=== PATIENT | female | born 1960 | race African-American/Black ===

== ENCOUNTER 2018-07-12 05:38 | Emergency (ER) | payer BC ==
--- OUTSIDE RECORDS SUMMARY | 2018-07-12 05:41 | XMS REPORT ---
:1960 Author Organization eClinicalWorks Care Team Providers Name Role Phone Rios, Na Provider Role Unavailable Allergies No Known Allergies Problems Problem Type Condition Code Onset Dates Condition Status Problem Goiter E04.9 Active Problem Chronic obstructive pulmonary J44.9 Active disease Problem Diabetes mellitus type 2 in obese E11.9 Active Problem Gastroesophageal reflux disease, K21.9 Active esophagitis presence not specified Problem Fatigue, unspecified type R53.83 Active Problem Constipation, unspecified K59.00 Active constipation type Problem Smoker F17.200 Active Problem Pure hypercholesterolemia E78.00 Active Problem Acute allergic rhinitis J30.9 Active Problem Lateral epicondylitis of right M77.11 Active elbow Problem Nicotine dependence F17.200 Active Assessment Insomnia G47.00 Active Problem Wheezing R06.2 Active Problem Acute bronchitis J20.9 Active Problem Gastro-esophageal reflux disease K21.9 Active without esophagitis Problem Insomnia G47.00 Active Problem Depression with anxiety F41.8 Active Problem Hypertension I10 Active Medications Medication Code System Code Instructions Start End Date Status Dosage Date Jose De Jesus [facility] 06497023887 10 MG Orally Active 1 tablet at Once a day bedtime as needed Results No Known Results Summary Purpose eClinicalWorks Submission
--- OUTSIDE RECORDS SUMMARY | 2018-07-12 05:41 | XMS REPORT ---
[...] Active elbow Problem Nicotine dependence F17.200 Active Problem Wheezing R06.2 Active Problem Acute bronchitis J20.9 Active Problem Gastro-esophageal reflux disease K21.9 Active without esophagitis Problem Insomnia G47.00 Active Problem Depression with anxiety F41.8 Active Problem Hypertension I10 Active Medications No Known Medications Results No Known Results Summary Purpose eClinicalWorks Submission
--- OUTSIDE RECORDS SUMMARY | 2018-07-12 05:41 | XMS REPORT ---
:1960 Author Organization eClinicalWorks Care Team Providers Name Role Phone Rios, Na Provider Role Unavailable Allergies, Adverse Reactions, Alerts Substance Reaction Event Type N.K.D.A. Info Not Available Non Drug Allergy Problems Problem Type Condition Code Onset Dates Condition Status Problem Acute bronchitis J20.9 Active Problem Hypertension I10 Active Problem Insomnia G47.00 Active Problem Lateral epicondylitis of right M77.11 Active elbow Assessment Depression with anxiety F41.8 Active Problem Smoker F17.200 Active Assessment Insomnia G47.00 Active Assessment Fatigue, unspecified type R53.83 Active Problem Acute allergic rhinitis J30.9 Active Problem Diabetes mellitus type 2 in obese E11.9 Active Problem Goiter E04.9 Active Problem Pure hypercholesterolemia E78.00 Active Problem Chronic obstructive pulmonary J44.9 Active disease Assessment Lateral epicondylitis of right M77.11 Active elbow Assessment Hypertension I10 Active Assessment Chronic obstructive pulmonary J44.9 Active disease Assessment Pure hypercholesterolemia E78.00 Active Problem Nicotine dependence F17.200 Active Problem Gastro-esophageal reflux disease K21.9 Active without esophagitis Assessment Tobacco abuse counseling Z71.6 Active Assessment Diabetes mellitus type 2 in obese E11.9 Active Problem Depression with anxiety F41.8 Active Assessment Smoker F17.200 Active Problem Wheezing R06.2 Active Medications Medication Code Code Instructions Start End Status Dosage System Date Date Duexis [facility] 31849534159 800-26.6 MG Nov Active 1 tablet Orally Three 25, 25, times a day 2017 2017 Symbicort [facility] 78645936587 160-4.5 Active 2 puffs MCG/ACT Inhalation Twice a day Cyclobenzaprine [facility] 68080532062 5 MG Orally Active 1 tablet as HCl Three times a needed day Ambien [facility] 60998432023 10 MG Orally Active 1 tablet at Once a day bedtime as needed Omeprazole [facility] 49550003325 40 MG Active TAKE ONE CAPSULE BY MOUTH EVERY DAY Lipitor [facility] 63450683659 40 MG Orally Active 1 tablet Once a day Lasix [facility] 90659787725 20 MG Orally Active 1 tablet Once a day Celexa [facility] 95467741243 20 MG Orally Active 1 tablet Once a day Citalopram [facility] 75404962956 40 MG Orally Sept Active 0.5 tablet Hydrobromide Once a day 2017 Glyxambi [facility] 37479990237 25-5 MG Active TAKE 1 TABLET BY MOUTH EVERY MORNING Metformin HCl [facility] 06516250905 1000 MG Orally Active 1 tablet Twice a day with meals Amaryl [facility] 78695675479 4 MG Orally Active 1 tablet Once a day with breakfast or the first main meal of the day Zestoretic [facility] 17867183429 10-12.5 MG Active TAKE 1 TABLET BY MOUTH EVERY DAY Amitriptyline HCl [facility] 68499517648 10 MG Orally Active 1 tablet Once a day Glyxambi [facility] 68829563702 25-5 MG Orally Active 1 tablet in Once a day the morning Zestoretic [facility] [address]-92 12.5-10 MG Active 1 tablet Orally Once a day Ultram [facility] 98912345994 50 MG Orally Active 1 tablet as every 6 hrs needed Results No Known Results Summary Purpose eClinicalWorks Submission
--- OUTSIDE RECORDS SUMMARY | 2018-07-12 05:41 | XMS REPORT ---
:1960 Author Organization eClinicalWorks Care Team Providers Name Role Phone Rios, Na Provider Role Unavailable Allergies, Adverse Reactions, Alerts Substance Reaction Event Type N.K.D.A. Info Not Available Non Drug Allergy Problems Problem Type Condition Code Onset Dates Condition Status Assessment Tobacco abuse counseling Z71.6 Active Assessment Smoker F17.200 Active Assessment Insomnia G47.00 Active Problem Insomnia G47.00 Active Assessment Gastroesophageal reflux disease, K21.9 Active esophagitis presence not specified Problem Hypertension I10 Active Assessment Yeast infection of the vagina B37.3 Active Problem Goiter E04.9 Active Problem Chronic obstructive pulmonary J44.9 Active disease Problem Diabetes mellitus type 2 in obese E11.9 Active Problem Gastroesophageal reflux disease, K21.9 Active esophagitis presence not specified Problem Fatigue, unspecified type R53.83 Active Assessment Pure hypercholesterolemia E78.00 Active Assessment Chronic obstructive pulmonary J44.9 Active disease Problem Constipation, unspecified K59.00 Active constipation type Assessment Depression with anxiety F41.8 Active Problem Smoker F17.200 Active Problem Pure hypercholesterolemia E78.00 Active Problem Acute allergic rhinitis J30.9 Active Problem Lateral epicondylitis of right M77.11 Active elbow Problem Nicotine dependence F17.200 Active Assessment Hypertension I10 Active Assessment Diabetes mellitus type 2 in obese E11.9 Active Problem Wheezing R06.2 Active Problem Acute bronchitis J20.9 Active Problem Gastro-esophageal reflux disease K21.9 Active without esophagitis Problem Depression with anxiety F41.8 Active Medications Medication Code Code Instructions Start End Status Dosage System Date Date Ambien [facility] 65912054965 10 MG Orally Inactive 1 tablet at Once a day bedtime as needed Zestoretic [facility] 79267991345 10-12.5 MG Active TAKE 1 TABLET BY MOUTH EVERY DAY Symbicort [facility] 54412899363 160-4.5 August Active 2 puffs MCG/ACT 2018 Twice a day Zestoretic [facility] [address]-64 12.5-10 MG Active 1 tablet Orally Once a day Linzess NDC 33074141125 145 MCG Orally Jan Active 1 capsule Once a day 2017 Amitriptyline HCl ND 50651390865 10 MG Orally Active 1 tablet Once a day Metformin HCl ND 06103123583 1000 MG Active TAKE 1 TABLET BY MOUTH TWICE A DAY Omeprazole ND 50514162637 40 MG Active TAKE ONE CAPSULE BY MOUTH EVERY DAY Cyclobenzaprine ND 99672724284 5 MG Orally Active 1 tablet as HCl Three times a needed day Lipitor ND 92596033678 40 MG Orally Active 1 tablet Once a day Ultram ND 93744953487 50 MG Orally Active 1 tablet as every 6 hrs needed Lasix ND 84006681576 20 MG Orally Active 1 tablet Once a day Fluconazole ND 60092062208 150 MG Orally Apr Active 1 tablet one tab a week , , and 2018 repeat one tab in 1 week if no improvement Polyethylene ND 33034001041 - Orally Once Feb Active 1 packet Glycol 3350 a day , mixed with 8 2017 2018 ounces of fluid Amaryl ND 40044192115 4 MG Orally Active 1 tablet Once a day with breakfast or the first main meal of the day Metformin HCl ND 11657545100 1000 MG Orally Active 1 tablet Twice a day with meals Glimepiride ND 28152719854 4 MG Active TAKE 1 TABLET BY MOUTH TWICE A DAY Celexa ND 71286613610 20 MG Orally Active 1 tablet Once a day Glyxambi [facility] 68224460724 25-5 MG Orally Active 1 tablet in Once a day the morning Citalopram [facility] 37160468470 40 MG Orally Active 1 tablet Hydrobromide Once a day Glyxambi [facility] 50253033218 25-5 MG Active TAKE 1 TABLET BY MOUTH EVERY MORNING Results No Known Results Summary Purpose eClinicalWorks Submission
--- OUTSIDE RECORDS SUMMARY | 2018-07-12 05:41 | XMS REPORT ---
:1960 Author Organization eClinicalWorks Care Team Providers Name Role Phone Rios, Na Provider Role Unavailable Allergies No Known Allergies Problems Problem Type Condition Code Onset Dates Condition Status Problem Acute bronchitis J20.9 Active Problem Hypertension I10 Active Problem Insomnia G47.00 Active Problem Lateral epicondylitis of right M77.11 Active elbow Problem Smoker F17.200 Active Problem Acute allergic rhinitis J30.9 Active Problem Diabetes mellitus type 2 in obese E11.9 Active Problem Goiter E04.9 Active Problem Pure hypercholesterolemia E78.00 Active Problem Chronic obstructive pulmonary J44.9 Active disease Problem Nicotine dependence F17.200 Active Problem Gastro-esophageal reflux disease K21.9 Active without esophagitis Assessment Lateral epicondylitis of right M77.11 Active elbow Problem Depression with anxiety F41.8 Active Problem Wheezing R06.2 Active Medications Medication Code System Code Instructions Start Date End Date Status Dosage Duexis [facility] 12058980813 800-26.6 MG Dec 04, Jan 03, Active 1 tablet Orally Three 2017 2018 times a day Results No Known Results Summary Purpose eClinicalWorks Submission
--- OUTSIDE RECORDS SUMMARY | 2018-07-12 05:41 | XMS REPORT ---
:1960 Author Organization eClinicalWorks Care Team Providers Name Role Phone Rios, Na Provider Role Unavailable Allergies, Adverse Reactions, Alerts Substance Reaction Event Type N.K.D.A. Info Not Available Non Drug Allergy Problems Problem Type Condition Code Onset Dates Condition Status Assessment Tobacco abuse counseling Z71.6 Active Assessment Smoker F17.200 Active Assessment Chronic obstructive pulmonary J44.9 Active disease Assessment Insomnia G47.00 Active Problem Insomnia G47.00 Active Assessment Gastroesophageal reflux disease, K21.9 Active esophagitis presence not specified Problem Hypertension I10 Active Assessment Abdominal mass, LUQ (left upper R19.02 Active quadrant) Problem Goiter E04.9 Active Problem Chronic obstructive pulmonary J44.9 Active disease Problem Diabetes mellitus type 2 in obese E11.9 Active Problem Gastroesophageal reflux disease, K21.9 Active esophagitis presence not specified Problem Fatigue, unspecified type R53.83 Active Assessment Hypertension I10 Active Assessment Pure hypercholesterolemia E78.00 Active Problem Constipation, unspecified K59.00 Active constipation type Assessment Depression with anxiety F41.8 Active Problem Smoker F17.200 Active Problem Pure hypercholesterolemia E78.00 Active Problem Acute allergic rhinitis J30.9 Active Problem Lateral epicondylitis of right M77.11 Active elbow Problem Nicotine dependence F17.200 Active Assessment Left upper quadrant pain R10.12 Active Assessment Diabetes mellitus type 2 in obese E11.9 Active Problem Wheezing R06.2 Active Problem Acute bronchitis J20.9 Active Problem Gastro-esophageal reflux disease K21.9 Active without esophagitis Problem Depression with anxiety F41.8 Active Medications Medication Code Code Instructions Start End Status Dosage System Date Date Lipitor [facility] 89247940735 40 MG Orally Active 1 tablet Once a day Polyethylene [facility] 98148904941 - Orally Once Mar 07August Active 1 packet Glycol 3350 a day 2017, mixed with 2019 8 ounces of fluid Symbicort [facility] 34794519986 160-4.5 Active 2 puffs MCG/ACT Inhalation Twice a day Amitriptyline HCl [facility] 52963781121 10 MG Orally Active 1 tablet Once a day Ultram [facility] 18542847342 50 MG Orally Active 1 tablet as every 6 hrs needed Amaryl [facility] 95658871509 4 MG Orally Active 1 tablet Once a day with breakfast or the first main meal of the day Cyclobenzaprine [facility] 51498410258 5 MG Orally Active 1 tablet as HCl Three times a needed day Glyxambi [facility] 50005021720 25-5 MG Orally Active 1 tablet in Once a day the morning Citalopram [facility] 76052356548 40 MG Orally Active 1 tablet Hydrobromide Once a day Celexa [facility] 83793703711 20 MG Orally Active 1 tablet Once a day Glimepiride [facility] 34920332855 4 MG Active TAKE 1 TABLET BY MOUTH TWICE A DAY Glyxambi [facility] 63904525555 25-5 MG Active TAKE 1 TABLET BY MOUTH EVERY MORNING Metformin HCl [facility] 74319813023 1000 MG Orally Active 1 tablet Twice a day with meals Omeprazole [facility] 26017016813 40 MG Active TAKE ONE CAPSULE BY MOUTH EVERY DAY Zestoretic [facility] [address]-27 12.5-10 MG Active 1 tablet Orally Once a day Lasix [facility] 73644817649 20 MG Orally Active 1 tablet Once a day Ambien [facility] 05927171029 10 MG Orally Inactive 1 tablet at Once a day bedtime as needed Zestoretic [facility] 84756622120 10-12.5 MG Active TAKE 1 TABLET BY MOUTH EVERY DAY Metformin HCl [facility] 91548239626 1000 MG Active TAKE 1 TABLET BY MOUTH TWICE A DAY Results Name Result Date Reference Range Unit Abnormality Flag Urine Microalbumin, Random ----UR MICROALBUMIN <0.5 [id number] < 1.9 mg/dL HPY BREATH ADULT ----HPY BREATH ADULT NOT DETECTED [id number] NOT DETECTED CBC with Automated Diff ----Basophils % 0.6 20180531 0-1.3 % ----Eosinophils % 1.7 20180531 0-4.4 % ----Absolute 1.9 20180531 0.7-4.9 Lymphocytes (CBC) ----Absolute Neutrophil 5.2 20180531 1.8-8.0 ----Red Cell 13.6 20180531 12.1-15.2 % Distribution Width ----Absolute 0.1 16212096 0-0.5 Eosinophils ----Platelets 343 86409853 152-406 ----Absolute Monocytes 0.4 36683563 0.1-1.3 ----MCHC 32.2 68052504 32.0-36.0 g/dL ----MCH 29.5 [id number] 27.0-35.0 pg ----MCV 91.9 41958099 80-100 fL ----Neutrophils % 67.8 41846527 41.7-73.7 % ----MPV 8.1 92755603 7.6-11.3 fL ----Monocytes % 5.1 02019632 3.3-12.3 % ----Lymphocytes % 24.8 73764809 15.3-44.8 % ----Absolute Basophils 0.0 12677466 0-0.5 ----White Blood Count 7.7 70085397 4.3-10.9 ----RBC Red Blood Cell 4.44 64338823 3.86-4.86 M/ul Count ----Hemoglobin 13.1 58002187 12.0-15.0 g/dL ----Hematocrit 40.8 47964417 36.0-45.0 % TSH Thyroid Stimulating Hormone ----Thyroid Stimulating 0.921 51839603 0.360-3.740 [iU]/L Hormone Lipid Profile ----Cholesterol/HDL 6.25 32677548 Ratio ----LDL Cholesterol, 198 34054380 <130 H Calculated ----HDL Cholesterol 44 11151081 40-60 mg/dL ----Triglycerides Level 167 17589932 <150 mg/dL H ----Cholesterol Level 275 55299794 <200 mg/dL H Hemoglobin A1C ----Hemoglobin A1c 9.1 [id number] 4.2-6.3 % H Summary Purpose eClinicalWorks Submission
--- OUTSIDE RECORDS SUMMARY | 2018-07-12 05:41 | XMS REPORT ---
[...] Problem Hypertension I10 Active Medications Medication Code Code Instructions Start End Status Dosage System Date Date [facility] 17037364279 - Orally Once a Mar 07August Active 1 packet Glycol 3350 day 2017 with 8 ounces of fluid Results No Known Results Summary Purpose eClinicalWorks Submission
[2018-07-12] MEDS ORDERED: SMZ./TMP. 800/160 MG TABLET ONE (06:32)
[2018-07-12] MEDS ORDERED: LIDOCAINE 1% MPF 5 ML VIAL ONE (06:32)
[2018-07-12] MEDS ORDERED: BUPIVACAINE 0.5% PF 10 ML VIAL ONE (06:32)
--- NOTE | 2018-07-12 06:40 | EDPHYS ---
Physician Documentation [facility] Name: Tyra Espitia Age: 58 yrs Sex: Female : 1960 Arrival Date: 07/12/2018 Time: 05:39 Bed 15 Private MD: Ami Rios ED Physician [place] HPI: 07/12 06:01 This 58 yrs old Black Female presents to ER via Ambulatory with complaints of Finger kb Pain-Infection. 06:01 The patient presents with an abscess of the dorsal aspect of distal phalanx of right kb index finger. Description: erythematous, fluctuant, swollen, warm. Onset: The symptoms/episode began/occurred 2 week(s) ago. Possible cause(s): unknown. Associated signs and symptoms: Pertinent positives: erythema, swelling, Pertinent negatives: discharge, drainage, foreign body sensation, fever, headache, nausea, shortness of breath, vomiting. Modifying factors: the symptoms are alleviated by nothing, the symptoms are aggravated by pressure, squeezing the lesion and expressing the contents, touching. Severity of symptoms: At their worst the symptoms were moderate, in the emergency department the symptoms are unchanged. The patient has not experienced similar symptoms in the past. The patient has not recently seen a physician. Pt reports an infection on her finger that started 2 weeks ago. Historical: - Allergies: 06:03 No Known Allergies; jd3 - Home Meds: 06:03 gabapentin oral oral [Active]; Metformin Oral [Active]; glyburide Oral [Active]; jd3 Glyxambi oral oral [Active]; Lisinopril Oral [Active]; citalopram oral [Active]; Omeprazole Oral [Active]; atorvastatin oral oral [Active]; - PMHx: 06:03 Diabetes - NIDDM; Hypertension; High Cholesterol; jd3 - PSHx: 06:03 ; right ankle sugery with plate and pin; jd3 - Immunization history:: Adult Immunizations up to date. - Social history:: Smoking status: Patient uses tobacco products, smokes one-half pack cigarettes per day. - Ebola Screening: : Patient negative for fever greater than or equal to 101.5 degrees Fahrenheit, and additional compatible Ebola Virus Disease symptoms. ROS: 06:01 Constitutional: Negative for fever, chills, and weight loss, Cardiovascular: Negative kb for chest pain, palpitations, and edema, Respiratory: Negative for shortness of breath, cough, wheezing, and pleuritic chest pain, Abdomen/GI: Negative for abdominal pain, nausea, vomiting, diarrhea, and constipation, MS/Extremity: Negative for injury and deformity, Neuro: Negative for headache, weakness, numbness, tingling, and seizure. 06:01 Skin: Positive for abscess, erythema, swelling, of the dorsal aspect of distal phalanx of right index finger. Exam: 06:01 Constitutional: This is a well developed, well nourished patient who is awake, alert, kb and in no acute distress. Head/Face: Normocephalic, atraumatic. Neck: Trachea midline, no thyromegaly or masses palpated, and no cervical lymphadenopathy. Supple, full range of motion without nuchal rigidity, or vertebral point tenderness. No Meningismus. Chest/axilla: Normal chest wall appearance and motion. Nontender with no deformity. No lesions are appreciated. Cardiovascular: Regular rate and rhythm with a normal S1 and S2. No gallops, murmurs, or rubs. Normal PMI, no JVD. No pulse deficits. Respiratory: Lungs have equal breath sounds bilaterally, clear to auscultation and percussion. No rales, rhonchi or wheezes noted. No increased work of breathing, no retractions or nasal flaring. Abdomen/GI: Soft, non-tender, with normal bowel sounds. No distension or tympany. No guarding or rebound. No evidence of tenderness throughout. MS/ Extremity: Pulses equal, no cyanosis. Neurovascular intact. Full, normal range of motion. Neuro: Awake and alert, GCS 15, oriented to person, place, time, and situation. Cranial nerves II-XII grossly intact. Motor strength 5/5 in all extremities. Sensory grossly intact. Cerebellar exam normal. Normal gait. 06:01 Skin: abscess, that is moderate sized, of the dorsal aspect of distal phalanx of right index finger, with fluctuance. Vital Signs: 06:04 BP 115 / 97; Pulse 107; Resp 17 S; Temp 98.8(O); Pulse Ox 97% on R/A; Weight 112.49 kg jd3 (R); Height 5 ft. 4 in. (162.56 cm) (R); Pain 10/10; 06:29 BP 123 / 72; Pulse 99; Resp 18 S; Pulse Ox 95% on R/A; jd3 06:04 Body Mass Index 42.57 (112.49 kg, 162.56 cm) jd3 Procedures: 06:25 Nerve block: (digital) of palmar aspect of proxima; phalanx of right index finger kb Medication: Lidocaine 1% without epinephrine Marcaine 0.5%, Amount: 3 mls were injected, Effect: the patient has resolution of the pain, Set up for procedure. Performed by Georgia AGUILAR Patient tolerated well. 06:38 I \T\ D: Incision and drainage was performed for an abscess of the right dorsal aspect of kb distal phalanx of right index finger Prepped with alcohol, Anesthetized with lidocaine/marcaine digital block. Incised with 18G needle. Drained moderate amount purulent fluid. Dressing: bandaid the patient tolerated the procedure well. MDM: 05:57 Patient medically screened. kb 06:00 Data reviewed: vital signs, nurses notes. Data interpreted: Pulse oximetry: on room air kb is 100 %. Interpretation: normal. Counseling: I had a detailed discussion with the patient and/or guardian regarding: the historical points, exam findings, and any diagnostic results supporting the discharge/admit diagnosis, the need for outpatient follow up, a family practitioner, to return to the emergency department if symptoms worsen or persist or if there are any questions or concerns that arise at home. Administered Medications: 06:22 Drug: Marcaine (0.5 %) 1 vials {Note: given by Georgia AGUILAR.} Volume: 10 ml; jd3 Route: Infiltration; 06:44 Follow up: Response: No adverse reaction jd3 06:22 Drug: Bactrim (160 mg-800 mg (DS) 1 tablet Route: PO; jd3 06:44 Follow up: Response: No adverse reaction jd3 06:23 Drug: Lidocaine (1 %) 1 vials {Note: given by Georgia AGUILAR.} Volume: 5 ml; jd3 Route: Infiltration; 06:44 Follow up: Response: No adverse reaction jd3 Disposition: 06:47 Co-signature as Attending Physician, eBn Madera MD I agree with the assessment and mercedes plan of care. Disposition: 07/12/18 06:39 Discharged to Home. Impression: Cutaneous abscess of right hand - paronychia. - Condition is Stable. - Discharge Instructions: Paronychia, Qong-iy-Blyv. - Prescriptions for Bactrim DS 800- 160 mg Oral Tablet - take 1 tablet by ORAL route every 12 hours for 7 days; 14 tablet. - Medication Reconciliation Form, Thank You Letter, Antibiotic Education, Prescription Opioid Use form. - Follow up: Emergency Department; When: As needed; Reason: Worsening of condition. Follow up: Private Physician; When: 2 - 3 days; Reason: Recheck today's complaints, Continuance of care, Re-evaluation by your physician. Signatures: Georgia Pearl, [employer]-C [employer]-Ckb Ben [place] MD MD cha Davies, Jonathon, RN RN jd3 Corrections: (The following items were deleted from the chart) 06:45 06:39 07/12/2018 06:39 Discharged to Home. Impression: Cutaneous abscess of right hand jd3 - paronychia. Condition is Stable. Discharge Instructions: Paronychia, Yogl-do-Ielj. Prescriptions for Bactrim DS 800-160 mg Oral Tablet - take 1 tablet by ORAL route every 12 hours for 7 days; 14 tablet. and Forms are Medication Reconciliation Form, Thank You Letter, Antibiotic Education, Prescription Opioid Use. Follow up: Emergency Department; When: As needed; Reason: Worsening of condition. Follow up: Private Physician; When: 2 - 3 days; Reason: Recheck today's complaints, Continuance of care, Re-evaluation by your physician. kb
--- NOTE | 2018-07-12 06:40 | ER ---
Nurse's Notes [facility] Name: Tyra Espitia Age: 58 yrs Sex: Female : 1960 Arrival Date: 07/12/2018 Time: 05:39 Bed 15 Private MD: Ami Rios Diagnosis: Cutaneous abscess of right hand-paronychia Presentation: 07/12 05:57 Presenting complaint: Patient states: "I was scratching the bottom of my foot and a jd3 peace of the skin got under my nail on my pointer finger. so for about 2 weeks it has gotten infected and it hurts.". Transition of care: patient was not received from another setting of care. Onset of symptoms was July 12, 2018. Risk Assessment: Do you want to hurt yourself or someone else? Patient reports no desire to harm self or others. Initial Sepsis Screen: Does the patient meet any 2 criteria? HR > 90 bpm. No. Patient's initial sepsis screen is negative. Does the patient have a suspected source of infection? No. Patient's initial sepsis screen is negative. Care prior to arrival: None. 05:57 Method Of Arrival: Ambulatory jd3 05:57 Acuity: AMADO 3 jd3 Historical: - Allergies: 06:03 No Known Allergies; jd3 - Home Meds: 06:03 gabapentin oral oral [Active]; Metformin Oral [Active]; glyburide Oral [Active]; jd3 Glyxambi oral oral [Active]; Lisinopril Oral [Active]; citalopram oral [Active]; Omeprazole Oral [Active]; atorvastatin oral oral [Active]; - PMHx: 06:03 Diabetes - NIDDM; Hypertension; High Cholesterol; jd3 - PSHx: 06:03 ; right ankle sugery with plate and pin; jd3 - Immunization history:: Adult Immunizations up to date. - Social history:: Smoking status: Patient uses tobacco products, smokes one-half pack cigarettes per day. - Ebola Screening: : Patient negative for fever greater than or equal to 101.5 degrees Fahrenheit, and additional compatible Ebola Virus Disease symptoms. Screenin:06 Abuse screen: Denies threats or abuse. Nutritional screening: No deficits noted. jd3 Tuberculosis screening: No symptoms or risk factors identified. Fall Risk Ambulatory Aid- None/Bed Rest/Nurse Assist (0 pts). Gait- Normal/Bed Rest/Wheelchair (0 pts) Mental Status- Oriented to own ability (0 pts). Total Gutierrez Fall Scale indicates No Risk (0-24 pts). Assessment: 06:04 General: Appears in no apparent distress. uncomfortable, Behavior is calm, cooperative, jd3 appropriate for age. Pain: Complains of pain in Right index finger Quality of pain is described as sharp. Neuro: Level of Consciousness is awake, alert, obeys commands, Oriented to person, place, time, situation, Appropriate for age. Cardiovascular: Capillary refill < 3 seconds Patient's skin is warm and dry. Respiratory: Airway is patent Respiratory effort is even, unlabored, Respiratory pattern is regular, symmetrical. GI: No signs and/or symptoms were reported involving the gastrointestinal system. : No signs and/or symptoms were reported regarding the genitourinary system. EENT: No signs and/or symptoms were reported regarding the EENT system. Derm: Skin is intact, Skin is dry, Skin is normal, Skin temperature is warm Wound noted Right index finger Wound is closed, warm to the touch, red, pt reports pain on palpation. Musculoskeletal: Circulation, motion, and sensation intact. Range of motion: intact in all extremities. 06:29 Reassessment: Patient appears in no apparent distress at this time. Patient and/or jd3 family updated on plan of care and expected duration. Pain level reassessed. Patient is alert, oriented x 3, equal unlabored respirations, skin warm/dry/pink. 06:44 Reassessment: Patient appears in no apparent distress at this time. Patient and/or jd3 family updated on plan of care and expected duration. Pain level reassessed. Patient is alert, oriented x 3, equal unlabored respirations, skin warm/dry/pink. Patient states feeling better. Vital Signs: 06:04 BP 115 / 97; Pulse 107; Resp 17 S; Temp 98.8(O); Pulse Ox 97% on R/A; Weight 112.49 kg jd3 (R); Height 5 ft. 4 in. (162.56 cm) (R); Pain 10/10; 06:29 BP 123 / 72; Pulse 99; Resp 18 S; Pulse Ox 95% on R/A; jd3 06:04 Body Mass Index 42.57 (112.49 kg, 162.56 cm) jd3 ED Course: 05:39 Patient arrived in ED. ds1 05:39 Ami Rios MD is Private Physician. ds1 05:56 Georgia Pearl FNP-C is [facility]. kb 05:56 Ben Madera MD is Attending Physician. kb 05:57 Ho Brantley RN is Primary Nurse. jd3 05:59 Triage completed. jd3 06:04 Arm band placed on. jd3 06:06 Patient has correct armband on for positive identification. Bed in low position. Call jd3 light in reach. Side rails up X 1. Adult w/ patient. 06:43 No provider procedures requiring assistance completed. Patient did not have IV access jd3 during this emergency room visit. Administered Medications: 06:22 Drug: Marcaine (0.5 %) 1 vials {Note: given by Georgia AGUILAR.} Volume: 10 ml; jd3 Route: Infiltration; 06:44 Follow up: Response: No adverse reaction jd3 06:22 Drug: Bactrim (160 mg-800 mg (DS) 1 tablet Route: PO; jd3 06:44 Follow up: Response: No adverse reaction jd3 06:23 Drug: Lidocaine (1 %) 1 vials {Note: given by Georgia AGUILAR.} Volume: 5 ml; jd3 Route: Infiltration; 06:44 Follow up: Response: No adverse reaction jd3 Outcome: 06:39 Discharge ordered by . kb 06:43 Discharged to home ambulatory, with family. jd3 06:43 Condition: stable 06:43 Discharge instructions given to patient, family, Instructed on discharge instructions, follow up and referral plans. medication usage, Demonstrated understanding of instructions, follow-up care, medications, Prescriptions given X 1. 06:45 Patient left the ED. jd3 Signatures: Georgia Pearl FNP-C FNP-Naima López ds1 Ho Brantley, PAULA RN jd3
[2018-07-12 06:50] VITALS: TEMP 98.8
[2018-07-12 06:51] VITALS: BP 123/72; O2SAT 95
== END 2018-07-12 06:45 | disposition home or self-care (01) ==
LOC: ER 05:38
PROC: 0J9J0ZZ Drainage of Right Hand Subcutaneous Tissue and Fascia, Open Approach (ICD-10-PCS; principal; 2018-07-12)
DX: L03.011 Cellulitis of right finger (principal); E11.9 Type 2 diabetes mellitus without complications; I10 Essential (primary) hypertension; E78.00 Pure hypercholesterolemia, unspecified; Z79.84 Long term (current) use of oral hypoglycemic drugs; F17.210 Nicotine dependence, cigarettes, uncomplicated
CPT/HCPCS: 64450; 99283

== ENCOUNTER 2020-11-05 08:15 | Emergency (ER) | payer BC, OTHER ==
--- OUTSIDE RECORDS SUMMARY | 2020-11-05 08:18 | XMS REPORT | Continuity of Care Document ---
:1960 Author Organization [facility] t Address [address] [place] [address] Care Team Providers Name Role Phone Unavailable Unavailable Unavailable Problems This patient has no known problems. Allergies, Adverse Reactions, Alerts This patient has no known allergies or adverse reactions. Medications Ordered Filled Start Stop Current Ordering Indication Dosage Frequency Signature Comments Components Source Medication Medication Date Date Medication? Clinician (SIG) Name Name Albuterol Albuterol Yes Na Rios [address] [facility] Sulfate Sulfate 7[facility]19 [facility] Zofran Zofran Yes Na Rios [address] [facility] [address] [facility] 6-07 as [facility] Lipitor Lipitor Yes Na Rios [address] [facility] [address] [facility] Zestoretic Zestoretic Yes Na Rios [address] [facility] Cetirizine Cetirizine Yes Na Rios [address] [facility] HCl HCl [facility] Albuterol Albuterol Yes Na Rios [address] [facility] Sulfate Sulfate needed [facility] Amitriptyli Amitriptyli Yes Na Rios TAKE [address] [facility] ne HCl ne HCl TABLET BY [facility]TH AT [facility] BEDTIME l NEEDED FOR [facility]RAINE ent Clinics Trazodone Trazodone Yes Na Rios [address] [facility] HCl HCl at bedtime [facility] Glyxambi Glyxambi Yes Na Rios [address] [facility] in the [facility] - morning [facility] Metformin Metformin Yes Na Rios [address] [facility] HCl HCl with meals [facility] Losartan Losartan Yes Na Rios [address] [facility] Potassium Potassium [facility] - [facility] Omeprazole Omeprazole Yes Na Rios TAKE ONE [facility] CAPSULE BY [facility] MOUTH [facility] EVERY DAY l [facility] Citalopram Citalopram Yes Na Rios [address] [facility] Hydrobromid Hydrobromid [facility] - e e [facility] ent [facility] Symbicort Symbicort Yes Na Rios [address] [facility] - [facility] Amaryl Amaryl Yes Na Rios [address] [facility] kes - [facility] Tizanidine Tizanidine Yes Na Rios TAKE [address] [facility] HCl HCl TABLETS BY [facility]OUTH AT [facility] BEDTIME l NEEDED [facility] ent [facility] Atorvastati Atorvastati Yes Na Rios TAKE [address] [facility] n Calcium n Calcium TABLET BY [facility] MOUTH [facility] EVERY DAY [facility] Immunizations Ordered Filled Immunization Date Status Comments [facility] e Immunization Name Name Flucelvax - Flucelvax - 2018-12-[address] [facility] - multidose vial multidose vial 00:00:00 [facility] Outpatient Clin[facility] Procedures This patient has no known procedures. Encounters Start End Encounter Admission Attending Care Care Encounter Source Date/Time Date/Time Type Type Clinicians Facility Department ID 2020-07-14 2020-07-14 Outpatient [facility] [id number] [facility] 2020-07-08 2020-07-08 Outpatient [facility] [id number] [facility] 2020-03-25 2020-03-25 Outpatient [facility] [id number] [facility] Clin[facility] 2020-01-09 2020-01-09 Outpatient [facility] [id number] [facility] 2020-01-09 2020-01-[address] [facility] [id number] 2019-12-09 2019-12-09 [facility] [id number] [facility] 2019-12-08 2019-12-[address] [facility] [id number] [facility] 2019-11-20 2019-11-20 [facility] [id number] [facility] 08:40:00 08:40:00 [address] - Drive [facility] Medicine l Medicine Outpati ent Clinics 2019-08-26 2019-08-26 [facility] [id number] 16:17:00 16:17:00 [place] [address] - [employer] [facility] Medicine l Medicine Outpati ent Clinics 2019-08-20 2019-08-20 [facility] [id number] [facility] 08:00:00 08:00:00 [place] [address] [employer] [facility] Medicine l Medicine Outpati ent Clinics 2019-08-15 2019-08-15 [facility] [id number] 09:31:00 09:31:00 t [place] [address] [employer] [facility] Medicine l Medicine Outpati ent Clinics 2019-05-16 2019-05-16 [facility] [id number] 13:20:00 13:20:00 [place] [address] [employer] [facility] Medicine l Medicine Outpati ent Clinics 2019-02-18 2019-02-18 [facility] [id number] [facility] 03:25:00 03:25:00 t [place] [address] [employer] [facility] Medicine l Medicine Outpati ent Clinics 2019-02-03 2019-02-03 [facility] [id number] [address] 17:32:00 17:32:00 [address] [place] [address] [employer] [facility] Medicine Outpati ent Clinics 2019-01-31 2019-01-31 [facility] [id number] 13:00:00 13:00:[address] [place] s - Drive [facility] l Medicine Outpati ent Clinics 2018-12-19 2018-12-19 [facility] [id number] 15:33:00 15:33:[address] Luke s - Drive [facility] Medicine l Medicine Outpati ent Clinics 2018-12-11 2018-12-11 [facility] [id number] [facility] 11:40:00 11:40:00 t [place] [employer] Luke s - Drive [facility] Medicine l Medicine Outpati ent Clinics 2018-09-27 2018-09-27 [facility] [id number] 11:40:00 11:40:00 t [place] [employer] s - Drive [facility] Medicine l Medicine Outpati ent Clinics 2018-08-16 2018-08-16 [facility] [id number] 15:00:00 15:00:00 t [place] [employer] Luke s - Drive [facility] Medicine l Medicine Outpati ent Clinics 2018-07-16 2018-07-16 [facility] [id number] 10:33:00 10:33:00 t [place] [employer] s - Drive [facility] Medicine l Medicine Outpati ent Clinics 2018-07-05 2018-07-05 [facility] [id number] 02:46:00 02:46:00 t [place] [employer] Luke s - Drive [facility] Medicine l Medicine Outpati ent Clinics 2018-05-30 2018-05-30 [facility] [id number] 15:00:00 15:00:00 t [place] [employer] Luke s - Drive [facility] Medicine l Medicine Outpati ent Clinics 2018-04-18 2018-04-18 [facility] [id number] 14:30:00 14:30:00 t [place] [employer] Luke s - Drive [facility] Medicine l Medicine Outpati ent Clinics 2018-03-18 2018-03-18 [facility] [id number] 16:46:00 16:46:00 t [place] [employer] Luke s - Drive [facility] Outpati ent Clinics 2018-03-04 2018-03-04 [facility] [id number] 12:34:00 12:34:00 t [employer] - [employer] [facility] 2017-12-11 2017-12-11 [facility] [id number] 10:37:00 10:37:00 t [employer] [facility] 2017-12-04 2017-12-04 [facility] [id number] 14:30:00 14:30:00 t [employer] [facility] Results This patient has no known results.
--- NOTE | 2020-11-05 09:28 | ER ---
Nurse's Notes [facility] Name: Tyra Espitia Age: 60 yrs Sex: Female : 1960 Arrival Date: 11/05/2020 Time: 08:20 Bed 18 Private MD: Diagnosis: Low back pain Presentation: 11/05 08:32 Chief complaint: Patient states: R sided neck pain that radiates down R arm and R low ss back pain that radiates down R leg that began yesterday morning. Pt denies injury. Reports history of bulging discs to neck and back. Coronavirus screen: Client denies travel out of the [place] in the last 14 days. Ebola Screen: Patient denies exposure to infectious person. Patient denies travel to an Ebola-affected area in the 21 days before illness onset. Initial Sepsis Screen: Does the patient meet any 2 criteria? No. Patient's initial sepsis screen is negative. Does the patient have a suspected source of infection? No. Patient's initial sepsis screen is negative. Risk Assessment: Do you want to hurt yourself or someone else? Patient reports no desire to harm self or others. Onset of symptoms was November 04, 2020. 08:32 Method Of Arrival: Wheelchair ss 08:32 Acuity: AMADO 3 ss Historical: - Allergies: 08:34 No Known Allergies; ss - Home Meds: 08:34 atorvastatin Oral [Active]; citalopram oral [Active]; gabapentin Oral [Active]; ss Glyburide Oral [Active]; Metformin Oral [Active]; lisinopril Oral [Active]; Omeprazole Oral [Active]; - PMHx: 08:34 Diabetes - NIDDM; High Cholesterol; Hypertension; Gastric reflux; ss - PSHx: 08:35 section; Ankle; Hernia Repair; ss - Immunization history:: Adult Immunizations up to date, Client reports having NOT received the Covid vaccine. - Social history:: Smoking status: Patient reports the use of cigarette tobacco products, smokes one pack cigarettes per day. - Family history:: not pertinent. Screenin:33 Abuse screen: Denies threats or abuse. Denies injuries from another. Nutritional tr6 screening: No deficits noted. Tuberculosis screening: No symptoms or risk factors identified. Fall Risk None identified. Assessment: 09:34 General: Appears uncomfortable, Behavior is calm, cooperative, appropriate for age. tr6 Pain: Complains of pain in chronic back pain. Neuro: No deficits noted. Cardiovascular: No deficits noted. Respiratory: No deficits noted. GI: No deficits noted. : No deficits noted. EENT: No deficits noted. Derm: No deficits noted. Musculoskeletal: No deficits noted. Vital Signs: 08:32 BP 132 / 85; Pulse 96; Resp 18; Temp 97.2(TE); Pulse Ox 98% on R/A; Weight 104.78 kg; Height 5 ft. 4 in. (162.56 cm); Pain 10/10; 09:35 BP 148 / 55; Pulse Ox 96% ; tr6 08:32 Body Mass Index 39.65 (104.78 kg, 162.56 cm) ED Course: 08:20 Patient arrived in ED. ds1 08:34 Triage completed. ss 08:35 Arm band placed on right wrist. 08:59 Lester Foss MD is Attending Physician. [facility] 09:12 Shannan Forrester, PAULA is Primary Nurse. tr6 09:33 Resting quietly. tr6 09:33 Patient has correct armband on for positive identification. Bed in low position. Call tr6 light in reach. Side rails up X 1. Pulse ox on. NIBP on. Door closed. Noise minimized. Visitors limited. Lights dimmed. Moved to private room. Warm blanket given. 09:33 No provider procedures requiring assistance completed. Patient did not have IV access tr6 during this emergency room visit. Patient maintains SpO2 saturation greater than 95% on room air. Administered Medications: 09:32 Drug: morphine 4 mg Route: IM; Site: right deltoid; tr6 09:32 Drug: Zofran (Ondansetron) 4 mg Route: PO; tr6 09:32 Drug: MethylPREDNISolone Sodium Succinate 125 mg Route: IM; Site: right deltoid; tr6 09:32 Drug: Valium (diazepam) 5 mg Route: PO; tr6 Outcome: 09:27 Discharge ordered by . ma2 10:33 Patient left the ED. iw Signatures: Naima Christianson ds1 Dominique Dickey RN RN Matilda Gutierrez RN RN Lester Foss MD MD ma2 Ramnanan, Shannan, RN RN tr6
--- NOTE | 2020-11-05 09:28 | EDPHYS ---
Physician Documentation [facility] Name: Tyra Espitia Age: 60 yrs Sex: Female : 1960 Arrival Date: 11/05/2020 Time: 08:20 Bed 18 Private MD: ED Physician Lester Foss HPI: 11/05 09:23 This 60 yrs old Black Female presents to ER via Wheelchair with complaints of neck and ma2 Back Pain. 09:23 Onset: The symptoms/episode began/occurred gradually, 1 day(s) ago. Severity of ma2 symptoms: in the emergency department the symptoms are unchanged. The patient has experienced similar episodes in the past. This is a 60-year-old female with history of chronic neck pain, back pain, had MRI in the past that shows disc prolapse, arthritis no spinal cord compression, or canal stenosis. She has been getting steroid injections, and follow-up with pain management doctor who has been prescribing tramadol, and gabapentin, she is out of tramadol, she is here with pain started last night, right-sided lower back, and right-sided neck pain, unchanged from prior, pain radiate through the right leg, she has no red flags such as urinary incontinence, weakness, fever, or midline pain, or new pain, pain is moderate. No new trauma.. Historical: - Allergies: 08:34 No Known Allergies; ss - Home Meds: 08:34 atorvastatin Oral [Active]; citalopram oral [Active]; gabapentin Oral [Active]; ss Glyburide Oral [Active]; Metformin Oral [Active]; lisinopril Oral [Active]; Omeprazole Oral [Active]; - PMHx: 08:34 Diabetes - NIDDM; High Cholesterol; Hypertension; Gastric reflux; ss - PSHx: 08:35 section; Ankle; Hernia Repair; ss - Immunization history:: Adult Immunizations up to date, Client reports having NOT received the Covid vaccine. - Social history:: Smoking status: Patient reports the use of cigarette tobacco products, smokes one pack cigarettes per day. - Family history:: not pertinent. ROS: 09:23 Constitutional: Negative for fever, chills, and weight loss. ma2 09:23 All other systems are negative. Exam: 09:23 Constitutional: This is a well developed, well nourished patient who is awake, alert, ma2 and in no acute distress. Head/Face: Normocephalic, atraumatic. Eyes: Pupils equal round and reactive to light, extra-ocular motions intact. Lids and lashes normal. Conjunctiva and sclera are non-icteric and not injected. Cornea within normal limits. Periorbital areas with no swelling, redness, or edema. ENT: Nares patent. No nasal discharge, no septal abnormalities noted. Tympanic membranes are normal and external auditory canals are clear. Oropharynx with no redness, swelling, or masses, exudates, or evidence of obstruction, uvula midline. Mucous membranes moist. Neck: Trachea midline, no thyromegaly or masses palpated, and no cervical lymphadenopathy. Supple, full range of motion without nuchal rigidity, or vertebral point tenderness. No Meningismus. Chest/axilla: Normal chest wall appearance and motion. Nontender with no deformity. No lesions are appreciated. Cardiovascular: Regular rate and rhythm with a normal S1 and S2. No gallops, murmurs, or rubs. Normal PMI, no JVD. No pulse deficits. Respiratory: Lungs have equal breath sounds bilaterally, clear to auscultation and percussion. No rales, rhonchi or wheezes noted. No increased work of breathing, no retractions or nasal flaring. Abdomen/GI: Soft, non-tender, with normal bowel sounds. No distension or tympany. No guarding or rebound. No evidence of tenderness throughout. Back: No spinal tenderness. No costovertebral tenderness. Full range of motion. MS/ Extremity: Pulses equal, no cyanosis. Neurovascular intact. Full, normal range of motion. Neuro: Awake and alert, GCS 15, oriented to person, place, time, and situation. Cranial nerves II-XII grossly intact. Motor strength 5/5 in all extremities. Sensory grossly intact. Cerebellar exam normal. Normal gait. Vital Signs: 08:32 BP 132 / 85; Pulse 96; Resp 18; Temp 97.2(TE); Pulse Ox 98% on R/A; Weight 104.78 kg; ss Height 5 ft. 4 in. (162.56 cm); Pain 10/10; 09:35 BP 148 / 55; Pulse Ox 96% ; tr6 08:32 Body Mass Index 39.65 (104.78 kg, 162.56 cm) ss MDM: 09:23 Differential Diagnosis Differential diagnoses include disc prolapse, musculoskeletal ma2 pain, arthritis, no red flags for lower back pain, unlikely spinal cord compression, unlikely epidural abscess, unlikely fracture, she had MRI done recently, she will follow up with her PCP to get a new MRI if this pain continues.. Data reviewed: vital signs, nurses notes. Counseling: I had a detailed discussion with the patient and/or guardian regarding: the historical points, exam findings, and any diagnostic results supporting the discharge/admit diagnosis, the presence of at least one elevated blood pressure reading (>120/80) during this emergency department visit, the need for outpatient follow up. Response to treatment: the patient's symptoms have markedly improved after treatment. 09:27 Patient medically screened. ma2 Administered Medications: 09:32 Drug: morphine 4 mg Route: IM; Site: right deltoid; tr6 09:32 Drug: Zofran (Ondansetron) 4 mg Route: PO; tr6 09:32 Drug: MethylPREDNISolone Sodium Succinate 125 mg Route: IM; Site: right deltoid; tr6 09:32 Drug: Valium (diazepam) 5 mg Route: PO; tr6 Disposition Summary: 11/05/20 09:27 Discharge Ordered Location: Home ma2 Condition: Stable ma2 Diagnosis - Low back pain ma2 Followup: ma2 - With: Private Physician - When: Tomorrow - Reason: Continuance of care Discharge Instructions: - Discharge Summary Sheet ma2 - Chronic Back Pain, [id number] ma2 Forms: - Medication Reconciliation Form ma2 - Thank You Letter ma2 - Antibiotic Education ma2 - Prescription Opioid Use ma2 - Work release form eb Prescriptions: - Cyclobenzaprine 10 mg Oral Tablet - take 1 tablet by ORAL route every 8 hours As needed; 30 tablet; Refills: 0, ma2 Product Selection Permitted - Diclofenac Sodium 75 mg Oral Tablet Sustained Release - take 1 tablet by ORAL route 2 times per day; 30 tablet; Refills: 0, Product ma2 Selection Permitted - Tramadol 50 mg Oral Tablet - take 1 tablet by ORAL route every 8 hours as needed; 12 tablet; Refills: 0, ma2 Product Selection Permitted - Medrol (Drake) 4 mg Oral Tablets, Dose Pack - take 1 tablet by ORAL route as directed - follow package instructions; 1 ma2 packet; Refills: 0, Product Selection Permitted Signatures: Matilda Gutierrez RN RN ss Lester Foss MD MD ma2 Shannan Forrester RN RN tr6
[2020-11-05] MEDS ORDERED: METHYLPREDNISOLONE 125 MG INJ ONE (09:45)
[2020-11-05] MEDS ORDERED: ONDANSETRON 4 MG/2 ML VIAL ONE (09:46)
[2020-11-05] MEDS ORDERED: MORPHINE 4 MG/ML SYR ONE (09:46)
[2020-11-05] MEDS ORDERED: DIAZEPAM 5 MG TABLET ONE (09:46)
[2020-11-05] MEDS ORDERED: ONDANSETRON 4 MG (ODT) TAB ONE (09:47)
[2020-11-05 10:38] VITALS: TEMP 97.2
[2020-11-05 10:39] VITALS: BP 148/55; O2SAT 96
== END 2020-11-05 10:33 | disposition home or self-care (01) ==
LOC: ER 08:15
DX: M54.5 Low back pain (principal); I10 Essential (primary) hypertension; E11.9 Type 2 diabetes mellitus without complications; F17.210 Nicotine dependence, cigarettes, uncomplicated
CPT/HCPCS: 96372; 99284; J2930; J2405

== ENCOUNTER 2021-11-18 01:02 | Observation (INO) | payer OTHER ==
--- OUTSIDE RECORDS SUMMARY | 2021-11-18 01:06 | XMS REPORT | Continuity of Care Document ---
:1960 Author Organization [facility] t Address [address] [place] [address] Care Team Providers Name Role Phone Ami Rios Attending Clinician Unavailable Problems This patient has no known problems. Allergies, Adverse Reactions, Alerts This patient has no known allergies or adverse reactions. Medications Ordered Filled Start Stop Current Ordering Indication Dosage Frequency Signature Comments Components Source Medication Medication Date Date Medication? Clinician (SIG) Name Name Albuterol Albuterol Yes Na Rios 3 ml as Common Sulfate Sulfate 7-19 needed Spirit 00:00: - [facility] Zofran Zofran Yes Na Rios 1 tablet Co mmon 6-07 as needed [facility] 00:00: - [facility] Lipitor Lipitor Yes Na Rios 1 tablet Co mmon [facility] Zestoretic Zestoretic Yes Na Rios 1 tablet Common [facility] Cetirizine Cetirizine Yes Na Rios 1 tablet Common HCl HCl [facility] Albuterol Albuterol Yes Na Rios 2 puffs as Common Sulfate Sulfate needed [facility] Amitriptyli Amitriptyli Yes Na Rios TAKE 1 Common ne HCl ne HCl TABLET BY Spirit MOUTH AT - [facility] BEDTIME [facility] NEEDED [facility] Trazodone Trazodone Yes Na Rios 1 tablet Common HCl HCl at bedtime Spirit as needed [facility] Glyxambi Glyxambi Yes Na Rios 1 tablet Common in the [facility] morning [facility] Metformin Metformin Yes Na Rios 1 tablet Common HCl HCl with meals [facility] Losartan Losartan Yes Na Rios 1 tablet Common Potassium Potassium Spiri t [facility] Omeprazole Omeprazole Yes Na Rios TAKE ONE Common CAPSULE BY [facility] MOUTH [facility] EVERY DAY [facility] Citalopram Citalopram Yes Na Rios 1 tablet Common Hydrobromid Hydrobromid S pirit e e [facility] Symbicort Symbicort Yes Na Rios 2 puffs Common [facility] Amaryl Amaryl Yes Na Rios 1 tablet Comm on [facility] Tizanidine Tizanidine Yes Na Rios TAKE 2 Common HCl HCl TABLETS BY [facility] MOUTH AT [facility] BEDTIME [facility] Atorvastati Atorvastati Yes Na Rios TAKE 1 Common n Calcium n Calcium TABLET BY [facility] MOUTH - [facility] EVERY DAY [facility] Immunizations Ordered Immunization Filled Immunization Date Status Commen ts Source Name Name Flucelvax - Flucelvax - 2018-12-11 Completed Common Spiri t multidose vial multidose vial 00:00:00 [facility] Procedures This patient has no known procedures. Encounters Start End Encounter Admission Attending Care Care Encounter Source Date/Time Date/Time Type Type Clinicians Facility Department ID 2021-10-28 Outpatient Ami Rios [facility] [id number] Common 15:08:00 [facility] 2021-09-21 Outpatient Ami Rios [facility] [id number] 2 Common 09:52:00 [facility] 2021-08-17 Outpatient Ami Rios [facility] [id number] 2 Common 15:22:00 [facility] 2021-05-13 Outpatient Ami Rios [facility] [id number] 2 Common 09:55:00 [facility] 2021-04-18 Outpatient Ami Rios [facility] [id number] 2 Common 16:00:01 [facility] 2021-04-15 Outpatient Rios, Na [facility] [id number] 2 Common 14:25:00 [facility] 2021-04-14 Outpatient Rios, Na [facility] [id number] 2 Common 13:36:01 [facility] 2021-04-06 Outpatient Rios, Na [facility] [id number] 2 Common 14:26:39 [facility] 2021-04-06 Outpatient Rios, Na [facility] [id number] 2 Common 14:20:13 [facility] 2021-04-06 Outpatient Rios, Na [facility] [id number] 2 Common 14:04:22 [id number] [facility] 2021-04-06 Outpatient Rios, Na [facility] [id number] 2 Common 13:41:28 [id number] [facility] 2021-04-06 Outpatient Rios, Na [facility] [id number] 2 Common 13:39:10 [id number] [facility] 2021-04-06 Outpatient Rios, Na [facility] [id number] 2 Common 13:38:28 [id number] [facility] 2021-04-06 Outpatient Rios, Na [facility] [id number] 2 Common 13:34:20 [id number] [facility] 2021-04-06 Outpatient Rios, Na [facility] [id number] 2 Common 12:59:39 [id number] [facility] 2021-04-06 Outpatient Rios, Na [facility] [id number] 2 Common 12:20:03 [id number] [facility] 2021-04-06 Outpatient Rios, Na [facility] [id number] 2 Common 12:13:37 [id number] [facility] 2021-04-06 Outpatient Rios, Na [facility] [id number] 2 Common 12:13:01 [id number] [facility] 2021-04-06 Outpatient Rios, Na [facility] [id number] 2 Common 12:11:17 [id number] [facility] 2021-04-06 Outpatient Rios, Na [facility] [id number] 2 Common 11:50:24 [id number] [facility] 2021-04-06 Outpatient Rios, Na [facility] [id number] 2 Common 11:44:00 [id number] [facility] 2021-04-06 Outpatient Rios, Na [facility] [id number] 2 Common 11:12:27 [id number] [facility] 2021-04-06 Outpatient Rios, Na [facility] [id number] 2 Common 11:01:17 [id number] [facility] 2021-10-26 2021-10-26 ambulatory [facility] [id number] Common 00:00:00 00:00:00 [facility] 2021-10-18 2021-10-18 ambulatory [facility] [id number] Common 00:00:00 00:00:00 [facility] 2021-05-24 2021-05-24 ambulatory [facility] [id number] Common 00:00:00 00:00:00 [facility] 2021-05-16 2021-05-16 ambulatory [facility] [id number] Common 00:00:00 00:00:00 [facility] 2021-04-18 2021-04-18 ambulatory [facility]C ST[facility] [id number] Common 00:00:00 00:00:00 [facility] 2021-02-10 2021-02-10 ambulatory [facility]C ST[facility] [id number] Common 00:00:00 00:00:00 [facility] 2021-02-08 2021-02-08 ambulatory [facility]C ST[facility] [id number] Common 00:00:00 00:00:00 [facility] 2021-01-25 2021-01-25 ambulatory [facility] [id number] Common 00:00:00 00:00:00 [facility] 2021-01-07 2021-01-07 ambulatory [facility] [id number] Common 00:00:00 00:00:00 [facility] 2021-01-03 2021-01-03 Outpatient [facility] [id number] Common 00:00:00 00:00:00 [facility] 2020-12-27 2020-12-27 Outpatient [facility] [id number] Common 00:00:00 00:00:00 [facility] 2020-12-10 2020-12-10 Outpatient [facility] [id number] Common 00:00:00 00:00:00 [facility] 2020-12-07 2020-12-07 Outpatient [facility] [id number] Common 00:00:00 00:00:00 [facility] 2020-11-03 2020-11-03 Outpatient [facility] [id number] Common 00:00:00 00:00:00 [facility] 2020-07-14 2020-07-14 Outpatient [facility] [id number] Common 00:00:00 00:00:00 [facility] 2020-07-08 2020-07-08 Outpatient [facility] [id number] Common 00:00:00 00:00:00 [facility] 2020-03-25 2020-03-25 Outpatient [facility] [id number] Common 00:00:00 00:00:00 [facility] 2020-01-09 2020-01-09 Outpatient [facility] [id number] Common 00:00:00 00:00:00 [facility] 2020-01-09 2020-01-09 Outpatient [facility] [id number] Common 00:00:00 00:00:00 [facility] 2019-12-09 2019-12-09 Outpatient [facility] [id number] Common 00:00:00 00:00:00 [facility] 2019-12-08 2019-12-08 Outpatient [facility] [id number] Common 00:00:00 00:00:00 [facility] 2019-11-20 2019-11-20 [facility] [id number] Common 08:40:00 08:40:[address] [facility] 2019-08-26 2019-08-26 [facility] [id number] Common 16:17:00 16:17:[address] [facility] 2019-08-20 2019-08-20 [facility] [id number] Common 08:00:00 08:00:[address] [facility] 2019-08-15 2019-08-15 [facility] [id number] Common 09:31:00 09:31:[address] [facility] 2019-05-16 2019-05-16 [facility] [id number] Common 13:20:00 13:20:[address] [facility] 2019-02-18 2019-02-18 [facility] [id number] Common 03:25:00 03:25:[address] [facility] 2019-02-03 2019-02-03 [facility] [id number] Common 17:32:00 17:32:[address] [facility] 2019-01-31 2019-01-31 [facility] [id number] Common 13:00:00 13:00:[address] [facility] 2018-12-19 2018-12-19 [facility] [id number] Common 15:33:00 15:33:[address] [facility] 2018-12-11 2018-12-11 Out[facility] [id number] Common 11:40:00 11:40:[address] [facility] 2018-09-27 2018-09-27 [facility] [id number] Common 11:40:00 11:40:[address] [facility] 2018-08-16 2018-08-16 [facility] [id number] Common 15:00:00 15:00:[address] [facility] 2018-07-16 2018-07-16 [facility] [id number] Common 10:33:00 10:33:[address] [facility] 2018-07-05 2018-07-05 [facility] [id number] Common 02:46:00 02:46:[address] [facility] 2018-05-30 2018-05-30 [facility] [id number] Common 15:00:00 15:00:[address] [facility] 2018-04-18 2018-04-18 [facility] [id number] Common 14:30:00 14:30:[address] [facility] 2018-03-18 2018-03-18 [facility] [id number] Common 16:46:00 16:46:[address] [facility] 2018-03-04 2018-03-04 [facility] [id number] Common 12:34:00 12:34:[address] [facility] 2017-12-11 2017-12-11 Out[facility] [id number] Common 10:37:00 10:37:[address] [facility] 2017-12-04 2017-12-04 [facility] [id number] Common 14:30:00 14:30:00 [facility] [employer] [facility] Results This patient has no known results.
[2021-11-18 01:59] LABS: Absolute Lymphocytes (CBC) 2.6 K/uL (0.7-4.9); Hematocrit 38.1 % (36.0-45.0); MCV 91.5 fL (80-100); MPV 8.3 fL (7.6-11.3); RBC Red Blood Cell Count 4.17 M/uL (3.86-4.86)
[2021-11-18] MEDS ORDERED: NA CHLORIDE 0.9% 1,000 ML ONE ×3 (02:01→06:39)
[2021-11-18] MEDS ORDERED: ONDANSETRON 4 MG/2 ML VIAL ONE (02:01)
[2021-11-18 02:08] LABS: Protime INR 0.92
[2021-11-18 02:18] LABS: Albumin 3.7 g/dL (3.4-5.0); Bilirubin Total 0.2 mg/dL (0.2-1.0); Potassium 3.9 mmol/L (3.5-5.1); Protein, Total 7.5 g/dL (6.4-8.2)
--- NOTE | 2021-11-18 04:42 | ER ---
Nurse's Notes [facility] Name: Tyra Espitia Age: 61 yrs Sex: Female : 1960 Arrival Date: 11/18/2021 Time: 01:08 Bed 5 Private MD: Diagnosis: Abdominal pain, unspecified;Dehydration;Muscle weakness (generalized) Presentation: 11/18 01:33 Chief complaint: Patient states: she has been feeling sick x 2 weeks with body aches, bb headache, abdominal pain, diarrhea and groin pain she can't take it anymore. Coronavirus screen: Client presents with at least one sign or symptom that may indicate coronavirus-19. Ebola Screen: No symptoms or risks identified at this time. Initial Sepsis Screen: Does the patient meet any 2 criteria? No. Patient's initial sepsis screen is negative. Does the patient have a suspected source of infection? Yes: Acute abdominal pain. Risk Assessment: Do you want to hurt yourself or someone else? Patient reports no desire to harm self or others. Onset of symptoms is unknown. 01:33 Method Of Arrival: Ambulatory bb 01:33 Acuity: AMADO 3 bb Historical: - Allergies: 01:36 No Known Allergies; bb - Home Meds: 01:36 atorvastatin 40 mg oral tab 1 tab once daily [Active]; citalopram 40 mg oral tab 1 tab bb once daily [Active]; metformin 1,000 mg oral tab 1 tab 2 times per day [Active]; omeprazole 40 mg oral cpDR 1 cap once daily [Active]; losartan 50 mg oral tab 1 tab once daily [Active]; tizanidine 2 mg oral cap 1 cap once daily [Active]; glimepiride 4 mg Oral tab 1 tab twice a day [Active]; aspirin 81 mg Oral cap 1 cap once daily [Active]; amitriptyline 25 mg Oral tab 1 tab once daily [Active]; trazodone 100 mg Oral tab 1 tab once daily [Active]; - PMHx: 01:36 Diabetes - NIDDM; Gastric Reflux; High Cholesterol; Hypertension; bb - PSHx: 01:36 Ankle; section; hernia repair; bb - Immunization history:: Client reports having NOT received the Covid vaccine. - Social history:: Smoking status: Patient reports the use of cigarette tobacco products. - Family history:: not pertinent. - Hospitalizations: : No recent hospitalization is reported. Screenin:43 Abuse screen: Denies threats or abuse. Nutritional screening: No deficits noted. kl Tuberculosis screening: No symptoms or risk factors identified. Fall Risk None identified. Assessment: 03:43 Reassessment: Patient appears in no apparent distress at this time. Patient and/or kl family updated on plan of care and expected duration. Pain level reassessed. Patient is alert, oriented x 3, equal unlabored respirations, skin warm/dry/pink. Vital Signs: 01:33 BP 149 / 83; Pulse 106; Resp 20 S; Temp 98.6(O); Pulse Ox 99% on R/A; Weight 90.72 kg bb (R); Height 5 ft. 4 in. (162.56 cm) (R); Pain 10/10; 03:24 BP 144 / 74; Pulse 73; Resp 19; Pulse Ox 98% on R/A; ll3 01:33 Body Mass Index 34.33 (90.72 kg, 162.56 cm) ED Course: 01:08 Patient arrived in ED. bp1 01:19 Eze Kam MD is Attending Physician. rn 01:36 Triage completed. bb 01:36 Arm band placed on Patient placed in an exam room, on a stretcher, on pulse oximetry. bb Family accompanied patient. 01:50 Chest Single View XRAY In Process Unspecified. EDMS 01:57 Protime (+inr) Sent. kl 01:58 Ptt, Activated Sent. kl 01:58 CBC with Diff Sent. kl 01:58 CMP Sent. kl 01:58 Lipase Sent. kl 03:05 CT Abd/Pelvis - IV Contrast Only In Process Unspecified. EDMS 04:40 Lester Cavanaugh MD is Hospitalizing Provider. rn 07:13 Shannan Ann RN is Primary Nurse. tp1 Administered Medications: 01:58 Drug: NS 0.9% 1000 ml Route: IV; Rate: 1 bolus; Site: right antecubital; kl 01:58 Drug: Zofran (Ondansetron) 4 mg Route: IVP; Site: right antecubital; kl 02:34 Drug: NS 0.9% 1000 ml Route: IV; Rate: 1000 ml; Site: right antecubital; kl Outcome: 04:41 Decision to Hospitalize by Provider. rn 05:18 Admitted to ER Hold. Please see [facility] for further documentation. kl 13:29 Patient left the ED. tp1 Signatures: Dispatcher [employer] Sue Castro RN RN kl Ballard, Brenda, RN RN bb Nieto, Roman, MD MD rn Paniauga, Brittany bp1 Loubet, Lynsea, RN RN ll3 hSannan Ann RN RN tp1
--- NOTE | 2021-11-18 04:42 | EDPHYS ---
Physician Documentation [facility] [place] Name: Tyra Espitia Age: 61 yrs Sex: Female : 1960 Arrival Date: 11/18/2021 Time: 01:08 Bed 5 Private MD: ED Physician Eze Kam HPI: 11/18 03:43 This 61 yrs old Black Female presents to ER via Ambulatory with complaints of Headache, rn Nausea, Abdominal Pain. 03:43 The patient presents with abdominal pain in the left lower quadrant. Onset: The rn symptoms/episode began/occurred 2 week(s) ago. The symptoms do not radiate. Associated signs and symptoms: Pertinent positives: diarrhea, nausea, Pertinent negatives: fever. The symptoms are described as achy, crampy. Modifying factors: The symptoms are alleviated by nothing, the symptoms are aggravated by nothing. Severity of pain: At its worst the pain was moderate in the emergency department the pain is unchanged. The patient has not experienced similar symptoms in the past. The patient has not recently seen a physician. Reports abd pain, left sided, assoc with nausea and diarrhea. No blood in stool. + muscle aches and fatigue. No known sick contacts. . Historical: - Allergies: 01:36 No Known Allergies; bb - Home Meds: 01:36 atorvastatin 40 mg oral tab 1 tab once daily [Active]; citalopram 40 mg oral tab 1 tab bb once daily [Active]; metformin 1,000 mg oral tab 1 tab 2 times per day [Active]; omeprazole 40 mg oral cpDR 1 cap once daily [Active]; losartan 50 mg oral tab 1 tab once daily [Active]; tizanidine 2 mg oral cap 1 cap once daily [Active]; glimepiride 4 mg Oral tab 1 tab twice a day [Active]; aspirin 81 mg Oral cap 1 cap once daily [Active]; amitriptyline 25 mg Oral tab 1 tab once daily [Active]; trazodone 100 mg Oral tab 1 tab once daily [Active]; - PMHx: 01:36 Diabetes - NIDDM; Gastric Reflux; High Cholesterol; Hypertension; bb - PSHx: 01:36 Ankle; section; hernia repair; bb - Immunization history:: Client reports having NOT received the Covid vaccine. - Social history:: Smoking status: Patient reports the use of cigarette tobacco products. - Family history:: not pertinent. - Hospitalizations: : No recent hospitalization is reported. ROS: 03:43 Constitutional: Negative for fever, and weight loss, Eyes: Negative for injury, pain, rn redness, and discharge, Neck: Negative for injury, pain, and swelling, Cardiovascular: Negative for chest pain, palpitations, and edema, Respiratory: Negative for shortness of breath, cough, wheezing, and pleuritic chest pain, Abdomen/GI: + for abd pain and nausea/diarrhea MS/Extremity: Negative for injury and deformity, Skin: Negative for injury, rash, and discoloration, Neuro: Negative for numbness, tingling, and seizure. Exam: 03:43 Constitutional: This is a well developed, well nourished patient who is awake, alert, rn and in no acute distress. Head/Face: Normocephalic, atraumatic. ENT: dry MM Cardiovascular: Regular rate and rhythm. No pulse deficits. Respiratory: No increased work of breathing, no retractions or nasal flaring. Abdomen/GI: soft, + LLQ tenderness no rebound, no masses Skin: Warm, dry MS/ Extremity: Pulses equal, no cyanosis. Neuro: Awake and alert, GCS 15 05:05 ECG was reviewed by the Attending Physician. rn Vital Signs: 01:33 BP 149 / 83; Pulse 106; Resp 20 S; Temp 98.6(O); Pulse Ox 99% on R/A; Weight 90.72 kg bb (R); Height 5 ft. 4 in. (162.56 cm) (R); Pain 10/10; 03:24 BP 144 / 74; Pulse 73; Resp 19; Pulse Ox 98% on R/A; ll3 01:33 Body Mass Index 34.33 (90.72 kg, 162.56 cm) bb MDM: 01:19 Patient medically screened. rn 04:38 Differential diagnosis: appendicitis, cholecystitis, Cholelithiasis, diverticulitis, rn gastritis, gastroesophageal reflux disease, non-specific abd pain, Pyelonephritis, urinary tract infection. Data reviewed: vital signs, nurses notes, lab test result(s), radiologic studies, CT scan, and as a result, I will admit patient. Counseling: I had a detailed discussion with the patient and/or guardian regarding: the historical points, exam findings, and any diagnostic results supporting the discharge/admit diagnosis, lab results, radiology results, the need for further work-up and treatment in the hospital. Response to treatment: the patient's symptoms have mildly improved after treatment, and as a result, I will admit patient. Admission orders: after a detailed discussion of the patient's condition and case, the admit orders are written by me. ED course: CT abdomen neg for acute findings, still uncomfortable, elevated lactate, will observe to hospital service. . 11/18 01:35 Order name: CBC with Diff; Complete Time: 02:24 rn 11/18 01:35 Order name: CMP; Complete Time: 02:24 rn 11/18 01:35 Order name: Lipase; Complete Time: 02:24 rn 11/18 01:35 Order name: Urine Microscopic Only rn 11/18 01:35 Order name: Blood Culture Adult (2) rn 11/18 01:35 Order name: Lactate; Complete Time: 02:24 rn 11/18 01:35 Order name: Protime (+inr); Complete Time: 02:24 rn 11/18 01:35 Order name: Ptt, Activated; Complete Time: 02:24 rn 11/18 01:35 Order name: SARS-COV-2 RT PCR (Document "Date of Onset" if Symptomatic); Complete Time: rn 02:52 11/18 01:35 Order name: Flu; Complete Time: 03:35 rn 11/18 04:39 Order name: Lactate Sepsis 2 HR Follow-up; Complete Time: 04:40 EDMS 11/18 07:41 Order name: Glucose, Ancillary Testing EDNY 11/18 10:10 Order name: Urinalysis EDNY 11/18 11:54 Order name: Glucose, Ancillary Testing EDNY 11/18 01:35 Order name: CT Abd/Pelvis - IV Contrast Only rn 11/18 01:35 Order name: IV Saline Lock; Complete Time: 01:58 rn 11/18 01:35 Order name: Labs collected and sent; Complete Time: 01:58 rn 11/18 01:35 Order name: Chest Single View XRAY rn 11/18 01:35 Order name: Accucheck; Complete Time: 02:30 rn 11/18 01:35 Order name: Cardiac monitoring; Complete Time: :58 rn 11/18 01:35 Order name: EKG - Nurse/Tech; Complete Time: 02:36 rn 11/18 01:35 Order name: IV Saline Lock - Large Bore; Complete Time: 02:30 rn 11/18 01:35 Order name: O2 Per Protocol; Complete Time: 02:30 rn 11/18 01:35 Order name: O2 Sat Monitoring; Complete Time: 02:30 rn EC:05 Rate is 81 beats/min. Rhythm is regular. QRS [place] is Normal. IA interval is normal. QRS rn interval is normal. QT interval is normal. No Q waves. T waves are Normal. No ST changes noted. Clinical impression: Normal ECG. Interpreted by me. Reviewed by me. Administered Medications: 01:58 Drug: NS 0.9% 1000 ml Route: IV; Rate: 1 bolus; Site: right antecubital; 01:58 Drug: Zofran (Ondansetron) 4 mg Route: IVP; Site: right antecubital; 02:34 Drug: NS 0.9% 1000 ml Route: IV; Rate: 1000 ml; Site: right antecubital; Disposition Summary: 11/18/21 04:41 Hospitalization Ordered Hospitalization Status: Observation rn Provider: Lester Cavanaugh rn Condition: Stable rn Problem: an ongoing problem rn Symptoms: are unchanged rn Bed/Room Type: Standard rn Location: [facility] ER HOLD(11/18/21 06:34) Room Assignment: ERHOLD-(11/18/21 06:34) mw Diagnosis - Abdominal pain, unspecified rn - Dehydration rn - Muscle weakness (generalized) rn Forms: - Medication Reconciliation Form rn - SBAR form rn Signatures: Dispatcher [employer] Sue Castro RN Roberta Brady RN Caren Lucia RN Eze Rojas MD MD rn Brown, Sophia, PA PA sb3 Corrections: (The following items were deleted from the chart) 06:34 04:41 Telemetry/MedSurg (observation) rn mw 06:34 04:41 rn jean
--- NOTE | 2021-11-18 05:13 | P.HP ---
Certification for Inpatient Patient admitted to: Observation With expected LOS: <2 Midnights Patient will require the following post-hospital care: None Practitioner: I am a practitioner with admitting privileges, knowledge of patient current condition, hospital course, and medical plan of care. Services: Services provided to patient in accordance with Admission requirements found in Title 42 Section 412.3 of the Code of Federal Regulations Patient History Date of Service: 11/18/21 Reason for admission: Intractable Abdominal Pain History of Present Illness: Patient is a 61-year-old female with history of [id number] type 2 diabetes mellitus, hypertension, hyperlipidemia, and GERD who presented to the ED with complaints of malaise, headache, abdominal pain, and diarrhea for 2 weeks. Her labs are significant for glucose 315, BUN 21, lactic acid 2.8 with 2-hour repeat 1.4. CT abdomen pelvis negative. Vital signs stable. She was given 2 L of fluid and Zofran with no improvement in her symptoms. Patient reports that she had an EGD done about 3 years ago in which they found 3 ulcers and has been taking omeprazole since. She states the pain now is worse than it was then. She is admitted for further evaluation and treatment. Allergies NKDA Allergy (Uncoded 07/29/13 13:22) Unknown Home medications list reviewed: Yes Home Medications: Albuterol Sulfate [Ventolin Hfa] 18 gm IH TID PRN 12/18/12 Zolpidem Tartrate [Ambien*] 10 mg PO BEDTIME PRN PRN 12/18/12 Citalopram Hydrobromide [Citalopram HBr] 20 mg PO DAILY #90 12/19/12 Amitriptyline [Elavil*] 10 mg PO BEDTIME 03/10/14 Ascorbate Calcium [Vitamin C] 500 mg PO DAILY 03/10/14 Glimepiride [Amaryl] 4 mg PO DAILY 03/10/14 Lisinopril/Hctz 20 - 25 mg PO DAILY 03/10/14 Lubiprostone [Amitiza*] 24 mcg PO BID 03/10/14 Metformin HCl [Metformin HCl ER] 1,000 mg PO DAILY 03/10/14 Pantoprazole [Protonix Tab*] 40 mg PO DAILY 03/10/14 Tramadol HCl [Ultram] 100 mg PO TID 03/10/14 - Past Medical/Surgical History Diabetic: Yes -: insomnia -: HTN -: stigma R eye -: R ankle fracture -: NIDDM -: HLD -: X2 -: R ankle sx: pin and plate in R ankle -: Hernia Repair Psychosocial/ Personal History: Patient lives at home with her . - Family History Family History: Reviewed- Non-Contributory - Social History Smoking Status: Current every day smoker Alcohol use: No CD- Drugs: No Caffeine use: Yes Place of Residence: Home Review of Systems General: Weakness, Malaise, Other (Headache) Gastrointestinal: Nausea, Abdominal Pain, Diarrhea Physical Examination - Physical Exam General: Alert, Mild distress, Obese HEENT: Atraumatic, EOMI, Sclerae nonicteric Neck: Supple, 2+ carotid pulse no bruit, No LAD, Without JVD or thyroid abnormality Respiratory: Clear to auscultation bilaterally, Normal air movement Cardiovascular: Regular rate/rhythm, Normal S1 S2 Gastrointestinal: Normal bowel sounds, Soft and benign, Non-distended, No rebound, No guarding Musculoskeletal: No tenderness Integumentary: No rashes Neurological: Normal speech, Normal strength at 5/5 x4 extr, Normal tone, Normal affect - Studies Laboratory Data (last 24 hrs) 11/18/21 01:40: PT 10.1, INR 0.92, APTT 32.9 11/18/21 01:40: Sodium 137, Potassium 3.9, BUN 21 H, Creatinine 0.92, Glucose 315 H, Total Bilirubin 0.2, AST 5 L, ALT 16, Alkaline Phosphatase 139 H, Lipase 141 11/18/21 01:40: WBC 7.60, Hgb 12.8, Hct 38.1, Plt Count 311 Microbiology Data (last 24 hrs): 11/18/21 01:55 Nasopharnyx Influenza Type A Antigen Screen - Final 11/18/21 01:55 Nasopharnyx Influenza Type B Antigen Screen - Final Assessment and Plan - Problems (Diagnosis) (1) Intractable abdominal pain Current Visit: Yes Status: Acute (2) Dehydration Current Visit: Yes Status: Acute (3) GERD (gastroesophageal reflux disease) Current Visit: Yes Status: Chronic Qualifiers: Esophagitis presence: without esophagitis Qualified Code(s): K21.9 - Gastro-esophageal reflux disease without esophagitis (4) Type 2 diabetes mellitus Current Visit: Yes Status: Acute Qualifiers: Diabetes mellitus fpc insulin use: without intermediate teacher use Diabetes mellitus complication status: with hyperglycemia Qualified Code(s): E11.65 - Type 2 diabetes mellitus with hyperglycemia (5) Hypertension Current Visit: Yes Status: Chronic Qualifiers: Hypertension type: primary hypertension Qualified Code(s): I10 - Essential (primary) hypertension - Plan -Suspect abdominal pain secondary to GERD or possible ulcers -Protonix BID and carafate -H. pylori ag and stool studies ordered -Patient will likely need GI follow-up -Morphine PRN pain, promethazine PRN nausea -ACHS accu checks with moderate sliding scale insulin and diabetic diet -Continue IV hydration -Monitor and replete electrolytes per protocol -Reconcile and continue home medications -Lovenox for VTE ppx -Full code Discharge Plan: Home Plan to discharge in: 24 Hours - Advance Directives Does patient have a Living Will: No Does patient have a Durable POA for Healthcare: No - Code Status/Comfort Care Code Status Assessed: Yes (Full) Critical Care: No Time Spent Managing Pts Care (In Minutes): 50
[2021-11-18] MEDS ORDERED: PROMETHAZINE INJ 25 MG/ML AMP IV PRN (05:18)
[2021-11-18] MEDS ORDERED: SODIUM CHLORIDE 0.9% 10ML INJ IV PRN (05:18)
[2021-11-18] MEDS ORDERED: ACETAMINOPHEN 500 MG TAB PO PRN (05:18)
[2021-11-18] MEDS ORDERED: MORPHINE 4 MG/ML SYR IV PRN (05:18)
[2021-11-18] MEDS ORDERED: NA CHLORIDE 0.9% 1,000 ML IV SCH (06:00)
[2021-11-18 06:56] VITALS: BMI 34.3
[2021-11-18] MEDS ORDERED: MORPHINE 4 MG/ML SYR ONE (07:46)
[2021-11-18] MEDS ORDERED: POTASSIUM 25 MEQ EFFERV TAB PO ONE (08:15)
[2021-11-18] MEDS: INSULIN -REGULAR HUMAN 50 UNIT/0.5 ML ML SQ SCH ×2 (08:31→12:54)
[2021-11-18] MEDS ORDERED: INSULIN -REGULAR HUMAN 50 UNIT/0.5 ML ML ONE ×2 (08:36→12:57)
[2021-11-18] MEDS ORDERED: PANTOPRAZOLE 40 MG INJ ONE (08:58)
[2021-11-18] MEDS ORDERED: POTASSIUM 25 MEQ EFFERV TAB ONE (08:58)
[2021-11-18] MEDS ORDERED: ENOXAPARIN 40 MG/0.4 ML SQ ONE (08:58)
[2021-11-18] MEDS ORDERED: SUCRALFATE 1 GM TABLET ONE (08:58)
[2021-11-18] MEDS ORDERED: PANTOPRAZOLE 40 MG INJ IVP SCH (09:00)
[2021-11-18] MEDS ORDERED: SUCRALFATE 1 GM TABLET PO SCH (09:00)
[2021-11-18] MEDS ORDERED: ENOXAPARIN 40 MG/0.4 ML SQ SCH (09:00)
--- NOTE | 2021-11-18 10:28 | RAD REPORT ---
EXAM DESCRIPTION: CT Abdomen and Pelvis With Intravenous Contrast CLINICAL HISTORY: The patient is 61 years old and is Female; abd pain TECHNIQUE: Axial computed tomography images of the abdomen and pelvis with intravenous contrast. S agittal and coronal reformatted images were created and reviewed. This CT exam was performed using one or more of the following dose reduction techniques: automated exposure control, adjustment of t he mA and/or kV according to patient size, and/or use of iterative reconstruction technique. COMPARISON: No relevant prior studies available. FINDINGS: Lung bases: Unremarkable. No mass. No consolidation. ABDOMEN: Liver: Unremarkable. No mass. Gallbladder and bile ducts: Unremarkable. No calcified stones. No ductal dilation. Pancreas: Unremarkable. No mass. No ductal dilation. Spleen: Unremarkable. No splenomegaly. Adrenals: Unremarkable. No mass. Kidneys and ureters: Unremarkable. No solid mass. No hydronephrosis. Stomach and bowel: Unremarkable. No obstruction. No mucosal thickening. PELVIS: Appendix: No findings to suggest acute appendicitis. Bladder: Unremarkable. Reproductive: Unremarkable as visualized. ABDOMEN and PELVIS: Intraperitoneal space: Unremarkable. No free air. No significant fluid collection. Bones/joints: Disc space narrowing with degenerative endplate changes at L5-S1. No acute fracture. No dislocation. Soft tissues: Unremarkable. Vasculature: Unremarkable. No abdominal aortic aneurysm. Lymph nodes: Unremarkable. No enlarged lymph nodes. IMPRESSION: No acute finding in the abdomen/pelvis. Electronically signed by: Heron Rowland MD 11/18/2021 4:07 AM CDT Due to temporary technical issues with the PACS/Fluency reporting system, reports are being signed by the in house radiologists without review as a courtesy to insure prompt reporting. The interpreting radiologist is fully responsible for the content of the report.
--- NOTE | 2021-11-18 10:30 | RAD REPORT ---
EXAM DESCRIPTION: XR Chest, 1 View CLINICAL HISTORY: The patient is 61 years old and is Female; chills TECHNIQUE: Frontal view of the chest. COMPARISON: No relevant prior studies available. FINDINGS: LUNGS: Unremarkable. No consolidation. PLEURAL SPACE: Unremarkable. No pneumothorax. HEART: Unremarkable. No cardiomegaly. MEDIASTINUM: Unremarkable. BONES/JOINTS: There are degenerative changes of the shoulders. UPPER ABDOMEN: Unremarkable as visualized. IMPRESSION: No acute cardiopulmonary process. Electronically signed by: Yumi Enriquez MD 11/18/2021 2:45 AM CDT Due to temporary technical issues with the PACS/Fluency reporting system, reports are being signed by the in house radiologists without review as a courtesy to insure prompt reporting. The interpreting radiologist is fully responsible for the content of the report.
[2021-11-18 13:34] VITALS: TEMP 98.6
[2021-11-18 13:37] VITALS: BP 144/74; O2SAT 98
[2021-11-18 14:40] LABS: Urine Bilirubin Negative (Negative); Urine Clarity Clear (Clear); Urine Color Yellow (Yellow); Urine Glucose 3+ (Negative)
[2021-11-18 14:41] LABS: Urine Blood Negative (Negative); Urine Protein Negative (Negative); Urine pH 5.5 (5.0-7.0)
--- NOTE | 2021-11-22 15:44 | EKG ---
Test Date: 2021-11-18 Test Time: 02:09:33 [employer]: MAGDALENA MEASUREMENT RESULTS: Intervals: Rate: 81 AL: 160 QRSD: 84 QT: 358 QTc: 415 [place]: P: 40 AL: 160 QRS: 18 T: 12 INTERPRETIVE STATEMENTS: Normal sinus rhythm Normal ECG Compared to ECG 01/25/2015 00:22:25 No significant changes Electronically Signed On 11-22-21 15:41:34 CDT by Boyd Palomo
== END 2021-11-18 13:15 | disposition home or self-care (01) ==
LOC: ER 01:02 → ERHOLD 05:17
PROVIDERS: ADMIT Hospitalist; ATTEND Hospitalist
DX: R10.9 Unspecified abdominal pain (principal); K21.9 Gastro-esophageal reflux disease without esophagitis; E86.0 Dehydration; I10 Essential (primary) hypertension; E11.65 Type 2 diabetes mellitus with hyperglycemia; Z20.822 Contact with and (suspected) exposure to COVID-19
CPT/HCPCS: 93005; 87040 ×2; 85025; 36415; 85610; 82947 ×2; 83605 ×2; 85730; 81003; 83690; 80053; 87804 ×2; 74177; 71045; 96374; 99285; U0003; Q9967; J1815 ×2; C9113; J1650; J7030 ×3; J2405; G0378 ×2

== ENCOUNTER 2022-02-03 08:28 | Emergency (ER) | payer OTHER ==
--- OUTSIDE RECORDS SUMMARY | 2022-02-03 08:35 | XMS REPORT | Continuity of Care Document ---
:1960 Author Organization [facility] t Address [address] [place] [address] Care Team Providers Name Role Phone Ami Rios Attending Clinician Unavailable Payers Payer Name Policy Type Policy Number Effective Date Expiration Date S [place] [id number] 2021 [facility] 00:00:00 [facility] Ambetter from [id number] 2019 [facility] 00:00:00 [facility] Ambetter from [id number] 2019 [facility] 00:00:00 [facility] - [facility] Plan [facility] Ambetter from [id number] 2019 [facility] 00:00:00 [facility] Ambetter from [id number] 2019 [facility] 00:00:00 [facility] Plan [facility] Ambetter from [id number] 2019 [facility] 00:00:00 [facility] Plan [facility] Ambetter from [id number] 2019 [facility] 00:00:00 [facility] Plan [facility] Ambetter from [id number] 2019 [facility] 00:00:00 [facility] Plan [facility] Ambetter from [id number] 2019 [facility] 00:00:00 [facility] Plan [facility] Problems Condition Condition Condition Status Onset Resolution Last Treating Co mments Source Name Details Category Date Date Treatment Clinician Date [id number] Other Problem Common chronic Spirit pain - [facility] Wheezing Wheezing Problem Commo n [facility] - [facility] Insomnia Insomnia Problem Commo n [facility] Acute Acute Problem Common bronchitis bronchitis Sp marie - [facility]I [facility] Goiter Goiter Problem Common [facility] Nicotine Cigarette Problem Comm on dependence nicotine Spir it dependence - CHI without St complicati [facility] Chronic Chronic Problem Common obstructiv obstructiv Sp marie e e - [facility]I pulmonary pulmonary [facility] Diabetes Diabetes Problem Commo n mellitus mellitus Spirit type 2 in type 2 in - CH I obese obese [facility] Migraine Migraine Problem Commo n with aura with aura Spir it and - [facility]I without [facility] migrainosu Medica l s, not Center intractabl e Chronic Chronic Problem Common fatigue fatigue Spirit syndrome - [facility] Mixed Depression Problem Commo n anxiety with Spirit and anxiety - CHI depressive [facility] Gastro-eso Gastro-eso Problem C ommon phageal phageal Spirit reflux reflux - CHI disease disease St without without [facility] esophagiti esophagiti Wi dical s s Center Fatigue Fatigue, Problem Common unspecifie Spirit d type - [facility] Allergic Acute Problem Common rhinitis allergic Spirit rhinitis - [facility] [id number] Constipati Problem Com mon on, Spirit unspecifie - CHI d St constipati [facility] [id number] Gastroesop Problem Co mmon hageal Spirit reflux - CHI disease, St unspecifie kes d whether Medical esophagiti Center s present [id number] Fatty Problem Common liver Spirit [facility] [id number] Osteoarthr Problem Co mmon itis of Spirit lower back - [facility] [id number] Elevated Problem Commo n blood Spirit pressure - [facility]I reading with [facility] diagnosis Medical of Center hypertensi on Primary Primary Problem Common insomnia insomnia [facility] [id number] Cervicalgi Problem Com mon a Spirit - [facility] [id number] Degenerati Problem Com mon ve disc Spirit disease, - [facility]I cervical [facility] [id number] Cervical Problem Commo n radiculopa Spirit thy - [facility] Hypertensi Hypertensi Problem C ommon on on Spirit - [facility] [id number] Smoker Problem Common [facility] - [facility] [id number] Pure Problem Common hyperchole Spirit sterolemia - [facility] [id number] Lateral Problem Comm on epicondyli Spirit tis of - [facility]I right elbow [facility] [id number] Chronic Problem Commo n depression Spirit not - [facility] affecting [facility] episode of [facility]ica [facility] [id number] Uncontroll Problem Co mmon ed type 2 Spirit diabetes - [facility] mellitus [facility] hypergly Medica [facility] Mixed Mixed Problem Common hyperlipid hyperlipid Sp marie emia emia [facility] Allergies, Adverse Reactions, Alerts This patient has no known allergies or adverse reactions. Social History Social Habit Start Date Stop Date Quantity Comments Source History of Tobacco Current Smoker Co mmon [facility] - [facility] Use [facility] Sex Assigned At Com mon Spirit [facility] Smoking Status Start Date Stop Date Source Current Smoker 2021-11-24 00:00:00 Common Spiri t [facility] Medications Ordered Filled Start Stop Current Ordering Indication Dosage Frequency Signature Comments Components Source Medication Medication Date Date Medication? Clinician (SIG) Name Name Lee Ann Nance 100 2021-03 No 1{table Januvia MG MG 04-03 t} 100 MG 00:00: 00 Farxiga Farxiga 2021-03- No 1{table QD Farxiga 10mg 10mg 04-03- t} 10mg 00:00: 00:00 00 :00 Rosuvastati Rosuvastati No 1{table Rosuvastat n Calcium n Calcium 9-23 t} in Calcium 10 MG 10 MG 00:00: 10 MG 00 Rosuvastati Rosuvastati No 1{table Rosuvastat n Calcium n Calcium 9-23 t} in Calcium 10 MG 10 MG 00:00: 10 MG 00 Rosuvastati Rosuvastati No 1{table Rosuvastat n Calcium n Calcium 9-23 t} in Calcium 10 MG 10 MG 00:00: 10 MG 00 Rosuvastati Rosuvastati 2021-0 No 1{table Rosuvastat n Calcium n Calcium 923 t} in Calcium 10 MG 10 MG 00:00: 10 MG 00 Rosuvastati Rosuvastati 2021-0 No 1{table Rosuvastat n Calcium n Calcium 9-23 t} in Calcium 10 MG 10 MG 00:00: 10 [facility] 2021-0 No Trulicity 0.75 0.75 9-15 0.75 MG/0.5ML MG/0.5ML 00:00: MG/0.5ML 00 [facility] Trulicity 2021-0 No Trulicity 0.75 0.75 9-15 0.75 MG/0.5ML MG/0.5ML 00:00: MG/0.5ML 00 [facility] Trulicity 2021-0 No Trulicity 0.75 0.75 9-15 0.75 MG/0.5ML MG/0.5ML 00:00: MG/0.5ML 00 [facility] Trulicity 2021-0 No Trulicity 0.75 0.75 9-15 0.75 MG/0.5ML MG/0.5ML 00:00: MG/0.5ML 00 [facility] Trulicity 2021-0 No Trulicity 0.75 0.75 9-15 0.75 MG/0.5ML MG/0.5ML 00:00: MG/0.5ML 00 [facility] Trulicity 2021-0 No Trulicity 0.75 0.75 9-15 0.75 MG/0.5ML MG/0.5ML 00:00: MG/0.5ML 00 Jardiance Jardiance 2021-0 2- No 1{table QD Jardiance 25 MG 25 MG 05-27 t} 25 MG 00:00: 00:00 00 :00 Jardiance Jardiance 2021-0 2- No 1{table QD Jardiance 25 MG 25 MG 05-27 t} 25 MG 00:00: 00:00 00 :00 Jardiance Jardiance 2021-0 2- No 1{table QD Jardiance 25 MG 25 MG 3-18 09-14 t} 25 MG 00:00: 00:00 00 :00 predniSONE predniSONE 2020-0 2020- No QD predniSONE 10 MG 10 MG 12-08 10 MG 00:00: 00:00 00 :00 predniSONE predniSONE 2020-0 2020- No QD predniSONE 10 MG 10 MG 12-08 10 MG 00:00: 00:00 00 :00 Azithromyci Azithromyci 2020-0 2020- No QD Azithromyc n 250 MG n 250 MG 12-08 in 250 MG 00:00: 00:00 00 :00 traZODone traZODone 2020-0 No 1{table QD traZODone HCl 100 MG HCl 100 MG 8-25 t_at_be HCl 100 MG 00:00: dtime_a 00 s_neede d} Januvia 100 Januvia 100 2020-0 No 1{table Januvia MG MG 8-25 t} 100 MG 00:00: 00 traZODone traZODone 2020-0 No 1{table QD traZODone HCl 100 MG HCl 100 MG 8-25 t_at_be HCl 100 MG 00:00: dtime_a 00 s_neede d} Januvia 100 Januvia 100 2020-0 No 1{table Januvia MG MG 8-25 t} 100 MG 00:00: 00 Januvia 100 Januvia 100 2020-0 No 1{table Januvia MG MG 8-25 t} 100 MG 00:00: 00 traZODone traZODone 2020-0 No 1{table QD traZODone HCl 100 MG HCl 100 MG 8-25 t_at_be HCl 100 MG 00:00: dtime_a 00 s_neede d} Farxiga 10 Farxiga 10 2020-2021- No 1{table QD Farxiga 10 MG MG 8-25 02-20 t} MG 00:00: 00:00 00 :00 Farxiga 10 Farxiga 10 2020-0 2021- No 1{table QD Farxiga 10 MG MG 8-25 02-20 t} MG 00:00: 00:00 00 :00 Farxiga 10 Farxiga 10 2020-0 2021- No 1{table QD Farxiga 10 MG MG 8-25 02-20 t} MG 00:00: 00:00 00 :00 Albuterol Albuterol 2018- Yes Na Rios 3 ml as Common Sulfate Sulfate - needed Spirit 00:00: - [facility] 00 [facility] Albuterol Albuterol 2018- No 3{ml_as TID Albuterol Sulfate Sulfate 7-19 _needed Sulfate (2.5 (2.5 00:00: } (2.5 MG/3ML) MG/3ML) 00 MG/3ML) 0.083% 0.083% 0.083% Albuterol Albuterol No 3{ml_as TID Albuterol Sulfate Sulfate 7- _needed Sulfate (2.5 (2.5 00:00: } (2.5 MG/3ML) MG/3ML) 00 MG/3ML) 0.083% 0.083% 0.083% Albuterol Albuterol No 3{ml_as TID Albuterol Sulfate Sulfate - _needed Sulfate (2.5 (2.5 00:00: } (2.5 MG/3ML) MG/3ML) 00 MG/3ML) 0.083% 0.083% 0.083% Albuterol Albuterol No 3{ml_as TID Albuterol Sulfate Sulfate 7- _needed Sulfate (2.5 (2.5 00:00: } (2.5 MG/3ML) MG/3ML) 00 MG/3ML) 0.083% 0.083% 0.083% Albuterol Albuterol No 3{ml_as TID Albuterol Sulfate Sulfate 7-19 _needed Sulfate (2.5 (2.5 00:00: } (2.5 MG/3ML) MG/3ML) 00 MG/3ML) 0.083% 0.083% 0.083% Albuterol Albuterol No 3{ml_as TID Albuterol Sulfate Sulfate 7-19 _needed Sulfate (2.5 (2.5 00:00: } (2.5 MG/3ML) MG/3ML) 00 MG/3ML) 0.083% 0.083% 0.083% Albuterol Albuterol 2018-0 No 3{ml_as TID Albuterol Sulfate Sulfate 7-19 _needed Sulfate (2.5 (2.5 00:00: } (2.5 MG/3ML) MG/3ML) 00 MG/3ML) 0.083% 0.083% 0.083% Albuterol Albuterol 2018-0 No 3{ml_as TID Albuterol Sulfate Sulfate 7-19 _needed Sulfate (2.5 (2.5 00:00: } (2.5 MG/3ML) MG/3ML) 00 MG/3ML) 0.083% 0.083% 0.083% Albuterol Albuterol 2018-0 No 3{ml_as TID Albuterol Sulfate Sulfate 7-19 _needed Sulfate (2.5 (2.5 00:00: } (2.5 MG/3ML) MG/3ML) 00 MG/3ML) 0.083% 0.083% 0.083% Albuterol Albuterol 2018-0 No 3{ml_as TID Albuterol Sulfate Sulfate 7-19 _needed Sulfate (2.5 (2.5 00:00: } (2.5 MG/3ML) MG/3ML) 00 MG/3ML) 0.083% 0.083% 0.083% Albuterol Albuterol 2018-0 No 3{ml_as TID Albuterol Sulfate Sulfate 7-19 _needed Sulfate (2.5 (2.5 00:00: } (2.5 MG/3ML) MG/3ML) 00 MG/3ML) 0.083% 0.083% 0.083% Albuterol Albuterol 2018-0 No 3{ml_as TID Albuterol Sulfate Sulfate 7-19 _needed Sulfate (2.5 (2.5 00:00: } (2.5 MG/3ML) MG/3ML) 00 MG/3ML) 0.083% 0.083% 0.083% Albuterol Albuterol 2018-0 No 3{ml_as TID Albuterol Sulfate Sulfate 7-19 _needed Sulfate (2.5 (2.5 00:00: } (2.5 MG/3ML) MG/3ML) 00 MG/3ML) 0.083% 0.083% 0.083% Albuterol Albuterol 2018-0 No 3{ml_as TID Albuterol Sulfate Sulfate 7-19 _needed Sulfate (2.5 (2.5 00:00: } (2.5 MG/3ML) MG/3ML) 00 MG/3ML) 0.083% 0.083% 0.083% Albuterol Albuterol 2018-0 No 3{ml_as TID Albuterol Sulfate Sulfate 719 _needed Sulfate (2.5 (2.5 00:00: } (2.5 MG/3ML) MG/3ML) 00 MG/3ML) 0.083% 0.083% 0.083% Albuterol Albuterol 2018-0 No 3{ml_as TID Albuterol Sulfate Sulfate 09-27 _needed Sulfate (2.5 (2.5 00:00: } (2.5 MG/3ML) MG/3ML) 00 MG/3ML) 0.083% 0.083% 0.083% Albuterol Albuterol 2018-0 No 3{ml_as TID Albuterol Sulfate Sulfate 7 _needed Sulfate (2.5 (2.5 00:00: } (2.5 MG/3ML) MG/3ML) 00 MG/3ML) 0.083% 0.083% 0.083% Albuterol Albuterol 2018-0 No 3{ml_as TID Albuterol Sulfate Sulfate 7-19 _needed Sulfate (2.5 (2.5 00:00: } (2.5 MG/3ML) MG/3ML) 00 MG/3ML) 0.083% 0.083% 0.083% Albuterol Albuterol 2018-0 No 3{ml_as TID Albuterol Sulfate Sulfate 7-19 _needed Sulfate (2.5 (2.5 00:00: } (2.5 MG/3ML) MG/3ML) 00 MG/3ML) 0.083% 0.083% 0.083% Zofran Zofran 2019-0 Yes Na Rios 1 tablet Co mmon 6-07 as needed Spirit 00:00: - [facility] 00 [facility] Zofran 4 MG Zofran 4 MG 2019-0 No 1{table QD Zofran 4 6-07 t_as_ne MG 00:00: eded} 00 Zofran 4 MG Zofran 4 MG 2019-0 No 1{table QD Zofran 4 6-07 t_as_ne MG 00:00: eded} 00 Zofran 4 MG Zofran 4 MG 2019-0 No 1{table QD Zofran 4 6-07 t_as_ne MG 00:00: eded} 00 Zofran 4 MG Zofran 4 MG 2019-0 No 1{table QD Zofran 4 6-07 t_as_ne MG 00:00: eded} 00 Zofran 4 MG Zofran 4 MG 2019-0 No 1{table QD Zofran 4 6-07 t_as_ne MG 00:00: eded} 00 Zofran 4 MG Zofran 4 MG 2019-0 No 1{table QD Zofran 4 6-07 t_as_ne MG 00:00: eded} 00 Zofran 4 MG Zofran 4 MG 2019-0 No 1{table QD Zofran 4 6-07 t_as_ne MG 00:00: eded} 00 Zofran 4 MG Zofran 4 MG 2019-0 No 1{table QD Zofran 4 6-07 t_as_ne MG 00:00: eded} 00 Zofran 4 MG Zofran 4 MG 2019-0 No 1{table QD Zofran 4 6-07 t_as_ne MG 00:00: eded} 00 Zofran 4 MG Zofran 4 MG 2019-0 No 1{table QD Zofran 4 6-07 t_as_ne MG 00:00: eded} 00 Zofran 4 MG Zofran 4 MG 2019-0 No 1{table QD Zofran 4 6-07 t_as_ne MG 00:00: eded} 00 Zofran 4 MG Zofran 4 MG 2019-0 No 1{table QD Zofran 4 6-07 t_as_ne MG 00:00: eded} 00 Zofran 4 MG Zofran 4 MG 2019-0 No 1{table QD Zofran 4 6-07 t_as_ne MG 00:00: eded} 00 Zofran 4 MG Zofran 4 MG 2019-0 No 1{table QD Zofran 4 6-07 t_as_ne MG 00:00: eded} 00 Zofran 4 MG Zofran 4 MG 2019-0 No 1{table QD Zofran 4 6-07 t_as_ne MG 00:00: eded} 00 Zofran 4 MG Zofran 4 MG 2019-0 No 1{table QD Zofran 4 6-07 t_as_ne MG 00:00: eded} 00 Zofran 4 MG Zofran 4 MG 2019-0 No 1{table QD Zofran 4 6-07 t_as_ne MG 00:00: eded} 00 Zofran 4 MG Zofran 4 MG 2019-0 No 1{table QD Zofran 4 6-07 t_as_ne MG 00:00: eded} 00 Zofran 4 MG Zofran 4 MG 2019-0 No 1{table QD Zofran 4 6-07 t_as_ne MG 00:00: eded} 00 Kenalog Kenalog 2018-0 No 40mg Common (Triamcinol (Triamcinol 6-25 S pirit one) one) 00:00: - CHI 00 [facility] Kenalog Kenalog 2018-0 No 40mg Common (Triamcinol (Triamcinol 6-25 S pirit one) one) 00:00: - [facility]I 00 [facility] Kenalog Kenalog 2018-0 No 40mg Common (Triamcinol (Triamcinol 6-25 S pirit one) one) 00:00: - CHI 00 [facility] Kenalog Kenalog 2018-0 No 40mg Common (Triamcinol (Triamcinol 6-25 S pirit one) one) 00:00: - [facility]I 00 [facility] Kenalog Kenalog 2018-0 No 40mg Common (Triamcinol (Triamcinol 6-25 S pirit one) one) 00:00: - CHI 00 [facility] Kenalog Kenalog 2018-0 No 40mg Common (Triamcinol (Triamcinol 6-25 S pirit one) one) 00:00: - [facility] No [facility] Common (Triamcinol (Triamcinol 6-25 S pirit one) one) 00:00: - CHI [facility] [place] No 40mg Common (Triamcinol (Triamcinol 6-25 S pirit one) one) 00:00: - CHI [facility] [place] No 40mg Common (Triamcinol (Triamcinol 6-25 S pirit one) one) 00:00: - [facility] No 40mg Common (Triamcinol (Triamcinol 6-25 S pirit one) one) 00:00: - CHI [facility] Lipitor Lipitor Yes Na Rios 1 tablet Co mmon [facility] Zestoretic Zestoretic Yes Na Rios 1 tablet Common [facility] Cetirizine Cetirizine Yes Na Rios 1 tablet Common HCl HCl [facility] Albuterol Albuterol Yes Na Rios 2 puffs as Common Sulfate Sulfate needed [facility] Amitriptyli Amitriptyli Yes Na Rios TAKE 1 Common ne HCl ne HCl TABLET BY [facility] MOUTH AT [facility] BEDTIME [facility] NEEDED [facility] Trazodone Trazodone Yes Na Rios 1 tablet Common HCl HCl at bedtime [facility] as needed [facility] Glyxambi Glyxambi Yes Na Rios 1 tablet Common in the Spirit morning [facility] Metformin Metformin Yes Na Rios 1 tablet Common HCl HCl with meals [facility] Losartan Losartan Yes Na Rios 1 tablet Common Potassium Potassium Spiri [facility] Omeprazole Omeprazole Yes Na Rios TAKE ONE Common CAPSULE BY Spirit MOUTH [facility] EVERY DAY [facility] Citalopram Citalopram Yes Na Rios 1 tablet Common Hydrobromid Hydrobromid S pirit e e [facility] Symbicort Symbicort Yes Na Rios 2 puffs Common Spirit - [facility] Amaryl Amaryl Yes Na Rios 1 tablet Comm on [facility] Tizanidine Tizanidine Yes Na Rios TAKE 2 Common HCl HCl TABLETS BY Spirit MOUTH AT - CHI BEDTIME [facility] Atorvastati Atorvastati Yes Na Rios TAKE 1 Common n Calcium n Calcium TABLET BY Spirit MOUTH - CHI EVERY DAY [facility] predniSONE predniSONE No 1{table QD predniSONE 20 MG 20 MG t} 20 MG metFORMIN metFORMIN No 1{table BID metFORMIN HCl 1000 MG HCl 1000 MG t_with_ HCl 1000 meals} MG Lipitor 40 Lipitor 40 No Lipitor 40 MG MG MG Sucralfate Sucralfate No 1{table QID Sucralfate 1 GM 1 GM t_on_an 1 GM _empty_ stomach } Cetirizine Cetirizine No 1{table QD Cetirizine HCl 10 MG HCl 10 MG t} HCl 10 MG Amaryl 4 MG Amaryl 4 MG No 1{table BID Amaryl 4 t} MG Citalopram Citalopram No 1{table QD Citalopram Hydrobromid Hydrobromid t} Hydrobromi e 40 MG e 40 MG de 40 MG tiZANidine tiZANidine No tiZANidine HCl 2 MG HCl 2 MG HCl 2 MG Symbicort Symbicort No 2{puffs BID Symbicort 160-4.5 160-4.5 } 160-4.5 MCG/ACT MCG/ACT MCG/ACT tiZANidine tiZANidine No tiZANidine HCl 2 MG HCl 2 MG HCl 2 MG Lipitor 40 Lipitor 40 No 1{table QD Lipitor 40 MG MG t} MG tiZANidine tiZANidine No tiZANidine HCl 2 MG HCl 2 MG HCl 2 MG HYDROcodone HYDROcodone No 1{table BID HYDROcodon -Acetaminop -Acetaminop t_as_ne e-Acetamin hen 7.5-325 hen 7.5-325 eded} ophen MG MG 7.5-325 MG Albuterol Albuterol No 2{puffs QID Albuterol Sulfate 108 Sulfate 108 _as_nee Sulfate (90 Base) (90 Base) ded} 108 (90 MCG/ACT MCG/ACT Base) MCG/ACT Losartan Losartan No 1{table QD Losartan Potassium Potassium t} Potassium 50 MG 50 MG 50 MG Glimepiride Glimepiride No 1{table BID Glimepirid 2 MG 2 MG t_with_ e [address]_or_t he_firs t_main_ meal_of _the_da y} Omeprazole Omeprazole No Omeprazole 40 MG 40 MG 40 MG traZODone traZODone No 1{table QD traZODone HCl 100 MG HCl 100 MG t_at_be HCl 100 MG dtime_a s_neede d} traZODone traZODone No traZODone HCl 100 MG HCl 100 MG HCl 100 MG Glyxambi Glyxambi No Glyxambi 25-5 MG 25-5 MG 25-5 MG metFORMIN metFORMIN No metFORMIN HCl 1000 MG HCl 1000 MG HCl 1000 MG Zestoretic Zestoretic No 1{table QD Zestoretic 12.5-10 MG 12.5-10 MG t} 12.5-10 MG Amitriptyli Amitriptyli No Amitriptyl ne HCl 25 ne HCl 25 ine HCl 25 MG MG MG predniSONE predniSONE No 1{table QD predniSONE 20 MG 20 MG t} 20 MG metFORMIN metFORMIN No 1{table BID metFORMIN HCl 1000 MG HCl 1000 MG t_with_ HCl 1000 meals} MG Lipitor 40 Lipitor 40 No Lipitor 40 MG MG MG Sucralfate Sucralfate No 1{table QID Sucralfate 1 GM 1 GM t_on_an 1 GM _empty_ stomach } Cetirizine Cetirizine No 1{table QD Cetirizine HCl 10 MG HCl 10 MG t} HCl 10 MG Amaryl 4 MG Amaryl 4 MG No 1{table BID Amaryl 4 t} MG Citalopram Citalopram No 1{table QD Citalopram Hydrobromid Hydrobromid t} Hydrobromi e 40 MG e 40 MG de 40 MG tiZANidine tiZANidine No tiZANidine HCl 2 MG HCl 2 MG HCl 2 MG Symbicort Symbicort No 2{puffs BID Symbicort 160-4.5 160-4.5 } 160-4.5 MCG/ACT MCG/ACT MCG/ACT tiZANidine tiZANidine No tiZANidine HCl 2 MG HCl 2 MG HCl 2 MG Lipitor 40 Lipitor 40 No 1{table QD Lipitor 40 MG MG t} MG tiZANidine tiZANidine No tiZANidine HCl 2 MG HCl 2 MG HCl 2 MG HYDROcodone HYDROcodone No 1{table BID HYDROcodon -Acetaminop -Acetaminop t_as_ne e-Acetamin hen 7.5-325 hen 7.5-325 eded} ophen MG MG 7.5-325 MG Albuterol Albuterol No 2{puffs QID Albuterol Sulfate 108 Sulfate 108 _as_nee Sulfate (90 Base) (90 Base) ded} 108 (90 MCG/ACT MCG/ACT Base) MCG/ACT Losartan Losartan No 1{table QD Losartan Potassium Potassium t} Potassium 50 MG 50 MG 50 MG Glimepiride Glimepiride No 1{table BID Glimepirid 2 MG 2 MG t_with_ e [address]_or_t he_firs t_main_ meal_of _the_da y} Glyxambi Glyxambi No Glyxambi 25-5 MG 25-5 MG 25-5 MG Zestoretic Zestoretic No 1{table QD Zestoretic 12.5-10 MG 12.5-10 MG t} 12.5-10 MG Citalopram Citalopram No 1{table QD Citalopram Hydrobromid Hydrobromid t} Hydrobromi e 40 MG e 40 MG de 40 MG Cetirizine Cetirizine No 1{table QD Cetirizine HCl 10 MG HCl 10 MG t} HCl 10 MG tiZANidine tiZANidine No tiZANidine HCl 2 MG HCl 2 MG HCl 2 MG metFORMIN metFORMIN No 1{table BID metFORMIN HCl 1000 MG HCl 1000 MG t_with_ HCl 1000 meals} MG Lipitor 40 Lipitor 40 No 1{table QD Lipitor 40 MG MG t} MG traZODone traZODone No traZODone HCl 100 MG HCl 100 MG HCl 100 MG Albuterol Albuterol No 2{puffs QID Albuterol Sulfate 108 Sulfate 108 _as_nee Sulfate (90 Base) (90 Base) ded} 108 (90 MCG/ACT MCG/ACT Base) MCG/ACT Symbicort Symbicort No 2{puffs BID Symbicort 160-4.5 160-4.5 } 160-4.5 MCG/ACT MCG/ACT MCG/ACT Losartan Losartan No 1{table QD Losartan Potassium Potassium t} Potassium 50 MG 50 MG 50 MG tiZANidine tiZANidine No tiZANidine HCl 2 MG HCl 2 MG HCl 2 MG Lipitor 40 Lipitor 40 No Lipitor 40 MG MG MG Amaryl 4 MG Amaryl 4 MG No 1{table BID Amaryl 4 t} MG metFORMIN metFORMIN No metFORMIN HCl 1000 MG HCl 1000 MG HCl 1000 MG Amitriptyli Amitriptyli No Amitriptyl ne HCl 25 ne HCl 25 ine HCl 25 MG MG MG Atorvastati Atorvastati No Atorvastat n Calcium n Calcium in Calcium 40 MG 40 MG 40 MG Citalopram Citalopram No 1{table QD Citalopram Hydrobromid Hydrobromid t} Hydrobromi e 40 MG e 40 MG de 40 MG Omeprazole Omeprazole No Omeprazole 40 MG 40 MG 40 MG Glyxambi Glyxambi No Glyxambi 25-5 MG 25-5 MG 25-5 MG Zestoretic Zestoretic No 1{table QD Zestoretic 12.5-10 MG 12.5-10 MG t} 12.5-10 MG Citalopram Citalopram No 1{table QD Citalopram Hydrobromid Hydrobromid t} Hydrobromi e 40 MG e 40 MG de 40 MG Cetirizine Cetirizine No 1{table QD Cetirizine HCl 10 MG HCl 10 MG t} HCl 10 MG tiZANidine tiZANidine No tiZANidine HCl 2 MG HCl 2 MG HCl 2 MG metFORMIN metFORMIN No 1{table BID metFORMIN HCl 1000 MG HCl 1000 MG t_with_ HCl 1000 meals} MG Lipitor 40 Lipitor 40 No 1{table QD Lipitor 40 MG MG t} MG traZODone traZODone No traZODone HCl 100 MG HCl 100 MG HCl 100 MG Albuterol Albuterol No 2{puffs QID Albuterol Sulfate 108 Sulfate 108 _as_nee Sulfate (90 Base) (90 Base) ded} 108 (90 MCG/ACT MCG/ACT Base) MCG/ACT Symbicort Symbicort No 2{puffs BID Symbicort 160-4.5 160-4.5 } 160-4.5 MCG/ACT MCG/ACT MCG/ACT Losartan Losartan No 1{table QD Losartan Potassium Potassium t} Potassium 50 MG 50 MG 50 MG tiZANidine tiZANidine No tiZANidine HCl 2 MG HCl 2 MG HCl 2 MG Lipitor 40 Lipitor 40 No Lipitor 40 MG MG MG Amaryl 4 MG Amaryl 4 MG No 1{table BID Amaryl 4 t} MG metFORMIN metFORMIN No metFORMIN HCl 1000 MG HCl 1000 MG HCl 1000 MG Amitriptyli Amitriptyli No Amitriptyl ne HCl 25 ne HCl 25 ine HCl 25 MG MG MG Atorvastati Atorvastati No Atorvastat n Calcium n Calcium in Calcium 40 MG 40 MG 40 MG Citalopram Citalopram No 1{table QD Citalopram Hydrobromid Hydrobromid t} Hydrobromi e 40 MG e 40 MG de 40 MG Omeprazole Omeprazole No Omeprazole 40 MG 40 MG 40 MG Lipitor 40 Lipitor 40 No Lipitor 40 MG MG MG metFORMIN metFORMIN No 1{table BID metFORMIN HCl 1000 MG HCl 1000 MG t_with_ HCl 1000 meals} MG Losartan Losartan No 1{table QD Losartan Potassium Potassium t} Potassium 50 MG 50 MG 50 MG Glyxambi Glyxambi No Glyxambi 25-5 MG 25-5 MG 25-5 MG Symbicort Symbicort No 2{puffs BID Symbicort 160-4.5 160-4.5 } 160-4.5 MCG/ACT MCG/ACT MCG/ACT Cetirizine Cetirizine No 1{table QD Cetirizine HCl 10 MG HCl 10 MG t} HCl 10 MG Citalopram Citalopram No 1{table QD Citalopram Hydrobromid Hydrobromid t} Hydrobromi e 40 MG e 40 MG de 40 MG tiZANidine tiZANidine No tiZANidine HCl 2 MG HCl 2 MG HCl 2 MG Omeprazole Omeprazole No Omeprazole 40 MG 40 MG 40 MG Albuterol Albuterol No 2{puffs QID Albuterol Sulfate 108 Sulfate 108 _as_nee Sulfate (90 Base) (90 Base) ded} 108 (90 MCG/ACT MCG/ACT Base) MCG/ACT Citalopram Citalopram No 1{table QD Citalopram Hydrobromid Hydrobromid t} Hydrobromi e 40 MG e 40 MG de 40 MG Atorvastati Atorvastati No Atorvastat n Calcium n Calcium in Calcium 40 MG 40 MG 40 MG tiZANidine tiZANidine No tiZANidine HCl 2 MG HCl 2 MG HCl 2 MG Zestoretic Zestoretic No 1{table QD Zestoretic 12.5-10 MG 12.5-10 MG t} 12.5-10 MG Amitriptyli Amitriptyli No Amitriptyl ne HCl 25 ne HCl 25 ine HCl 25 MG MG MG metFORMIN metFORMIN No metFORMIN HCl 1000 MG HCl 1000 MG HCl 1000 MG Amaryl 4 MG Amaryl 4 MG No 1{table BID Amaryl 4 t} MG Lipitor 40 Lipitor 40 No 1{table QD Lipitor 40 MG MG t} MG traZODone traZODone No traZODone HCl 100 MG HCl 100 MG HCl 100 MG Albuterol Albuterol No 2{puffs QID Albuterol Sulfate 108 Sulfate 108 _as_nee Sulfate (90 Base) (90 Base) ded} 108 (90 MCG/ACT MCG/ACT Base) MCG/ACT tiZANidine tiZANidine No tiZANidine HCl 2 MG HCl 2 MG HCl 2 MG Lipitor 40 Lipitor 40 No 1{table QD Lipitor 40 MG MG t} MG Atorvastati Atorvastati No Atorvastat n Calcium n Calcium in Calcium 40 MG 40 MG 40 MG Amitriptyli Amitriptyli No Amitriptyl ne HCl 25 ne HCl 25 ine HCl 25 MG MG MG tiZANidine tiZANidine No tiZANidine HCl 2 MG HCl 2 MG HCl 2 MG Losartan Losartan No 1{table QD Losartan Potassium Potassium t} Potassium 50 MG 50 MG 50 MG Citalopram Citalopram No 1{table QD Citalopram Hydrobromid Hydrobromid t} Hydrobromi e 40 MG e 40 MG de 40 MG Lipitor 40 Lipitor 40 No Lipitor 40 MG MG MG Januvia 100 Januvia 100 No 1{table Januvia MG MG t} 100 MG Farxiga 10 Farxiga 10 No 1{table QD Farxiga 10 MG MG t} MG tiZANidine tiZANidine No tiZANidine HCl 2 MG HCl 2 MG HCl 2 MG Citalopram Citalopram No 1{table QD Citalopram Hydrobromid Hydrobromid t} Hydrobromi e 40 MG e 40 MG de 40 MG metFORMIN metFORMIN No metFORMIN HCl 1000 MG HCl 1000 MG HCl 1000 MG Cetirizine Cetirizine No 1{table QD Cetirizine HCl 10 MG HCl 10 MG t} HCl 10 MG metFORMIN metFORMIN No 1{table BID metFORMIN HCl 1000 MG HCl 1000 MG t_with_ HCl 1000 meals} MG Symbicort Symbicort No 2{puffs BID Symbicort 160-4.5 160-4.5 } 160-4.5 MCG/ACT MCG/ACT MCG/ACT traZODone traZODone No traZODone HCl 100 MG HCl 100 MG HCl 100 MG Glyxambi Glyxambi No Glyxambi 25-5 MG 25-5 MG 25-5 MG Zestoretic Zestoretic No 1{table QD Zestoretic 12.5-10 MG 12.5-10 MG t} 12.5-10 MG Omeprazole Omeprazole No Omeprazole 40 MG 40 MG 40 MG Amaryl 4 MG Amaryl 4 MG No 1{table BID Amaryl 4 t} MG Albuterol Albuterol No 2{puffs QID Albuterol Sulfate 108 Sulfate 108 _as_nee Sulfate (90 Base) (90 Base) ded} 108 (90 MCG/ACT MCG/ACT Base) MCG/ACT tiZANidine tiZANidine No tiZANidine HCl 2 MG HCl 2 MG HCl 2 MG Lipitor 40 Lipitor 40 No 1{table QD Lipitor 40 MG MG t} MG Atorvastati Atorvastati No Atorvastat n Calcium n Calcium in Calcium 40 MG 40 MG 40 MG Amitriptyli Amitriptyli No Amitriptyl ne HCl 25 ne HCl 25 ine HCl 25 MG MG MG tiZANidine tiZANidine No tiZANidine HCl 2 MG HCl 2 MG HCl 2 MG Losartan Losartan No 1{table QD Losartan Potassium Potassium t} Potassium 50 MG 50 MG 50 MG Citalopram Citalopram No 1{table QD Citalopram Hydrobromid Hydrobromid t} Hydrobromi e 40 MG e 40 MG de 40 MG Lipitor 40 Lipitor 40 No Lipitor 40 MG MG MG Januvia 100 Januvia 100 No 1{table Januvia MG MG t} 100 MG Farxiga 10 Farxiga 10 No 1{table QD Farxiga 10 MG MG t} MG tiZANidine tiZANidine No tiZANidine HCl 2 MG HCl 2 MG HCl 2 MG Citalopram Citalopram No 1{table QD Citalopram Hydrobromid Hydrobromid t} Hydrobromi e 40 MG e 40 MG de 40 MG metFORMIN metFORMIN No metFORMIN HCl 1000 MG HCl 1000 MG HCl 1000 MG Cetirizine Cetirizine No 1{table QD Cetirizine HCl 10 MG HCl 10 MG t} HCl 10 MG metFORMIN metFORMIN No 1{table BID metFORMIN HCl 1000 MG HCl 1000 MG t_with_ HCl 1000 meals} MG Symbicort Symbicort No 2{puffs BID Symbicort 160-4.5 160-4.5 } 160-4.5 MCG/ACT MCG/ACT MCG/ACT traZODone traZODone No traZODone HCl 100 MG HCl 100 MG HCl 100 MG Glyxambi Glyxambi No Glyxambi 25-5 MG 25-5 MG 25-5 MG Zestoretic Zestoretic No 1{table QD Zestoretic 12.5-10 MG 12.5-10 MG t} 12.5-10 MG Omeprazole Omeprazole No Omeprazole 40 MG 40 MG 40 MG Amaryl 4 MG Amaryl 4 MG No 1{table BID Amaryl 4 t} MG Albuterol Albuterol No 2{puffs QID Albuterol Sulfate 108 Sulfate 108 _as_nee Sulfate (90 Base) (90 Base) ded} 108 (90 MCG/ACT MCG/ACT Base) MCG/ACT tiZANidine tiZANidine No tiZANidine HCl 2 MG HCl 2 MG HCl 2 MG Lipitor 40 Lipitor 40 No 1{table QD Lipitor 40 MG MG t} MG Atorvastati Atorvastati No Atorvastat n Calcium n Calcium in Calcium 40 MG 40 MG 40 MG Amitriptyli Amitriptyli No Amitriptyl ne HCl 25 ne HCl 25 ine HCl 25 MG MG MG tiZANidine tiZANidine No tiZANidine HCl 2 MG HCl 2 MG HCl 2 MG Losartan Losartan No 1{table QD Losartan Potassium Potassium t} Potassium 50 MG 50 MG 50 MG Citalopram Citalopram No 1{table QD Citalopram Hydrobromid Hydrobromid t} Hydrobromi e 40 MG e 40 MG de 40 MG Lipitor 40 Lipitor 40 No Lipitor 40 MG MG MG Januvia 100 Januvia 100 No 1{table Januvia MG MG t} 100 MG Farxiga 10 Farxiga 10 No 1{table QD Farxiga 10 MG MG t} MG tiZANidine tiZANidine No tiZANidine HCl 2 MG HCl 2 MG HCl 2 MG Citalopram Citalopram No 1{table QD Citalopram Hydrobromid Hydrobromid t} Hydrobromi e 40 MG e 40 MG de 40 MG metFORMIN metFORMIN No metFORMIN HCl 1000 MG HCl 1000 MG HCl 1000 MG Cetirizine Cetirizine No 1{table QD Cetirizine HCl 10 MG HCl 10 MG t} HCl 10 MG metFORMIN metFORMIN No 1{table BID metFORMIN HCl 1000 MG HCl 1000 MG t_with_ HCl 1000 meals} MG Symbicort Symbicort No 2{puffs BID Symbicort 160-4.5 160-4.5 } 160-4.5 MCG/ACT MCG/ACT MCG/ACT traZODone traZODone No traZODone HCl 100 MG HCl 100 MG HCl 100 MG Glyxambi Glyxambi No Glyxambi 25-5 MG 25-5 MG 25-5 MG Zestoretic Zestoretic No 1{table QD Zestoretic 12.5-10 MG 12.5-10 MG t} 12.5-10 MG Omeprazole Omeprazole No Omeprazole 40 MG 40 MG 40 MG Amaryl 4 MG Amaryl 4 MG No 1{table BID Amaryl 4 t} MG tiZANidine tiZANidine No tiZANidine HCl 2 MG HCl 2 MG HCl 2 MG tiZANidine tiZANidine No tiZANidine HCl 2 MG HCl 2 MG HCl 2 MG Albuterol Albuterol No 2{puffs QID Albuterol Sulfate 108 Sulfate 108 _as_nee Sulfate (90 Base) (90 Base) ded} 108 (90 MCG/ACT MCG/ACT Base) MCG/ACT Lipitor 40 Lipitor 40 No 1{table QD Lipitor 40 MG MG t} MG Citalopram Citalopram No 1{table QD Citalopram Hydrobromid Hydrobromid t} Hydrobromi e 40 MG e 40 MG de 40 MG tiZANidine tiZANidine No tiZANidine HCl 2 MG HCl 2 MG HCl 2 MG Atorvastati Atorvastati No Atorvastat n Calcium n Calcium in Calcium 40 MG 40 MG 40 MG metFORMIN metFORMIN No metFORMIN HCl 1000 MG HCl 1000 MG HCl 1000 MG Glyxambi Glyxambi No Glyxambi 25-5 MG 25-5 MG 25-5 MG Januvia 100 Januvia 100 No 1{table Januvia MG MG t} 100 MG Losartan Losartan No 1{table QD Losartan Potassium Potassium t} Potassium 50 MG 50 MG 50 MG Lipitor 40 Lipitor 40 No Lipitor 40 MG MG MG traZODone traZODone No traZODone HCl 100 MG HCl 100 MG HCl 100 MG Amitriptyli Amitriptyli No Amitriptyl ne HCl 25 ne HCl 25 ine HCl 25 MG MG MG Amaryl 4 MG Amaryl 4 MG No 1{table BID Amaryl 4 t} MG Omeprazole Omeprazole No Omeprazole 40 MG 40 MG 40 MG Citalopram Citalopram No 1{table QD Citalopram Hydrobromid Hydrobromid t} Hydrobromi e 40 MG e 40 MG de 40 MG Cetirizine Cetirizine No 1{table QD Cetirizine HCl 10 MG HCl 10 MG t} HCl 10 MG metFORMIN metFORMIN No 1{table BID metFORMIN HCl 1000 MG HCl 1000 MG t_with_ HCl 1000 meals} MG Zestoretic Zestoretic No 1{table QD Zestoretic 12.5-10 MG 12.5-10 MG t} 12.5-10 MG Farxiga 10 Farxiga 10 No 1{table QD Farxiga 10 MG MG t} MG Symbicort Symbicort No 2{puffs BID Symbicort 160-4.5 160-4.5 } 160-4.5 MCG/ACT MCG/ACT MCG/ACT tiZANidine tiZANidine No tiZANidine HCl 2 MG HCl 2 MG HCl 2 MG tiZANidine tiZANidine No tiZANidine HCl 2 MG HCl 2 MG HCl 2 MG Albuterol Albuterol No 2{puffs QID Albuterol Sulfate 108 Sulfate 108 _as_nee Sulfate (90 Base) (90 Base) ded} 108 (90 MCG/ACT MCG/ACT Base) MCG/ACT Lipitor 40 Lipitor 40 No 1{table QD Lipitor 40 MG MG t} MG Citalopram Citalopram No 1{table QD Citalopram Hydrobromid Hydrobromid t} Hydrobromi e 40 MG e 40 MG de 40 MG tiZANidine tiZANidine No tiZANidine HCl 2 MG HCl 2 MG HCl 2 MG Atorvastati Atorvastati No Atorvastat n Calcium n Calcium in Calcium 40 MG 40 MG 40 MG metFORMIN metFORMIN No metFORMIN HCl 1000 MG HCl 1000 MG HCl 1000 MG Glyxambi Glyxambi No Glyxambi 25-5 MG 25-5 MG 25-5 MG Januvia 100 Januvia 100 No 1{table Januvia MG MG t} 100 MG Losartan Losartan No 1{table QD Losartan Potassium Potassium t} Potassium 50 MG 50 MG 50 MG Lipitor 40 Lipitor 40 No Lipitor 40 MG MG MG traZODone traZODone No traZODone HCl 100 MG HCl 100 MG HCl 100 MG Amitriptyli Amitriptyli No Amitriptyl ne HCl 25 ne HCl 25 ine HCl 25 MG MG MG Amaryl 4 MG Amaryl 4 MG No 1{table BID Amaryl 4 t} MG Omeprazole Omeprazole No Omeprazole 40 MG 40 MG 40 MG Citalopram Citalopram No 1{table QD Citalopram Hydrobromid Hydrobromid t} Hydrobromi e 40 MG e 40 MG de 40 MG Cetirizine Cetirizine No 1{table QD Cetirizine HCl 10 MG HCl 10 MG t} HCl 10 MG metFORMIN metFORMIN No 1{table BID metFORMIN HCl 1000 MG HCl 1000 MG t_with_ HCl 1000 meals} MG Zestoretic Zestoretic No 1{table QD Zestoretic 12.5-10 MG 12.5-10 MG t} 12.5-10 MG Farxiga 10 Farxiga 10 No 1{table QD Farxiga 10 MG MG t} MG Symbicort Symbicort No 2{puffs BID Symbicort 160-4.5 160-4.5 } 160-4.5 MCG/ACT MCG/ACT MCG/ACT tiZANidine tiZANidine No tiZANidine HCl 2 MG HCl 2 MG HCl 2 MG Albuterol Albuterol No 2{puffs QID Albuterol Sulfate 108 Sulfate 108 _as_nee Sulfate (90 Base) (90 Base) ded} 108 (90 MCG/ACT MCG/ACT Base) MCG/ACT Citalopram Citalopram No 1{table QD Citalopram Hydrobromid Hydrobromid t} Hydrobromi e 40 MG e 40 MG de 40 MG traZODone traZODone No 1{table QD traZODone HCl 100 MG HCl 100 MG t_at_be HCl 100 MG dtime_a s_neede d} Cetirizine Cetirizine No 1{table QD Cetirizine HCl 10 MG HCl 10 MG t} HCl 10 MG tiZANidine tiZANidine No tiZANidine HCl 2 MG HCl 2 MG HCl 2 MG Citalopram Citalopram No 1{table QD Citalopram Hydrobromid Hydrobromid t} Hydrobromi e 40 MG e 40 MG de 40 MG metFORMIN metFORMIN No 1{table BID metFORMIN HCl 1000 MG HCl 1000 MG t_with_ HCl 1000 meals} MG Lipitor 40 Lipitor 40 No Lipitor 40 MG MG MG Losartan Losartan No 1{table QD Losartan Potassium Potassium t} Potassium 50 MG 50 MG 50 MG Glyxambi Glyxambi No Glyxambi 25-5 MG 25-5 MG 25-5 MG Amaryl 4 MG Amaryl 4 MG No 1{table BID Amaryl 4 t} MG tiZANidine tiZANidine No tiZANidine HCl 2 MG HCl 2 MG HCl 2 MG Zestoretic Zestoretic No 1{table QD Zestoretic 12.5-10 MG 12.5-10 MG t} 12.5-10 MG Atorvastati Atorvastati No Atorvastat n Calcium n Calcium in Calcium 40 MG 40 MG 40 MG Symbicort Symbicort No 2{puffs BID Symbicort 160-4.5 160-4.5 } 160-4.5 MCG/ACT MCG/ACT MCG/ACT Farxiga 10 Farxiga 10 No 1{table QD Farxiga 10 MG MG t} MG Lipitor 40 Lipitor 40 No 1{table QD Lipitor 40 MG MG t} MG metFORMIN metFORMIN No metFORMIN HCl 1000 MG HCl 1000 MG HCl 1000 MG Amitriptyli Amitriptyli No Amitriptyl ne HCl 25 ne HCl 25 ine HCl 25 MG MG MG Januvia 100 Januvia 100 No 1{table Januvia MG MG t} 100 MG Omeprazole Omeprazole No Omeprazole 40 MG 40 MG 40 MG traZODone traZODone No traZODone HCl 100 MG HCl 100 MG HCl 100 MG Cetirizine Cetirizine No 1{table QD Cetirizine HCl 10 MG HCl 10 MG t} HCl 10 MG Glyxambi Glyxambi No Glyxambi 25-5 MG 25-5 MG 25-5 MG Zestoretic Zestoretic No 1{table QD Zestoretic 12.5-10 MG 12.5-10 MG t} 12.5-10 MG metFORMIN metFORMIN No metFORMIN HCl 1000 MG HCl 1000 MG HCl 1000 MG Lipitor 40 Lipitor 40 No Lipitor 40 MG MG MG traZODone traZODone No traZODone HCl 100 MG HCl 100 MG HCl 100 MG Omeprazole Omeprazole No Omeprazole 40 MG 40 MG 40 MG Albuterol Albuterol No 2{puffs QID Albuterol Sulfate 108 Sulfate 108 _as_nee Sulfate (90 Base) (90 Base) ded} 108 (90 MCG/ACT MCG/ACT Base) MCG/ACT Januvia 100 Januvia 100 No 1{table Januvia MG MG t} 100 MG Farxiga 10 Farxiga 10 No 1{table QD Farxiga 10 MG MG t} MG HYDROcodone HYDROcodone No 1{table QID HYDROcodon -Acetaminop -Acetaminop t_as_ne e-Acetamin hen 10-325 hen 10-325 eded} ophen MG MG 10-325 MG tiZANidine tiZANidine No tiZANidine HCl 2 MG HCl 2 MG HCl 2 MG Citalopram Citalopram No 1{table QD Citalopram Hydrobromid Hydrobromid t} Hydrobromi e 40 MG e 40 MG de 40 MG Losartan Losartan No 1{table QD Losartan Potassium Potassium t} Potassium 50 MG 50 MG 50 MG tiZANidine tiZANidine No tiZANidine HCl 2 MG HCl 2 MG HCl 2 MG Citalopram Citalopram No 1{table QD Citalopram Hydrobromid Hydrobromid t} Hydrobromi e 40 MG e 40 MG de 40 MG tiZANidine tiZANidine No tiZANidine HCl 2 MG HCl 2 MG HCl 2 MG Atorvastati Atorvastati No Atorvastat n Calcium n Calcium in Calcium 40 MG 40 MG 40 MG traZODone traZODone No 1{table QD traZODone HCl 100 MG HCl 100 MG t_at_be HCl 100 MG dtime_a s_neede d} metFORMIN metFORMIN No 1{table BID metFORMIN HCl 1000 MG HCl 1000 MG t_with_ HCl 1000 meals} MG Amaryl 4 MG Amaryl 4 MG No 1{table BID Amaryl 4 t} MG Symbicort Symbicort No 2{puffs BID Symbicort 160-4.5 160-4.5 } 160-4.5 MCG/ACT MCG/ACT MCG/ACT Amitriptyli Amitriptyli No Amitriptyl ne HCl 25 ne HCl 25 ine HCl 25 MG MG MG Lipitor 40 Lipitor 40 No 1{table QD Lipitor 40 MG MG t} MG Omeprazole Omeprazole No Omeprazole 40 MG 40 MG 40 MG Cetirizine Cetirizine No 1{table QD Cetirizine HCl 10 MG HCl 10 MG t} HCl 10 MG Glyxambi Glyxambi No Glyxambi 25-5 MG 25-5 MG 25-5 MG Albuterol Albuterol No 2{puffs QID Albuterol Sulfate 108 Sulfate 108 _as_nee Sulfate (90 Base) (90 Base) ded} 108 (90 MCG/ACT MCG/ACT Base) MCG/ACT Lipitor 40 Lipitor 40 No Lipitor 40 MG MG MG traZODone traZODone No traZODone HCl 100 MG HCl 100 MG HCl 100 MG tiZANidine tiZANidine No tiZANidine HCl 2 MG HCl 2 MG HCl 2 MG Losartan Losartan No 1{table QD Losartan Potassium Potassium t} Potassium 50 MG 50 MG 50 MG Januvia 100 Januvia 100 No 1{table Januvia MG MG t} 100 MG HYDROcodone HYDROcodone No 1{table QID HYDROcodon -Acetaminop -Acetaminop t_as_ne e-Acetamin hen 10-325 hen 10-325 eded} ophen MG MG 10-325 MG Atorvastati Atorvastati No Atorvastat n Calcium n Calcium in Calcium 40 MG 40 MG 40 MG Citalopram Citalopram No 1{table QD Citalopram Hydrobromid Hydrobromid t} Hydrobromi e 40 MG e 40 MG de 40 MG Citalopram Citalopram No 1{table QD Citalopram Hydrobromid Hydrobromid t} Hydrobromi e 40 MG e 40 MG de 40 MG tiZANidine tiZANidine No tiZANidine HCl 2 MG HCl 2 MG HCl 2 MG metFORMIN metFORMIN No metFORMIN HCl 1000 MG HCl 1000 MG HCl 1000 MG tiZANidine tiZANidine No tiZANidine HCl 2 MG HCl 2 MG HCl 2 MG Zestoretic Zestoretic No 1{table QD Zestoretic 12.5-10 MG 12.5-10 MG t} 12.5-10 MG traZODone traZODone No 1{table QD traZODone HCl 100 MG HCl 100 MG t_at_be HCl 100 MG dtime_a s_neede d} metFORMIN metFORMIN No 1{table BID metFORMIN HCl 1000 MG HCl 1000 MG t_with_ HCl 1000 meals} MG Amaryl 4 MG Amaryl 4 MG No 1{table BID Amaryl 4 t} MG Symbicort Symbicort No 2{puffs BID Symbicort 160-4.5 160-4.5 } 160-4.5 MCG/ACT MCG/ACT MCG/ACT Amitriptyli Amitriptyli No Amitriptyl ne HCl 25 ne HCl 25 ine HCl 25 MG MG MG Lipitor 40 Lipitor 40 No 1{table QD Lipitor 40 MG MG t} MG Zestoretic Zestoretic No 1{table QD Zestoretic 12.5-10 MG 12.5-10 MG t} 12.5-10 MG Amitriptyli Amitriptyli No Amitriptyl ne HCl 25 ne HCl 25 ine HCl 25 MG MG MG Cetirizine Cetirizine No 1{table QD Cetirizine HCl 10 MG HCl 10 MG t} HCl 10 MG Omeprazole Omeprazole No Omeprazole 40 MG 40 MG 40 MG Albuterol Albuterol No 2{puffs QID Albuterol Sulfate 108 Sulfate 108 _as_nee Sulfate (90 Base) (90 Base) ded} 108 (90 MCG/ACT MCG/ACT Base) MCG/ACT Atorvastati Atorvastati No Atorvastat n Calcium n Calcium in Calcium 40 MG 40 MG 40 MG tiZANidine tiZANidine No tiZANidine HCl 2 MG HCl 2 MG HCl 2 MG Citalopram Citalopram No 1{table QD Citalopram Hydrobromid Hydrobromid t} Hydrobromi e 40 MG e 40 MG de 40 MG Lipitor 40 Lipitor 40 No Lipitor 40 MG MG MG metFORMIN metFORMIN No metFORMIN HCl 1000 MG HCl 1000 MG HCl 1000 MG traZODone traZODone No 1{table QD traZODone HCl 100 MG HCl 100 MG t_at_be HCl 100 MG dtime_a s_neede d} Glyxambi Glyxambi No Glyxambi 25-5 MG 25-5 MG 25-5 MG Losartan Losartan No 1{table QD Losartan Potassium Potassium t} Potassium 50 MG 50 MG 50 MG Januvia 100 Januvia 100 No 1{table Januvia MG MG t} 100 MG traZODone traZODone No traZODone HCl 100 MG HCl 100 MG HCl 100 MG Citalopram Citalopram No 1{table QD Citalopram Hydrobromid Hydrobromid t} Hydrobromi e 40 MG e 40 MG de 40 MG tiZANidine tiZANidine No tiZANidine HCl 2 MG HCl 2 MG HCl 2 MG HYDROcodone HYDROcodone No 1{table QID HYDROcodon -Acetaminop -Acetaminop t_as_ne e-Acetamin hen 10-325 hen 10-325 eded} ophen MG MG 10-325 MG Lipitor 40 Lipitor 40 No 1{table QD Lipitor 40 MG MG t} MG Amaryl 4 MG Amaryl 4 MG No 1{table BID Amaryl 4 t} MG tiZANidine tiZANidine No tiZANidine HCl 2 MG HCl 2 MG HCl 2 MG Symbicort Symbicort No 2{puffs BID Symbicort 160-4.5 160-4.5 } 160-4.5 MCG/ACT MCG/ACT MCG/ACT Cetirizine Cetirizine No 1{table QD Cetirizine HCl 10 MG HCl 10 MG t} HCl 10 MG Omeprazole Omeprazole No Omeprazole 40 MG 40 MG 40 MG Zestoretic Zestoretic No 1{table QD Zestoretic 12.5-10 MG 12.5-10 MG t} 12.5-10 MG tiZANidine tiZANidine No tiZANidine HCl 2 MG HCl 2 MG HCl 2 MG Glyxambi Glyxambi No Glyxambi 25-5 MG 25-5 MG 25-5 MG Citalopram Citalopram No 1{table QD Citalopram Hydrobromid Hydrobromid t} Hydrobromi e 40 MG e 40 MG de 40 MG traZODone traZODone No traZODone HCl 100 MG HCl 100 MG HCl 100 MG Atorvastati Atorvastati No Atorvastat n Calcium n Calcium in Calcium 40 MG 40 MG 40 MG traZODone traZODone No 1{table QD traZODone HCl 100 MG HCl 100 MG t_at_be HCl 100 MG dtime_a s_neede d} Citalopram Citalopram No 1{table QD Citalopram Hydrobromid Hydrobromid t} Hydrobromi e 40 MG e 40 MG de 40 MG Januvia 100 Januvia 100 No 1{table Januvia MG MG t} 100 MG metFORMIN metFORMIN No metFORMIN HCl 1000 MG HCl 1000 MG HCl 1000 MG Lipitor 40 Lipitor 40 No Lipitor 40 MG MG MG Albuterol Albuterol No 2{puffs QID Albuterol Sulfate 108 Sulfate 108 _as_nee Sulfate (90 Base) (90 Base) ded} 108 (90 MCG/ACT MCG/ACT Base) MCG/ACT Amitriptyli Amitriptyli No Amitriptyl ne HCl 25 ne HCl 25 ine HCl 25 MG MG MG Lipitor 40 Lipitor 40 No 1{table QD Lipitor 40 MG MG t} MG Losartan Losartan No 1{table QD Losartan Potassium Potassium t} Potassium 50 MG 50 MG 50 MG HYDROcodone HYDROcodone No 1{table QID HYDROcodon -Acetaminop -Acetaminop t_as_ne e-Acetamin hen 10-325 hen 10-325 eded} ophen MG MG 10-325 MG tiZANidine tiZANidine No tiZANidine HCl 2 MG HCl 2 MG HCl 2 MG Symbicort Symbicort No 2{puffs BID Symbicort 160-4.5 160-4.5 } 160-4.5 MCG/ACT MCG/ACT MCG/ACT Amaryl 4 MG Amaryl 4 MG No 1{table BID Amaryl 4 t} MG tiZANidine tiZANidine No tiZANidine HCl 2 MG HCl 2 MG HCl 2 MG Losartan Losartan No 1{table QD Losartan Potassium Potassium t} Potassium 50 MG 50 MG 50 MG Lipitor 40 Lipitor 40 No Lipitor 40 MG MG MG metFORMIN metFORMIN No 1{table BID metFORMIN HCl 1000 MG HCl 1000 MG t_with_ HCl 1000 meals} MG Sucralfate Sucralfate No 1{table QID Sucralfate 1 GM 1 GM t_on_an 1 GM _empty_ stomach } Glyxambi Glyxambi No Glyxambi 25-5 MG 25-5 MG 25-5 MG tiZANidine tiZANidine No tiZANidine HCl 2 MG HCl 2 MG HCl 2 MG predniSONE predniSONE No 1{table QD predniSONE 20 MG 20 MG t} 20 MG traZODone traZODone No 1{table QD traZODone HCl 100 MG HCl 100 MG t_at_be HCl 100 MG dtime_a s_neede d} tiZANidine tiZANidine No tiZANidine HCl 2 MG HCl 2 MG HCl 2 MG Omeprazole Omeprazole No Omeprazole 40 MG 40 MG 40 MG Cetirizine Cetirizine No 1{table QD Cetirizine HCl 10 MG HCl 10 MG t} HCl 10 MG metFORMIN metFORMIN No metFORMIN HCl 1000 MG HCl 1000 MG HCl 1000 MG HYDROcodone HYDROcodone No 1{table BID HYDROcodon -Acetaminop -Acetaminop t_as_ne e-Acetamin hen 7.5-325 hen 7.5-325 eded} ophen MG MG 7.5-325 MG Glimepiride Glimepiride No 1{table BID Glimepirid 2 MG 2 MG t_with_ e [address]_or_t he_firs t_main_ meal_of _the_da y} Albuterol Albuterol No 2{puffs QID Albuterol Sulfate 108 Sulfate 108 _as_nee Sulfate (90 Base) (90 Base) ded} 108 (90 MCG/ACT MCG/ACT Base) MCG/ACT traZODone traZODone No traZODone HCl 100 MG HCl 100 MG HCl 100 MG Zestoretic Zestoretic No 1{table QD Zestoretic 12.5-10 MG 12.5-10 MG t} 12.5-10 MG Citalopram Citalopram No 1{table QD Citalopram Hydrobromid Hydrobromid t} Hydrobromi e 40 MG e 40 MG de 40 MG tiZANidine tiZANidine No tiZANidine HCl 2 MG HCl 2 MG HCl 2 MG Lipitor 40 Lipitor 40 No 1{table QD Lipitor 40 MG MG t} MG Symbicort Symbicort No 2{puffs BID Symbicort 160-4.5 160-4.5 } 160-4.5 MCG/ACT MCG/ACT MCG/ACT Amitriptyli Amitriptyli No Amitriptyl ne HCl 25 ne HCl 25 ine HCl 25 MG MG MG Atorvastati Atorvastati No Atorvastat n Calcium n Calcium in Calcium 40 MG 40 MG 40 MG Amaryl 4 MG Amaryl 4 MG No 1{table BID Amaryl 4 t} MG Omeprazole Omeprazole No Omeprazole 40 MG 40 MG 40 MG traZODone traZODone No 1{table QD traZODone HCl 100 MG HCl 100 MG t_at_be HCl 100 MG dtime_a s_neede d} traZODone traZODone No traZODone HCl 100 MG HCl 100 MG HCl 100 MG Glyxambi Glyxambi No Glyxambi 25-5 MG 25-5 MG 25-5 MG metFORMIN metFORMIN No metFORMIN HCl 1000 MG HCl 1000 MG HCl 1000 MG Zestoretic Zestoretic No 1{table QD Zestoretic 12.5-10 MG 12.5-10 MG t} 12.5-10 MG Amitriptyli Amitriptyli No Amitriptyl ne HCl 25 ne HCl 25 ine HCl 25 MG MG MG predniSONE predniSONE No 1{table QD predniSONE 20 MG 20 MG t} 20 MG metFORMIN metFORMIN No 1{table BID metFORMIN HCl 1000 MG HCl 1000 MG t_with_ HCl 1000 meals} MG Lipitor 40 Lipitor 40 No Lipitor 40 MG MG MG Sucralfate Sucralfate No 1{table QID Sucralfate 1 GM 1 GM t_on_an 1 GM _empty_ stomach } Cetirizine Cetirizine No 1{table QD Cetirizine HCl 10 MG HCl 10 MG t} HCl 10 MG Amaryl 4 MG Amaryl 4 MG No 1{table BID Amaryl 4 t} MG Citalopram Citalopram No 1{table QD Citalopram Hydrobromid Hydrobromid t} Hydrobromi e 40 MG e 40 MG de 40 MG tiZANidine tiZANidine No tiZANidine HCl 2 MG HCl 2 MG HCl 2 MG Symbicort Symbicort No 2{puffs BID Symbicort 160-4.5 160-4.5 } 160-4.5 MCG/ACT MCG/ACT MCG/ACT tiZANidine tiZANidine No tiZANidine HCl 2 MG HCl 2 MG HCl 2 MG Lipitor 40 Lipitor 40 No 1{table QD Lipitor 40 MG MG t} MG tiZANidine tiZANidine No tiZANidine HCl 2 MG HCl 2 MG HCl 2 MG HYDROcodone HYDROcodone No 1{table BID HYDROcodon -Acetaminop -Acetaminop t_as_ne e-Acetamin hen 7.5-325 hen 7.5-325 eded} ophen MG MG 7.5-325 MG Albuterol Albuterol No 2{puffs QID Albuterol Sulfate 108 Sulfate 108 _as_nee Sulfate (90 Base) (90 Base) ded} 108 (90 MCG/ACT MCG/ACT Base) MCG/ACT Losartan Losartan No 1{table QD Losartan Potassium Potassium t} Potassium 50 MG 50 MG 50 MG Glimepiride Glimepiride No 1{table BID Glimepirid 2 MG 2 MG t_with_ e [address]_or_t he_firs t_main_ meal_of _the_da y} Omeprazole Omeprazole No Omeprazole 40 MG 40 MG 40 MG traZODone traZODone No 1{table QD traZODone HCl 100 MG HCl 100 MG t_at_be HCl 100 MG dtime_a s_neede d} traZODone traZODone No traZODone HCl 100 MG HCl 100 MG HCl 100 MG Glyxambi Glyxambi No Glyxambi 25-5 MG 25-5 MG 25-5 MG metFORMIN metFORMIN No metFORMIN HCl 1000 MG HCl 1000 MG HCl 1000 MG Zestoretic Zestoretic No 1{table QD Zestoretic 12.5-10 MG 12.5-10 MG t} 12.5-10 MG Amitriptyli Amitriptyli No Amitriptyl ne HCl 25 ne HCl 25 ine HCl 25 MG MG MG predniSONE predniSONE No 1{table QD predniSONE 20 MG 20 MG t} 20 MG metFORMIN metFORMIN No 1{table BID metFORMIN HCl 1000 MG HCl 1000 MG t_with_ HCl 1000 meals} MG Lipitor 40 Lipitor 40 No Lipitor 40 MG MG MG Sucralfate Sucralfate No 1{table QID Sucralfate 1 GM 1 GM t_on_an 1 GM _empty_ stomach } Cetirizine Cetirizine No 1{table QD Cetirizine HCl 10 MG HCl 10 MG t} HCl 10 MG Amaryl 4 MG Amaryl 4 MG No 1{table BID Amaryl 4 t} MG Citalopram Citalopram No 1{table QD Citalopram Hydrobromid Hydrobromid t} Hydrobromi e 40 MG e 40 MG de 40 MG tiZANidine tiZANidine No tiZANidine HCl 2 MG HCl 2 MG HCl 2 MG Symbicort Symbicort No 2{puffs BID Symbicort 160-4.5 160-4.5 } 160-4.5 MCG/ACT MCG/ACT MCG/ACT tiZANidine tiZANidine No tiZANidine HCl 2 MG HCl 2 MG HCl 2 MG Lipitor 40 Lipitor 40 No 1{table QD Lipitor 40 MG MG t} MG tiZANidine tiZANidine No tiZANidine HCl 2 MG HCl 2 MG HCl 2 MG HYDROcodone HYDROcodone No 1{table BID HYDROcodon -Acetaminop -Acetaminop t_as_ne e-Acetamin hen 7.5-325 hen 7.5-325 eded} ophen MG MG 7.5-325 MG Albuterol Albuterol No 2{puffs QID Albuterol Sulfate 108 Sulfate 108 _as_nee Sulfate (90 Base) (90 Base) ded} 108 (90 MCG/ACT MCG/ACT Base) MCG/ACT Losartan Losartan No 1{table QD Losartan Potassium Potassium t} Potassium 50 MG 50 MG 50 MG Glimepiride Glimepiride No 1{table BID Glimepirid 2 MG 2 MG t_with_ e [address]_or_t he_firs t_main_ meal_of _the_da y} traZODone traZODone No 1{table QD traZODone HCl 100 MG HCl 100 MG t_at_be HCl 100 MG dtime_a s_neede d} Lipitor 40 Lipitor 40 No Lipitor 40 MG MG MG predniSONE predniSONE No 1{table QD predniSONE 20 MG 20 MG t} 20 MG HYDROcodone HYDROcodone No 1{table BID HYDROcodon -Acetaminop -Acetaminop t_as_ne e-Acetamin hen 7.5-325 hen 7.5-325 eded} ophen MG MG 7.5-325 MG Glimepiride Glimepiride No 1{table BID Glimepirid 2 MG 2 MG t_with_ e [address]_or_t he_firs t_main_ meal_of _the_da y} Amaryl 4 MG Amaryl 4 MG No 1{table BID Amaryl 4 t} MG tiZANidine tiZANidine No tiZANidine HCl 2 MG HCl 2 MG HCl 2 MG tiZANidine tiZANidine No tiZANidine HCl 2 MG HCl 2 MG HCl 2 MG metFORMIN metFORMIN No 1{table BID metFORMIN HCl 1000 MG HCl 1000 MG t_with_ HCl 1000 meals} MG Symbicort Symbicort No 2{puffs BID Symbicort 160-4.5 160-4.5 } 160-4.5 MCG/ACT MCG/ACT MCG/ACT Lipitor 40 Lipitor 40 No 1{table QD Lipitor 40 MG MG t} MG tiZANidine tiZANidine No tiZANidine HCl 2 MG HCl 2 MG HCl 2 MG Losartan Losartan No Losartan Potassium Potassium Potassium 50 MG 50 MG 50 MG Zestoretic Zestoretic No 1{table QD Zestoretic 12.5-10 MG 12.5-10 MG t} 12.5-10 MG Omeprazole Omeprazole No Omeprazole 40 MG 40 MG 40 MG Citalopram Citalopram No Citalopram Hydrobromid Hydrobromid Hydrobromi e 40 MG e 40 MG de 40 MG Cetirizine Cetirizine No 1{table QD Cetirizine HCl 10 MG HCl 10 MG t} HCl 10 MG Sucralfate Sucralfate No 1{table QID Sucralfate 1 GM 1 GM t_on_an 1 GM _empty_ stomach } Albuterol Albuterol No 2{puffs QID Albuterol Sulfate 108 Sulfate 108 _as_nee Sulfate (90 Base) (90 Base) ded} 108 (90 MCG/ACT MCG/ACT Base) MCG/ACT traZODone traZODone No traZODone HCl 100 MG HCl 100 MG HCl 100 MG Amitriptyli Amitriptyli No Amitriptyl ne HCl 25 ne HCl 25 ine HCl 25 MG MG MG Glyxambi Glyxambi No Glyxambi 25-5 MG 25-5 MG 25-5 MG metFORMIN metFORMIN No metFORMIN HCl 1000 MG HCl 1000 MG HCl 1000 MG Omeprazole Omeprazole No Omeprazole 40 MG 40 MG 40 MG traZODone traZODone No 1{table QD traZODone HCl 100 MG HCl 100 MG t_at_be HCl 100 MG dtime_a s_neede d} traZODone traZODone No traZODone HCl 100 MG HCl 100 MG HCl 100 MG Glyxambi Glyxambi No Glyxambi 25-5 MG 25-5 MG 25-5 MG metFORMIN metFORMIN No metFORMIN HCl 1000 MG HCl 1000 MG HCl 1000 MG Zestoretic Zestoretic No 1{table QD Zestoretic 12.5-10 MG 12.5-10 MG t} 12.5-10 MG Amitriptyli Amitriptyli No Amitriptyl ne HCl 25 ne HCl 25 ine HCl 25 MG MG MG Immunizations Ordered Immunization Filled Immunization Date Status Commen ts Source Name Name Afluria single dose Afluria single dose 2020-01-09 Completed [facility] Afluria single dose Afluria single dose 2020-01-09 Completed [facility] 12:: [facility] Afluria single dose Afluria single dose 2020-01-09 Completed [facility] 12:: [facility] Afluria single dose Afluria single dose 2020-01-09 Completed [facility] 12:: [facility] Afluria single dose Afluria single dose 2020-01-09 Completed [facility] 12:: [facility] Afluria single dose Afluria single dose 2020-01-09 Completed [facility]:09: [facility] Afluria single dose Afluria single dose 2020-01-09 Completed [facility] 12:: [facility] Afluria single dose Afluria single dose 2020-01-09 Completed [facility] 12:: [facility] Afluria single dose Afluria single dose 2020-01-09 Completed [facility] 12:: [facility] Afluria single dose Afluria single dose 2020-01-09 Completed [facility] 12:: [facility] Afluria single dose Afluria single dose 2020-01-09 Completed [facility] 12:: [facility] Afluria single dose Afluria single dose 2020-01-09 Completed [facility] 12:: [facility] Afluria single dose Afluria single dose 2020-01-09 Completed [facility] 12:: [facility] Afluria single dose Afluria single dose 2020-01-09 Completed [facility] 12:: - [facility] Afluria single dose Afluria single dose 2020-01-09 Completed [facility] 12:: [facility] Afluria single dose Afluria single dose 2020-01-09 Completed [facility] 12:: [facility] Afluria single dose Afluria single dose 2020-01-09 Completed [facility] 12:: [facility] Afluria single dose Afluria single dose 2020-01-09 Completed [facility] 12:: [facility] Afluria single dose Afluria single dose 2020-01-09 Completed [facility] 12:09: [facility] Flucelvax - Flucelvax - 2018-12-11 [facility]ose vial 12:29:00 - [facility] Flucelvax - Flucelvax - 2018-12-11 [facility] multidose [facility]ial multidose vial 12:29:00 [facility] Flucelvax - Flucelvax - 2018-12-11 [facility] multidose vial 12:29:00 [facility] Flucelvax - Flucelvax - 2018-12-11 [facility] multidose vial 12:29:00 - [facility] Flucelvax - Flucelvax - 2018-12-11 [facility]ial multidose vial 12:29:00 - [facility] Flucelvax - Flucelvax - 2018-12-11 [facility]ial multidose vial 12:29:00 - [facility] Flucelvax - Flucelvax - 2018-12-11 [facility]ose [facility]ial multidose vial 12:29:00 - [facility] Flucelvax - Flucelvax - 2018-12-11 [facility]pleted [facility] multidose vial multidose vial 12:29:00 - [facility] Flucelvax - Flucelvax - 2018-12-11 [facility]pleted [facility] multidose [facility]ial multidose vial 12:29:00 - [facility] Flucelvax - Flucelvax - 2018-12-11 [facility] multidose [facility]ial multidose vial 12:29:00 - [facility] Flucelvax - Flucelvax - 2018-12-11 [facility] multid[facility]ial multidose vial 12:29:00 - [facility] Flucelvax - Flucelvax - 2018-12-11 [facility] multidose vial multidose vial 12:29:00 - [facility] Flucelvax - Flucelvax - 2018-12-11 [facility]ial multidose vial 12:29:00 - [facility] Flucelvax - Flucelvax - 2018-12-11 [facility]ial multidose vial 12:29:00 - [facility] Flucelvax - Flucelvax - 2018-12-11 Completed [facility] multidose vial multidose vial 12:29:00 - [facility] Flucelvax - Flucelvax - 2018-12-11 [facility]pleted [facility]ial multidose vial 12:29:00 - [facility] Flucelvax - Flucelvax - 2018-12-11 [facility]ial multidose vial 12:29:00 - [facility] Flucelvax - Flucelvax - 2018-12-11 [facility]ial multidose vial 12:29:00 [facility] Flucelvax - Flucelvax - 2018-12-11 [facility]pleted [facility] multidose vial 12:29:00 - [facility] Flucelvax - Flucelvax - 2018-12-11 [facility] multidose vial 00:00:00 - [facility] 2017-09-03 Completed [facility] (Triamcinolone) (Triamcinolone) 16:24:00 [facility] 2017-09-03 Completed [facility] (Triamcinolone) (Triamcinolone) 16:24:00 [facility] 2017-09-03 Completed [facility] (Triamcinolone) (Triamcinolone) 16:24:00 [facility] 2017-09-03 Completed [facility] (Triamcinolone) (Triamcinolone) 16:24:00 [facility] Vital Signs Vital Name Observation Time Observation Value Comments Source height 2021-11-24 11:00:00 64 [in_i] [facility] weight 2021-11-24 11:00:00 213.4 [lb_av] Common [facility] temperature 2021-11-24 11:00:00 97.3 [degF] [facility] bmi 2021-11-24 11:00:00 36.63 kg/m2 [facility] oximetry 2021-11-24 11:00:00 95 % [facility] respiratory rate 2021-11-24 11:00:00 16 /min Comm on [facility] blood pressure 2021-11-24 11:00:00 132 mm[Hg] Common [facility] systolic [facility] blood pressure 2021-11-24 11:00:00 74 mm[Hg] [facility] diastolic [facility] height 2021-05-16 10:00:00 64 [in_i] [facility] weight 2021-05-16 10:00:00 224 [lb_av] [facility] temperature 2021-05-16 10:00:00 97.3 [degF] [facility] bmi 2021-05-16 10:00:00 38.45 kg/m2 [facility] oximetry 2021-05-16 10:00:00 98 % [facility] respiratory rate 2021-05-16 10:00:00 18 /min Comm on [facility] blood pressure 2021-05-16 10:00:00 132 mm[Hg] Common [facility] - systolic [facility] blood pressure 2021-05-16 10:00:00 84 mm[Hg] [facility] diastolic [facility] height 2021-04-18 16:00:00 64 [facility]in_i[facility]-18 16:00:00 220.4 [lb_av] [facility] temperature 2021-04-18 16:00:00 97.6 [degF] [facility] bmi 2021-04-18 16:00:00 37.83 kg/m2 [facility] oximetry 2021-04-18 16:00:00 97 % [facility] respiratory rate 2021-04-18 16:00:00 16 /min Comm on [facility] blood pressure 2021-04-18 16:00:00 128 mm[Hg] Common [facility] - systolic [facility] blood pressure 2021-04-18 16:00:00 72 mm[Hg] Common [facility] - diastolic [facility] height 2021-01-03 16:00:00 64 [in_i] [facility] weight 2021-01-03 16:00:00 217 [lb_av] Common [facility] bmi 2021-01-03 16:00:00 37.24 kg/m2 [facility] height 2020-12-07 15:00:00 64.00 [in_i] Common [facility] weight 2020-12-07 15:00:00 217 [lb_av] Common [facility] bmi 2020-12-07 15:00:00 37.24 kg/m2 [facility] Procedures This patient has no known procedures. Encounters Start End Encounter Admission Attending Care Care Encounter Source Date/Time Date/Time Type Type Clinicians Facility Department ID 2022-02-01 Outpatient Rios, Na STLMLC STLMLC [id number] Common 14:22:00 [facility] 2021-10-28 Outpatient Rios, Na STLMLC STLMLC [id number] 2 Common 15:08:00 [facility] 2021-09-21 Outpatient Rios, Na STLMLC STLMLC [id number] 2 Common 09:52:00 [facility] 2021-08-17 Outpatient Rios, Na STLMLC STLMLC [id number] 2 Common 15:22:00 [facility] 2021-05-13 Outpatient Rios, Na STLMLC STLMLC [id number] 2 Common 09:55:00 [facility] 2021-04-18 Outpatient Rios, Na STLMLC STLMLC [id number] 2 Common 16:00:01 [facility] 2021-04-15 Outpatient Rios, Na STLMLC STLMLC [id number] 2 Common 14:25:00 [facility] 2021-04-14 Outpatient Rios, Na STLMLC STLMLC [id number] 2 Common 13:36:01 [facility] 2021-04-06 Outpatient Rios, Na STLMLC STLMLC [id number] 2 Common 14:26:39 [id number] [facility] 2021-04-06 Outpatient Rios, Na STLMLC STLMLC [id number] 2 Common 14:20:13 [id number] [facility] 2021-04-06 Outpatient Rios, Na STLMLC STLMLC [id number] 2 Common 14:04:22 [id number] [facility] 2021-04-06 Outpatient Rios, Na STLMLC STLMLC [id number] 2 Common 13:41:28 [id number] [facility] 2021-04-06 Outpatient Rios, Na STLMLC STLMLC [id number] 2 Common 13:39:10 [id number] [facility] 2021-04-06 Outpatient Rios, Na STLMLC STLMLC [id number] 2 Common 13:38:28 [id number] [facility] 2021-04-06 Outpatient Rios, Na STLMLC STLMLC [id number] 2 Common 13:34:20 [id number] [facility] 2021-04-06 Outpatient Rios, Na STLMLC STLMLC [id number] 2 Common 12:59:39 [id number] [facility] 2021-04-06 Outpatient Rios, Na STLMLC STLMLC [id number] 2 Common 12:20:03 [id number] [facility] 2021-04-06 Outpatient Rios, Na STLMLC STLMLC [id number] 2 Common 12:13:37 [id number] [facility] 2021-04-06 Outpatient Rios, Na STLMLC STLMLC [id number] 2 Common 12:13:01 [id number] [facility] 2021-04-06 Outpatient Rios, Na STLMLC STLMLC [id number] 2 Common 12:11:17 [id number] [facility] 2021-04-06 Outpatient Rios, Na STLMLC STLMLC [id number] 2 Common 11:50:24 [id number] [facility] 2021-04-06 Outpatient Rios, Na STLMLC STLMLC [id number] 2 Common 11:44:00 [id number] [facility] 2021-04-06 Outpatient Rios, Na STLMLC STLMLC [id number] 2 Common 11:12:27 [id number] [facility] 2021-04-06 Outpatient Rios, Na STLMLC STLMLC [id number] 2 Common 11:01:17 [id number] [facility] 2022-02-01 2022-02-01 (TEL) STLMLC STLMLC [id number] Co mmon 00:00:00 00:00:00 [facility] 2021-12-02 2021-12-02 (TEL) STLMLC STLMLC [id number] Co mmon 00:00:00 00:00:00 [facility] 2021-11-28 2021-11-28 (TEL) STLMLC STLMLC [id number] Co mmon 00:00:00 00:00:00 [facility] 2021-11-24 2021-11-24 OFFICE STLMLC STLMLC [id number] Co mmon 00:00:00 00:00:00 VISIT [facility] ESTAB PT [facility] LEVEL 4 [facility] 2021-10-26 2021-10-26 (TEL) STLMLC STLMLC [id number] Co mmon 00:00:00 00:00:00 [facility] 2021-10-18 2021-10-18 (TEL) STLMLC STLMLC [id number] Co mmon 00:00:00 00:00:00 [facility] 2021-05-24 2021-05-24 (TEL) STLMLC STLMLC [id number] Co mmon 00:00:00 00:00:00 [facility] 2021-05-16 2021-05-16 OFFICE STLMLC STLMLC [id number] Co mmon 00:00:00 00:00:00 VISIT [facility] PT LEVEL 3 [facility] 2021-04-18 2021-04-18 OFFICE STLMLC STLMLC [id number] Co mmon 00:00:00 00:00:00 VISIT [facility] LEVEL 4 [facility] 2021-02-10 2021-02-10 (TEL) STLMLC STLMLC [id number] Co mmon 00:00:00 00:00:00 [facility] 2021-02-08 2021-02-08 (TEL) STLMLC STLMLC [id number] Co mmon 00:00:00 00:00:00 [facility] 2021-01-25 2021-01-25 (TEL) STLMLC STLMLC [id number] Co mmon 00:00:00 00:00:00 [facility] 2021-01-07 2021-01-07 (TEL) STLMLC STLMLC [id number] Co mmon 00:00:00 00:00:00 [facility] 2021-01-03 2021-01-03 OL DIG E/M STLMLC STLMLC [id number] Common 00:00:00 00:00:00 [facility] [facility] 01-29 Spir it MIN [facility] 2020-12-27 2020-12-27 (TEL) STLMLC STLMLC [id number] Co mmon 00:00:00 00:00:00 [facility] 2020-12-10 2020-12-10 (TEL) STLMLC STLMLC [id number] Co mmon 00:00:00 00:00:00 [facility] 2020-12-07 2020-12-07 OL DIG E/M STLMLC STLMLC [id number] Common 00:00:00 00:00:00 [facility] -20 Spir it MIN [facility] 2020-11-03 2020-11-03 Outpatient STLMLC STLMLC [id number] Common 00:00:00 00:00:00 [facility] 2020-07-14 2020-07-14 Outpatient STLMLC STLMLC [id number] Common 00:00:00 00:00:00 [facility] 2020-07-08 2020-07-08 Outpatient STLMLC STLMLC [id number] Common 00:00:00 00:00:00 [facility] 2020-03-25 2020-03-25 Outpatient STLMLC STLMLC [id number] Common 00:00:00 00:00:00 [facility] 2020-01-09 2020-01-09 Outpatient STLMLC STLMLC [id number] Common 00:00:00 00:00:00 [facility] 2020-01-09 2020-01-09 Outpatient STLMLC STLMLC [id number] Common 00:00:00 00:00:00 [facility] 2019-12-09 2019-12-09 Outpatient STLMLC STLMLC [id number] Common 00:00:00 00:00:00 [facility] 2019-12-08 2019-12-08 Outpatient STLMLC STLMLC [id number] Common 00:00:00 00:00:00 [facility] 2019-11-20 2019-11-20 [id number] Common 08:40:00 08:40:[address] [facility] 2019-08-26 2019-08-26 [facility] [id number] Common 16:17:00 16:17:[address] [facility] 2019-08-20 2019-08-20 [facility] [id number] Common 08:00:00 08:00:[address] [facility] 2019-08-15 2019-08-15 [facility] [id number] Common 09:31:00 09:31:[address] [facility] 2019-05-16 2019-05-16 [facility] [id number] Common 13:20:00 13:20:[address] [facility] 2019-02-18 2019-02-18 [facility] [id number] Common 03:25:00 03:25:[address] [facility] 2019-02-03 2019-02-03 [facility] [id number] Common 17:32:00 17:32:[address] [facility] 2019-01-31 2019-01-31 [facility] [id number] Common 13:00:00 13:00:[address] [facility] 2018-12-19 2018-12-19 [facility] [id number] Common 15:33:00 15:33:[address] [facility] 2018-12-11 2018-12-11 [facility] [id number] Common 11:40:00 11:40:[address] [facility] 2018-09-27 2018-09-27 [facility] [id number] Common 11:40:00 11:40:[address] [facility] 2018-08-16 2018-08-16 [facility] [id number] Common 15:00:00 15:00:[address] [facility] 2018-07-16 2018-07-16 [facility] [id number] Common 10:33:00 10:33:[address] [facility] 2018-07-05 2018-07-05 [facility] [id number] Common 02:46:00 02:46:[address] [facility] 2018-05-30 2018-05-30 [facility] [id number] Common 15:00:00 15:00:[address] [facility] 2018-04-18 2018-04-18 [facility] [id number] Common 14:30:00 14:30:[address] [facility] 2018-03-18 2018-03-18 [id number] [facility] 16:46:00 16:46:[address] [facility] 2018-03-04 2018-03-04 [id number] Common 12:34:00 12:34:[address] [facility] 2017-12-11 2017-12-11 [facility] [id number] Common 10:37:00 10:37:[address] [facility] 2017-12-04 2017-12-04 [facility] 14 [id number] Common 14:30:00 14:30:[address] [facility] Results Test Description Test Time Test Comments Results Result Comments Source Lipid Panel w/ Chol/HDL Ratio 2021-05-16 00:00:00 Test Item Value Reference Range Interpretation Comme nts Cholesterol, Total (test code = 2093-3) 219 100-199 Triglycerides (test code = 2571-8) 171 0-149 HDL Cholesterol (test code = 2085-9) 51 >39 T. Chol/HDL Ratio (test code = 9830-1) 4.3 0.0-4.4 LDL Cholesterol (Direct)2021-05-16 00:00:00 Test Item Value Reference Range Interpretation Comments LDL Chol. (Direct) (test code = 134 0-99 93873-4) Microalbumin/Creat Ratio, Random [id number] 00:00:00 Test Item Value Reference Range Interpretation Comments Creatinine, Urine (test code = 2161-8) 84.4 Not Estab. Albumin, Urine (test code = 89876-3) 9.3 Not Estab. Alb/Creat Ratio (test code = 53971-5) 11 0-29 Hemoglobin [id number] 00:00:00 Test Item Value Reference Range Interpretation Comments Hemoglobin A1c (test code = 4548-4) 9.0 4.8-5.6 Comp. Metabolic Panel (14) (CMP)2021-05-16 00:00:00 Test Item Value Reference Range Interpretation Comments Glucose (test code = 2345-7) 263 65-99 BUN (test code = 3094-0) 10 6-24 Creatinine (test code = 2160-0) 0.69 0.57-1.00 BUN/Creatinine Ratio (test code = 14 9- 3097-3) Sodium (test code = 2951-2) 139 134-144 Potassium (test code = 2823-3) 4.4 3.5-5.2 Chloride (test code = 2075-0) 98 96-106 Carbon Dioxide, Total (test code = -2027-9) Calcium (test code = 92804-1) 9.4 8.7-10.2 Protein, Total (test code = 2885-2) 6.6 6.0-8.5 Albumin (test code = 1751-7) 4.3 3.8-4.9 Globulin, Total (test code = 62042-6) 2.3 1.5-4.5 A/G Ratio (test code = 1759-0) 1.9 1.2-2.2 Bilirubin, Total (test code = 1974-2) 0.4 0.0-1.2 Alkaline Phosphatase (test code = 127 44-121 6768-6) AST (SGOT) (test code = 1920-8) 10 0-40 ALT (SGPT) (test code = 1742-6) 6 0-32 CBC With Differential/[id number] 00:00:00 Test Item Value Reference Range Interpretation Comments WBC (test code = 6690-2) 5.7 3.4-10.8 RBC (test code = 789-8) 4.00 3.77-5.28 Hemoglobin (test code = 718-7) 12.1 11.1-15.9 Hematocrit (test code = 4544-3) 37.9 34.0-46.6 MCV (test code = 787-2) 95 79-97 MCH (test code = 785-6) 30.3 26.6-33.0 MCHC (test code = 786-4) 31.9 31.5-35.7 RDW (test code = 788-0) 11.7 11.7-15.4 Platelets (test code = 777-3) 335 150-450 Neutrophils (test code = 770-8) 48 Not Estab. Lymphs (test code = 736-9) 44 Not Estab. Monocytes (test code = 5905-5) 5 Not Estab. Eos (test code = 713-8) 2 Not Estab. Basos (test code = 706-2) 1 Not Estab. Immature Cells (test code = UNLOINC) Neutrophils (Absolute) (test code = 2.8 1.4-7.0 751-8) Lymphs (Absolute) (test code = 731-0) 2.5 0.7-3.1 Monocytes(Absolute) (test code = 742-7) 0.3 0.1-0.9 Eos (Absolute) (test code = 711-2) 0.1 0.0-0.4 Baso (Absolute) (test code = 704-7) 0.0 0.0-0.2 Immature Granulocytes (test code = 0 Not Estab. 67295-8) Immature Grans (Abs) (test code = 0.0 0.0-0.1 14701-9) NRBC (test code = 09514-2) Hematology Comments: (test code = 02191-8) SARS-COV 2 AntigenSARS-COV 2 Antigen
[2022-02-03 10:40] LABS: Absolute Lymphocytes (CBC) 2.7 K/uL (0.7-4.9); Hematocrit 39.6 % (36.0-45.0); Lymphocytes % 39.5 % (15.3-44.8); MCV 89.9 fL (80-100); MPV 8.4 fL (7.6-11.3); RBC Red Blood Cell Count 4.41 M/uL (3.86-4.86)
[2022-02-03 11:04] LABS: ALT/SGPT 13 U/L (12-78); AST/SGOT 6 U/L (15-37); Albumin 3.6 g/dL (3.4-5.0); Alkaline Phosphatase 190 U/L (45-117); BUN Blood Urea Nitrogen 16 mg/dL (7-18); Bicarbonate 27 mmol/L (21-32); Bilirubin Total 0.3 mg/dL (0.2-1.0); Glomerular Filtration Rate 74 ml/min (=/>90); Lipase 140 U/L (73-393); Potassium 3.6 mmol/L (3.5-5.1); Protein, Total 7.4 g/dL (6.4-8.2); Sodium Level 134 mmol/L (136-145)
[2022-02-03 11:05] LABS: Glucose Level 414 mg/dL (74-106)
[2022-02-03] MEDS ORDERED: FAMOTIDINE 20 MG/2 ML VIAL IV ONE (12:52)
[2022-02-03] MEDS ORDERED: INSULIN -REGULAR HUMAN 50 UNIT/0.5 ML ML ONE ×2 (12:52→15:10)
[2022-02-03] MEDS ORDERED: NA CHLORIDE 0.9% 1,000 ML ONE (12:52)
[2022-02-03 12:57] LABS: Urine Blood Negative (Negative); Urine Glucose 2+ (Negative); Urine Protein Negative (Negative); Urine Specific Gravity 1.015 (1.005-1.030); Urine pH 5.5 (5.0-7.0)
--- NOTE | 2022-02-03 14:35 | ER ---
Nurse's Notes [facility] Name: Tyra Espitia Age: 62 yrs Sex: Female : 1960 Arrival Date: 02/03/2022 Time: 08:32 Bed 12 Private MD: Ami Rios Diagnosis: Hyperglycemia, unspecified;Patient's unintentional underdosing of medication regimen-insurance preauthorization problem Presentation: 02/03 08:57 Chief complaint: Patient states: "I haven't been able to take my diabetic medication ss because my insurance in changing and my blood sugars have been high.". Coronavirus screen: Client denies travel out of the [place] in the last 14 days. Ebola Screen: Patient denies exposure to infectious person. Patient denies travel to an Ebola-affected area in the 21 days before illness onset. Initial Sepsis Screen: Does the patient meet any 2 criteria? No. Patient's initial sepsis screen is negative. Does the patient have a suspected source of infection? No. Patient's initial sepsis screen is negative. Risk Assessment: Do you want to hurt yourself or someone else? Patient reports no desire to harm self or others. Onset of symptoms is unknown. 08:57 Method Of Arrival: Ambulatory ss 08:57 Acuity: AMADO 3 ss Historical: - Allergies: 08:59 No Known Allergies; ss - PMHx: 08:59 Diabetes - NIDDM; Gastric Reflux; High Cholesterol; Hypertension; ss - PSHx: 08:59 Ankle; section; hernia repair; ss - Immunization history:: Client reports having NOT received the Covid vaccine. - Social history:: Smoking status: Patient reports the use of cigarette tobacco products, smokes one-half pack cigarettes per day. Assessment: 09:01 Reassessment: LINA Yanez assessing patient during triage. Vital Signs: 08:57 BP 120 / 70; Pulse 88; Resp 16; Temp 98.3; Pulse Ox 98% on R/A; Weight 99.34 kg; Height ss 5 ft. 4 in. (162.56 cm); Pain 0/10; 10:43 BP 112 / 70; Pulse 88; Resp 18; Pulse Ox 98% on R/A; tm3 13:00 BP 111 / 82; Pulse 93; Resp 18; Pulse Ox 98% on R/A; tm3 08:57 Body Mass Index 37.59 (99.34 kg, 162.56 cm) ss ED Course: 08:32 Patient arrived in ED. as 08:32 Ami Rios MD is Private Physician. as 08:34 Renata Gaines FNP-C [facility]. snw 08:34 Ben Madera MD is Attending Physician. snw 08:59 Triage completed. ss 08:59 Arm band placed on left wrist. ss 10:25 First set of blood cultures drawn by me. Inserted saline lock: 20 gauge in right tm3 antecubital area, using aseptic technique. 10:35 Second set of blood cultures drawn by me. tm3 12:55 Urine collected: clean catch specimen, clear. tm3 13:02 Destiny Grijalva, PAULA is Primary Nurse. hb 14:34 Ami Rios MD is Referral Physician. snw 14:42 IV discontinued, Pressure dressing applied. mm9 15:16 No provider procedures requiring assistance completed. ss Administered Medications: 13:02 Drug: Insulin Regular Human 5 units {Co-Signature: ss (Matilda Gutierrez RN).} Route: IVP; hb Site: right antecubital; 14:31 Follow up: Response: No adverse reaction; Blood sugar is lowered ss 13:03 Drug: NS 0.9% 1000 ml Route: IV; Rate: 1 bolus; Site: right hand; hb 14:15 Follow up: IV Status: Completed infusion; IV Intake: 1000ml ss 13:03 Drug: Pepcid (famotidine) 20 mg Route: IVP; Site: right hand; hb 15:17 Follow up: Response: No adverse reaction ss 15:13 Drug: Insulin Regular Human 5 units {Co-Signature: hb (Destiny Grijalva RN).} Route: ss Sub-Q; Site: left upper arm; 15:17 Follow up: Response: Medication administered at discharge. ss Intake: 14:15 IV: 1000ml; Total: 1000ml. ss Outcome: 14:35 Discharge ordered by . snw 15:16 Discharged to home ambulatory, with family. ss 15:16 Condition: good 15:16 Discharge instructions given to patient, family, Instructed on discharge instructions, follow up and referral plans. medication usage, Demonstrated understanding of instructions, follow-up care, medications, Prescriptions given X 1. 15:17 Patient left the ED. Signatures: Jose Pugh tm3 Renata Gaines, DIRECTOR OF [employer]MI[employer] SALES-C DIRECTOR OF [employer]MI[employer]ES-Csnw Christina Teixeira as Matilda Gutierrez RN RN ss Destiny rGijalva RN RN hb Ailyn Teixeira mm9 Matilda Gutierrez RN ss Destiny Grijalva RN hb Corrections: (The following items were deleted from the chart) 13:03 13:03 NS 0.9% 1000 ml IV at 1 bolus in right antecubital hb hb
--- NOTE | 2022-02-03 14:35 | EDPHYS ---
Physician Documentation [facility] Name: Tyra Espitia Age: 62 yrs Sex: Female : 1960 Arrival Date: 02/03/2022 Time: 08:32 Bed 12 Private MD: Ami Rios ED Physician Ben Madera HPI: 02/03 09:18 This 62 yrs old Black Female presents to ER via Ambulatory with complaints of High snw Blood Sugar. 09:18 The patient or guardian reports hyperglycemia, that was potentially precipitated by snw insurance problem with medication (Trulicity). Onset: The symptoms/episode began/occurred suddenly, this morning. Associated signs and symptoms: Pertinent positives: None. Current symptoms: In the emergency department the patient's symptoms are unchanged from the initial presentation. It is unknown whether or not the patient has had similar symptoms in the past. It is unknown whether or not the patient has recently seen a physician. pt was on Trulicity every Sunday for 2 month, insurance denied and pt did not get dose 3 days ago. Historical: - Allergies: 08:59 No Known Allergies; ss - PMHx: 08:59 Diabetes - NIDDM; Gastric Reflux; High Cholesterol; Hypertension; ss - PSHx: 08:59 Ankle; section; hernia repair; ss - Immunization history:: Client reports having NOT received the Covid vaccine. - Social history:: Smoking status: Patient reports the use of cigarette tobacco products, smokes one-half pack cigarettes per day. ROS: 09:19 Eyes: Negative for injury, pain, redness, and discharge, ENT: Negative for injury, snw pain, and discharge, Neck: Negative for injury, pain, and swelling, Cardiovascular: Negative for chest pain, palpitations, and edema, Respiratory: Negative for shortness of breath, cough, wheezing, and pleuritic chest pain. 09:19 Back: Negative for injury and pain, : Negative for injury, bleeding, discharge, and swelling, MS/Extremity: Negative for injury and deformity, Skin: Negative for injury, rash, and discoloration, Neuro: Negative for headache, weakness, numbness, tingling, and seizure. 09:19 Constitutional: Positive for body aches, malaise. 09:19 Abdomen/GI: Positive for nausea and vomiting. Exam: 09:25 Constitutional: This is a well developed, well nourished patient who is awake, alert, snw and in no acute distress. Head/Face: Normocephalic, atraumatic. Eyes: Pupils equal round and reactive to light, extra-ocular motions intact. Lids and lashes normal. Conjunctiva and sclera are non-icteric and not injected. Cornea within normal limits. Periorbital areas with no swelling, redness, or edema. ENT: Nares patent. No nasal discharge, no septal abnormalities noted. Tympanic membranes are normal and external auditory canals are clear. Oropharynx with no redness, swelling, or masses, exudates, or evidence of obstruction, uvula midline. Mucous membranes moist. Neck: Trachea midline, no thyromegaly or masses palpated, and no cervical lymphadenopathy. Supple, full range of motion without nuchal rigidity, or vertebral point tenderness. No Meningismus. Chest/axilla: Normal chest wall appearance and motion. Nontender with no deformity. No lesions are appreciated. Cardiovascular: Regular rate and rhythm with a normal S1 and S2. No gallops, murmurs, or rubs. Normal PMI, no JVD. No pulse deficits. Respiratory: Lungs have equal breath sounds bilaterally, clear to auscultation and percussion. No rales, rhonchi or wheezes noted. No increased work of breathing, no retractions or nasal flaring. Abdomen/GI: Soft, non-tender, with normal bowel sounds. No distension or tympany. No guarding or rebound. No evidence of tenderness throughout. Back: No spinal tenderness. No costovertebral tenderness. Full range of motion. Skin: Warm, dry with normal turgor. Normal color with no rashes, no lesions, and no evidence of cellulitis. MS/ Extremity: Pulses equal, no cyanosis. Neurovascular intact. Full, normal range of motion. Neuro: Awake and alert, GCS 15, oriented to person, place, time, and situation. Cranial nerves II-XII grossly intact. Motor strength 5/5 in all extremities. Sensory grossly intact. Cerebellar exam normal. Normal gait. Psych: Awake, alert, with orientation to person, place and time. Behavior, mood, and affect are within normal limits. Vital Signs: 08:57 BP 120 / 70; Pulse 88; Resp 16; Temp 98.3; Pulse Ox 98% on R/A; Weight 99.34 kg; Height ss 5 ft. 4 in. (162.56 cm); Pain 0/10; 10:43 BP 112 / 70; Pulse 88; Resp 18; Pulse Ox 98% on R/A; tm3 13:00 BP 111 / 82; Pulse 93; Resp 18; Pulse Ox 98% on R/A; tm3 08:57 Body Mass Index 37.59 (99.34 kg, 162.56 cm) ss MDM: 08:58 Patient medically screened. snw 09:25 Data reviewed: vital signs, nurses notes. Data interpreted: Pulse oximetry: on room air snw is 98 %. Interpretation: normal. Counseling: I had a detailed discussion with the patient and/or guardian regarding:. 02/03 09:08 Order name: Glucose, Ancillary Testing; Complete Time: 09:17 EDMS 02/03 09:17 Order name: CBC with Diff; Complete Time: 10:44 snw 02/03 09:17 Order name: CMP; Complete Time: 11:06 snw 02/03 09:17 Order name: Lipase; Complete Time: 11:06 snw 02/03 09:17 Order name: Osmolality, Serum; Complete Time: 11:30 snw 02/03 09:17 Order name: Blood Culture Adult (2) snw 02/03 09:17 Order name: IV Saline Lock; Complete Time: 12:46 snw 02/03 09:17 Order name: Acetone, Serum; Complete Time: 11:06 snw 02/03 12:57 Order name: Urine Dipstick-Ancillary; Complete Time: 13:19 EDMS 02/03 14:34 Order name: Glucose, Ancillary Testing; Complete Time: 14:40 EDMS 02/03 09:17 Order name: Labs collected and sent; Complete Time: 12:46 snw 02/03 09:17 Order name: Urine Dipstick-Ancillary (obtain specimen); Complete Time: 13:09 snw 02/03 13:52 Order name: FSBS; Complete Time: 14:31 snw Administered Medications: 13:02 Drug: Insulin Regular Human 5 units {Co-Signature: ss (Matilda Gutierrez RN).} Route: IVP; hb Site: right antecubital; 14:31 Follow up: Response: No adverse reaction; Blood sugar is lowered ss 13:03 Drug: NS 0.9% 1000 ml Route: IV; Rate: 1 bolus; Site: right hand; hb 14:15 Follow up: IV Status: Completed infusion; IV Intake: 1000ml ss 13:03 Drug: Pepcid (famotidine) 20 mg Route: IVP; Site: right hand; hb 15:17 Follow up: Response: No adverse reaction 15:13 Drug: Insulin Regular Human 5 units {Co-Signature: hb (Destiny Grijalva RN).} Route: ss Sub-Q; Site: left upper arm; 15:17 Follow up: Response: Medication administered at discharge. Disposition Summary: 02/03/22 14:35 Discharge Ordered Location: Home snw Condition: Stable snw Diagnosis - Hyperglycemia, unspecified snw - Patient's unintentional underdosing of medication regimen - insurance snw preauthorization problem Followup: snw - With: Ami Rios MD - When: 2 - 3 days - Reason: Recheck today's complaints, Continuance of care, Re-evaluation by your physician Discharge Instructions: - Discharge Summary Sheet snw - Hyperglycemia snw - Blood Glucose Monitoring, Adult snw - Insulin Treatment for Diabetes Mellitus snw Forms: - Medication Reconciliation Form snw - Thank You Letter snw - Antibiotic Education snw - Prescription Opioid Use snw Prescriptions: - Lantus Solostar U-100 Insulin 100 unit/mL (3 mL) Subcutaneous insulin pen - inject 18 unit by SUBCUTANEOUS route every 24 hours; 1 Cartridge; Refills: 0, snw Product Selection Permitted Signatures: Dispatcher [employer], ROHIT-C LABORER ADJUSTABLE [employer] JOIST-Csnw Matilda Gutierrez RN RN Destiny Grijalva RN RN Matilda Gutierrez RN Destiny Grijalva RN hb
[2022-02-03 15:50] VITALS: TEMP 98.3; O2SAT 98
[2022-02-03 15:52] VITALS: BP 111/82
== END 2022-02-03 15:17 | disposition home or self-care (01) ==
LOC: ER 08:28
DX: E11.65 Type 2 diabetes mellitus with hyperglycemia (principal); Z91.128 Patient's intentional underdosing of medication regimen for other reason; F17.210 Nicotine dependence, cigarettes, uncomplicated
CPT/HCPCS: 87040 ×2; 85025; 36415; 82010; 82947 ×2; 81003; 83690; 80053; 83930; 96372; 99284; J1815 ×2; J7030

== ENCOUNTER → 2023-03-31 | Emergency (ER) | payer OTHER ==
[~2023-03-31] MED LIST: HYDROMORPHONE HCL 1 MG/ML INJ ONE; LABETALOL 20 MG/4ML SYRINGE IV ONE; ONDANSETRON 4 MG/2 ML VIAL ONE
--- OUTSIDE RECORDS SUMMARY | 2023-03-31 03:12 | XMS REPORT | Continuity of Care Document ---
Author Name Unknown Address [address] [place] [address] [facility] Address [address] [place] [address] Care Team Providers Care Program Review Director Name Role Phone Yumiko Kaplan Attending Clinician Unavailable Waleska Valencia Attending Clinician Unavailable Ami Rios Attending Clinician Unavailable [email or web address]_S Attending Clinician Unavaila ble [email or web address]_S Admitting Clinician Unavaila ble Payers Payer Name Policy Type Policy Number Effective Date Expirati on Date Source [facility] Individual Exchange Benefit Plan [id number] 2021 00:00:00 [facility] from [facility] [id number] 2019 00:00:00 [facility] [id number] 2019 00:00:00 [facility] [id number] 2019 00:00:00 [facility] [id number] 2019 00:00:00 [facility] [id number] 2019 00:00:00 [facility] [id number] 2019 00:00:00 [facility] [id number] 2019 00:00:00 [facility] [id number] 2019 00:00:00 [facility] Problems Condition Name Condition Details Condition Category Status Onset Date Resolution Date Last Treatment Date Treating Clinician Comments Source [id number] Other chronic pain Problem [facility] Wheezing Wheezing Problem [facility] Insomnia Insomnia Problem [facility] Acute bronchitis Acute bronchitis Problem [facility] Goiter Goiter Problem [facility] Nicotine dependence Cigarette nicotine dependence without complicati on Problem [facility] Chronic obstructiv e pulmonary disease Chronic obstructiv e pulmonary disease Problem [facility] Diabetes mellitus type 2 in obese Diabetes mellitus type 2 in obese Problem [facility] Migraine with aura Migraine with aura and without status migrainosu s, not intractabl e Problem [facility] Chronic fatigue syndrome Chronic fatigue Problem [facility] Mixed anxiety and depressive disorder Depression with anxiety Problem [facility] Gastro-eso phageal reflux disease without esophagiti s Gastro-eso phageal reflux disease without esophagiti s Problem [facility] Fatigue Fatigue, unspecifie d type Problem [facility] Allergic rhinitis Acute allergic rhinitis Problem [facility] [id number] Constipati on, unspecifie d constipati on type Problem [facility] [id number] Gastroesop hageal reflux disease, unspecifie d whether esophagiti s present Problem [facility] [id number] Fatty liver Problem [facility] [id number] Osteoarthr itis of lower back Problem [facility] [id number] Elevated blood pressure reading with diagnosis of hypertensi on Problem [facility] Primary insomnia Primary insomnia Problem [facility] [id number] Cervicalgi a Problem [facility] [id number] Degenerati ve disc disease, cervical Problem [facility] [id number] Cervical radiculopa thy Problem [facility] Hypertensi on Hypertensi on Problem [facility] [id number] Smoker Problem [facility] [id number] Pure hyperchole sterolemia Problem [facility] [id number] Lateral epicondyli tis of right elbow Problem [facility] [id number] Chronic depression not affecting current episode of care Problem [facility] [id number] Uncontroll ed type 2 diabetes mellitus with hyperglyce amrit Problem [facility] Mixed hyperlipid emia Mixed hyperlipid emia Problem [facility] [id number] COPD with acute exacerbati on Problem [facility] Social History Social Habit Start Date Stop Date Quantity Comments Source History of Tobacco Use Current Smoker [facility] Sex Assigned At [facility] Smoking Status Start Date Stop Date Source Current Smoker 2023-02-14 00:00:00 [facility] Medications Ordered Medication Name Filled Medication Name Start Date Stop Date Current Medication? Ordering Clinician Indication Dosage Frequency Signature (SIG) Comments Components Source HumuLIN 70/30 KwikPen (70-30) 100 UNIT/ML HumuLIN 70/30 KwikPen (70-30) 100 UNIT/ML 2022-03 0-17 00:00: 00 No BID HumuLIN 70/30 KwikPen (70-30) 100 UNIT/ML HumuLIN 70/30 KwikPen (70-30) 100 UNIT/ML HumuLIN 70/30 KwikPen (70-30) 100 UNIT/ML 2022-03 0-17 00:00: 00 No BID HumuLIN 70/30 KwikPen (70-30) 100 UNIT/ML Albuterol Sulfate HFA 108 (90 Base) MCG/ACT Albuterol Sulfate HFA 108 (90 Base) MCG/ACT 8-10 00:00: 00 No 1{puff_ as_need ed} 6xD Albuterol Sulfate HFA 108 (90 Base) MCG/ACT Albuterol Sulfate HFA 108 (90 Base) MCG/ACT Albuterol Sulfate HFA 108 (90 Base) MCG/ACT 2023-0 8-10 00:00: 00 No 1{puff_ as_need ed} 6xD Albuterol Sulfate HFA 108 (90 Base) MCG/ACT Albuterol Sulfate HFA 108 (90 Base) MCG/ACT Albuterol Sulfate HFA 108 (90 Base) MCG/ACT 2023-0 8-10 00:00: 00 No 1{puff_ as_need ed} 6xD Albuterol Sulfate HFA 108 (90 Base) MCG/ACT Albuterol Sulfate HFA 108 (90 Base) MCG/ACT Albuterol Sulfate HFA 108 (90 Base) MCG/ACT 2023-0 8-10 00:00: 00 No 1{puff_ as_need ed} 6xD Albuterol Sulfate HFA 108 (90 Base) MCG/ACT Albuterol Sulfate HFA 108 (90 Base) MCG/ACT Albuterol Sulfate HFA 108 (90 Base) MCG/ACT 2023-0 8-10 00:00: 00 No 1{puff_ as_need ed} 6xD Albuterol Sulfate HFA 108 (90 Base) MCG/ACT Albuterol Sulfate HFA 108 (90 Base) MCG/ACT Albuterol Sulfate HFA 108 (90 Base) MCG/ACT 2023-0 8-10 00:00: 00 No 1{puff_ as_need ed} 6xD Albuterol Sulfate HFA 108 (90 Base) MCG/ACT Albuterol Sulfate HFA 108 (90 Base) MCG/ACT Albuterol Sulfate HFA 108 (90 Base) MCG/ACT 2023-0 8-10 00:00: 00 No 1{puff_ as_need ed} 6xD Albuterol Sulfate HFA 108 (90 Base) MCG/ACT Albuterol Sulfate HFA 108 (90 Base) MCG/ACT Albuterol Sulfate HFA 108 (90 Base) MCG/ACT 2023-0 8-10 00:00: 00 No 1{puff_ as_need ed} 6xD Albuterol Sulfate HFA 108 (90 Base) MCG/ACT Albuterol Sulfate HFA 108 (90 Base) MCG/ACT Albuterol Sulfate HFA 108 (90 Base) MCG/ACT 3-0 8-10 00:00: 00 No 1{puff_ as_need ed} 6xD Albuterol Sulfate HFA 108 (90 Base) MCG/ACT Albuterol Sulfate HFA 108 (90 Base) MCG/ACT Albuterol Sulfate HFA 108 (90 Base) MCG/ACT 3-0 8-10 00:00: 00 No 1{puff_ as_need ed} 6xD Albuterol Sulfate HFA 108 (90 Base) MCG/ACT Albuterol Sulfate HFA 108 (90 Base) MCG/ACT Albuterol Sulfate HFA 108 (90 Base) MCG/ACT 3-0 8-10 00:00: 00 No 1{puff_ as_need ed} 6xD Albuterol Sulfate HFA 108 (90 Base) MCG/ACT Albuterol Sulfate HFA 108 (90 Base) MCG/ACT Albuterol Sulfate HFA 108 (90 Base) MCG/ACT 2022-0 8-10 00:00: 00 No 1{puff_ as_need ed} 6xD Albuterol Sulfate HFA 108 (90 Base) MCG/ACT NovoFine Plus 32G X 4 MM NovoFine Plus 32G X 4 MM 2021-03 00:00: 00 No QD NovoFine Plus 32G X 4 MM NovoFine Plus 32G X 4 MM NovoFine Plus 32G X 4 MM 2021-03 00:00: 00 No QD NovoFine Plus 32G X 4 MM NovoFine Plus 32G X 4 MM NovoFine Plus 32G X 4 MM 2021-03 00:00: 00 No QD NovoFine Plus 32G X 4 MM NovoFine Plus 32G X 4 MM NovoFine Plus 32G X 4 MM 2021-03 00:00: 00 No QD NovoFine Plus 32G X 4 MM Procto-Med HC 2.5 % Procto-Med HC 2.5 % 2021-03 00:00: 00 05-22 00:00 :00 No 1{appli cation_ to_affe cted_ar ea} Procto-Med HC 2.5 % Procto-Med HC 2.5 % Procto-Med HC 2.5 % 2021-03 00:00: 00 05-22 00:00 :00 No 1{appli cation_ to_affe cted_ar ea} Procto-Med HC 2.5 % Procto-Med HC 2.5 % Procto-Med HC 2.5 % 2021-03 00:00: 00 05-22 00:00 :00 No 1{appli cation_ to_affe cted_ar ea} Procto-Med HC 2.5 % Januvia 100 MG Januvia 100 MG 2021-03 00:00: 00 No 1{table t} Januvia 100 MG Januvia 100 MG Januvia 100 MG 2021-03 00:00: 00 No 1{table t} Januvia 100 MG Januvia 100 MG Januvia 100 MG 2021-03 00:00: 00 No 1{table t} Januvia 100 MG Januvia 100 MG Januvia 100 MG 2021-03 00:00: 00 No 1{table t} Januvia 100 MG Januvia 100 MG Januvia 100 MG 2021-03 00:00: 00 No 1{table t} Januvia 100 MG Januvia 100 MG Januvia 100 MG 2021-03 00:00: 00 No 1{table t} Januvia 100 MG Januvia 100 MG Januvia 100 MG 2021-03 00:00: 00 No 1{table t} Januvia 100 MG Farxiga 10mg Farxiga 10mg 2021-03 00:00: 00 05-02 00:00 :00 No 1{table t} QD Farxiga 10mg Farxiga 10mg Farxiga 10mg 2021-03 00:00: 00 05-02 00:00 :00 No 1{table t} QD Farxiga 10mg Farxiga 10mg Farxiga 10mg 2021-03 00:00: 00 05-02 00:00 :00 No 1{table t} QD Farxiga 10mg Farxiga 10mg Farxiga 10mg 2021-04-03 00:00: 00 05-02 00:00 :00 No 1{table t} QD Farxiga 10mg Farxiga 10mg Farxiga 10mg 2021-1 04-03 00:00: 00 05-02 00:00 :00 No 1{table t} QD Farxiga 10mg Farxiga 10mg Farxiga 10mg 2021-1 04-03 00:00: 00 05-02 00:00 :00 No 1{table t} QD Farxiga 10mg Rosuvastati n Calcium 10 MG Rosuvastati n Calcium 10 MG 2021-0 12-02 00:00: 00 No 1{table t} Rosuvastat in Calcium 10 MG Rosuvastati n Calcium 10 MG Rosuvastati n Calcium 10 MG 2-0 12-02 00:00: 00 No 1{table t_at_be dtime} QD Rosuvastat in Calcium 10 MG Rosuvastati n Calcium 10 MG Rosuvastati n Calcium 10 MG 2-0 12-02 00:00: 00 No 1{table t_at_be dtime} QD Rosuvastat in Calcium 10 MG Rosuvastati n Calcium 10 MG Rosuvastati n Calcium 10 MG 2-0 12-02 00:00: 00 No 1{table t_at_be dtime} QD Rosuvastat in Calcium 10 MG Rosuvastati n Calcium 10 MG Rosuvastati n Calcium 10 MG 2-0 12-02 00:00: 00 No 1{table t_at_be dtime} QD Rosuvastat in Calcium 10 MG Rosuvastati n Calcium 10 MG Rosuvastati n Calcium 10 MG 2-0 12-02 00:00: 00 No 1{table t_at_be dtime} QD Rosuvastat in Calcium 10 MG Rosuvastati n Calcium 10 MG Rosuvastati n Calcium 10 MG 2-0 23 00:00: 00 No 1{table t_at_be dtime} QD Rosuvastat in Calcium 10 MG Rosuvastati n Calcium 10 MG Rosuvastati n Calcium 10 MG 2-0 12-02 00:00: 00 No 1{table t_at_be dtime} QD Rosuvastat in Calcium 10 MG Rosuvastati n Calcium 10 MG Rosuvastati n Calcium 10 MG 2022-0 9-23 00:00: 00 No 1{table t_at_be dtime} QD Rosuvastat in Calcium 10 MG Rosuvastati n Calcium 10 MG Rosuvastati n Calcium 10 MG 2022-0 9-23 00:00: 00 No 1{table t_at_be dtime} QD Rosuvastat in Calcium 10 MG Rosuvastati n Calcium 10 MG Rosuvastati n Calcium 10 MG 2022-0 9-23 00:00: 00 No 1{table t_at_be dtime} QD Rosuvastat in Calcium 10 MG Rosuvastati n Calcium 10 MG Rosuvastati n Calcium 10 MG 2022-0 9-23 00:00: 00 No 1{table t} Rosuvastat in Calcium 10 MG Rosuvastati n Calcium 10 MG Rosuvastati n Calcium 10 MG 2022-0 923 00:00: 00 No 1{table t} Rosuvastat in Calcium 10 MG Rosuvastati n Calcium 10 MG Rosuvastati n Calcium 10 MG 2022-0 923 00:00: 00 No 1{table t} Rosuvastat in Calcium 10 MG Rosuvastati n Calcium 10 MG Rosuvastati n Calcium 10 MG 2022-0 923 00:00: 00 No 1{table t} Rosuvastat in Calcium 10 MG Rosuvastati n Calcium 10 MG Rosuvastati n Calcium 10 MG 2022-0 923 00:00: 00 No 1{table t} Rosuvastat in Calcium 10 MG Rosuvastati n Calcium 10 MG Rosuvastati n Calcium 10 MG 2022-0 9-23 00:00: 00 No 1{table t} Rosuvastat in Calcium 10 MG Rosuvastati n Calcium 10 MG Rosuvastati n Calcium 10 MG 2022-0 9-23 00:00: 00 No 1{table t} Rosuvastat in Calcium 10 MG Rosuvastati n Calcium 10 MG Rosuvastati n Calcium 10 MG 2022-0 9-23 00:00: 00 No 1{table t} Rosuvastat in Calcium 10 MG Rosuvastati n Calcium 10 MG Rosuvastati n Calcium 10 MG 2022-0 12-02 00:00: 00 No 1{table t} Rosuvastat in Calcium 10 MG Rosuvastati n Calcium 10 MG Rosuvastati n Calcium 10 MG 2022-0 23 00:00: 00 No 1{table t_at_be dtime} QD Rosuvastat in Calcium 10 MG Rosuvastati n Calcium 10 MG Rosuvastati n Calcium 10 MG 2022-0 12-02 00:00: 00 No 1{table t_at_be dtime} QD Rosuvastat in Calcium 10 MG Rosuvastati n Calcium 10 MG Rosuvastati n Calcium 10 MG 2022-0 12-02 00:00: 00 No 1{table t_at_be dtime} QD Rosuvastat in Calcium 10 MG Trulicity 0.75 MG/0.5ML Trulicity 0.75 MG/0.5ML 2-0 11-24 00:00: 00 No Trulicity 0.75 MG/0.5ML Trulicity 0.75 MG/0.5ML Trulicity 0.75 MG/0.5ML 2-0 11-24 00:00: 00 No Trulicity 0.75 MG/0.5ML Trulicity 0.75 MG/0.5ML Trulicity 0.75 MG/0.5ML 2-0 11-24 00:00: 00 No Trulicity 0.75 MG/0.5ML Trulicity 0.75 MG/0.5ML Trulicity 0.75 MG/0.5ML 2022-0 11-24 00:00: 00 No Trulicity 0.75 MG/0.5ML Trulicity 0.75 MG/0.5ML Trulicity 0.75 MG/0.5ML 2-0 11-24 00:00: 00 No Trulicity 0.75 MG/0.5ML Trulicity 0.75 MG/0.5ML Trulicity 0.75 MG/0.5ML 2-0 11-24 00:00: 00 No Trulicity 0.75 MG/0.5ML Trulicity 0.75 MG/0.5ML Trulicity 0.75 MG/0.5ML 2-0 9-15 00:00: 00 No Trulicity 0.75 MG/0.5ML Trulicity 0.75 MG/0.5ML Trulicity 0.75 MG/0.5ML 2021-0 11-24 00:00: 00 No Trulicity 0.75 MG/0.5ML Jardiance 25 MG Jardiance 25 MG 2-0 3-18 00:00: 00 11-23 00:00 :00 No 1{table t} QD Jardiance 25 MG Jardiance 25 MG Jardiance 25 MG 2-0 318 00:00: 00 11-23 00:00 :00 No 1{table t} QD Jardiance 25 MG Jardiance 25 MG Jardiance 25 MG 2-0 318 00:00: 00 11-23 00:00 :00 No 1{table t} QD Jardiance 25 MG predniSONE 10 MG predniSONE 10 MG 2020-0 12-08 00:00: 00 12-15 00:00 :00 No QD predniSONE 10 MG predniSONE 10 MG predniSONE 10 MG 2020-0 12-08 00:00: 00 12-15 00:00 :00 No QD predniSONE 10 MG Azithromyci n 250 MG Azithromyci n 250 MG 0 12-08 00:00: 00 12-13 00:00 :00 No QD Azithromyc in 250 MG traZODone HCl 100 MG traZODone HCl 100 MG 2020-0 11-03 00:00: 00 No 1{table t_at_be dtime_a s_neede d} QD traZODone HCl 100 MG Januvia 100 MG Januvia 100 MG 2020-0 8 00:00: 00 No 1{table t} Januvia 100 MG traZODone HCl 100 MG traZODone HCl 100 MG 2020-0 8 00:00: 00 No 1{table t_at_be dtime_a s_neede d} QD traZODone HCl 100 MG Januvia 100 MG Januvia 100 MG 2020-0 8 00:00: 00 No 1{table t} Januvia 100 MG Januvia 100 MG Januvia 100 MG 8 00:00: 00 No 1{table t} Januvia 100 MG traZODone HCl 100 MG traZODone HCl 100 MG 11-03 00:00: 00 No 1{table t_at_be dtime_a s_neede d} QD traZODone HCl 100 MG Farxiga 10 MG Farxiga 10 MG 8 00:00: 00 05-01 00:00 :00 No 1{table t} QD Farxiga 10 MG Farxiga 10 MG Farxiga 10 MG 11-03 00:00: 00 05-01 00:00 :00 No 1{table t} QD Farxiga 10 MG Farxiga 10 MG Farxiga 10 MG 11-03 00:00: 00 05-01 00:00 :00 No 1{table t} QD Farxiga 10 MG Albuterol Sulfate Albuterol Sulfate 09-27 00:00: 00 Yes Na Rios 3 ml as needed [facility] Albuterol Sulfate (2.5 MG/3ML) 0.083% Albuterol Sulfate (2.5 MG/3ML) 0.083% 09-27 00:00: 00 No 3{ml_as _needed } TID Albuterol Sulfate (2.5 MG/3ML) 0.083% Albuterol Sulfate (2.5 MG/3ML) 0.083% Albuterol Sulfate (2.5 MG/3ML) 0.083% 09-27 00:00: 00 No 3{ml_as _needed } TID Albuterol Sulfate (2.5 MG/3ML) 0.083% Albuterol Sulfate (2.5 MG/3ML) 0.083% Albuterol Sulfate (2.5 MG/3ML) 0.083% 09-27 00:00: 00 No 3{ml_as _needed } TID Albuterol Sulfate (2.5 MG/3ML) 0.083% Albuterol Sulfate (2.5 MG/3ML) 0.083% Albuterol Sulfate (2.5 MG/3ML) 0.083% 09-27 00:00: 00 No 3{ml_as _needed } TID Albuterol Sulfate (2.5 MG/3ML) 0.083% Albuterol Sulfate (2.5 MG/3ML) 0.083% Albuterol Sulfate (2.5 MG/3ML) 0.083% 09-27 00:00: 00 No 3{ml_as _needed } TID Albuterol Sulfate (2.5 MG/3ML) 0.083% Albuterol Sulfate (2.5 MG/3ML) 0.083% Albuterol Sulfate (2.5 MG/3ML) 0.083% 09-27 00:00: 00 No 3{ml_as _needed } TID Albuterol Sulfate (2.5 MG/3ML) 0.083% Albuterol Sulfate (2.5 MG/3ML) 0.083% Albuterol Sulfate (2.5 MG/3ML) 0.083% 09-27 00:00: 00 No 3{ml_as _needed } TID Albuterol Sulfate (2.5 MG/3ML) 0.083% Albuterol Sulfate (2.5 MG/3ML) 0.083% Albuterol Sulfate (2.5 MG/3ML) 0.083% 09-27 00:00: 00 No 3{ml_as _needed } TID Albuterol Sulfate (2.5 MG/3ML) 0.083% Albuterol Sulfate (2.5 MG/3ML) 0.083% Albuterol Sulfate (2.5 MG/3ML) 0.083% 09-27 00:00: 00 No 3{ml_as _needed } TID Albuterol Sulfate (2.5 MG/3ML) 0.083% Albuterol Sulfate (2.5 MG/3ML) 0.083% Albuterol Sulfate (2.5 MG/3ML) 0.083% 09-27 00:00: 00 No 3{ml_as _needed } TID Albuterol Sulfate (2.5 MG/3ML) 0.083% Albuterol Sulfate (2.5 MG/3ML) 0.083% Albuterol Sulfate (2.5 MG/3ML) 0.083% 09-27 00:00: 00 No 3{ml_as _needed } TID Albuterol Sulfate (2.5 MG/3ML) 0.083% Albuterol Sulfate (2.5 MG/3ML) 0.083% Albuterol Sulfate (2.5 MG/3ML) 0.083% 09-27 00:00: 00 No 3{ml_as _needed } TID Albuterol Sulfate (2.5 MG/3ML) 0.083% Albuterol Sulfate (2.5 MG/3ML) 0.083% Albuterol Sulfate (2.5 MG/3ML) 0.083% 09-27 00:00: 00 No 3{ml_as _needed } TID Albuterol Sulfate (2.5 MG/3ML) 0.083% Albuterol Sulfate (2.5 MG/3ML) 0.083% Albuterol Sulfate (2.5 MG/3ML) 0.083% 09-27 00:00: 00 No 3{ml_as _needed } TID Albuterol Sulfate (2.5 MG/3ML) 0.083% Albuterol Sulfate (2.5 MG/3ML) 0.083% Albuterol Sulfate (2.5 MG/3ML) 0.083% 09-27 00:00: 00 No 3{ml_as _needed } TID Albuterol Sulfate (2.5 MG/3ML) 0.083% Albuterol Sulfate (2.5 MG/3ML) 0.083% Albuterol Sulfate (2.5 MG/3ML) 0.083% 09-27 00:00: 00 No 3{ml_as _needed } TID Albuterol Sulfate (2.5 MG/3ML) 0.083% Albuterol Sulfate (2.5 MG/3ML) 0.083% Albuterol Sulfate (2.5 MG/3ML) 0.083% 09-27 00:00: 00 No 3{ml_as _needed } TID Albuterol Sulfate (2.5 MG/3ML) 0.083% Albuterol Sulfate (2.5 MG/3ML) 0.083% Albuterol Sulfate (2.5 MG/3ML) 0.083% 09-27 00:00: 00 No 3{ml_as _needed } TID Albuterol Sulfate (2.5 MG/3ML) 0.083% Albuterol Sulfate (2.5 MG/3ML) 0.083% Albuterol Sulfate (2.5 MG/3ML) 0.083% 09-27 00:00: 00 No 3{ml_as _needed } TID Albuterol Sulfate (2.5 MG/3ML) 0.083% Albuterol Sulfate (2.5 MG/3ML) 0.083% Albuterol Sulfate (2.5 MG/3ML) 0.083% 09-27 00:00: 00 No 3{ml_as _needed } TID Albuterol Sulfate (2.5 MG/3ML) 0.083% Albuterol Sulfate (2.5 MG/3ML) 0.083% Albuterol Sulfate (2.5 MG/3ML) 0.083% 09-27 00:00: 00 No 3{ml_as _needed } TID Albuterol Sulfate (2.5 MG/3ML) 0.083% Albuterol Sulfate (2.5 MG/3ML) 0.083% Albuterol Sulfate (2.5 MG/3ML) 0.083% 09-27 00:00: 00 No 3{ml_as _needed } TID Albuterol Sulfate (2.5 MG/3ML) 0.083% Albuterol Sulfate (2.5 MG/3ML) 0.083% Albuterol Sulfate (2.5 MG/3ML) 0.083% 09-27 00:00: 00 No 3{ml_as _needed } TID Albuterol Sulfate (2.5 MG/3ML) 0.083% Albuterol Sulfate (2.5 MG/3ML) 0.083% Albuterol Sulfate (2.5 MG/3ML) 0.083% 09-27 00:00: 00 No 3{ml_as _needed } TID Albuterol Sulfate (2.5 MG/3ML) 0.083% Albuterol Sulfate (2.5 MG/3ML) 0.083% Albuterol Sulfate (2.5 MG/3ML) 0.083% 09-27 00:00: 00 No 3{ml_as _needed } TID Albuterol Sulfate (2.5 MG/3ML) 0.083% Zofran Zofran 08-16 00:00: 00 Yes Na Rios 1 tablet as needed [facility] Zofran 4 MG Zofran 4 MG 08-16 00:00: 00 No 1{table t_as_ne eded} QD Zofran 4 MG Zofran 4 MG Zofran 4 MG 08-16 00:00: 00 No 1{table t_as_ne eded} QD Zofran 4 MG Zofran 4 MG Zofran 4 MG 08-16 00:00: 00 No 1{table t_as_ne eded} QD Zofran 4 MG Zofran 4 MG Zofran 4 MG 08-16 00:00: 00 No 1{table t_as_ne eded} QD Zofran 4 MG Zofran 4 MG Zofran 4 MG 08-16 00:00: 00 No 1{table t_as_ne eded} QD Zofran 4 MG Zofran 4 MG Zofran 4 MG 08-16 00:00: 00 No 1{table t_as_ne eded} QD Zofran 4 MG Zofran 4 MG Zofran 4 MG 08-16 00:00: 00 No 1{table t_as_ne eded} QD Zofran 4 MG Zofran 4 MG Zofran 4 MG 08-16 00:00: 00 No 1{table t_as_ne eded} QD Zofran 4 MG Zofran 4 MG Zofran 4 MG 08-16 00:00: 00 No 1{table t_as_ne eded} QD Zofran 4 MG Zofran 4 MG Zofran 4 MG 08-16 00:00: 00 No 1{table t_as_ne eded} QD Zofran 4 MG Zofran 4 MG Zofran 4 MG 08-16 00:00: 00 No 1{table t_as_ne eded} QD Zofran 4 MG Zofran 4 MG Zofran 4 MG 08-16 00:00: 00 No 1{table t_as_ne eded} QD Zofran 4 MG Zofran 4 MG Zofran 4 MG 08-16 00:00: 00 No 1{table t_as_ne eded} QD Zofran 4 MG Zofran 4 MG Zofran 4 MG 08-16 00:00: 00 No 1{table t_as_ne eded} QD Zofran 4 MG Zofran 4 MG Zofran 4 MG 08-16 00:00: 00 No 1{table t_as_ne eded} QD Zofran 4 MG Zofran 4 MG Zofran 4 MG 08-16 00:00: 00 No 1{table t_as_ne eded} QD Zofran 4 MG Zofran 4 MG Zofran 4 MG 08-16 00:00: 00 No 1{table t_as_ne eded} QD Zofran 4 MG Zofran 4 MG Zofran 4 MG 08-16 00:00: 00 No 1{table t_as_ne eded} QD Zofran 4 MG Zofran 4 MG Zofran 4 MG 08-16 00:00: 00 No 1{table t_as_ne eded} QD Zofran 4 MG Zofran 4 MG Zofran 4 MG 08-16 00:00: 00 No 1{table t_as_ne eded} QD Zofran 4 MG Zofran 4 MG Zofran 4 MG 08-16 00:00: 00 No 1{table t_as_ne eded} QD Zofran 4 MG Zofran 4 MG Zofran 4 MG 08-16 00:00: 00 No 1{table t_as_ne eded} QD Zofran 4 MG Zofran 4 MG Zofran 4 MG 08-16 00:00: 00 No 1{table t_as_ne eded} QD Zofran 4 MG Zofran 4 MG Zofran 4 MG 08-16 00:00: 00 No 1{table t_as_ne eded} QD Zofran 4 MG Zofran 4 MG Zofran 4 MG 08-16 00:00: 00 No 1{table t_as_ne eded} QD Zofran 4 MG Kenalog (Triamcinol one) Kenalog (Triamcinol one) 09-03 00:00: 00 No 40mg [facility] Kenalog (Triamcinol one) Kenalog (Triamcinol one) 09-03 00:00: 00 No 40mg [facility] Kenalog (Triamcinol one) Kenalog (Triamcinol one) 09-03 00:00: 00 No 40mg [facility] Kenalog (Triamcinol one) Kenalog (Triamcinol one) 09-03 00:00: 00 No 40mg [facility] Kenalog (Triamcinol one) Kenalog (Triamcinol one) 09-03 00:00: 00 No 40mg [facility] Kenalog (Triamcinol one) Kenalog (Triamcinol one) 09-03 00:00: 00 No 40mg [facility] Kenalog (Triamcinol one) Kenalog (Triamcinol one) 09-03 00:00: 00 No 40mg [facility] Kenalog (Triamcinol one) Kenalog (Triamcinol one) 09-03 00:00: 00 No 40mg [facility] Kenalog (Triamcinol one) Kenalog (Triamcinol one) 09-03 00:00: 00 No 40mg [facility] Kenalog (Triamcinol one) Kenalog (Triamcinol one) 09-03 00:00: 00 No 40mg [facility] Kenalog (Triamcinol one) Kenalog (Triamcinol one) 09-03 00:00: 00 No 40mg [facility] Kenalog (Triamcinol one) Kenalog (Triamcinol one) 09-03 00:00: 00 No 40mg [facility] Kenalog (Triamcinol one) Kenalog (Triamcinol one) 09-03 00:00: 00 No 40mg [facility] Kenalog (Triamcinol one) Kenalog (Triamcinol one) 09-03 00:00: 00 No 40mg [facility] Kenalog (Triamcinol one) Kenalog (Triamcinol one) 09-03 00:00: 00 No 40mg [facility] Kenalog (Triamcinol one) Kenalog (Triamcinol one) 09-03 00:00: 00 No 40mg [facility] Kenalog (Triamcinol one) Kenalog (Triamcinol one) 09-03 00:00: 00 No 40mg [facility] Kenalog (Triamcinol one) Kenalog (Triamcinol one) 09-03 00:00: 00 No 40mg [facility] Kenalog (Triamcinol one) Kenalog (Triamcinol one) 09-03 00:00: 00 No 40mg [facility] Kenalog (Triamcinol one) Kenalog (Triamcinol one) 09-03 00:00: 00 No 40mg [facility] Kenalog (Triamcinol one) Kenalog (Triamcinol one) 09-03 00:00: 00 No 40mg [facility] Kenalog (Triamcinol one) Kenalog (Triamcinol one) 09-03 00:00: 00 No 40mg [facility] Kenalog (Triamcinol one) Kenalog (Triamcinol one) 09-03 00:00: 00 No 40mg [facility] Kenalog (Triamcinol one) Kenalog (Triamcinol one) 09-03 00:00: 00 No 40mg [facility] Kenalog (Triamcinol one) Kenalog (Triamcinol one) 09-03 00:00: 00 No 40mg [facility] Kenalog (Triamcinol one) Kenalog (Triamcinol one) 09-03 00:00: 00 No 40mg [facility] Kenalog (Triamcinol one) Kenalog (Triamcinol one) 09-03 00:00: 00 No 40mg [facility] Kenalog (Triamcinol one) Kenalog (Triamcinol one) 09-03 00:00: 00 No 40mg [facility] Zestoretic 12.5-10 MG Zestoretic 12.5-10 MG No 1{table t} QD Zestoretic 12.5-10 MG Omeprazole 40 MG Omeprazole 40 MG No Omeprazole 40 MG Citalopram Hydrobromid e 40 MG Citalopram Hydrobromid e 40 MG No Citalopram Hydrobromi de 40 MG Cetirizine HCl 10 MG Cetirizine HCl 10 MG No 1{table t} QD Cetirizine HCl 10 MG Sucralfate 1 GM Sucralfate 1 GM No 1{table t_on_an _empty_ stomach } QID Sucralfate 1 GM Albuterol Sulfate 108 (90 Base) MCG/ACT Albuterol Sulfate 108 (90 Base) MCG/ACT No 2{puffs _as_nee ded} QID Albuterol Sulfate 108 (90 Base) MCG/ACT traZODone HCl 100 MG traZODone HCl 100 MG No traZODone HCl 100 MG Amitriptyli ne HCl 25 MG Amitriptyli ne HCl 25 MG No Amitriptyl ine HCl 25 MG Glyxambi 25-5 MG Glyxambi 25-5 MG No Glyxambi 25-5 MG metFORMIN HCl 1000 MG metFORMIN HCl 1000 MG No metFORMIN HCl 1000 MG predniSONE 20 MG predniSONE 20 MG No 1{table t} QD predniSONE 20 MG Lipitor 40 MG Lipitor 40 MG No 1{table t} QD Lipitor 40 MG Losartan Potassium 50 MG Losartan Potassium 50 MG No Losartan Potassium 50 MG Citalopram Hydrobromid e 40 MG Citalopram Hydrobromid e 40 MG No Citalopram Hydrobromi de 40 MG metFORMIN HCl 1000 MG metFORMIN HCl 1000 MG No 1{table t_with_ meals} BID metFORMIN HCl 1000 MG Sucralfate 1 GM Sucralfate 1 GM No 1{table t_on_an _empty_ stomach } QID Sucralfate 1 GM tiZANidine HCl 2 MG tiZANidine HCl 2 MG No tiZANidine HCl 2 MG Amitriptyli ne HCl 25 MG Amitriptyli ne HCl 25 MG No Amitriptyl ine HCl 25 MG Symbicort 160-4.5 MCG/ACT Symbicort 160-4.5 MCG/ACT No 2{puffs } BID Symbicort 160-4.5 MCG/ACT Trulicity 0.75 MG/0.5ML Trulicity 0.75 MG/0.5ML No Trulicity 0.75 MG/0.5ML metFORMIN HCl 1000 MG metFORMIN HCl 1000 MG No metFORMIN HCl 1000 MG Albuterol Sulfate 108 (90 Base) MCG/ACT Albuterol Sulfate 108 (90 Base) MCG/ACT No 2{puffs _as_nee ded} QID Albuterol Sulfate 108 (90 Base) MCG/ACT Glyxambi 25-5 MG Glyxambi 25-5 MG No Glyxambi 25-5 MG Omeprazole 40 MG Omeprazole 40 MG No Omeprazole 40 MG Zestoretic 12.5-10 MG Zestoretic 12.5-10 MG No 1{table t} QD Zestoretic 12.5-10 MG traZODone HCl 100 MG traZODone HCl 100 MG No 1{table t_at_be dtime_a s_neede d} QD traZODone HCl 100 MG Amaryl 4 MG Amaryl 4 MG No 1{table t} BID Amaryl 4 MG Glimepiride 2 MG Glimepiride 2 MG No 1{table t_with_ breakfa st_or_t he_firs t_main_ meal_of _the_da y} BID Glimepirid e 2 MG tiZANidine HCl 2 MG tiZANidine HCl 2 MG No tiZANidine HCl 2 MG HYDROcodone -Acetaminop hen 7.5-325 MG HYDROcodone -Acetaminop hen 7.5-325 MG No 1{table t_as_ne eded} BID HYDROcodon e-Acetamin ophen 7.5-325 MG Lipitor 40 MG Lipitor 40 MG No Lipitor 40 MG Cetirizine HCl 10 MG Cetirizine HCl 10 MG No 1{table t} QD Cetirizine HCl 10 MG Lantus SoloStar 100 UNIT/ML Lantus SoloStar 100 UNIT/ML No QD Lantus SoloStar 100 UNIT/ML predniSONE 20 MG predniSONE 20 MG No 1{table t} QD predniSONE 20 MG Lipitor 40 MG Lipitor 40 MG No 1{table t} QD Lipitor 40 MG Losartan Potassium 50 MG Losartan Potassium 50 MG No Losartan Potassium 50 MG Citalopram Hydrobromid e 40 MG Citalopram Hydrobromid e 40 MG No Citalopram Hydrobromi de 40 MG metFORMIN HCl 1000 MG metFORMIN HCl 1000 MG No 1{table t_with_ meals} BID metFORMIN HCl 1000 MG Sucralfate 1 GM Sucralfate 1 GM No 1{table t_on_an _empty_ stomach } QID Sucralfate 1 GM tiZANidine HCl 2 MG tiZANidine HCl 2 MG No tiZANidine HCl 2 MG Amitriptyli ne HCl 25 MG Amitriptyli ne HCl 25 MG No Amitriptyl ine HCl 25 MG Symbicort 160-4.5 MCG/ACT Symbicort 160-4.5 MCG/ACT No 2{puffs } BID Symbicort 160-4.5 MCG/ACT Trulicity 0.75 MG/0.5ML Trulicity 0.75 MG/0.5ML No Trulicity 0.75 MG/0.5ML metFORMIN HCl 1000 MG metFORMIN HCl 1000 MG No metFORMIN HCl 1000 MG Albuterol Sulfate 108 (90 Base) MCG/ACT Albuterol Sulfate 108 (90 Base) MCG/ACT No 2{puffs _as_nee ded} QID Albuterol Sulfate 108 (90 Base) MCG/ACT Glyxambi 25-5 MG Glyxambi 25-5 MG No Glyxambi 25-5 MG Omeprazole 40 MG Omeprazole 40 MG No Omeprazole 40 MG Zestoretic 12.5-10 MG Zestoretic 12.5-10 MG No 1{table t} QD Zestoretic 12.5-10 MG traZODone HCl 100 MG traZODone HCl 100 MG No 1{table t_at_be dtime_a s_neede d} QD traZODone HCl 100 MG Amaryl 4 MG Amaryl 4 MG No 1{table t} BID Amaryl 4 MG Glimepiride 2 MG Glimepiride 2 MG No 1{table t_with_ breakfa st_or_t he_firs t_main_ meal_of _the_da y} BID Glimepirid e 2 MG tiZANidine HCl 2 MG tiZANidine HCl 2 MG No tiZANidine HCl 2 MG HYDROcodone -Acetaminop hen 7.5-325 MG HYDROcodone -Acetaminop hen 7.5-325 MG No 1{table t_as_ne eded} BID HYDROcodon e-Acetamin ophen 7.5-325 MG Lipitor 40 MG Lipitor 40 MG No Lipitor 40 MG Cetirizine HCl 10 MG Cetirizine HCl 10 MG No 1{table t} QD Cetirizine HCl 10 MG Lantus SoloStar 100 UNIT/ML Lantus SoloStar 100 UNIT/ML No QD Lantus SoloStar 100 UNIT/ML predniSONE 20 MG predniSONE 20 MG No 1{table t} QD predniSONE 20 MG Lipitor 40 MG Lipitor 40 MG No 1{table t} QD Lipitor 40 MG Losartan Potassium 50 MG Losartan Potassium 50 MG No Losartan Potassium 50 MG traZODone HCl 100 MG traZODone HCl 100 MG No 1{table t_at_be dtime_a s_neede d} QD traZODone HCl 100 MG tiZANidine HCl 2 MG tiZANidine HCl 2 MG No tiZANidine HCl 2 MG Sucralfate 1 GM Sucralfate 1 GM No 1{table t_on_an _empty_ stomach } QID Sucralfate 1 GM Amaryl 4 MG Amaryl 4 MG No 1{table t} BID Amaryl 4 MG Trulicity 0.75 MG/0.5ML Trulicity 0.75 MG/0.5ML No Trulicity 0.75 MG/0.5ML Symbicort 160-4.5 MCG/ACT Symbicort 160-4.5 MCG/ACT No 2{puffs } BID Symbicort 160-4.5 MCG/ACT metFORMIN HCl 1000 MG metFORMIN HCl 1000 MG No 1{table t_with_ meals} BID metFORMIN HCl 1000 MG Amitriptyli ne HCl 25 MG Amitriptyli ne HCl 25 MG No Amitriptyl ine HCl 25 MG Albuterol Sulfate 108 (90 Base) MCG/ACT Albuterol Sulfate 108 (90 Base) MCG/ACT No 2{puffs _as_nee ded} QID Albuterol Sulfate 108 (90 Base) MCG/ACT Glyxambi 25-5 MG Glyxambi 25-5 MG No Glyxambi 25-5 MG Omeprazole 40 MG Omeprazole 40 MG No Omeprazole 40 MG Zestoretic 12.5-10 MG Zestoretic 12.5-10 MG No 1{table t} QD Zestoretic 12.5-10 MG Citalopram Hydrobromid e 40 MG Citalopram Hydrobromid e 40 MG No Citalopram Hydrobromi de 40 MG metFORMIN HCl 1000 MG metFORMIN HCl 1000 MG No metFORMIN HCl 1000 MG Glimepiride 2 MG Glimepiride 2 MG No 1{table t_with_ breakfa st_or_t he_firs t_main_ meal_of _the_da y} BID Glimepirid e 2 MG tiZANidine HCl 2 MG tiZANidine HCl 2 MG No tiZANidine HCl 2 MG HYDROcodone -Acetaminop hen 7.5-325 MG HYDROcodone -Acetaminop hen 7.5-325 MG No 1{table t_as_ne eded} BID HYDROcodon e-Acetamin ophen 7.5-325 MG Lipitor 40 MG Lipitor 40 MG No Lipitor 40 MG Cetirizine HCl 10 MG Cetirizine HCl 10 MG No 1{table t} QD Cetirizine HCl 10 MG Lantus SoloStar 100 UNIT/ML Lantus SoloStar 100 UNIT/ML No QD Lantus SoloStar 100 UNIT/ML Symbicort 160-4.5 MCG/ACT Symbicort 160-4.5 MCG/ACT No 2{puffs } BID Symbicort 160-4.5 MCG/ACT Amaryl 4 MG Amaryl 4 MG No 1{table t} BID Amaryl 4 MG Sucralfate 1 GM Sucralfate 1 GM No 1{table t_on_an _empty_ stomach } QID Sucralfate 1 GM Lipitor 40 MG Lipitor 40 MG No 1{table t} QD Lipitor 40 MG Amitriptyli ne HCl 25 MG Amitriptyli ne HCl 25 MG No 1{table t_at_be dtime} QD Amitriptyl ine HCl 25 MG Trulicity 0.75 MG/0.5ML Trulicity 0.75 MG/0.5ML No Trulicity 0.75 MG/0.5ML Omeprazole 40 MG Omeprazole 40 MG No Omeprazole 40 MG metFORMIN HCl 1000 MG metFORMIN HCl 1000 MG No 1{table t_with_ meals} BID metFORMIN HCl 1000 MG tiZANidine HCl 2 MG tiZANidine HCl 2 MG No 1{table t_at_be dtime} QD tiZANidine HCl 2 MG metFORMIN HCl 1000 MG metFORMIN HCl 1000 MG No metFORMIN HCl 1000 MG Albuterol Sulfate 108 (90 Base) MCG/ACT Albuterol Sulfate 108 (90 Base) MCG/ACT No 2{puffs _as_nee ded} QID Albuterol Sulfate 108 (90 Base) MCG/ACT Glimepiride 2 MG Glimepiride 2 MG No 1{table t_with_ breakfa st_or_t he_firs t_main_ meal_of _the_da y} BID Glimepirid e 2 MG Losartan Potassium 50 MG Losartan Potassium 50 MG No Losartan Potassium 50 MG traZODone HCl 100 MG traZODone HCl 100 MG No 1{table t_at_be dtime_a s_neede d} QD traZODone HCl 100 MG HYDROcodone -Acetaminop hen 7.5-325 MG HYDROcodone -Acetaminop hen 7.5-325 MG No 1{table t_as_ne eded} BID HYDROcodon e-Acetamin ophen 7.5-325 MG traZODone HCl 100 MG traZODone HCl 100 MG No 1{table t_at_be dtime_a s_neede d} QD traZODone HCl 100 MG Citalopram Hydrobromid e 40 MG Citalopram Hydrobromid e 40 MG No Citalopram Hydrobromi de 40 MG Zestoretic 12.5-10 MG Zestoretic 12.5-10 MG No 1{table t} QD Zestoretic 12.5-10 MG predniSONE 20 MG predniSONE 20 MG No 1{table t} QD predniSONE 20 MG Glyxambi 25-5 MG Glyxambi 25-5 MG No Glyxambi 25-5 MG Omeprazole 40 MG Omeprazole 40 MG No Omeprazole 40 MG Cetirizine HCl 10 MG Cetirizine HCl 10 MG No 1{table t} QD Cetirizine HCl 10 MG Lipitor 40 MG Lipitor 40 MG No Lipitor 40 MG Lantus SoloStar 100 UNIT/ML Lantus SoloStar 100 UNIT/ML No QD Lantus SoloStar 100 UNIT/ML traZODone HCl 100 MG traZODone HCl 100 MG No traZODone HCl 100 MG Glyxambi 25-5 MG Glyxambi 25-5 MG No Glyxambi 25-5 MG Symbicort 160-4.5 MCG/ACT Symbicort 160-4.5 MCG/ACT No 2{puffs } BID Symbicort 160-4.5 MCG/ACT traZODone HCl 100 MG traZODone HCl 100 MG No 1{table t_at_be dtime_a s_neede d} QD traZODone HCl 100 MG tiZANidine HCl 2 MG tiZANidine HCl 2 MG No tiZANidine HCl 2 MG Glimepiride 4 MG Glimepiride 4 MG No 1{table t_with_ food} BID Glimepirid e 4 MG Citalopram Hydrobromid e 40 MG Citalopram Hydrobromid e 40 MG No 1{table t} QD Citalopram Hydrobromi de 40 MG Amitriptyli ne HCl 50 MG Amitriptyli ne HCl 50 MG No 1{table t_at_be dtime} QD Amitriptyl ine HCl 50 MG Lipitor 40 MG Lipitor 40 MG No 1{table t} QD Lipitor 40 MG metFORMIN HCl 1000 MG metFORMIN HCl 1000 MG No metFORMIN HCl 1000 MG Losartan Potassium 50 MG Losartan Potassium 50 MG No 1{table t} QD Losartan Potassium 50 MG Symbicort 160-4.5 MCG/ACT Symbicort 160-4.5 MCG/ACT No 2{puffs } BID Symbicort 160-4.5 MCG/ACT traZODone HCl 100 MG traZODone HCl 100 MG No 1{table t_at_be dtime_a s_neede d} QD traZODone HCl 100 MG tiZANidine HCl 2 MG tiZANidine HCl 2 MG No tiZANidine HCl 2 MG Zestoretic 12.5-10 MG Zestoretic 12.5-10 MG No 1{table t} QD Zestoretic 12.5-10 MG Glimepiride 4 MG Glimepiride 4 MG No 1{table t_with_ food} BID Glimepirid e 4 MG Citalopram Hydrobromid e 40 MG Citalopram Hydrobromid e 40 MG No 1{table t} QD Citalopram Hydrobromi de 40 MG Amitriptyli ne HCl 50 MG Amitriptyli ne HCl 50 MG No 1{table t_at_be dtime} QD Amitriptyl ine HCl 50 MG Lipitor 40 MG Lipitor 40 MG No 1{table t} QD Lipitor 40 MG Losartan Potassium 50 MG Losartan Potassium 50 MG No 1{table t} QD Losartan Potassium 50 MG Amitriptyli ne HCl 25 MG Amitriptyli ne HCl 25 MG No Amitriptyl ine HCl 25 MG traZODone HCl 100 MG traZODone HCl 100 MG No 1{table t_at_be dtime_a s_neede d} QD traZODone HCl 100 MG tiZANidine HCl 2 MG tiZANidine HCl 2 MG No tiZANidine HCl 2 MG HumuLIN 70/30 KwikPen (70-30) 100 UNIT/ML HumuLIN 70/30 KwikPen (70-30) 100 UNIT/ML No BID HumuLIN 70/30 KwikPen (70-30) 100 UNIT/ML Glimepiride 4 MG Glimepiride 4 MG No 1{table t_with_ food} BID Glimepirid e 4 MG Lipitor Lipitor Yes Na Rios 1 tablet [facility] Zestoretic Zestoretic Yes Na Rios 1 tablet [facility] Cetirizine HCl Cetirizine HCl Yes Na Rios 1 tablet [facility] Albuterol Sulfate Albuterol Sulfate Yes Na Rios 2 puffs as needed [facility] Amitriptyli ne HCl Amitriptyli ne HCl Yes Na Rios TAKE 1 TABLET BY MOUTH AT BEDTIME NEEDED FOR MIGRAINE [facility] Trazodone HCl Trazodone HCl Yes Na Rios 1 tablet at bedtime as needed [facility] Glyxambi Glyxambi Yes Na Rios 1 tabl et in the morning [facility] Metformin HCl Metformin HCl Yes Na Rios 1 tablet with meals [facility] Losartan Potassium Losartan Potassium Yes Na Rios 1 tablet [facility] [place] Omeprazole Omeprazole Yes Na Rios TA KE ONE CAPSULE BY MOUTH EVERY DAY [facility] Citalopram Hydrobromid e Citalopram Hydrobromid e Yes Na Rios 1 tablet [facility] Symbicort Symbicort Yes Na Rios 2 puffs [facility] Amaryl Amaryl Yes Na Rios 1 tablet [facility] Tizanidine HCl Tizanidine HCl Yes Na Rios TAKE 2 TABLETS BY MOUTH AT BEDTIME NEEDED [facility] Atorvastati n Calcium Atorvastati n Calcium Yes Na Rios TAKE 1 TABLET BY MOUTH EVERY DAY [facility] Citalopram Hydrobromid e 40 MG Citalopram Hydrobromid e 40 MG No 1{table t} QD Citalopram Hydrobromi de 40 MG tiZANidine HCl 2 MG tiZANidine HCl 2 MG No tiZANidine HCl 2 MG Symbicort 160-4.5 MCG/ACT Symbicort 160-4.5 MCG/ACT No 2{puffs } BID Symbicort 160-4.5 MCG/ACT Amitriptyli ne HCl 50 MG Amitriptyli ne HCl 50 MG No 1{table t_at_be dtime} QD Amitriptyl ine HCl 50 MG Losartan Potassium 50 MG Losartan Potassium 50 MG No 1{table t} QD Losartan Potassium 50 MG Lipitor 40 MG Lipitor 40 MG No 1{table t} QD Lipitor 40 MG traZODone HCl 100 MG traZODone HCl 100 MG No 1{table t_at_be dtime_a s_neede d} QD traZODone HCl 100 MG tiZANidine HCl 2 MG tiZANidine HCl 2 MG No tiZANidine HCl 2 MG Glimepiride 4 MG Glimepiride 4 MG No 1{table t_with_ food} BID Glimepirid e 4 MG Amitriptyli ne HCl 50 MG Amitriptyli ne HCl 50 MG No 1{table t_at_be dtime} QD Amitriptyl ine HCl 50 MG Citalopram Hydrobromid e 40 MG Citalopram Hydrobromid e 40 MG No 1{table t} QD Citalopram Hydrobromi de 40 MG tiZANidine HCl 2 MG tiZANidine HCl 2 MG No tiZANidine HCl 2 MG predniSONE 20 MG predniSONE 20 MG No 1{table t} QD predniSONE 20 MG Symbicort 160-4.5 MCG/ACT Symbicort 160-4.5 MCG/ACT No 2{puffs } BID Symbicort 160-4.5 MCG/ACT HumuLIN 70/30 KwikPen (70-30) 100 UNIT/ML HumuLIN 70/30 KwikPen (70-30) 100 UNIT/ML No BID HumuLIN 70/30 KwikPen (70-30) 100 UNIT/ML Losartan Potassium 50 MG Losartan Potassium 50 MG No 1{table t} QD Losartan Potassium 50 MG Lipitor 40 MG Lipitor 40 MG No 1{table t} QD Lipitor 40 MG metFORMIN HCl 1000 MG metFORMIN HCl 1000 MG No 1{table t_with_ meals} BID metFORMIN HCl 1000 MG traZODone HCl 100 MG traZODone HCl 100 MG No 1{table t_at_be dtime_a s_neede d} QD traZODone HCl 100 MG tiZANidine HCl 2 MG tiZANidine HCl 2 MG No tiZANidine HCl 2 MG Glimepiride 4 MG Glimepiride 4 MG No 1{table t_with_ food} BID Glimepirid e 4 MG Amitriptyli ne HCl 50 MG Amitriptyli ne HCl 50 MG No 1{table t_at_be dtime} QD Amitriptyl ine HCl 50 MG Citalopram Hydrobromid e 40 MG Citalopram Hydrobromid e 40 MG No 1{table t} QD Citalopram Hydrobromi de 40 MG tiZANidine HCl 2 MG tiZANidine HCl 2 MG No tiZANidine HCl 2 MG Symbicort 160-4.5 MCG/ACT Symbicort 160-4.5 MCG/ACT No 2{puffs } BID Symbicort 160-4.5 MCG/ACT Lipitor 40 MG Lipitor 40 MG No Lipitor 40 MG HumuLIN 70/30 KwikPen (70-30) 100 UNIT/ML HumuLIN 70/30 KwikPen (70-30) 100 UNIT/ML No BID HumuLIN 70/30 KwikPen (70-30) 100 UNIT/ML Losartan Potassium 50 MG Losartan Potassium 50 MG No 1{table t} QD Losartan Potassium 50 MG Lipitor 40 MG Lipitor 40 MG No 1{table t} QD Lipitor 40 MG Sucralfate 1 GM Sucralfate 1 GM No 1{table t_on_an _empty_ stomach } QID Sucralfate 1 GM traZODone HCl 100 MG traZODone HCl 100 MG No 1{table t_at_be dtime_a s_neede d} QD traZODone HCl 100 MG tiZANidine HCl 2 MG tiZANidine HCl 2 MG No tiZANidine HCl 2 MG Glimepiride 4 MG Glimepiride 4 MG No 1{table t_with_ food} BID Glimepirid e 4 MG Amitriptyli ne HCl 50 MG Amitriptyli ne HCl 50 MG No 1{table t_at_be dtime} QD Amitriptyl ine HCl 50 MG Citalopram Hydrobromid e 40 MG Citalopram Hydrobromid e 40 MG No 1{table t} QD Citalopram Hydrobromi de 40 MG tiZANidine HCl 2 MG tiZANidine HCl 2 MG No tiZANidine HCl 2 MG Symbicort 160-4.5 MCG/ACT Symbicort 160-4.5 MCG/ACT No 2{puffs } BID Symbicort 160-4.5 MCG/ACT Cetirizine HCl 10 MG Cetirizine HCl 10 MG No 1{table t} QD Cetirizine HCl 10 MG HumuLIN 70/30 KwikPen (70-30) 100 UNIT/ML HumuLIN 70/30 KwikPen (70-30) 100 UNIT/ML No BID HumuLIN 70/30 KwikPen (70-30) 100 UNIT/ML Losartan Potassium 50 MG Losartan Potassium 50 MG No 1{table t} QD Losartan Potassium 50 MG Lipitor 40 MG Lipitor 40 MG No 1{table t} QD Lipitor 40 MG Amaryl 4 MG Amaryl 4 MG No 1{table t} BID Amaryl 4 MG Amitriptyli ne HCl 50 MG Amitriptyli ne HCl 50 MG No 1{table t_at_be dtime} QD Amitriptyl ine HCl 50 MG Gabapentin 300 MG Gabapentin 300 MG No 1{capsu le} BID Gabapentin 300 MG tiZANidine HCl 2 MG tiZANidine HCl 2 MG No tiZANidine HCl 2 MG Symbicort 160-4.5 MCG/ACT Symbicort 160-4.5 MCG/ACT No 2{puffs } BID Symbicort 160-4.5 MCG/ACT Glimepiride 4 MG Glimepiride 4 MG No 1{table t_with_ food} BID Glimepirid e 4 MG Amitriptyli ne HCl 50 MG Amitriptyli ne HCl 50 MG No 1{table t_at_be dtime} QD Amitriptyl ine HCl 50 MG Lipitor 40 MG Lipitor 40 MG No 1{table t} QD Lipitor 40 MG Citalopram Hydrobromid e 40 MG Citalopram Hydrobromid e 40 MG No 1{table t} QD Citalopram Hydrobromi de 40 MG HumuLIN 70/30 KwikPen (70-30) 100 UNIT/ML HumuLIN 70/30 KwikPen (70-30) 100 UNIT/ML No BID HumuLIN 70/30 KwikPen (70-30) 100 UNIT/ML Citalopram Hydrobromid e 40 MG Citalopram Hydrobromid e 40 MG No 1{table t} QD Citalopram Hydrobromi de 40 MG Losartan Potassium 50 MG Losartan Potassium 50 MG No 1{table t} QD Losartan Potassium 50 MG traZODone HCl 100 MG traZODone HCl 100 MG No 1{table t_at_be dtime_a s_neede d} QD traZODone HCl 100 MG tiZANidine HCl 2 MG tiZANidine HCl 2 MG No tiZANidine HCl 2 MG Amitriptyli ne HCl 50 MG Amitriptyli ne HCl 50 MG No 1{table t_at_be dtime} QD Amitriptyl ine HCl 50 MG Gabapentin 300 MG Gabapentin 300 MG No 1{capsu le} BID Gabapentin 300 MG tiZANidine HCl 2 MG tiZANidine HCl 2 MG No tiZANidine HCl 2 MG Symbicort 160-4.5 MCG/ACT Symbicort 160-4.5 MCG/ACT No 2{puffs } BID Symbicort 160-4.5 MCG/ACT Glimepiride 4 MG Glimepiride 4 MG No 1{table t_with_ food} BID Glimepirid e 4 MG Amitriptyli ne HCl 50 MG Amitriptyli ne HCl 50 MG No 1{table t_at_be dtime} QD Amitriptyl ine HCl 50 MG Symbicort 160-4.5 MCG/ACT Symbicort 160-4.5 MCG/ACT No 2{puffs } BID Symbicort 160-4.5 MCG/ACT Lipitor 40 MG Lipitor 40 MG No 1{table t} QD Lipitor 40 MG HumuLIN 70/30 KwikPen (70-30) 100 UNIT/ML HumuLIN 70/30 KwikPen (70-30) 100 UNIT/ML No BID HumuLIN 70/30 KwikPen (70-30) 100 UNIT/ML Citalopram Hydrobromid e 40 MG Citalopram Hydrobromid e 40 MG No 1{table t} QD Citalopram Hydrobromi de 40 MG Losartan Potassium 50 MG Losartan Potassium 50 MG No 1{table t} QD Losartan Potassium 50 MG traZODone HCl 100 MG traZODone HCl 100 MG No 1{table t_at_be dtime_a s_neede d} QD traZODone HCl 100 MG tiZANidine HCl 2 MG tiZANidine HCl 2 MG No tiZANidine HCl 2 MG Lipitor 40 MG Lipitor 40 MG No 1{table t} QD Lipitor 40 MG Amitriptyli ne HCl 50 MG Amitriptyli ne HCl 50 MG No 1{table t_at_be dtime} QD Amitriptyl ine HCl 50 MG Gabapentin 300 MG Gabapentin 300 MG No 1{capsu le} BID Gabapentin 300 MG tiZANidine HCl 2 MG tiZANidine HCl 2 MG No tiZANidine HCl 2 MG tiZANidine HCl 2 MG tiZANidine HCl 2 MG No tiZANidine HCl 2 MG Symbicort 160-4.5 MCG/ACT Symbicort 160-4.5 MCG/ACT No 2{puffs } BID Symbicort 160-4.5 MCG/ACT Glimepiride 4 MG Glimepiride 4 MG No 1{table t_with_ food} BID Glimepirid e 4 MG Amitriptyli ne HCl 50 MG Amitriptyli ne HCl 50 MG No 1{table t_at_be dtime} QD Amitriptyl ine HCl 50 MG Lipitor 40 MG Lipitor 40 MG No 1{table t} QD Lipitor 40 MG HumuLIN 70/30 KwikPen (70-30) 100 UNIT/ML HumuLIN 70/30 KwikPen (70-30) 100 UNIT/ML No BID HumuLIN 70/30 KwikPen (70-30) 100 UNIT/ML Citalopram Hydrobromid e 40 MG Citalopram Hydrobromid e 40 MG No 1{table t} QD Citalopram Hydrobromi de 40 MG Losartan Potassium 50 MG Losartan Potassium 50 MG No 1{table t} QD Losartan Potassium 50 MG traZODone HCl 100 MG traZODone HCl 100 MG No 1{table t_at_be dtime_a s_neede d} QD traZODone HCl 100 MG HYDROcodone -Acetaminop hen 7.5-325 MG HYDROcodone -Acetaminop hen 7.5-325 MG No 1{table t_as_ne eded} BID HYDROcodon e-Acetamin ophen 7.5-325 MG Amitriptyli ne HCl 50 MG Amitriptyli ne HCl 50 MG No 1{table t_at_be dtime} QD Amitriptyl ine HCl 50 MG Gabapentin 300 MG Gabapentin 300 MG No 1{capsu le} BID Gabapentin 300 MG tiZANidine HCl 2 MG tiZANidine HCl 2 MG No tiZANidine HCl 2 MG Albuterol Sulfate 108 (90 Base) MCG/ACT Albuterol Sulfate 108 (90 Base) MCG/ACT No 2{puffs _as_nee ded} QID Albuterol Sulfate 108 (90 Base) MCG/ACT Symbicort 160-4.5 MCG/ACT Symbicort 160-4.5 MCG/ACT No 2{puffs } BID Symbicort 160-4.5 MCG/ACT Glimepiride 4 MG Glimepiride 4 MG No 1{table t_with_ food} BID Glimepirid e 4 MG Amitriptyli ne HCl 50 MG Amitriptyli ne HCl 50 MG No 1{table t_at_be dtime} QD Amitriptyl ine HCl 50 MG Lipitor 40 MG Lipitor 40 MG No 1{table t} QD Lipitor 40 MG HumuLIN 70/30 KwikPen (70-30) 100 UNIT/ML HumuLIN 70/30 KwikPen (70-30) 100 UNIT/ML No BID HumuLIN 70/30 KwikPen (70-30) 100 UNIT/ML Citalopram Hydrobromid e 40 MG Citalopram Hydrobromid e 40 MG No 1{table t} QD Citalopram Hydrobromi de 40 MG Losartan Potassium 50 MG Losartan Potassium 50 MG No 1{table t} QD Losartan Potassium 50 MG traZODone HCl 100 MG traZODone HCl 100 MG No 1{table t_at_be dtime_a s_neede d} QD traZODone HCl 100 MG Losartan Potassium 50 MG Losartan Potassium 50 MG No 1{table t} QD Losartan Potassium 50 MG Amitriptyli ne HCl 50 MG Amitriptyli ne HCl 50 MG No 1{table t_at_be dtime} QD Amitriptyl ine HCl 50 MG Gabapentin 300 MG Gabapentin 300 MG No 1{capsu le} BID Gabapentin 300 MG Glimepiride 2 MG Glimepiride 2 MG No 1{table t_with_ breakfa st_or_t he_firs t_main_ meal_of _the_da y} BID Glimepirid e 2 MG tiZANidine HCl 2 MG tiZANidine HCl 2 MG No tiZANidine HCl 2 MG Symbicort 160-4.5 MCG/ACT Symbicort 160-4.5 MCG/ACT No 2{puffs } BID Symbicort 160-4.5 MCG/ACT Glimepiride 4 MG Glimepiride 4 MG No 1{table t_with_ food} BID Glimepirid e 4 MG Amitriptyli ne HCl 50 MG Amitriptyli ne HCl 50 MG No 1{table t_at_be dtime} QD Amitriptyl ine HCl 50 MG Lipitor 40 MG Lipitor 40 MG No 1{table t} QD Lipitor 40 MG HumuLIN 70/30 KwikPen (70-30) 100 UNIT/ML HumuLIN 70/30 KwikPen (70-30) 100 UNIT/ML No BID HumuLIN 70/30 KwikPen (70-30) 100 UNIT/ML Citalopram Hydrobromid e 40 MG Citalopram Hydrobromid e 40 MG No 1{table t} QD Citalopram Hydrobromi de 40 MG Losartan Potassium 50 MG Losartan Potassium 50 MG No 1{table t} QD Losartan Potassium 50 MG traZODone HCl 100 MG traZODone HCl 100 MG No 1{table t_at_be dtime_a s_neede d} QD traZODone HCl 100 MG Amitriptyli ne HCl 50 MG Amitriptyli ne HCl 50 MG No 1{table t_at_be dtime} QD Amitriptyl ine HCl 50 MG Gabapentin 300 MG Gabapentin 300 MG No 1{capsu le} BID Gabapentin 300 MG tiZANidine HCl 2 MG tiZANidine HCl 2 MG No tiZANidine HCl 2 MG Symbicort 160-4.5 MCG/ACT Symbicort 160-4.5 MCG/ACT No 2{puffs } BID Symbicort 160-4.5 MCG/ACT Glimepiride 4 MG Glimepiride 4 MG No 1{table t_with_ food} BID Glimepirid e 4 MG HumuLIN 70/30 KwikPen (70-30) 100 UNIT/ML HumuLIN 70/30 KwikPen (70-30) 100 UNIT/ML No HumuLIN 70/30 KwikPen (70-30) 100 UNIT/ML Lipitor 40 MG Lipitor 40 MG No 1{table t} QD Lipitor 40 MG traZODone HCl 100 MG traZODone HCl 100 MG No 1{table t_at_be dtime_a s_neede d} QD traZODone HCl 100 MG Citalopram Hydrobromid e 40 MG Citalopram Hydrobromid e 40 MG No 1{table t} QD Citalopram Hydrobromi de 40 MG Losartan Potassium 50 MG Losartan Potassium 50 MG No 1{table t} QD Losartan Potassium 50 MG Amitriptyli ne HCl 50 MG Amitriptyli ne HCl 50 MG No 1{table t_at_be dtime} QD Amitriptyl ine HCl 50 MG Omeprazole 40 MG Omeprazole 40 MG No Omeprazole 40 MG traZODone HCl 100 MG traZODone HCl 100 MG No 1{table t_at_be dtime_a s_neede d} QD traZODone HCl 100 MG traZODone HCl 100 MG traZODone HCl 100 MG No traZODone HCl 100 MG Glyxambi 25-5 MG Glyxambi 25-5 MG No Glyxambi 25-5 MG metFORMIN HCl 1000 MG metFORMIN HCl 1000 MG No metFORMIN HCl 1000 MG Zestoretic 12.5-10 MG Zestoretic 12.5-10 MG No 1{table t} QD Zestoretic 12.5-10 MG Amitriptyli ne HCl 25 MG Amitriptyli ne HCl 25 MG No Amitriptyl ine HCl 25 MG predniSONE 20 MG predniSONE 20 MG No 1{table t} QD predniSONE 20 MG metFORMIN HCl 1000 MG metFORMIN HCl 1000 MG No 1{table t_with_ meals} BID metFORMIN HCl 1000 MG Lipitor 40 MG Lipitor 40 MG No Lipitor 40 MG Sucralfate 1 GM Sucralfate 1 GM No 1{table t_on_an _empty_ stomach } QID Sucralfate 1 GM Cetirizine HCl 10 MG Cetirizine HCl 10 MG No 1{table t} QD Cetirizine HCl 10 MG Amaryl 4 MG Amaryl 4 MG No 1{table t} BID Amaryl 4 MG Citalopram Hydrobromid e 40 MG Citalopram Hydrobromid e 40 MG No 1{table t} QD Citalopram Hydrobromi de 40 MG tiZANidine HCl 2 MG tiZANidine HCl 2 MG No tiZANidine HCl 2 MG Symbicort 160-4.5 MCG/ACT Symbicort 160-4.5 MCG/ACT No 2{puffs } BID Symbicort 160-4.5 MCG/ACT tiZANidine HCl 2 MG tiZANidine HCl 2 MG No tiZANidine HCl 2 MG Lipitor 40 MG Lipitor 40 MG No 1{table t} QD Lipitor 40 MG tiZANidine HCl 2 MG tiZANidine HCl 2 MG No tiZANidine HCl 2 MG HYDROcodone -Acetaminop hen 7.5-325 MG HYDROcodone -Acetaminop hen 7.5-325 MG No 1{table t_as_ne eded} BID HYDROcodon e-Acetamin ophen 7.5-325 MG Albuterol Sulfate 108 (90 Base) MCG/ACT Albuterol Sulfate 108 (90 Base) MCG/ACT No 2{puffs _as_nee ded} QID Albuterol Sulfate 108 (90 Base) MCG/ACT Losartan Potassium 50 MG Losartan Potassium 50 MG No 1{table t} QD Losartan Potassium 50 MG Glimepiride 2 MG Glimepiride 2 MG No 1{table t_with_ breakfa st_or_t he_firs t_main_ meal_of _the_da y} BID Glimepirid e 2 MG Glyxambi 25-5 MG Glyxambi 25-5 MG No Glyxambi 25-5 MG Zestoretic 12.5-10 MG Zestoretic 12.5-10 MG No 1{table t} QD Zestoretic 12.5-10 MG Citalopram Hydrobromid e 40 MG Citalopram Hydrobromid e 40 MG No 1{table t} QD Citalopram Hydrobromi de 40 MG Cetirizine HCl 10 MG Cetirizine HCl 10 MG No 1{table t} QD Cetirizine HCl 10 MG tiZANidine HCl 2 MG tiZANidine HCl 2 MG No tiZANidine HCl 2 MG metFORMIN HCl 1000 MG metFORMIN HCl 1000 MG No 1{table t_with_ meals} BID metFORMIN HCl 1000 MG Lipitor 40 MG Lipitor 40 MG No 1{table t} QD Lipitor 40 MG traZODone HCl 100 MG traZODone HCl 100 MG No traZODone HCl 100 MG Albuterol Sulfate 108 (90 Base) MCG/ACT Albuterol Sulfate 108 (90 Base) MCG/ACT No 2{puffs _as_nee ded} QID Albuterol Sulfate 108 (90 Base) MCG/ACT Symbicort 160-4.5 MCG/ACT Symbicort 160-4.5 MCG/ACT No 2{puffs } BID Symbicort 160-4.5 MCG/ACT Losartan Potassium 50 MG Losartan Potassium 50 MG No 1{table t} QD Losartan Potassium 50 MG tiZANidine HCl 2 MG tiZANidine HCl 2 MG No tiZANidine HCl 2 MG Lipitor 40 MG Lipitor 40 MG No Lipitor 40 MG Amaryl 4 MG Amaryl 4 MG No 1{table t} BID Amaryl 4 MG metFORMIN HCl 1000 MG metFORMIN HCl 1000 MG No metFORMIN HCl 1000 MG Amitriptyli ne HCl 25 MG Amitriptyli ne HCl 25 MG No Amitriptyl ine HCl 25 MG Atorvastati n Calcium 40 MG Atorvastati n Calcium 40 MG No Atorvastat in Calcium 40 MG Citalopram Hydrobromid e 40 MG Citalopram Hydrobromid e 40 MG No 1{table t} QD Citalopram Hydrobromi de 40 MG Omeprazole 40 MG Omeprazole 40 MG No Omeprazole 40 MG Glyxambi 25-5 MG Glyxambi 25-5 MG No Glyxambi 25-5 MG Zestoretic 12.5-10 MG Zestoretic 12.5-10 MG No 1{table t} QD Zestoretic 12.5-10 MG Citalopram Hydrobromid e 40 MG Citalopram Hydrobromid e 40 MG No 1{table t} QD Citalopram Hydrobromi de 40 MG Cetirizine HCl 10 MG Cetirizine HCl 10 MG No 1{table t} QD Cetirizine HCl 10 MG tiZANidine HCl 2 MG tiZANidine HCl 2 MG No tiZANidine HCl 2 MG metFORMIN HCl 1000 MG metFORMIN HCl 1000 MG No 1{table t_with_ meals} BID metFORMIN HCl 1000 MG Lipitor 40 MG Lipitor 40 MG No 1{table t} QD Lipitor 40 MG traZODone HCl 100 MG traZODone HCl 100 MG No traZODone HCl 100 MG Albuterol Sulfate 108 (90 Base) MCG/ACT Albuterol Sulfate 108 (90 Base) MCG/ACT No 2{puffs _as_nee ded} QID Albuterol Sulfate 108 (90 Base) MCG/ACT Symbicort 160-4.5 MCG/ACT Symbicort 160-4.5 MCG/ACT No 2{puffs } BID Symbicort 160-4.5 MCG/ACT Losartan Potassium 50 MG Losartan Potassium 50 MG No 1{table t} QD Losartan Potassium 50 MG tiZANidine HCl 2 MG tiZANidine HCl 2 MG No tiZANidine HCl 2 MG Lipitor 40 MG Lipitor 40 MG No Lipitor 40 MG Amaryl 4 MG Amaryl 4 MG No 1{table t} BID Amaryl 4 MG metFORMIN HCl 1000 MG metFORMIN HCl 1000 MG No metFORMIN HCl 1000 MG Amitriptyli ne HCl 25 MG Amitriptyli ne HCl 25 MG No Amitriptyl ine HCl 25 MG Atorvastati n Calcium 40 MG Atorvastati n Calcium 40 MG No Atorvastat in Calcium 40 MG Citalopram Hydrobromid e 40 MG Citalopram Hydrobromid e 40 MG No 1{table t} QD Citalopram Hydrobromi de 40 MG Omeprazole 40 MG Omeprazole 40 MG No Omeprazole 40 MG Lipitor 40 MG Lipitor 40 MG No Lipitor 40 MG metFORMIN HCl 1000 MG metFORMIN HCl 1000 MG No 1{table t_with_ meals} BID metFORMIN HCl 1000 MG Losartan Potassium 50 MG Losartan Potassium 50 MG No 1{table t} QD Losartan Potassium 50 MG Glyxambi 25-5 MG Glyxambi 25-5 MG No Glyxambi 25-5 MG Symbicort 160-4.5 MCG/ACT Symbicort 160-4.5 MCG/ACT No 2{puffs } BID Symbicort 160-4.5 MCG/ACT Cetirizine HCl 10 MG Cetirizine HCl 10 MG No 1{table t} QD Cetirizine HCl 10 MG Citalopram Hydrobromid e 40 MG Citalopram Hydrobromid e 40 MG No 1{table t} QD Citalopram Hydrobromi de 40 MG tiZANidine HCl 2 MG tiZANidine HCl 2 MG No tiZANidine HCl 2 MG Omeprazole 40 MG Omeprazole 40 MG No Omeprazole 40 MG Albuterol Sulfate 108 (90 Base) MCG/ACT Albuterol Sulfate 108 (90 Base) MCG/ACT No 2{puffs _as_nee ded} QID Albuterol Sulfate 108 (90 Base) MCG/ACT Citalopram Hydrobromid e 40 MG Citalopram Hydrobromid e 40 MG No 1{table t} QD Citalopram Hydrobromi de 40 MG Atorvastati n Calcium 40 MG Atorvastati n Calcium 40 MG No Atorvastat in Calcium 40 MG tiZANidine HCl 2 MG tiZANidine HCl 2 MG No tiZANidine HCl 2 MG Zestoretic 12.5-10 MG Zestoretic 12.5-10 MG No 1{table t} QD Zestoretic 12.5-10 MG Amitriptyli ne HCl 25 MG Amitriptyli ne HCl 25 MG No Amitriptyl ine HCl 25 MG metFORMIN HCl 1000 MG metFORMIN HCl 1000 MG No metFORMIN HCl 1000 MG Amaryl 4 MG Amaryl 4 MG No 1{table t} BID Amaryl 4 MG Lipitor 40 MG Lipitor 40 MG No 1{table t} QD Lipitor 40 MG traZODone HCl 100 MG traZODone HCl 100 MG No traZODone HCl 100 MG Albuterol Sulfate 108 (90 Base) MCG/ACT Albuterol Sulfate 108 (90 Base) MCG/ACT No 2{puffs _as_nee ded} QID Albuterol Sulfate 108 (90 Base) MCG/ACT tiZANidine HCl 2 MG tiZANidine HCl 2 MG No tiZANidine HCl 2 MG Lipitor 40 MG Lipitor 40 MG No 1{table t} QD Lipitor 40 MG Atorvastati n Calcium 40 MG Atorvastati n Calcium 40 MG No Atorvastat in Calcium 40 MG Amitriptyli ne HCl 25 MG Amitriptyli ne HCl 25 MG No Amitriptyl ine HCl 25 MG tiZANidine HCl 2 MG tiZANidine HCl 2 MG No tiZANidine HCl 2 MG Losartan Potassium 50 MG Losartan Potassium 50 MG No 1{table t} QD Losartan Potassium 50 MG Citalopram Hydrobromid e 40 MG Citalopram Hydrobromid e 40 MG No 1{table t} QD Citalopram Hydrobromi de 40 MG Lipitor 40 MG Lipitor 40 MG No Lipitor 40 MG Januvia 100 MG Januvia 100 MG No 1{table t} Januvia 100 MG Farxiga 10 MG Farxiga 10 MG No 1{table t} QD Farxiga 10 MG tiZANidine HCl 2 MG tiZANidine HCl 2 MG No tiZANidine HCl 2 MG Citalopram Hydrobromid e 40 MG Citalopram Hydrobromid e 40 MG No 1{table t} QD Citalopram Hydrobromi de 40 MG metFORMIN HCl 1000 MG metFORMIN HCl 1000 MG No metFORMIN HCl 1000 MG Cetirizine HCl 10 MG Cetirizine HCl 10 MG No 1{table t} QD Cetirizine HCl 10 MG metFORMIN HCl 1000 MG metFORMIN HCl 1000 MG No 1{table t_with_ meals} BID metFORMIN HCl 1000 MG Symbicort 160-4.5 MCG/ACT Symbicort 160-4.5 MCG/ACT No 2{puffs } BID Symbicort 160-4.5 MCG/ACT traZODone HCl 100 MG traZODone HCl 100 MG No traZODone HCl 100 MG Glyxambi 25-5 MG Glyxambi 25-5 MG No Glyxambi 25-5 MG Zestoretic 12.5-10 MG Zestoretic 12.5-10 MG No 1{table t} QD Zestoretic 12.5-10 MG Omeprazole 40 MG Omeprazole 40 MG No Omeprazole 40 MG Amaryl 4 MG Amaryl 4 MG No 1{table t} BID Amaryl 4 MG Albuterol Sulfate 108 (90 Base) MCG/ACT Albuterol Sulfate 108 (90 Base) MCG/ACT No 2{puffs _as_nee ded} QID Albuterol Sulfate 108 (90 Base) MCG/ACT tiZANidine HCl 2 MG tiZANidine HCl 2 MG No tiZANidine HCl 2 MG Lipitor 40 MG Lipitor 40 MG No 1{table t} QD Lipitor 40 MG Atorvastati n Calcium 40 MG Atorvastati n Calcium 40 MG No Atorvastat in Calcium 40 MG Amitriptyli ne HCl 25 MG Amitriptyli ne HCl 25 MG No Amitriptyl ine HCl 25 MG tiZANidine HCl 2 MG tiZANidine HCl 2 MG No tiZANidine HCl 2 MG Losartan Potassium 50 MG Losartan Potassium 50 MG No 1{table t} QD Losartan Potassium 50 MG Citalopram Hydrobromid e 40 MG Citalopram Hydrobromid e 40 MG No 1{table t} QD Citalopram Hydrobromi de 40 MG Lipitor 40 MG Lipitor 40 MG No Lipitor 40 MG Januvia 100 MG Januvia 100 MG No 1{table t} Januvia 100 MG Farxiga 10 MG Farxiga 10 MG No 1{table t} QD Farxiga 10 MG tiZANidine HCl 2 MG tiZANidine HCl 2 MG No tiZANidine HCl 2 MG Citalopram Hydrobromid e 40 MG Citalopram Hydrobromid e 40 MG No 1{table t} QD Citalopram Hydrobromi de 40 MG metFORMIN HCl 1000 MG metFORMIN HCl 1000 MG No metFORMIN HCl 1000 MG Cetirizine HCl 10 MG Cetirizine HCl 10 MG No 1{table t} QD Cetirizine HCl 10 MG metFORMIN HCl 1000 MG metFORMIN HCl 1000 MG No 1{table t_with_ meals} BID metFORMIN HCl 1000 MG Symbicort 160-4.5 MCG/ACT Symbicort 160-4.5 MCG/ACT No 2{puffs } BID Symbicort 160-4.5 MCG/ACT traZODone HCl 100 MG traZODone HCl 100 MG No traZODone HCl 100 MG Glyxambi 25-5 MG Glyxambi 25-5 MG No Glyxambi 25-5 MG Zestoretic 12.5-10 MG Zestoretic 12.5-10 MG No 1{table t} QD Zestoretic 12.5-10 MG Omeprazole 40 MG Omeprazole 40 MG No Omeprazole 40 MG Amaryl 4 MG Amaryl 4 MG No 1{table t} BID Amaryl 4 MG Albuterol Sulfate 108 (90 Base) MCG/ACT Albuterol Sulfate 108 (90 Base) MCG/ACT No 2{puffs _as_nee ded} QID Albuterol Sulfate 108 (90 Base) MCG/ACT tiZANidine HCl 2 MG tiZANidine HCl 2 MG No tiZANidine HCl 2 MG Lipitor 40 MG Lipitor 40 MG No 1{table t} QD Lipitor 40 MG Atorvastati n Calcium 40 MG Atorvastati n Calcium 40 MG No Atorvastat in Calcium 40 MG Amitriptyli ne HCl 25 MG Amitriptyli ne HCl 25 MG No Amitriptyl ine HCl 25 MG tiZANidine HCl 2 MG tiZANidine HCl 2 MG No tiZANidine HCl 2 MG Losartan Potassium 50 MG Losartan Potassium 50 MG No 1{table t} QD Losartan Potassium 50 MG Citalopram Hydrobromid e 40 MG Citalopram Hydrobromid e 40 MG No 1{table t} QD Citalopram Hydrobromi de 40 MG Lipitor 40 MG Lipitor 40 MG No Lipitor 40 MG Januvia 100 MG Januvia 100 MG No 1{table t} Januvia 100 MG Farxiga 10 MG Farxiga 10 MG No 1{table t} QD Farxiga 10 MG tiZANidine HCl 2 MG tiZANidine HCl 2 MG No tiZANidine HCl 2 MG Citalopram Hydrobromid e 40 MG Citalopram Hydrobromid e 40 MG No 1{table t} QD Citalopram Hydrobromi de 40 MG metFORMIN HCl 1000 MG metFORMIN HCl 1000 MG No metFORMIN HCl 1000 MG Cetirizine HCl 10 MG Cetirizine HCl 10 MG No 1{table t} QD Cetirizine HCl 10 MG metFORMIN HCl 1000 MG metFORMIN HCl 1000 MG No 1{table t_with_ meals} BID metFORMIN HCl 1000 MG Symbicort 160-4.5 MCG/ACT Symbicort 160-4.5 MCG/ACT No 2{puffs } BID Symbicort 160-4.5 MCG/ACT traZODone HCl 100 MG traZODone HCl 100 MG No traZODone HCl 100 MG Glyxambi 25-5 MG Glyxambi 25-5 MG No Glyxambi 25-5 MG Zestoretic 12.5-10 MG Zestoretic 12.5-10 MG No 1{table t} QD Zestoretic 12.5-10 MG Omeprazole 40 MG Omeprazole 40 MG No Omeprazole 40 MG Amaryl 4 MG Amaryl 4 MG No 1{table t} BID Amaryl 4 MG tiZANidine HCl 2 MG tiZANidine HCl 2 MG No tiZANidine HCl 2 MG tiZANidine HCl 2 MG tiZANidine HCl 2 MG No tiZANidine HCl 2 MG Albuterol Sulfate 108 (90 Base) MCG/ACT Albuterol Sulfate 108 (90 Base) MCG/ACT No 2{puffs _as_nee ded} QID Albuterol Sulfate 108 (90 Base) MCG/ACT Lipitor 40 MG Lipitor 40 MG No 1{table t} QD Lipitor 40 MG Citalopram Hydrobromid e 40 MG Citalopram Hydrobromid e 40 MG No 1{table t} QD Citalopram Hydrobromi de 40 MG tiZANidine HCl 2 MG tiZANidine HCl 2 MG No tiZANidine HCl 2 MG Atorvastati n Calcium 40 MG Atorvastati n Calcium 40 MG No Atorvastat in Calcium 40 MG metFORMIN HCl 1000 MG metFORMIN HCl 1000 MG No metFORMIN HCl 1000 MG Glyxambi 25-5 MG Glyxambi 25-5 MG No Glyxambi 25-5 MG Januvia 100 MG Januvia 100 MG No 1{table t} Januvia 100 MG Losartan Potassium 50 MG Losartan Potassium 50 MG No 1{table t} QD Losartan Potassium 50 MG Lipitor 40 MG Lipitor 40 MG No Lipitor 40 MG traZODone HCl 100 MG traZODone HCl 100 MG No traZODone HCl 100 MG Amitriptyli ne HCl 25 MG Amitriptyli ne HCl 25 MG No Amitriptyl ine HCl 25 MG Amaryl 4 MG Amaryl 4 MG No 1{table t} BID Amaryl 4 MG Omeprazole 40 MG Omeprazole 40 MG No Omeprazole 40 MG Citalopram Hydrobromid e 40 MG Citalopram Hydrobromid e 40 MG No 1{table t} QD Citalopram Hydrobromi de 40 MG Cetirizine HCl 10 MG Cetirizine HCl 10 MG No 1{table t} QD Cetirizine HCl 10 MG metFORMIN HCl 1000 MG metFORMIN HCl 1000 MG No 1{table t_with_ meals} BID metFORMIN HCl 1000 MG Zestoretic 12.5-10 MG Zestoretic 12.5-10 MG No 1{table t} QD Zestoretic 12.5-10 MG Farxiga 10 MG Farxiga 10 MG No 1{table t} QD Farxiga 10 MG Symbicort 160-4.5 MCG/ACT Symbicort 160-4.5 MCG/ACT No 2{puffs } BID Symbicort 160-4.5 MCG/ACT tiZANidine HCl 2 MG tiZANidine HCl 2 MG No tiZANidine HCl 2 MG tiZANidine HCl 2 MG tiZANidine HCl 2 MG No tiZANidine HCl 2 MG Albuterol Sulfate 108 (90 Base) MCG/ACT Albuterol Sulfate 108 (90 Base) MCG/ACT No 2{puffs _as_nee ded} QID Albuterol Sulfate 108 (90 Base) MCG/ACT Lipitor 40 MG Lipitor 40 MG No 1{table t} QD Lipitor 40 MG Citalopram Hydrobromid e 40 MG Citalopram Hydrobromid e 40 MG No 1{table t} QD Citalopram Hydrobromi de 40 MG tiZANidine HCl 2 MG tiZANidine HCl 2 MG No tiZANidine HCl 2 MG Atorvastati n Calcium 40 MG Atorvastati n Calcium 40 MG No Atorvastat in Calcium 40 MG metFORMIN HCl 1000 MG metFORMIN HCl 1000 MG No metFORMIN HCl 1000 MG Glyxambi 25-5 MG Glyxambi 25-5 MG No Glyxambi 25-5 MG Januvia 100 MG Januvia 100 MG No 1{table t} Januvia 100 MG Losartan Potassium 50 MG Losartan Potassium 50 MG No 1{table t} QD Losartan Potassium 50 MG Lipitor 40 MG Lipitor 40 MG No Lipitor 40 MG traZODone HCl 100 MG traZODone HCl 100 MG No traZODone HCl 100 MG Amitriptyli ne HCl 25 MG Amitriptyli ne HCl 25 MG No Amitriptyl ine HCl 25 MG Amaryl 4 MG Amaryl 4 MG No 1{table t} BID Amaryl 4 MG Omeprazole 40 MG Omeprazole 40 MG No Omeprazole 40 MG Citalopram Hydrobromid e 40 MG Citalopram Hydrobromid e 40 MG No 1{table t} QD Citalopram Hydrobromi de 40 MG Cetirizine HCl 10 MG Cetirizine HCl 10 MG No 1{table t} QD Cetirizine HCl 10 MG metFORMIN HCl 1000 MG metFORMIN HCl 1000 MG No 1{table t_with_ meals} BID metFORMIN HCl 1000 MG Zestoretic 12.5-10 MG Zestoretic 12.5-10 MG No 1{table t} QD Zestoretic 12.5-10 MG Farxiga 10 MG Farxiga 10 MG No 1{table t} QD Farxiga 10 MG Symbicort 160-4.5 MCG/ACT Symbicort 160-4.5 MCG/ACT No 2{puffs } BID Symbicort 160-4.5 MCG/ACT tiZANidine HCl 2 MG tiZANidine HCl 2 MG No tiZANidine HCl 2 MG Albuterol Sulfate 108 (90 Base) MCG/ACT Albuterol Sulfate 108 (90 Base) MCG/ACT No 2{puffs _as_nee ded} QID Albuterol Sulfate 108 (90 Base) MCG/ACT Citalopram Hydrobromid e 40 MG Citalopram Hydrobromid e 40 MG No 1{table t} QD Citalopram Hydrobromi de 40 MG traZODone HCl 100 MG traZODone HCl 100 MG No 1{table t_at_be dtime_a s_neede d} QD traZODone HCl 100 MG Cetirizine HCl 10 MG Cetirizine HCl 10 MG No 1{table t} QD Cetirizine HCl 10 MG tiZANidine HCl 2 MG tiZANidine HCl 2 MG No tiZANidine HCl 2 MG Citalopram Hydrobromid e 40 MG Citalopram Hydrobromid e 40 MG No 1{table t} QD Citalopram Hydrobromi de 40 MG metFORMIN HCl 1000 MG metFORMIN HCl 1000 MG No 1{table t_with_ meals} BID metFORMIN HCl 1000 MG Lipitor 40 MG Lipitor 40 MG No Lipitor 40 MG Losartan Potassium 50 MG Losartan Potassium 50 MG No 1{table t} QD Losartan Potassium 50 MG Glyxambi 25-5 MG Glyxambi 25-5 MG No Glyxambi 25-5 MG Amaryl 4 MG Amaryl 4 MG No 1{table t} BID Amaryl 4 MG tiZANidine HCl 2 MG tiZANidine HCl 2 MG No tiZANidine HCl 2 MG Zestoretic 12.5-10 MG Zestoretic 12.5-10 MG No 1{table t} QD Zestoretic 12.5-10 MG Atorvastati n Calcium 40 MG Atorvastati n Calcium 40 MG No Atorvastat in Calcium 40 MG Symbicort 160-4.5 MCG/ACT Symbicort 160-4.5 MCG/ACT No 2{puffs } BID Symbicort 160-4.5 MCG/ACT Farxiga 10 MG Farxiga 10 MG No 1{table t} QD Farxiga 10 MG Lipitor 40 MG Lipitor 40 MG No 1{table t} QD Lipitor 40 MG metFORMIN HCl 1000 MG metFORMIN HCl 1000 MG No metFORMIN HCl 1000 MG Amitriptyli ne HCl 25 MG Amitriptyli ne HCl 25 MG No Amitriptyl ine HCl 25 MG Januvia 100 MG Januvia 100 MG No 1{table t} Januvia 100 MG Omeprazole 40 MG Omeprazole 40 MG No Omeprazole 40 MG traZODone HCl 100 MG traZODone HCl 100 MG No traZODone HCl 100 MG Cetirizine HCl 10 MG Cetirizine HCl 10 MG No 1{table t} QD Cetirizine HCl 10 MG Glyxambi 25-5 MG Glyxambi 25-5 MG No Glyxambi 25-5 MG Zestoretic 12.5-10 MG Zestoretic 12.5-10 MG No 1{table t} QD Zestoretic 12.5-10 MG metFORMIN HCl 1000 MG metFORMIN HCl 1000 MG No metFORMIN HCl 1000 MG Lipitor 40 MG Lipitor 40 MG No Lipitor 40 MG traZODone HCl 100 MG traZODone HCl 100 MG No traZODone HCl 100 MG Omeprazole 40 MG Omeprazole 40 MG No Omeprazole 40 MG Albuterol Sulfate 108 (90 Base) MCG/ACT Albuterol Sulfate 108 (90 Base) MCG/ACT No 2{puffs _as_nee ded} QID Albuterol Sulfate 108 (90 Base) MCG/ACT Januvia 100 MG Januvia 100 MG No 1{table t} Januvia 100 MG Farxiga 10 MG Farxiga 10 MG No 1{table t} QD Farxiga 10 MG HYDROcodone -Acetaminop hen 10-325 MG HYDROcodone -Acetaminop hen 10-325 MG No 1{table t_as_ne eded} QID HYDROcodon e-Acetamin ophen 10-325 MG tiZANidine HCl 2 MG tiZANidine HCl 2 MG No tiZANidine HCl 2 MG Citalopram Hydrobromid e 40 MG Citalopram Hydrobromid e 40 MG No 1{table t} QD Citalopram Hydrobromi de 40 MG Losartan Potassium 50 MG Losartan Potassium 50 MG No 1{table t} QD Losartan Potassium 50 MG tiZANidine HCl 2 MG tiZANidine HCl 2 MG No tiZANidine HCl 2 MG Citalopram Hydrobromid e 40 MG Citalopram Hydrobromid e 40 MG No 1{table t} QD Citalopram Hydrobromi de 40 MG tiZANidine HCl 2 MG tiZANidine HCl 2 MG No tiZANidine HCl 2 MG Atorvastati n Calcium 40 MG Atorvastati n Calcium 40 MG No Atorvastat in Calcium 40 MG traZODone HCl 100 MG traZODone HCl 100 MG No 1{table t_at_be dtime_a s_neede d} QD traZODone HCl 100 MG metFORMIN HCl 1000 MG metFORMIN HCl 1000 MG No 1{table t_with_ meals} BID metFORMIN HCl 1000 MG Amaryl 4 MG Amaryl 4 MG No 1{table t} BID Amaryl 4 MG Symbicort 160-4.5 MCG/ACT Symbicort 160-4.5 MCG/ACT No 2{puffs } BID Symbicort 160-4.5 MCG/ACT Amitriptyli ne HCl 25 MG Amitriptyli ne HCl 25 MG No Amitriptyl ine HCl 25 MG Lipitor 40 MG Lipitor 40 MG No 1{table t} QD Lipitor 40 MG Omeprazole 40 MG Omeprazole 40 MG No Omeprazole 40 MG Cetirizine HCl 10 MG Cetirizine HCl 10 MG No 1{table t} QD Cetirizine HCl 10 MG Glyxambi 25-5 MG Glyxambi 25-5 MG No Glyxambi 25-5 MG Albuterol Sulfate 108 (90 Base) MCG/ACT Albuterol Sulfate 108 (90 Base) MCG/ACT No 2{puffs _as_nee ded} QID Albuterol Sulfate 108 (90 Base) MCG/ACT Lipitor 40 MG Lipitor 40 MG No Lipitor 40 MG traZODone HCl 100 MG traZODone HCl 100 MG No traZODone HCl 100 MG tiZANidine HCl 2 MG tiZANidine HCl 2 MG No tiZANidine HCl 2 MG Losartan Potassium 50 MG Losartan Potassium 50 MG No 1{table t} QD Losartan Potassium 50 MG Januvia 100 MG Januvia 100 MG No 1{table t} Januvia 100 MG HYDROcodone -Acetaminop hen 10-325 MG HYDROcodone -Acetaminop hen 10-325 MG No 1{table t_as_ne eded} QID HYDROcodon e-Acetamin ophen 10-325 MG Atorvastati n Calcium 40 MG Atorvastati n Calcium 40 MG No Atorvastat in Calcium 40 MG Citalopram Hydrobromid e 40 MG Citalopram Hydrobromid e 40 MG No 1{table t} QD Citalopram Hydrobromi de 40 MG Citalopram Hydrobromid e 40 MG Citalopram Hydrobromid e 40 MG No 1{table t} QD Citalopram Hydrobromi de 40 MG tiZANidine HCl 2 MG tiZANidine HCl 2 MG No tiZANidine HCl 2 MG metFORMIN HCl 1000 MG metFORMIN HCl 1000 MG No metFORMIN HCl 1000 MG tiZANidine HCl 2 MG tiZANidine HCl 2 MG No tiZANidine HCl 2 MG Zestoretic 12.5-10 MG Zestoretic 12.5-10 MG No 1{table t} QD Zestoretic 12.5-10 MG traZODone HCl 100 MG traZODone HCl 100 MG No 1{table t_at_be dtime_a s_neede d} QD traZODone HCl 100 MG metFORMIN HCl 1000 MG metFORMIN HCl 1000 MG No 1{table t_with_ meals} BID metFORMIN HCl 1000 MG Amaryl 4 MG Amaryl 4 MG No 1{table t} BID Amaryl 4 MG Symbicort 160-4.5 MCG/ACT Symbicort 160-4.5 MCG/ACT No 2{puffs } BID Symbicort 160-4.5 MCG/ACT Amitriptyli ne HCl 25 MG Amitriptyli ne HCl 25 MG No Amitriptyl ine HCl 25 MG Lipitor 40 MG Lipitor 40 MG No 1{table t} QD Lipitor 40 MG Zestoretic 12.5-10 MG Zestoretic 12.5-10 MG No 1{table t} QD Zestoretic 12.5-10 MG Amitriptyli ne HCl 25 MG Amitriptyli ne HCl 25 MG No Amitriptyl ine HCl 25 MG Cetirizine HCl 10 MG Cetirizine HCl 10 MG No 1{table t} QD Cetirizine HCl 10 MG Omeprazole 40 MG Omeprazole 40 MG No Omeprazole 40 MG Albuterol Sulfate 108 (90 Base) MCG/ACT Albuterol Sulfate 108 (90 Base) MCG/ACT No 2{puffs _as_nee ded} QID Albuterol Sulfate 108 (90 Base) MCG/ACT Atorvastati n Calcium 40 MG Atorvastati n Calcium 40 MG No Atorvastat in Calcium 40 MG tiZANidine HCl 2 MG tiZANidine HCl 2 MG No tiZANidine HCl 2 MG Citalopram Hydrobromid e 40 MG Citalopram Hydrobromid e 40 MG No 1{table t} QD Citalopram Hydrobromi de 40 MG Lipitor 40 MG Lipitor 40 MG No Lipitor 40 MG metFORMIN HCl 1000 MG metFORMIN HCl 1000 MG No metFORMIN HCl 1000 MG traZODone HCl 100 MG traZODone HCl 100 MG No 1{table t_at_be dtime_a s_neede d} QD traZODone HCl 100 MG Glyxambi 25-5 MG Glyxambi 25-5 MG No Glyxambi 25-5 MG Losartan Potassium 50 MG Losartan Potassium 50 MG No 1{table t} QD Losartan Potassium 50 MG Januvia 100 MG Januvia 100 MG No 1{table t} Januvia 100 MG traZODone HCl 100 MG traZODone HCl 100 MG No traZODone HCl 100 MG Citalopram Hydrobromid e 40 MG Citalopram Hydrobromid e 40 MG No 1{table t} QD Citalopram Hydrobromi de 40 MG tiZANidine HCl 2 MG tiZANidine HCl 2 MG No tiZANidine HCl 2 MG HYDROcodone -Acetaminop hen 10-325 MG HYDROcodone -Acetaminop hen 10-325 MG No 1{table t_as_ne eded} QID HYDROcodon e-Acetamin ophen 10-325 MG Lipitor 40 MG Lipitor 40 MG No 1{table t} QD Lipitor 40 MG Amaryl 4 MG Amaryl 4 MG No 1{table t} BID Amaryl 4 MG tiZANidine HCl 2 MG tiZANidine HCl 2 MG No tiZANidine HCl 2 MG Symbicort 160-4.5 MCG/ACT Symbicort 160-4.5 MCG/ACT No 2{puffs } BID Symbicort 160-4.5 MCG/ACT Cetirizine HCl 10 MG Cetirizine HCl 10 MG No 1{table t} QD Cetirizine HCl 10 MG Omeprazole 40 MG Omeprazole 40 MG No Omeprazole 40 MG Zestoretic 12.5-10 MG Zestoretic 12.5-10 MG No 1{table t} QD Zestoretic 12.5-10 MG tiZANidine HCl 2 MG tiZANidine HCl 2 MG No tiZANidine HCl 2 MG Glyxambi 25-5 MG Glyxambi 25-5 MG No Glyxambi 25-5 MG Citalopram Hydrobromid e 40 MG Citalopram Hydrobromid e 40 MG No 1{table t} QD Citalopram Hydrobromi de 40 MG traZODone HCl 100 MG traZODone HCl 100 MG No traZODone HCl 100 MG Atorvastati n Calcium 40 MG Atorvastati n Calcium 40 MG No Atorvastat in Calcium 40 MG traZODone HCl 100 MG traZODone HCl 100 MG No 1{table t_at_be dtime_a s_neede d} QD traZODone HCl 100 MG Citalopram Hydrobromid e 40 MG Citalopram Hydrobromid e 40 MG No 1{table t} QD Citalopram Hydrobromi de 40 MG Januvia 100 MG Januvia 100 MG No 1{table t} Januvia 100 MG metFORMIN HCl 1000 MG metFORMIN HCl 1000 MG No metFORMIN HCl 1000 MG Lipitor 40 MG Lipitor 40 MG No Lipitor 40 MG Albuterol Sulfate 108 (90 Base) MCG/ACT Albuterol Sulfate 108 (90 Base) MCG/ACT No 2{puffs _as_nee ded} QID Albuterol Sulfate 108 (90 Base) MCG/ACT Amitriptyli ne HCl 25 MG Amitriptyli ne HCl 25 MG No Amitriptyl ine HCl 25 MG Lipitor 40 MG Lipitor 40 MG No 1{table t} QD Lipitor 40 MG Losartan Potassium 50 MG Losartan Potassium 50 MG No 1{table t} QD Losartan Potassium 50 MG HYDROcodone -Acetaminop hen 10-325 MG HYDROcodone -Acetaminop hen 10-325 MG No 1{table t_as_ne eded} QID HYDROcodon e-Acetamin ophen 10-325 MG tiZANidine HCl 2 MG tiZANidine HCl 2 MG No tiZANidine HCl 2 MG Symbicort 160-4.5 MCG/ACT Symbicort 160-4.5 MCG/ACT No 2{puffs } BID Symbicort 160-4.5 MCG/ACT Amaryl 4 MG Amaryl 4 MG No 1{table t} BID Amaryl 4 MG tiZANidine HCl 2 MG tiZANidine HCl 2 MG No tiZANidine HCl 2 MG Losartan Potassium 50 MG Losartan Potassium 50 MG No 1{table t} QD Losartan Potassium 50 MG Lipitor 40 MG Lipitor 40 MG No Lipitor 40 MG metFORMIN HCl 1000 MG metFORMIN HCl 1000 MG No 1{table t_with_ meals} BID metFORMIN HCl 1000 MG Sucralfate 1 GM Sucralfate 1 GM No 1{table t_on_an _empty_ stomach } QID Sucralfate 1 GM Glyxambi 25-5 MG Glyxambi 25-5 MG No Glyxambi 25-5 MG tiZANidine HCl 2 MG tiZANidine HCl 2 MG No tiZANidine HCl 2 MG predniSONE 20 MG predniSONE 20 MG No 1{table t} QD predniSONE 20 MG traZODone HCl 100 MG traZODone HCl 100 MG No 1{table t_at_be dtime_a s_neede d} QD traZODone HCl 100 MG tiZANidine HCl 2 MG tiZANidine HCl 2 MG No tiZANidine HCl 2 MG Omeprazole 40 MG Omeprazole 40 MG No Omeprazole 40 MG Cetirizine HCl 10 MG Cetirizine HCl 10 MG No 1{table t} QD Cetirizine HCl 10 MG metFORMIN HCl 1000 MG metFORMIN HCl 1000 MG No metFORMIN HCl 1000 MG HYDROcodone -Acetaminop hen 7.5-325 MG HYDROcodone -Acetaminop hen 7.5-325 MG No 1{table t_as_ne eded} BID HYDROcodon e-Acetamin ophen 7.5-325 MG Glimepiride 2 MG Glimepiride 2 MG No 1{table t_with_ breakfa st_or_t he_firs t_main_ meal_of _the_da y} BID Glimepirid e 2 MG Albuterol Sulfate 108 (90 Base) MCG/ACT Albuterol Sulfate 108 (90 Base) MCG/ACT No 2{puffs _as_nee ded} QID Albuterol Sulfate 108 (90 Base) MCG/ACT traZODone HCl 100 MG traZODone HCl 100 MG No traZODone HCl 100 MG Zestoretic 12.5-10 MG Zestoretic 12.5-10 MG No 1{table t} QD Zestoretic 12.5-10 MG Citalopram Hydrobromid e 40 MG Citalopram Hydrobromid e 40 MG No 1{table t} QD Citalopram Hydrobromi de 40 MG tiZANidine HCl 2 MG tiZANidine HCl 2 MG No tiZANidine HCl 2 MG Lipitor 40 MG Lipitor 40 MG No 1{table t} QD Lipitor 40 MG Symbicort 160-4.5 MCG/ACT Symbicort 160-4.5 MCG/ACT No 2{puffs } BID Symbicort 160-4.5 MCG/ACT Amitriptyli ne HCl 25 MG Amitriptyli ne HCl 25 MG No Amitriptyl ine HCl 25 MG Atorvastati n Calcium 40 MG Atorvastati n Calcium 40 MG No Atorvastat in Calcium 40 MG Amaryl 4 MG Amaryl 4 MG No 1{table t} BID Amaryl 4 MG Omeprazole 40 MG Omeprazole 40 MG No Omeprazole 40 MG traZODone HCl 100 MG traZODone HCl 100 MG No 1{table t_at_be dtime_a s_neede d} QD traZODone HCl 100 MG traZODone HCl 100 MG traZODone HCl 100 MG No traZODone HCl 100 MG Glyxambi 25-5 MG Glyxambi 25-5 MG No Glyxambi 25-5 MG metFORMIN HCl 1000 MG metFORMIN HCl 1000 MG No metFORMIN HCl 1000 MG Zestoretic 12.5-10 MG Zestoretic 12.5-10 MG No 1{table t} QD Zestoretic 12.5-10 MG Amitriptyli ne HCl 25 MG Amitriptyli ne HCl 25 MG No Amitriptyl ine HCl 25 MG predniSONE 20 MG predniSONE 20 MG No 1{table t} QD predniSONE 20 MG metFORMIN HCl 1000 MG metFORMIN HCl 1000 MG No 1{table t_with_ meals} BID metFORMIN HCl 1000 MG Lipitor 40 MG Lipitor 40 MG No Lipitor 40 MG Sucralfate 1 GM Sucralfate 1 GM No 1{table t_on_an _empty_ stomach } QID Sucralfate 1 GM Cetirizine HCl 10 MG Cetirizine HCl 10 MG No 1{table t} QD Cetirizine HCl 10 MG Amaryl 4 MG Amaryl 4 MG No 1{table t} BID Amaryl 4 MG Citalopram Hydrobromid e 40 MG Citalopram Hydrobromid e 40 MG No 1{table t} QD Citalopram Hydrobromi de 40 MG tiZANidine HCl 2 MG tiZANidine HCl 2 MG No tiZANidine HCl 2 MG Symbicort 160-4.5 MCG/ACT Symbicort 160-4.5 MCG/ACT No 2{puffs } BID Symbicort 160-4.5 MCG/ACT tiZANidine HCl 2 MG tiZANidine HCl 2 MG No tiZANidine HCl 2 MG Lipitor 40 MG Lipitor 40 MG No 1{table t} QD Lipitor 40 MG tiZANidine HCl 2 MG tiZANidine HCl 2 MG No tiZANidine HCl 2 MG HYDROcodone -Acetaminop hen 7.5-325 MG HYDROcodone -Acetaminop hen 7.5-325 MG No 1{table t_as_ne eded} BID HYDROcodon e-Acetamin ophen 7.5-325 MG Albuterol Sulfate 108 (90 Base) MCG/ACT Albuterol Sulfate 108 (90 Base) MCG/ACT No 2{puffs _as_nee ded} QID Albuterol Sulfate 108 (90 Base) MCG/ACT Losartan Potassium 50 MG Losartan Potassium 50 MG No 1{table t} QD Losartan Potassium 50 MG Glimepiride 2 MG Glimepiride 2 MG No 1{table t_with_ breakfa st_or_t he_firs t_main_ meal_of _the_da y} BID Glimepirid e 2 MG Omeprazole 40 MG Omeprazole 40 MG No Omeprazole 40 MG traZODone HCl 100 MG traZODone HCl 100 MG No 1{table t_at_be dtime_a s_neede d} QD traZODone HCl 100 MG traZODone HCl 100 MG traZODone HCl 100 MG No traZODone HCl 100 MG Glyxambi 25-5 MG Glyxambi 25-5 MG No Glyxambi 25-5 MG metFORMIN HCl 1000 MG metFORMIN HCl 1000 MG No metFORMIN HCl 1000 MG Zestoretic 12.5-10 MG Zestoretic 12.5-10 MG No 1{table t} QD Zestoretic 12.5-10 MG Amitriptyli ne HCl 25 MG Amitriptyli ne HCl 25 MG No Amitriptyl ine HCl 25 MG predniSONE 20 MG predniSONE 20 MG No 1{table t} QD predniSONE 20 MG metFORMIN HCl 1000 MG metFORMIN HCl 1000 MG No 1{table t_with_ meals} BID metFORMIN HCl 1000 MG Lipitor 40 MG Lipitor 40 MG No Lipitor 40 MG Sucralfate 1 GM Sucralfate 1 GM No 1{table t_on_an _empty_ stomach } QID Sucralfate 1 GM Cetirizine HCl 10 MG Cetirizine HCl 10 MG No 1{table t} QD Cetirizine HCl 10 MG Amaryl 4 MG Amaryl 4 MG No 1{table t} BID Amaryl 4 MG Citalopram Hydrobromid e 40 MG Citalopram Hydrobromid e 40 MG No 1{table t} QD Citalopram Hydrobromi de 40 MG tiZANidine HCl 2 MG tiZANidine HCl 2 MG No tiZANidine HCl 2 MG Symbicort 160-4.5 MCG/ACT Symbicort 160-4.5 MCG/ACT No 2{puffs } BID Symbicort 160-4.5 MCG/ACT tiZANidine HCl 2 MG tiZANidine HCl 2 MG No tiZANidine HCl 2 MG Lipitor 40 MG Lipitor 40 MG No 1{table t} QD Lipitor 40 MG tiZANidine HCl 2 MG tiZANidine HCl 2 MG No tiZANidine HCl 2 MG HYDROcodone -Acetaminop hen 7.5-325 MG HYDROcodone -Acetaminop hen 7.5-325 MG No 1{table t_as_ne eded} BID HYDROcodon e-Acetamin ophen 7.5-325 MG Albuterol Sulfate 108 (90 Base) MCG/ACT Albuterol Sulfate 108 (90 Base) MCG/ACT No 2{puffs _as_nee ded} QID Albuterol Sulfate 108 (90 Base) MCG/ACT Losartan Potassium 50 MG Losartan Potassium 50 MG No 1{table t} QD Losartan Potassium 50 MG Glimepiride 2 MG Glimepiride 2 MG No 1{table t_with_ breakfa st_or_t he_firs t_main_ meal_of _the_da y} BID Glimepirid e 2 MG traZODone HCl 100 MG traZODone HCl 100 MG No 1{table t_at_be dtime_a s_neede d} QD traZODone HCl 100 MG Lipitor 40 MG Lipitor 40 MG No Lipitor 40 MG predniSONE 20 MG predniSONE 20 MG No 1{table t} QD predniSONE 20 MG HYDROcodone -Acetaminop hen 7.5-325 MG HYDROcodone -Acetaminop hen 7.5-325 MG No 1{table t_as_ne eded} BID HYDROcodon e-Acetamin ophen 7.5-325 MG Glimepiride 2 MG Glimepiride 2 MG No 1{table t_with_ breakfa st_or_t he_firs t_main_ meal_of _the_da y} BID Glimepirid e 2 MG Amaryl 4 MG Amaryl 4 MG No 1{table t} BID Amaryl 4 MG tiZANidine HCl 2 MG tiZANidine HCl 2 MG No tiZANidine HCl 2 MG tiZANidine HCl 2 MG tiZANidine HCl 2 MG No tiZANidine HCl 2 MG metFORMIN HCl 1000 MG metFORMIN HCl 1000 MG No 1{table t_with_ meals} BID metFORMIN HCl 1000 MG Symbicort 160-4.5 MCG/ACT Symbicort 160-4.5 MCG/ACT No 2{puffs } BID Symbicort 160-4.5 MCG/ACT Lipitor 40 MG Lipitor 40 MG No 1{table t} QD Lipitor 40 MG tiZANidine HCl 2 MG tiZANidine HCl 2 MG No tiZANidine HCl 2 MG Losartan Potassium 50 MG Losartan Potassium 50 MG No Losartan Potassium 50 MG Zestoretic 12.5-10 MG Zestoretic 12.5-10 MG No 1{table t} QD Zestoretic 12.5-10 MG Omeprazole 40 MG Omeprazole 40 MG No Omeprazole 40 MG Citalopram Hydrobromid e 40 MG Citalopram Hydrobromid e 40 MG No Citalopram Hydrobromi de 40 MG Cetirizine HCl 10 MG Cetirizine HCl 10 MG No 1{table t} QD Cetirizine HCl 10 MG Sucralfate 1 GM Sucralfate 1 GM No 1{table t_on_an _empty_ stomach } QID Sucralfate 1 GM Albuterol Sulfate 108 (90 Base) MCG/ACT Albuterol Sulfate 108 (90 Base) MCG/ACT No 2{puffs _as_nee ded} QID Albuterol Sulfate 108 (90 Base) MCG/ACT traZODone HCl 100 MG traZODone HCl 100 MG No traZODone HCl 100 MG Amitriptyli ne HCl 25 MG Amitriptyli ne HCl 25 MG No Amitriptyl ine HCl 25 MG Glyxambi 25-5 MG Glyxambi 25-5 MG No Glyxambi 25-5 MG metFORMIN HCl 1000 MG metFORMIN HCl 1000 MG No metFORMIN HCl 1000 MG traZODone HCl 100 MG traZODone HCl 100 MG No 1{table t_at_be dtime_a s_neede d} QD traZODone HCl 100 MG Lipitor 40 MG Lipitor 40 MG No Lipitor 40 MG predniSONE 20 MG predniSONE 20 MG No 1{table t} QD predniSONE 20 MG HYDROcodone -Acetaminop hen 7.5-325 MG HYDROcodone -Acetaminop hen 7.5-325 MG No 1{table t_as_ne eded} BID HYDROcodon e-Acetamin ophen 7.5-325 MG Glimepiride 2 MG Glimepiride 2 MG No 1{table t_with_ breakfa st_or_t he_firs t_main_ meal_of _the_da y} BID Glimepirid e 2 MG Amaryl 4 MG Amaryl 4 MG No 1{table t} BID Amaryl 4 MG tiZANidine HCl 2 MG tiZANidine HCl 2 MG No tiZANidine HCl 2 MG tiZANidine HCl 2 MG tiZANidine HCl 2 MG No tiZANidine HCl 2 MG metFORMIN HCl 1000 MG metFORMIN HCl 1000 MG No 1{table t_with_ meals} BID metFORMIN HCl 1000 MG Symbicort 160-4.5 MCG/ACT Symbicort 160-4.5 MCG/ACT No 2{puffs } BID Symbicort 160-4.5 MCG/ACT Lipitor 40 MG Lipitor 40 MG No 1{table t} QD Lipitor 40 MG tiZANidine HCl 2 MG tiZANidine HCl 2 MG No tiZANidine HCl 2 MG Losartan Potassium 50 MG Losartan Potassium 50 MG No Losartan Potassium 50 MG Zestoretic 12.5-10 MG Zestoretic 12.5-10 MG No 1{table t} QD Zestoretic 12.5-10 MG Omeprazole 40 MG Omeprazole 40 MG No Omeprazole 40 MG Citalopram Hydrobromid e 40 MG Citalopram Hydrobromid e 40 MG No Citalopram Hydrobromi de 40 MG Cetirizine HCl 10 MG Cetirizine HCl 10 MG No 1{table t} QD Cetirizine HCl 10 MG Sucralfate 1 GM Sucralfate 1 GM No 1{table t_on_an _empty_ stomach } QID Sucralfate 1 GM Albuterol Sulfate 108 (90 Base) MCG/ACT Albuterol Sulfate 108 (90 Base) MCG/ACT No 2{puffs _as_nee ded} QID Albuterol Sulfate 108 (90 Base) MCG/ACT traZODone HCl 100 MG traZODone HCl 100 MG No traZODone HCl 100 MG Amitriptyli ne HCl 25 MG Amitriptyli ne HCl 25 MG No Amitriptyl ine HCl 25 MG Glyxambi 25-5 MG Glyxambi 25-5 MG No Glyxambi 25-5 MG metFORMIN HCl 1000 MG metFORMIN HCl 1000 MG No metFORMIN HCl 1000 MG traZODone HCl 100 MG traZODone HCl 100 MG No 1{table t_at_be dtime_a s_neede d} QD traZODone HCl 100 MG Lipitor 40 MG Lipitor 40 MG No Lipitor 40 MG predniSONE 20 MG predniSONE 20 MG No 1{table t} QD predniSONE 20 MG HYDROcodone -Acetaminop hen 7.5-325 MG HYDROcodone -Acetaminop hen 7.5-325 MG No 1{table t_as_ne eded} BID HYDROcodon e-Acetamin ophen 7.5-325 MG Glimepiride 2 MG Glimepiride 2 MG No 1{table t_with_ breakfa st_or_t he_firs t_main_ meal_of _the_da y} BID Glimepirid e 2 MG Amaryl 4 MG Amaryl 4 MG No 1{table t} BID Amaryl 4 MG tiZANidine HCl 2 MG tiZANidine HCl 2 MG No tiZANidine HCl 2 MG tiZANidine HCl 2 MG tiZANidine HCl 2 MG No tiZANidine HCl 2 MG metFORMIN HCl 1000 MG metFORMIN HCl 1000 MG No 1{table t_with_ meals} BID metFORMIN HCl 1000 MG Symbicort 160-4.5 MCG/ACT Symbicort 160-4.5 MCG/ACT No 2{puffs } BID Symbicort 160-4.5 MCG/ACT Lipitor 40 MG Lipitor 40 MG No 1{table t} QD Lipitor 40 MG tiZANidine HCl 2 MG tiZANidine HCl 2 MG No tiZANidine HCl 2 MG Losartan Potassium 50 MG Losartan Potassium 50 MG No Losartan Potassium 50 MG Immunizations Ordered Immunization Name Filled Immunization Name Date Status Comments Source Flucelvax - single dose syringe Flucelvax - single dose syringe 2022-02-21 12:26:00 [facility] Flucelvax - single dose syringe Flucelvax - single dose syringe 2022-02-21 12:26:00 Completed [facility] Flucelvax - single dose syringe Flucelvax - single dose syringe 2022-02-21 12:26:00 [facility] Flucelvax - single dose syringe Flucelvax - single dose syringe 2022-02-21 12:26:00 [facility] Afluria single dose Afluria single dose 12:09:00 Completed [facility] Afluria single dose Afluria single dose 12:09:00 Completed [facility] Afluria single dose Afluria single dose 12:09:00 Completed [facility] Afluria single dose Afluria single dose 12:09:00 Completed [facility] Afluria single dose Afluria single dose 12:09:00 Completed [facility] Afluria single dose Afluria single dose 12:09:00 Completed [facility] Afluria single dose Afluria single dose 12:09:00 Completed [facility] Afluria single dose Afluria single dose 12:09:00 Completed [facility] Afluria single dose Afluria single dose 12:09:00 Completed [facility] Afluria single dose Afluria single dose 12:09:00 Completed [facility] Afluria single dose Afluria single dose 12:09:00 Completed [facility] Afluria single dose Afluria single dose 12:09:00 Completed [facility] Afluria single dose Afluria single dose 12:09:00 Completed [facility] Afluria single dose Afluria single dose 12:09:00 Completed [facility] Afluria single dose Afluria single dose 12:09:00 Completed [facility] Afluria single dose Afluria single dose 12:09:00 Completed [facility] Afluria single dose Afluria single dose 12:09:00 Completed [facility] Afluria single dose Afluria single dose 12:09:00 Completed [facility] Afluria single dose Afluria single dose 12:09:00 Completed [facility] Afluria single dose Afluria single dose 12:09:00 Completed [facility] Afluria single dose Afluria single dose 12:09:00 Completed [facility] Afluria single dose Afluria single dose 12:09:00 Completed [facility] Afluria single dose Afluria single dose 12:09:00 Completed [facility] Afluria single dose Afluria single dose 12:09:00 Completed [facility] Afluria single dose Afluria single dose 12:09:00 Completed [facility] Flucelvax - multidose vial Flucelvax - multidose vial 2018-12-11 12:29:00 Completed [facility] Flucelvax - multidose vial Flucelvax - multidose vial 2018-12-11 12:29:00 Completed [facility] Flucelvax - multidose vial Flucelvax - multidose vial 2018-12-11 12:29:00 Completed [facility] Flucelvax - multidose vial Flucelvax - multidose vial 2018-12-11 12:29:00 Completed [facility] Flucelvax - multidose vial Flucelvax - multidose vial 2018-12-11 12:29:00 Completed [facility] Flucelvax - multidose vial Flucelvax - multidose vial 2018-12-11 12:29:00 Completed [facility] Flucelvax - multidose vial Flucelvax - multidose vial 2018-12-11 12:29:00 Completed [facility] Flucelvax - multidose vial Flucelvax - multidose vial 2018-12-11 12:29:00 Completed [facility] Flucelvax - multidose vial Flucelvax - multidose vial 2018-12-11 12:29:00 Completed [facility] Flucelvax - multidose vial Flucelvax - multidose vial 2018-12-11 12:29:00 Completed [facility] Flucelvax - multidose vial Flucelvax - multidose vial 2018-12-11 12:29:00 Completed [facility] Flucelvax - multidose vial Flucelvax - multidose vial 2018-12-11 12:29:00 Completed [facility] Flucelvax - multidose vial Flucelvax - multidose vial 2018-12-11 12:29:00 Completed [facility] Flucelvax - multidose vial Flucelvax - multidose vial 2018-12-11 12:29:00 Completed [facility] Flucelvax - multidose vial Flucelvax - multidose vial 2018-12-11 12:29:00 Completed [facility] Flucelvax - multidose vial Flucelvax - multidose vial 2018-12-11 12:29:00 Completed [facility] Flucelvax - multidose vial Flucelvax - multidose vial 2018-12-11 12:29:00 Completed [facility] Flucelvax - multidose vial Flucelvax - multidose vial 2018-12-11 12:29:00 Completed [facility] Flucelvax - multidose vial Flucelvax - multidose vial 2018-12-11 12:29:00 Completed [facility] Flucelvax - multidose vial Flucelvax - multidose vial 2018-12-11 12:29:00 Completed [facility] Flucelvax - multidose vial Flucelvax - multidose vial 2018-12-11 12:29:00 Completed [facility] Flucelvax - multidose vial Flucelvax - multidose vial 2018-12-11 12:29:00 Completed [facility] Flucelvax - multidose vial Flucelvax - multidose vial 2018-12-11 12:29:00 Completed [facility] Flucelvax - multidose vial Flucelvax - multidose vial 2018-12-11 12:29:00 Completed [facility] Flucelvax - multidose vial Flucelvax - multidose vial 2018-12-11 12:29:00 Completed [facility] Flucelvax - multidose vial Flucelvax - multidose vial 2018-12-11 00:00:00 Completed [facility] Kenalog (Triamcinolone) Kenalog (Triamcinolone) 2017-09-03 16:24:00 Completed [facility] Kenalog (Triamcinolone) Kenalog (Triamcinolone) 2017-09-03 16:24:00 Completed [facility] Kenalog (Triamcinolone) Kenalog (Triamcinolone) 2017-09-03 16:24:00 Completed [facility] Kenalog (Triamcinolone) Kenalog (Triamcinolone) 2017-09-03 16:24:00 Completed [facility] Afluria single dose Afluria single dose Unknown Completed [facility] Flucelvax - multidose vial Flucelvax - multidose vial Unknown Completed [facility] Flucelvax - single dose syringe Flucelvax - single dose syringe Unknown Completed [facility] Afluria single dose Afluria single dose Unknown Completed [facility] Flucelvax - multidose vial Flucelvax - multidose vial Unknown Completed [facility] Flucelvax - single dose syringe Flucelvax - single dose syringe Unknown Completed [facility] Afluria single dose Afluria single dose Unknown Completed [facility] Flucelvax - multidose vial Flucelvax - multidose vial Unknown Completed [facility] Flucelvax - single dose syringe Flucelvax - single dose syringe Unknown Completed [facility] Afluria single dose Afluria single dose Unknown Completed [facility] Flucelvax - multidose vial Flucelvax - multidose vial Unknown Completed [facility] Flucelvax - single dose syringe Flucelvax - single dose syringe Unknown Completed [facility] Afluria single dose Afluria single dose Unknown Completed [facility] Flucelvax - multidose vial Flucelvax - multidose vial Unknown Completed [facility] Flucelvax - single dose syringe Flucelvax - single dose syringe Unknown Completed [facility] Afluria (IIV4) - 3 years and older - SDS - 0.5mL Afluria (IIV4) - 3 years and older - SDS - 0.5mL Unknown Completed [facility] Flucelvax (ccIIV4) - MDV - 0.5mL Flucelvax (ccIIV4) - MDV - 0.5mL Unknown Completed [facility] Flucelvax (ccIIV4) - SDS - 0.5mL Flucelvax (ccIIV4) - SDS - 0.5mL Unknown Completed [facility] Afluria (IIV4) - 3 years and older - SDS - 0.5mL Afluria (IIV4) - 3 years and older - SDS - 0.5mL Unknown Completed [facility] Flucelvax (ccIIV4) - MDV - 0.5mL Flucelvax (ccIIV4) - MDV - 0.5mL Unknown Completed [facility] Flucelvax (ccIIV4) - SDS - 0.5mL Flucelvax (ccIIV4) - SDS - 0.5mL Unknown Completed [facility] Afluria (IIV4) - 3 years and older - SDS - 0.5mL Afluria (IIV4) - 3 years and older - SDS - 0.5mL Unknown Completed [facility] Flucelvax (ccIIV4) - MDV - 0.5mL Flucelvax (ccIIV4) - MDV - 0.5mL Unknown Completed [facility] Flucelvax (ccIIV4) - SDS - 0.5mL Flucelvax (ccIIV4) - SDS - 0.5mL Unknown Completed [facility] Afluria (IIV4) - 3 years and older - SDS - 0.5mL Afluria (IIV4) - 3 years and older - SDS - 0.5mL Unknown Completed [facility] Flucelvax (ccIIV4) - MDV - 0.5mL Flucelvax (ccIIV4) - MDV - 0.5mL Unknown Completed [facility] Flucelvax (ccIIV4) - SDS - 0.5mL Flucelvax (ccIIV4) - SDS - 0.5mL Unknown Completed [facility] Afluria (IIV4) - 3 years and older - SDS - 0.5mL Afluria (IIV4) - 3 years and older - SDS - 0.5mL Unknown Completed [facility] Flucelvax (ccIIV4) - MDV - 0.5mL Flucelvax (ccIIV4) - MDV - 0.5mL Unknown Completed [facility] Flucelvax (ccIIV4) - SDS - 0.5mL Flucelvax (ccIIV4) - SDS - 0.5mL Unknown Completed [facility] Afluria single dose Afluria single dose Unknown Completed [facility] Flucelvax - multidose vial Flucelvax - multidose vial Unknown Completed [facility] Flucelvax - single dose syringe Flucelvax - single dose syringe Unknown Completed [facility] Afluria single dose Afluria single dose Unknown Completed [facility] Flucelvax - multidose vial Flucelvax - multidose vial Unknown Completed [facility] Flucelvax - single dose syringe Flucelvax - single dose syringe Unknown Completed [facility] Vital Signs Vital Name Observation Time Observation Value Comments S jannyce height 2022-12-26 09:40:00 64 [in_i] Commo n [facility] weight 2022-12-26 09:40:00 210 [lb_av] Comm on [facility] [place] temperature 2022-12-26 09:40:00 97.3 [degF] Com mon [facility] [place] bmi 2022-12-26 09:40:00 36.04 kg/m2 Comm on [facility] [place] oximetry 2022-12-26 09:40:00 96 % Commo n [facility] respiratory rate 2022-12-26 09:40:00 17 /min [facility] blood pressure systolic 2022-12-26 09:40:00 116 mm[Hg] [facility] blood pressure diastolic 2022-12-26 09:40:00 80 mm[Hg] [facility] height 2022-10-19 08:20:00 64 [in_i] Commo n [facility] weight 2022-10-19 08:20:00 213.4 [lb_av] Co mmon [facility] temperature 2022-10-19 08:20:00 97.3 [degF] Com [facility] bmi 2022-10-19 08:20:00 36.63 kg/m2 Comm on [facility] oximetry 2022-10-19 08:20:00 94 % Commo n [facility] respiratory rate 2022-10-19 08:20:00 17 /min [facility] blood pressure systolic 2022-10-19 08:20:00 162 mm[Hg] Common [facility] blood pressure diastolic 2022-10-19 08:20:00 81 mm[Hg] [facility] height 2022-02-21 10:20:00 64 [in_i] Commo n [facility] weight 2022-02-21 10:20:00 210.6 [lb_av] Co mmon [facility] temperature 2022-02-21 10:20:00 97.2 [degF] Com [facility] bmi 2022-02-21 10:20:00 36.15 kg/m2 Comm on [facility] oximetry 2022-02-21 10:20:00 98 % Commo n [facility] respiratory rate 2022-02-21 10:20:00 15 /min [facility] blood pressure systolic 2022-02-21 10:20:00 119 mm[Hg] Common [facility] blood pressure diastolic 2022-02-21 10:20:00 69 mm[Hg] Common [facility] height 2021-11-24 11:00:00 64 [in_i] Commo n [facility] weight 2021-11-24 11:00:00 213.4 [lb_av] Co mmon [facility] temperature 2021-11-24 11:00:00 97.3 [degF] Com [facility] bmi 2021-11-24 11:00:00 36.63 kg/m2 Comm on [facility] oximetry 2021-11-24 11:00:00 95 % Commo n [facility] respiratory rate 2021-11-24 11:00:00 16 /min [facility] blood pressure systolic 2021-11-24 11:00:00 132 mm[Hg] Common [facility] blood pressure diastolic 2021-11-24 11:00:00 74 mm[Hg] [facility] height 2021-05-16 10:00:00 64 [in_i] Commo n [facility] weight 2021-05-16 10:00:00 224 [lb_av] Comm on [facility] temperature 2021-05-16 10:00:00 97.3 [degF] Com [facility] bmi 2021-05-16 10:00:00 38.45 kg/m2 Comm on [facility] oximetry 2021-05-16 10:00:00 98 % Commo n [facility] respiratory rate 2021-05-16 10:00:00 18 /min [facility] blood pressure systolic 2021-05-16 10:00:00 132 mm[Hg] Common [facility] blood pressure diastolic 2021-05-16 10:00:00 84 mm[Hg] Common [facility] height 2021-04-18 16:00:00 64 [in_i] Commo n [facility] weight 2021-04-18 16:00:00 220.4 [lb_av] Co mmon [facility] temperature 2021-04-18 16:00:00 97.6 [degF] Com mon [facility] bmi 2021-04-18 16:00:00 37.83 kg/m2 Comm on [facility] [place] oximetry 2021-04-18 16:00:00 97 % Commo n [facility] [place] respiratory rate 2021-04-18 16:00:00 16 /min [facility] blood pressure systolic 2021-04-18 16:00:00 128 mm[Hg] Common [facility] blood pressure diastolic 2021-04-18 16:00:00 72 mm[Hg] Common [facility] height 2021-01-03 16:00:00 64 [in_i] Commo n [facility] [place] weight 2021-01-03 16:00:00 217 [lb_av] Comm on [facility] [place] bmi 2021-01-03 16:00:00 37.24 kg/m2 Comm on [facility] [place] height 2020-12-07 15:00:00 64.00 [in_i] Com mon [facility] [place] weight 2020-12-07 15:00:00 217 [lb_av] Comm on [facility] [place] bmi 2020-12-07 15:00:00 37.24 kg/m2 Comm on [facility] [place] Encounters Start Date/Time End Date/Time Encounter Type Admission Type Attending Clinicians Care Facility Care Department Encounter ID Source 2023-03-19 13:13:00 Outpatient Yumiko Kaplan STLMLC STLMLC [id number] [facility] 2023-02-12 09:05:00 Outpatient Yumiko Kaplan STLMLC STLMLC [id number] [facility] 2022-12-26 09:44:00 Outpatient Yumiko Kaplan STLMLC STLMLC [id number] [facility] 2022-10-18 07:48:00 Outpatient Yumiko Kaplan STLMLC STLMLC [id number] [facility] 2022-08-14 09:31:00 Outpatient Yumiko Kaplan STLMLC STLMLC [id number] [facility] 2022-08-02 15:56:00 Outpatient STLMLC STLMLC [id number] [facility] 2022-06-07 17:00:00 Outpatient Waleska Valencia STLMLC STLMLC [id number] [facility] 2022-04-12 09:13:00 Outpatient Waleska Valencia STLMLC STLMLC [id number] [facility] 2022-02-17 08:34:00 Outpatient Rios, Na STLMLC STLMLC [id number] [facility] 2022-02-09 15:14:00 Outpatient Rios, Na STLMLC STLMLC [id number] [facility] 2022-02-01 14:22:00 Outpatient Rios, Na STLMLC STLMLC [id number] [facility] 2021-10-28 15:08:00 Outpatient Rios, Na STLMLC STLMLC [id number] [facility] 2021-09-21 09:52:00 Outpatient Rios, Na STLMLC STLMLC [id number] [facility] 2021-08-17 15:22:00 Outpatient Rios, Na STLMLC STLMLC [id number] [facility] 2021-05-13 09:55:00 Outpatient Rios, Na STLMLC STLMLC [id number] [facility] 2021-04-18 16:00:01 Outpatient Rios, Na STLMLC STLMLC [id number] [facility] 2021-04-15 14:25:00 Outpatient Rios, Na STLMLC STLMLC [id number] [facility] 2021-04-14 13:36:01 Outpatient Rios, Na STLMLC STLMLC [id number] [facility] 2021-04-06 14:26:39 Outpatient Rios, Na STLMLC STLMLC [id number] [facility] 2021-04-06 14:20:13 Outpatient Rios, Na STLMLC STLMLC [id number] [facility] 2021-04-06 14:04:22 Outpatient Rios, Na STLMLC STLMLC [id number] [facility] 2021-04-06 13:41:28 Outpatient Rios, Na STLMLC STLMLC [id number] [facility] 2021-04-06 13:39:10 Outpatient Rios, Na STLMLC STLMLC [id number] [facility] 2021-04-06 13:38:28 Outpatient Rios, Na STLMLC STLMLC [id number] [facility] 2021-04-06 13:34:20 Outpatient Rios, Na STLMLC STLMLC [id number] [facility] 2021-04-06 12:59:39 Outpatient Rios, Na STLMLC STLMLC [id number] [facility] 2021-04-06 12:20:03 Outpatient Rios, Na STLMLC STLMLC [id number] [facility] 2021-04-06 12:13:37 Outpatient Rios, Na STLMLC STLMLC [id number] [facility] 2021-04-06 12:13:01 Outpatient Rios, Na STLMLC STLMLC [id number] [facility] 2021-04-06 12:11:17 Outpatient Rios, Na STLMLC STLMLC [id number] [facility] 2021-04-06 11:50:24 Outpatient Rios, Na STLMLC STLMLC [id number] [facility] 2021-04-06 11:44:00 Outpatient Rios, Na STLMLC STLMLC [id number] [facility] 2021-04-06 11:12:27 Outpatient Rios, Na STLMLC STLMLC [id number] [facility] 2021-04-06 11:01:17 Outpatient Rios, Na STLMLC STLMLC [id number] [facility] 2023-01-09 00:00:00 2023-01-09 00:00:00 Outpatient GC_GCBZW_Ka diyala_S PRIV [facility] [id number] [facility] 2022-12-26 00:00:00 2022-12-26 00:00:00 OFFICE VISIT ESTAB PT LEVEL 4 STLMLC STLMLC [id number] [facility] 2022-11-22 00:00:00 2022-11-22 00:00:00 (TEL) STLMLC STLMLC [id number] [facility] 2022-10-27 00:00:00 2022-10-27 00:00:00 (TEL) STLMLC STLMLC [id number] [facility] 2022-10-25 00:00:00 2022-10-25 00:00:00 (TEL) STLMLC STLMLC [id number] [facility] 2022-10-19 00:00:00 2022-10-19 00:00:00 OFFICE VISIT ESTAB PT LEVEL 4 STLMLC STLMLC [id number] [facility] 2022-09-28 00:00:00 2022-09-28 00:00:00 (TEL) STLMLC STLMLC [id number] [facility] 2022-08-14 00:00:00 2022-08-14 00:00:00 (TEL) STLMLC STLMLC [id number] [facility] 2022-08-02 00:00:00 2022-08-02 00:00:00 (TEL) STLMLC STLMLC [id number] [facility] 2022-06-28 00:00:00 2022-06-28 00:00:00 (TEL) STLMLC STLMLC [id number] [facility] 2022-06-26 00:00:00 2022-06-26 00:00:00 (TEL) STLMLC STLMLC [id number] [facility] 2022-05-02 00:00:00 2022-05-02 00:00:00 (TEL) STLMLC STLMLC [id number] [facility] 2022-04-28 00:00:00 2022-04-28 00:00:00 (TEL) STLMLC STLMLC [id number] [facility] 2022-04-12 00:00:00 2022-04-12 00:00:00 (TEL) STLMLC STLMLC [id number] [facility] 2022-02-23 00:00:00 2022-02-23 00:00:00 (TEL) STLMLC STLMLC [id number] [facility] 2022-02-21 00:00:00 2022-02-21 00:00:00 OFFICE VISIT ESTAB PT LEVEL 4 STLMLC STLMLC [id number] [facility] 2022-02-13 00:00:00 2022-02-13 00:00:00 (TEL) STLMLC STLMLC [id number] [facility] 2022-02-09 00:00:00 2022-02-09 00:00:00 (TEL) STLMLC STLMLC [id number] [facility] 2022-02-01 00:00:00 2022-02-01 00:00:00 (TEL) STLMLC STLMLC [id number] [facility] 2021-12-02 00:00:00 2021-12-02 00:00:00 (TEL) STLMLC STLMLC [id number] [facility] 2021-11-28 00:00:00 2021-11-28 00:00:00 (TEL) STLMLC STLMLC [id number] [facility] 2021-11-24 00:00:00 2021-11-24 00:00:00 OFFICE VISIT ESTAB PT LEVEL 4 STLMLC STLMLC [id number] [facility] 2021-10-26 00:00:00 2021-10-26 00:00:00 (TEL) STLMLC STLMLC [id number] [facility] 2021-10-18 00:00:00 2021-10-18 00:00:00 (TEL) STLMLC STLMLC [id number] [facility] 2021-05-24 00:00:00 2021-05-24 00:00:00 (TEL) STLMLC STLMLC [id number] [facility] 2021-05-16 00:00:00 2021-05-16 00:00:00 OFFICE VISIT EST PT LEVEL 3 STLMLC STLMLC [id number] [facility] 2021-04-18 00:00:00 2021-04-18 00:00:00 OFFICE VISIT ESTAB PT LEVEL 4 STLMLC STLMLC [id number] [facility] 2021-04-04 00:00:00 2021-04-04 00:00:00 (TEL) STLMLC STLMLC [id number] [facility] 2021-02-10 00:00:00 2021-02-10 00:00:00 (TEL) STLMLC STLMLC [id number] [facility] 2021-02-08 00:00:00 2021-02-08 00:00:00 (TEL) STLMLC STLMLC [id number] [facility] 2021-01-25 00:00:00 2021-01-25 00:00:00 (TEL) STLMLC STLMLC [id number] [facility] 2021-01-07 00:00:00 2021-01-07 00:00:00 (TEL) STLMLC STLMLC [id number] [facility] 2021-01-03 00:00:00 2021-01-03 00:00:00 OL DIG E/M SVC 11-20 MIN STLMLC STLMLC [id number] [facility] 2020-12-27 00:00:00 2020-12-27 00:00:00 (TEL) STLMLC STLMLC [id number] [facility] 2020-12-10 00:00:00 2020-12-10 00:00:00 (TEL) STLMLC STLMLC [id number] [facility] 2020-12-07 00:00:00 2020-12-07 00:00:00 OL DIG E/M SVC 11-20 MIN STLMLC STLMLC [id number] [facility] 2020-11-03 00:00:00 2020-11-03 00:00:00 Outpatient STLMLC STLMLC [id number] [facility] 2020-07-14 00:00:00 2020-07-14 00:00:00 Outpatient STLMLC STLMLC [id number] [facility] 2020-07-08 00:00:00 2020-07-08 00:00:00 Outpatient STLMLC STLMLC [id number] [facility] 2020-03-25 00:00:00 2020-03-25 00:00:00 Outpatient STLMLC STLMLC [id number] [facility] 2020-01-09 00:00:00 2020-01-09 00:00:00 Outpatient STLMLC STLMLC [id number] [facility] 2020-01-09 00:00:00 2020-01-09 00:00:00 Outpatient STLMLC STLMLC [id number] [facility] 2019-12-09 00:00:00 2019-12-09 00:00:00 Outpatient STLMLC STLMLC [id number] [facility] 2019-12-08 00:00:00 2019-12-08 00:00:00 Outpatient STLMLC STLMLC [id number] [facility] 2019-11-20 08:40:00 2019-11-20 08:40:[address] [facility] [id number] [facility] 2019-08-26 16:17:00 2019-08-26 16:17:[address] [facility] [id number] [facility] 2019-08-20 08:00:00 2019-08-20 08:00:00 [facility] [id number] [facility] 2019-08-15 09:31:00 2019-08-15 09:31:[address] [facility] [id number] [facility] 2019-05-16 13:20:00 2019-05-16 13:20:[address] [facility] [id number] [facility] 2019-02-18 03:25:00 2019-02-18 03:25:00 [facility] [facility] [id number] [facility] 2019-02-03 17:32:00 2019-02-03 17:32:[address] [facility] [id number] [facility] 2019-01-31 13:00:00 2019-01-31 13:00:00 [facility] [id number] [facility] 2018-12-19 15:33:00 2018-12-19 15:33:[address] [facility] [id number] [facility] 2018-12-11 11:40:00 2018-12-11 11:40:[address] [facility] [id number] [facility] 2018-09-27 11:40:00 2018-09-27 11:40:[address] [facility] [id number] [facility] 2018-08-16 15:00:00 2018-08-16 15:00:00 [facility] [facility] [id number] [facility] 2018-07-16 10:33:00 2018-07-16 10:33:[address] [facility] [id number] [facility] 2018-07-05 02:46:00 2018-07-05 02:46:[address] [facility] [id number] [facility] 2018-05-30 15:00:00 2018-05-30 15:00:[address] [facility] [id number] [facility] 2018-04-18 14:30:00 2018-04-18 14:30:[address] [facility] [id number] [facility] 2018-03-18 16:46:00 2018-03-18 16:46:00 Outpatient [facility] [id number] [facility] 2018-03-04 12:34:00 2018-03-04 12:34:00 Outpatient [facility] [id number] [facility] 2017-12-11 10:37:00 2017-12-11 10:37:00 Outpatient [facility] [id number] [facility] 2017-12-04 14:30:00 2017-12-04 14:30:00 Outpatient [facility] [id number] [facility] Results Test Description Test Time Test Comments Results Result Co mments Source RHEUMATOID FACTOR, [id number] 00:00:00* Test Item Value Reference Range Interpretation Comme nts RHEUMATOID FACTOR, QUANT (test code = 10556-9) <10 IU/ML See_Comment [Automated [employer]] The system which generated this result transmitted reference range: <14 IU/ML. The reference range was not used to interpret this result as normal/abnormal. TONY REFLEX AUTOIMMUNE AB [id number] 00:00:00* Test Item Value Reference Range Interpretation Comme nts ANTI-NUCLEAR ANTIBODIES (chaparro t code = 57352-5) NEGATIVE NEGATIVE [id number] 00:00:00* Test Item Value Reference Range Interpretation Comme nts PROCALCITONIN (test code = 23776-6) 0.06 NG/ML See_Comment [Automated [employer]] The system which generated this result transmitted reference range: <0.10 NG/ML. The reference range was not used to interpret this result as normal/abnormal. VITAMIN D, 25 [id number] 00:00:00* Test Item Value Reference Range Interpretation Comme nts VITAMIN D, 25 OH (test code = 1989-3) 13 NG/ML SEE BELOW NG/ML L HIGH SENSITIVITY [id number] 00:00:00* Test Item Value Reference Range Interpretation Comme nts HIGH SENSITIVITY CRP (test c ode = 15976-3) 4.4 MG/L SEE BELOW MG/L H VITAMIN B 12 AND FOLIC [id number] 00:00:00* Test Item Value Reference Range Interpretation Comme nts FOLIC ACID (test code = 2284-8) 11.1 UG/L SEE BELOW UG/L VITAMIN B-12 (test code = 2132-9) 602 PG/ML See_Comment [Automated [employer]] The system which generated this result transmitted reference range: 200-950 PG/ML. The reference range was not used to interpret this result as normal/abnormal. LYME DISEASE BY [id number] 00:00:00* Test Item Value Reference Range Interpretation Comme nts BORRELIA BURGDORFERI (test c ode = 93119-2) Not Detected CBC W/AUTO [id number] 00:00:00* Test Item Value Reference Range Interpretation Comme nts NUCLEATED RBCS (test code = 35855-7) 0.0 /100 WBC'S See_Comment [Automated [employer]] The system which generated this result transmitted reference range: 0.0 /100 WBC'S. The reference range was not used to interpret this result as normal/abnormal. ABSOLUTE EOSINOPHILS (test code = 61471-1) 0.14 K/UL See_Comment [Automated messa ge] The system which generated this result transmitted reference range: 0.00-0.50 K/UL. The reference range was not used to interpret this result as normal/abnormal. ABSOLUTE LYMPHOCYTES (test code = 19162-5) 2.50 K/UL See_Comment [Automated [employer]] The system which generated this result transmitted reference range: 1.00-4.00 K/UL. The reference range was not used to interpret this result as normal/abnormal. ABSOLUTE MONOCYTES (test code = 76700-0) 0.40 K/UL See_Comment [Automated [employer]] The system which generated this result transmitted reference range: 0.20-1.00 K/UL. The reference range was not used to interpret this result as normal/abnormal. ABSOLUTE NEUTROPHILS (test code = 73113-8) 2.66 K/UL See_Comment [Automated [employer]] The system which generated this result transmitted reference range: 1.50-7.50 K/UL. The reference range was not used to interpret this result as normal/abnormal. BASOPHILS (test code = 46181-2) 0.3 % EOSINOPHILS (test code = 77581-8) 2.4 % HEMATOCRIT (test code = 21970-5) 41.1 % See_Comment [Automated messa ge] The system which generated this result transmitted reference range: 34.0-45.0 %. The reference range was not used to interpret this result as normal/abnormal. HEMOGLOBIN (test code = 718-7) 13.8 G/DL See_Comment [Automated messa ge] The system which generated this result transmitted reference range: 11.5-15.5 G/DL. The reference range was not used to interpret this result as normal/abnormal. LYMPHOCYTES (test code = 99987-6) 43.5 % MCH (test code = 71040-5) 30.8 PG See_Comment [Automated messa ge] The system which generated this result transmitted reference range: 25.0-33.0 PG. The reference range was not used to interpret this result as normal/abnormal. MCHC (test code = 94835-7) 33.6 G/DL See_Comment [Automated messa ge] The system which generated this result transmitted reference range: 31.0-36.0 G/DL. The reference range was not used to interpret this result as normal/abnormal. MCV (test code = 34142-2) 91.7 fL See_Comment [Automated messa ge] The system which generated this result transmitted reference range: 80.0-99.0 fL. The reference range was not used to interpret this result as normal/abnormal. MONOCYTES (test code = 18658-8) 7.0 % NEUTROPHILS (test code = 67981-9) 46.3 % PLATELET COUNT (test code = 97808-8) 327 K/UL See_Comment [Automated messa ge] The system which generated this result transmitted reference range: 130-400 K/UL. The reference range was not used to interpret this result as normal/abnormal. RBC (test code = 40089-9) 4.48 M/UL See_Comment [Automated messa ge] The system which generated this result transmitted reference range: 3.80-5.40 M/UL. The reference range was not used to interpret this result as normal/abnormal. RDW (test code = 61147-5) 11.4 % See_Comment L [Automated messa ge] The system which generated this result transmitted reference range: 11.5-15.0 %. The reference range was not used to interpret this result as normal/abnormal. WBC (test code = 79349-7) 5.8 K/UL See_Comment [Automated messa ge] The system which generated this result transmitted reference range: 3.5-11.0 K/UL. The reference range was not used to interpret this result as normal/abnormal. HEMOGLOBIN [id number] 00:00:00* Test Item Value Reference Range Interpretation Comme nts HEMOGLOBIN A1c (test code = 4548-4) 10.8 % See_Comment H [Automated messa ge] The system which generated this result transmitted reference range: 4.2-5.6 %. The reference range was not used to interpret this result as normal/abnormal. LIPID PANEL WITH REFLEX DIRECT [id number] 00:00:00* Test Item Value Reference Range Interpretation Comme [facility] CALC LDL CHOL (test code = 57243-3) 169 MG/DL See_Comment H [Automated messa ge] The system which generated this result transmitted reference range: <100 MG/DL. The reference range was not used to interpret this result as normal/abnormal. CHOLESTEROL (test code = 2093-3) 247 MG/DL See_Comment H [Automated messa ge] The system which generated this result transmitted reference range: <200 MG/DL. The reference range was not used to interpret this result as normal/abnormal. HDL CHOLESTEROL (test code = 2085-9) 54 MG/DL See_Comment [Automated messa ge] The system which generated this result transmitted reference range: >39 MG/DL. The reference range was not used to interpret this result as normal/abnormal. RISK RATIO LDL/HDL (test code = 45468-4) 3.13 RATIO See_Comment [Automated message] The system which generated this result transmitted reference range: <3.22 RATIO. The reference range was not used to interpret this result as normal/abnormal. TRIGLYCERIDES (test code = 2571-8) 113 MG/DL See_Comment [Automated messa ge] The system which generated this result transmitted reference range: <150 MG/DL. The reference range was not used to interpret this result as normal/abnormal. ALBUMIN/CREATININE RATIO, RANDOM [id number] 00:00:00* Test Item Value Reference Range Interpretation Comme nts ALBUMIN, URINE, RANDOM (test code = 89662-0) 1.4 MG/DL NOT ESTAB MG/DL CALC ALBUMIN/CREAT, RND (test code = 73138-6) 12 MG/G See_Comment [Automated messa ge] The system which generated this result transmitted reference range: <30 MG/G. The reference range was not used to interpret this result as normal/abnormal. CREATININE, URINE, CONC. (test code = 2161-8) 119.3 MG/DL NOT ESTAB MG/DL COMPREHENSIVE METABOLIC [id number] 00:00:00* Test Item Value Reference Range Interpretation Comme nts ALBUMIN (test code = 1751-7) 4.9 G/DL See_Comment [Automated messa ge] The system which generated this result transmitted reference range: 3.5-5.2 G/DL. The reference range was not used to interpret this result as normal/abnormal. ALKALINE PHOSPHATASE (test code = 6768-6) 145 U/L See_Comment H [Automated message] The system which generated this result transmitted reference range: 40-136 U/L. The reference range was not used to interpret this result as normal/abnormal. BILIRUBIN, TOTAL (test code = 1975-2) 0.5 MG/DL See_Comment [Automated message] The system which generated this result transmitted reference range: <=1.2 MG/DL. The reference range was not used to interpret this result as normal/abnormal. BUN (test code = 3094-0) 15 MG/DL See_Comment [Automated [employer]] The system which generated this result transmitted reference range: 8-23 MG/DL. The reference range was not used to interpret this result as normal/abnormal. CALCIUM (test code = 62658-5) 9.7 MG/DL See_Comment [Automated messa ge] The system which generated this result transmitted reference range: 8.5-10.5 MG/DL. The reference range was not used to interpret this result as normal/abnormal. CALC A/G RATIO (test code = 1759-0) 2.3 RATIO See_Comment [Automated [employer]] The system which generated this result transmitted reference range: 1.0-2.6 RATIO. The reference range was not used to interpret this result as normal/abnormal. CALC BUN/CREAT (test code = 3097-3) 22 RATIO See_Comment [Automated messa ge] The system which generated this result transmitted reference range: 6-28 RATIO. The reference range was not used to interpret this result as normal/abnormal. CALC GLOBULIN (test code = 74052-5) 2.1 G/DL See_Comment [Automated messa ge] The system which generated this result transmitted reference range: 1.9-3.7 G/DL. The reference range was not used to interpret this result as normal/abnormal. CARBON DIOXIDE (test code = 1963-8) 28 MEQ/L See_Comment [Automated messa ge] The system which generated this result transmitted reference range: 19-31 MEQ/L. The reference range was not used to interpret this result as normal/abnormal. CHLORIDE (test code = 2075-0) 97 MEQ/L See_Comment [Automated messa ge] The system which generated this result transmitted reference range: 95-107 MEQ/L. The reference range was not used to interpret this result as normal/abnormal. CREATININE (test code = 2160-0) 0.68 MG/DL See_Comment [Automated messa ge] The system which generated this result transmitted reference range: 0.60-1.30 MG/DL. The reference range was not used to interpret this result as normal/abnormal. eGFR (2020 CKD-EPI) (test code = 26239-8) 100 ML/MIN/1.73 See_Comment [Automated message] The system which generated this result transmitted reference range: >60 ML/MIN/1.73. The reference range was not used to interpret this result as normal/abnormal. GLUCOSE (test code = 1558-6) 316 MG/DL See_Comment H [Automated messa ge] The system which generated this result transmitted reference range: 70-99 MG/DL. The reference range was not used to interpret this result as normal/abnormal. POTASSIUM (test code = 2823-3) 4.0 MEQ/L See_Comment [Automated messa ge] The system which generated this result transmitted reference range: 3.5-5.4 MEQ/L. The reference range was not used to interpret this result as normal/abnormal. PROTEIN, TOTAL (test code = 2885-2) 7.0 G/DL See_Comment [Automated messa ge] The system which generated this result transmitted reference range: 6.1-8.3 G/DL. The reference range was not used to interpret this result as normal/abnormal. AST (test code = 1920-8) 13 U/L See_Comment [Automated [employer] ge] The system which generated this result transmitted reference range: 9-40 U/L. The reference range was not used to interpret this result as normal/abnormal. ALT (test code = 1742-6) 9 U/L See_Comment [Automated [employer] ge] The system which generated this result transmitted reference range: 5-40 U/L. The reference range was not used to interpret this result as normal/abnormal. SODIUM (test code = 2951-2) 135 MEQ/L See_Comment [Automated [employer] PF] The system which generated this result transmitted reference range: 133-146 MEQ/L. The reference range was not used to interpret this result as normal/abnormal. Lipid Panel w/ Chol/HDL [id number] 00:00:00* Test Item Value Reference Range Interpretation Comme nts Cholesterol, Total (test code = 2093-3) 219 100-199 Triglycerides (test code = 2571-8) 171 0-149 HDL Cholesterol (test code = 2085-9) 51 >39 T. Chol/HDL Ratio (test code = 9830-1) 4.3 0.0-4.4 LDL Cholesterol (Direct)2021-05-16 00:00:00* Test Item Value Reference Range Interpretation Comme nts LDL Chol. (Direct) (test cod e = 03312-4) 134 0-99 Microalbumin/Creat Ratio, Random [id number] 00:00:00* Test Item Value Reference Range Interpretation Comme nts Creatinine, Urine (test code = 2161-8) 84.4 Not Esta b. Albumin, Urine (test code = 99276-1) 9.3 Not Estab. Alb/Creat Ratio (test code = 94684-3) 11 0-29 Hemoglobin [id number] 00:00:00* Test Item Value Reference Range Interpretation Comme nts Hemoglobin A1c (test code = 4548-4) 9.0 4.8-5.6 Comp. Metabolic Panel (14) (CMP)2021-05-16 00:00:00* Test Item Value Reference Range Interpretation Comme nts Glucose (test code = 2345-7) 263 65-99 BUN (test code = 3094-0) 10 6-24 Creatinine (test code = 2160-0) 0.69 0.57-1.00 BUN/Creatinine Ratio (test c ode = 3097-3) 14 9-23 Sodium (test code = 2951-2) 139 134-144 Potassium (test code = 2823-3) 4.4 3.5-5.2 Chloride (test code = 2075-0) 98 96-106 Carbon Dioxide, Total (test code = 2028-9) 27 20-29 Calcium (test code = 49263-2) 9.4 8.7-10.2 Protein, Total (test code = 2885-2) 6.6 6.0-8.5 Albumin (test code = 1751-7) 4.3 3.8-4.9 Globulin, Total (test code = 52812-1) 2.3 1.5-4.5 A/G Ratio (test code = 1759-0) 1.9 1.2-2.2 Bilirubin, Total (test code = 1975-2) 0.4 0.0-1.2 Alkaline Phosphatase (test c ode = 6768-6) 127 44-121 AST (SGOT) (test code = 1920-8) 10 0-40 ALT (SGPT) (test code = 1742-6) 6 0-32 CBC With Differential/[id number] 00:00:00* Test Item Value Reference Range Interpretation Comme nts WBC (test code = 6690-2) 5.7 3.4-10.8 [...] = UNLOINC) Neutrophils (Absolute) (test code = 751-8) 2.8 1.4-7.0 Lymphs (Absolute) (test code = 731-0) 2.5 0.7-3.1 Monocytes(Absolute) (test code = 742-7) 0.3 0.1-0.9 Eos (Absolute) (test code = 711-2) 0.1 0.0-0.4 Baso (Absolute) (test code = 704-7) 0.0 0.0-0.2 Immature Granulocytes (test code = 19273-8) 0 Not Estab. Immature Grans (Abs) (test c ode = 64268-5) 0.0 0.0-0.1 NRBC (test code = 21984-9) Hematology Comments: (test c ode = 63420-8) SARS-COV 2 AntigenSARS-COV 2 Antigen
[2023-03-31 04:39] LABS: Absolute Lymphocytes (CBC) 2.4 K/uL (0.7-4.9); Hematocrit 38.5 % (36.0-45.0); Lymphocytes % 34.6 % (15.3-44.8); MCV 91.4 fL (80-100); MPV 7.8 fL (7.6-11.3); Platelets 313 thou/uL (152-406); RBC Red Blood Cell Count 4.22 M/uL (3.86-4.86)
[2023-03-31 04:43] LABS: Protime INR 0.93
[2023-03-31 04:51] LABS: ALT/SGPT 14 U/L (13-56); Albumin 3.6 g/dL (3.4-5.0); Alkaline Phosphatase 168 U/L (45-117); BUN Blood Urea Nitrogen 22 mg/dL (7-18); Bicarbonate 28 mEq/L (21-32); Bilirubin Total 0.2 mg/dL (0.2-1.0); Glomerular Filtration Rate 73 ml/min (=/>90); Glucose Level 330 mg/dL (74-106); Magnesium 1.8 mg/dL (1.6-2.4); NT PRO-BNP 42 pg/mL (<125); Potassium 3.7 mEq/L (3.5-5.1); Protein, Total 7.2 g/dL (6.4-8.2); Sodium Level 135 mEq/L (136-145); Troponin High Sensitivity 6.5 pg/mL (<58.9)
[2023-03-31 04:55] LABS: AST/SGOT < 4 U/L (15-37); Bilirubin Direct < 0.1 mg/dL (0-0.2); Bilirubin Indirect, Calculated ND mg/dL (0.2-0.8)
[2023-03-31 05:49] LABS: SARS-CoV-2 Antigen Rapid Res Negative (Negative)
[2023-03-31 06:26] LABS: Urine Bacteria <20 /HPF (<20); Urine Bilirubin NEGATIVE (Negative); Urine Blood Negative (Negative); Urine Clarity Clear (Clear); Urine Color Colorless (Yellow); Urine Glucose 4+ (Over) (Negative); Urine Protein NEGATIVE (Negative); Urine RBC <5 /HPF (None Seen); Urine Urobilinogen Normal (Normal); Urine pH 5.5 (5.0-7.0)
[2023-03-31 06:27] LABS: Specific Gravity > 1.030 (1.005-1.030)
--- NOTE | 2023-03-31 06:56 | ER ---
Nurse's Notes [facility] Name: Tyra Espitia Age: 63 yrs Sex: Female : 1960 Arrival Date: 03/31/2023 Time: 03:04 Bed 15 Private MD: Diagnosis: Abdominal pain, hyperglycemia Presentation: 03/31 03:40 Chief complaint: Patient states: intermittent generalized body pains X1 year. worsening lg3 pains today in upper abdomen, breasts, right shoulder, arm and head. Coronavirus screen: Vaccine status: Patient reports receiving the 2nd dose of the covid vaccine. Client denies travel out of the [place] in the last 14 days. Ebola Screen: No symptoms or risks identified at this time. Initial Sepsis Screen: Does the patient meet any 2 criteria? No. Patient's initial sepsis screen is negative. Does the patient have a suspected source of infection? No. Patient's initial sepsis screen is negative. Risk Assessment: Do you want to hurt yourself or someone else? Patient reports no desire to harm self or others. Onset of symptoms is unknown. 03:40 Method Of Arrival: Wheelchair lg3 03:40 Acuity: AMADO 3 lg3 Triage Assessment: 03:45 General: Appears in no apparent distress. uncomfortable, Behavior is calm, cooperative. lg3 Pain: Complains of pain in head, neck, right breast, left breast, abdomen and right arm. EENT: No deficits noted. No signs and/or symptoms were reported regarding the EENT system. Neuro: No deficits noted. [place] Agitation-Sedation Scale (RASS): 0 - Alert and Calm Level of Consciousness is awake, alert, obeys commands, Oriented to person, place, time, situation, Reports headache weakness. Cardiovascular: No deficits noted. Denies chest pain, shortness of breath, Capillary refill < 3 seconds Clubbing of nail beds is absent JVD is absent Patient's skin is warm and dry. Respiratory: No deficits noted. Airway is patent Respiratory effort is even, unlabored, Respiratory pattern is regular, symmetrical. GI: No deficits noted. Abdomen is round non-distended, obese, Reports lower abdominal pain, upper abdominal pain, nausea, vomiting. : No deficits noted. No signs and/or symptoms were reported regarding the genitourinary system. Derm: No deficits noted. No signs and/or symptoms reported regarding the dermatologic system. Skin is intact, is healthy with good turgor, Skin is dry, Skin is normal, Skin temperature is warm. Musculoskeletal: No deficits noted. Circulation, motion, and sensation intact. Range of motion: intact in all extremities. Historical: - Home Meds: 03:45 tizanidine 2 mg Oral cap 1 cap once daily [Active]; citalopram 40 mg tab 1 tab once lg3 daily [Active]; rosuvastatin 10 mg oral tablet 1 tab daily [Active]; amitriptyline 50 mg oral tablet [Active]; glimepiride 4 mg Oral tab 1 tab twice a day [Active]; losartan 50 mg Oral tab 1 tab once daily [Active]; trazodone 100 mg Oral tab 1 tab once daily [Active]; gabapentin 300 mg oral capsule 1 cap 3 times per day [Active]; aspirin 81 mg Oral cap 1 cap once daily [Active]; Insulin: Regular Sub-Q [Active]; - PMHx: 03:45 Back pain; Diabetes - NIDDM; Gastric Reflux; High Cholesterol; Hypertension; lg3 - PSHx: 03:45 Ankle; section; hernia repair; lg3 - Immunization history:: Adult Immunizations up to date, Client reports receiving the 2nd dose of the Covid vaccine, Flu vaccine is not up to date. - Social history:: Smoking status: Patient reports the use of cigarette tobacco products, smokes one-half pack cigarettes per day, Patient uses alcohol, occasionally. Patient/guardian denies using street drugs. Screenin:45 [facility] ED Fall Risk Assessment (Adult) History of falling in the last 3 months, jw7 including since admission No falls in past 3 months (0 pts) Score/Fall Risk Level 0 - 2 = Low Risk Oriented to surroundings, Maintained a safe environment, Educated pt \T\ family on fall prevention, incl call for assistance when getting out of bed. Abuse screen: Denies threats or abuse. Denies injuries from another. Nutritional screening: No deficits noted. Tuberculosis screening: No symptoms or risk factors identified. Assessment: 03:45 General: See triage assessment. jw7 04:59 Reassessment: Patient appears in no apparent distress at this time. Patient and/or jw7 family updated on plan of care and expected duration. Pain level reassessed. Patient is alert, oriented x 3, equal unlabored respirations, skin warm/dry/pink. 06:30 Reassessment: Patient appears in no apparent distress at this time. Patient and/or jw7 family updated on plan of care and expected duration. Pain level reassessed. Patient is alert, oriented x 3, equal unlabored respirations, skin warm/dry/pink. Patient states feeling better. Patient states symptoms have improved. Vital Signs: 03:30 BP 170 / 91; Pulse 98; Resp 19 S; Pulse Ox 99% on R/A; jw7 03:40 BP 182 / 109; Pulse 105; Resp 19 S; Temp 99.1(O); Pulse Ox 99% on R/A; Weight 92.99 kg lg3 (R); Height 5 ft. 4 in. (R); 03:45 BP 183 / 155; Pulse 94; Resp 18 S; Pulse Ox 99% on R/A; jw7 04:30 BP 142 / 87; Pulse 86; Resp 19 S; Pulse Ox 96% on R/A; jw7 04:45 BP 138 / 86; Pulse 83; Resp 17 S; Pulse Ox 98% on R/A; jw7 05:22 BP 133 / 88; Pulse 92; Resp 15 S; Pulse Ox 97% on R/A; jw7 06:55 BP 142 / 95; Pulse 100; Resp 21 S; Pulse Ox 95% on R/A; jw7 03:40 Body Mass Index 35.19 (92.99 kg, 162.56 cm) lg3 ED Course: 03:08 Patient arrived in ED. jj6 03:33 Jimmie Ellsworth MD is Attending Physician. sp3 03:35 Marilyn Alan, PAULA is Primary Nurse. jw7 03:45 Triage completed. lg3 03:45 Arm band placed on right wrist. lg3 03:45 Patient has correct armband on for positive identification. Bed in low position. Call [facility] light in reach. Side rails up X 1. 04:05 Inserted saline lock: 20 gauge in right antecubital area, using aseptic technique. rv1 Blood collected. 04:06 Lactate w/ 2H reflex if indic. Sent. rv1 04:06 Basic Metabolic Panel Sent. rv1 04:06 CBC with Diff Sent. rv1 04:06 LFT's Sent. rv1 04:06 Magnesium Sent. rv1 04:06 NT PRO-BNP Sent. rv1 04:06 PT-INR Sent. rv1 04:06 Troponin HS Sent. rv1 04:51 No provider procedures requiring assistance completed. jw7 05:18 CT Chest, Abdomen, Pelvis - W/Contrast In Process Unspecified. EDMS 05:21 Flu Sent. rv1 05:21 SARS RAPID Sent. rv1 05:45 UAM Sent. rv1 Administered Medications: 03:30 Drug: HYDROmorphone IVP 1 mg IVP once Route: IVP; Site: right antecubital; jw7 06:54 Follow up: Response: No adverse reaction; Marked relief of symptoms jw7 03:30 Drug: Ondansetron IVP 4 mg IVP once; over 2 minutes Route: IVP; Site: right antecubital;jw7 06:54 Follow up: Response: No adverse reaction; Marked relief of symptoms jw7 03:55 Drug: Labetalol IV 10 mg IV at calculated rate once Route: IV; Rate: calculated rate; jw7 Site: right antecubital; 06:54 Follow up: Response: No adverse reaction; Marked relief of symptoms; IV Status: jw7 Completed infusion; IV Intake: 2ml 06:40 Drug: HYDROmorphone IVP 1 mg IVP once Route: IVP; Site: right antecubital; jw7 06:55 Follow up: Response: No adverse reaction; Marked relief of symptoms jw7 Medication: 04:51 VIS not applicable for this client. jw7 Intake: 06:54 IV: 2ml; Total: 2ml. jw7 Outcome: 06:56 Discharge ordered by MD. rico 07:08 Patient left the ED. jw7 Signatures: Dispatcher [employer] EDMS Dena Dobbins, RN RN lg3 Jimmie Ellsworth MD MD sp3 Cassi Lopez jj6 Marilyn Alan RN RN jw7 Viki Eubanks rv1
--- NOTE | 2023-03-31 06:56 | EDPHYS ---
Physician Documentation [facility] Name: Tyra Espitia Age: 63 yrs Sex: Female : 1960 Arrival Date: 03/31/2023 Time: 03:04 Bed 15 Private MD: ED Physician Jimmie Ellsworth HPI: 03/31 03:53 This 63 yrs old Black Female presents to ER via Wheelchair with complaints of Pain All sp3 Over. 03:53 63-year-old female with history of diabetes, hyperlipidemia, hypertension who presents sp3 to the ED with chief complaint abdominal pain and posterior upper back pain off and on for a year however over the last 48 to 72 hours this patient states has significantly worsened. She denies any other associated symptoms including shortness of breath, anterior chest pain, vomiting, headache, fever, URI symptoms, known sick contacts, travel history, prolonged immobilization, prior blood clot or coagulation pathology, syncope, focal neurological deficit, rash, or any other signs or symptoms on ROS at this time.. Historical: - Home Meds: 03:45 tizanidine 2 mg Oral cap 1 cap once daily [Active]; citalopram 40 mg tab 1 tab once lg3 daily [Active]; rosuvastatin 10 mg oral tablet 1 tab daily [Active]; amitriptyline 50 mg oral tablet [Active]; glimepiride 4 mg Oral tab 1 tab twice a day [Active]; losartan 50 mg Oral tab 1 tab once daily [Active]; trazodone 100 mg Oral tab 1 tab once daily [Active]; gabapentin 300 mg oral capsule 1 cap 3 times per day [Active]; aspirin 81 mg Oral cap 1 cap once daily [Active]; Insulin: Regular Sub-Q [Active]; - PMHx: 03:45 Back pain; Diabetes - NIDDM; Gastric Reflux; High Cholesterol; Hypertension; lg3 - PSHx: 03:45 Ankle; section; hernia repair; lg3 - Immunization history:: Adult Immunizations up to date, Client reports receiving the 2nd dose of the Covid vaccine, Flu vaccine is not up to date. - Social history:: Smoking status: Patient reports the use of cigarette tobacco products, smokes one-half pack cigarettes per day, Patient uses alcohol, occasionally. Patient/guardian denies using street drugs. ROS: 03:55 Constitutional: Negative for fever, chills, and weight loss, Eyes: Negative for injury, sp3 pain, redness, and discharge, ENT: Negative for injury, pain, and discharge, Neck: Negative for injury, pain, and swelling, Cardiovascular: Negative for chest pain, palpitations, and edema, Respiratory: Negative for shortness of breath, cough, wheezing, and pleuritic chest pain, : Negative for injury, bleeding, discharge, and swelling, MS/Extremity: Negative for injury and deformity, Skin: Negative for injury, rash, and discoloration, Neuro: Negative for headache, weakness, numbness, tingling, and seizure, Psych: Negative for depression, anxiety, suicide ideation, homicidal ideation, and hallucinations, Allergy/Immunology: Negative for hives, rash, and allergies, Endocrine: Negative for neck swelling, polydipsia, polyuria, polyphagia, and marked weight changes, 03:55 All other systems are negative, Exam: 03:56 Constitutional: This is a well developed, well nourished patient who is awake, alert, sp3 and in no acute distress. Head/Face: Normocephalic, atraumatic. Eyes: Pupils equal round and reactive to light, extra-ocular motions intact. Lids and lashes normal. Conjunctiva and sclera are non-icteric and not injected. Cornea within normal limits. Periorbital areas with no swelling, redness, or edema. Neck: Trachea midline, no thyromegaly or masses palpated, and no cervical lymphadenopathy. Supple, full range of motion without nuchal rigidity, or vertebral point tenderness. No Meningismus. Chest/axilla: Normal chest wall appearance and motion. Nontender with no deformity. No lesions are appreciated. Cardiovascular: Regular rate and rhythm with a normal S1 and S2. No gallops, murmurs, or rubs. Normal PMI, no JVD. No pulse deficits. Respiratory: Lungs have equal breath sounds bilaterally, clear to auscultation and percussion. No rales, rhonchi or wheezes noted. No increased work of breathing, no retractions or nasal flaring. Back: No spinal tenderness. No costovertebral tenderness. Full range of motion. Skin: Warm, dry with normal turgor. Normal color with no rashes, no lesions, and no evidence of cellulitis. 03:56 Abdomen/GI: Diffuse abdominal pain on exam without peritoneal signs., 05:33 ECG was reviewed by the Attending Physician. EKG demonstrates normal sinus rhythm at 87 sp3 bpm with normal intervals, normal QRS, normal axis, nonspecific diffuse ST's ST changes without evidence of acute ischemia. Vital Signs: 03:30 BP 170 / 91; Pulse 98; Resp 19 S; Pulse Ox 99% on R/A; jw7 03:40 BP 182 / 109; Pulse 105; Resp 19 S; Temp 99.1(O); Pulse Ox 99% on R/A; Weight 92.99 kg lg3 (R); Height 5 ft. 4 in. (R); 03:45 BP 183 / 155; Pulse 94; Resp 18 S; Pulse Ox 99% on R/A; jw7 04:30 BP 142 / 87; Pulse 86; Resp 19 S; Pulse Ox 96% on R/A; jw7 04:45 BP 138 / 86; Pulse 83; Resp 17 S; Pulse Ox 98% on R/A; jw7 05:22 BP 133 / 88; Pulse 92; Resp 15 S; Pulse Ox 97% on R/A; jw7 06:55 BP 142 / 95; Pulse 100; Resp 21 S; Pulse Ox 95% on R/A; jw7 03:40 Body Mass Index 35.19 (92.99 kg, 162.56 cm) lg3 MDM: 03:33 Patient medically screened. sp3 03:56 Data reviewed: vital signs, nurses notes, lab test result(s), EKG, radiologic studies. sp3 ED course: 63-year-old female with above pathology with vague symptoms and diffuse body pain. Differential diagnosis is broad and includes viral syndrome, abdominal pathology including hernia which she has had before, acute coronary syndrome, aortic pathology, other GI pathology, UTI/pyelonephritis spectrum, influenza, among others. Workup will be broad and will include CT scan of the chest abdomen pelvis with contrast, laboratory values, urine analysis and we will treat with Dilaudid and Zofran. Labetalol also for her blood pressure being 182/109 with it being higher on initial arrival. Disposition pending workup and patient course with possible admission due to the complexity of her presentation.. 06:54 ED course: Full workup is negative including CT scan, laboratory values and urinalysis. sp3 Patient has mild hyperglycemia for which she takes insulin already. She will take her morning dose at home. Patient feels much better after pain medication and all symptoms are resolved. We will safely discharged home at this time.. 03/31 03:34 Order name: Basic Metabolic Panel; Complete Time: 05:33 03/31 03:34 Order name: CBC with Diff; Complete Time: 05:33 03/31 03:34 Order name: LFT's; Complete Time: 05:33 03/31 03:34 Order name: Magnesium; Complete Time: 05:33 03/31 03:34 Order name: NT PRO-BNP; Complete Time: 05:33 03/31 03:34 Order name: PT-INR; Complete Time: 05:33 03/31 03:34 Order name: Troponin HS; Complete Time: 05:33 03/31 03:34 Order name: UAM; Complete Time: 06:27 03/31 03:34 Order name: Lactate w/ 2H reflex if indic.; Complete Time: 05:33 03/31 03:43 Order name: SARS RAPID; Complete Time: 06:26 03/31 03:43 Order name: Flu; Complete Time: 06:26 03/31 03:34 Order name: CT Chest, Abdomen, Pelvis - W/Contrast 03/31 03:34 Order name: EKG; Complete Time: 03:35 03/31 03:34 Order name: Cardiac monitoring; Complete Time: 04:51 03/31 03:34 Order name: EKG - Nurse/Tech; Complete Time: 05:17 03/31 03:34 Order name: IV Saline Lock; Complete Time: 04:06 03/31 03:34 Order name: Labs collected and sent; Complete Time: 04:06 03/31 03:34 Order name: O2 Per Protocol; Complete Time: 03:37 03/31 03:34 Order name: O2 Sat Monitoring; Complete Time: 03:37 sp3 Administered Medications: 03:30 Drug: HYDROmorphone IVP 1 mg IVP once Route: IVP; Site: right antecubital; jw7 06:54 Follow up: Response: No adverse reaction; Marked relief of symptoms jw7 03:30 Drug: Ondansetron IVP 4 mg IVP once; over 2 minutes Route: IVP; Site: right antecubital;jw7 06:54 Follow up: Response: No adverse reaction; Marked relief of symptoms jw7 03:55 Drug: Labetalol IV 10 mg IV at calculated rate once Route: IV; Rate: calculated rate; jw7 Site: right antecubital; 06:54 Follow up: Response: No adverse reaction; Marked relief of symptoms; IV Status: jw7 Completed infusion; IV Intake: 2ml 06:40 Drug: HYDROmorphone IVP 1 mg IVP once Route: IVP; Site: right antecubital; jw7 06:55 Follow up: Response: No adverse reaction; Marked relief of symptoms jw7 Disposition Summary: 03/31/23 06:56 Discharge Ordered Notes: Location: Home sp3 Condition: Stable sp3 Diagnosis - Abdominal pain, hyperglycemia sp3 Followup: sp3 - With: Private Physician - When: Upon discharge from the Emergency Department - Reason: Continuance of care Discharge Instructions: - Discharge Summary Sheet sp3 - Abdominal Pain, Adult sp3 - Hyperglycemia sp3 Forms: - Medication Reconciliation Form sp3 - Thank You Letter sp3 - Antibiotic Education sp3 - Prescription Opioid Use sp3 - Patient Portal Instructions sp3 - Leadership Thank You Letter sp3 Signatures: Dispatcher [employer] Dena Blevins RN RN lg3 Jimmie Ellsworth MD MD sp3 Marilyn Alan RN RN jw7
[2023-03-31 11:43] VITALS: BP 142/95; TEMP 99.1; O2SAT 95
--- NOTE | 2023-04-01 18:55 | RAD REPORT ---
EXAM DESCRIPTION: CT - Chest Abdomen Pelvis W Cont - 03/31/2023 6:50 am CLINICAL HISTORY: Chest to pelvis pain COMPARISON: None. TECHNIQUE: CT CHEST ABDOMEN PELVIS WITH IV CONTRAST on 03/31/2023 3:34 AM BUSINESS DEVELOPMENT DIRECTOR. MIPS reconstructions w ere generated. This exam was performed according to our departmental dose-optimization program, which includes autom ated exposure control, adjustment of the mA and/or kV according to patient size and/or use of iterati ve reconstruction technique. FINDINGS: Vascular: Thoracic aorta is normal in course and caliber without aneurysm or dissection. P ulmonary arteries are adequately opacified without acute or chronic filling defects. Abdominal aorta is normal in course and caliber without aneurysm. Pelvic arteries are patent without aneurysm or occl usion. Chest: The heart is normal in size. There is no pericardial effusion. Intrathoracic lymph nodes are n ot enlarged. There is no pleural effusion, pleural thickening or pneumothorax. Central airways are patent. Lungs a re clear with no consolidation, mass or interstitial lung disease. Abdomen: The liver is normal in appearance. There is no biliary dilatation. Gallbladder is normal in appearance. The pancreas and spleen are normal in appearance. The adrenal glands and kidneys are unre markable. There is no free air. There is no retroperitoneal adenopathy. Pelvis: There is no bowel obstruction. Urinary bladder is unremarkable. There is no free fluid. Uteru s is normal in size. Appendix is normal. Skeleton: There are no acute osseous findings. No suspicious bony lesions. IMPRESSION: No definite acute process. Electronically signed by: Daniel Colón MD 03/31/2023 06:33 AM BUSINESS DEVELOPMENT DIRECTOR Due to temporary technical issues with the PACS/Fluency reporting system, reports are being signed by the in house radiologists without review as a courtesy to insure prompt reporting. The interpreting radiologist is fully responsible for the content of the report.
--- NOTE | 2023-04-02 16:59 | EKG ---
Test Date: 2023-03-31 Test Time: 05:16:27 Eight Section Blower: RV MEASUREMENT RESULTS: Intervals: Rate: 87 TN: 180 QRSD: 88 QT: 386 QTc: 464 Hooker: P: 52 TN: 180 QRS: 8 T: 24 INTERPRETIVE STATEMENTS: Normal sinus rhythm Low voltage QRS Borderline ECG Compared to ECG 11/18/2021 02:09:33 Low QRS voltage now present Electronically Signed On 04-02-23 16:53:19 RESEARCH GEOLOGIST by Boyd Palomo
== END ==
LOC: ER 03:04
DX: R10.10 Upper abdominal pain, unspecified (principal); R73.9 Hyperglycemia, unspecified; N64.4 Mastodynia; M25.511 Pain in right shoulder; M79.601 Pain in right arm; R51.9 Headache, unspecified; R53.1 Weakness; Z11.52 Encounter for screening for COVID-19
CPT/HCPCS: 96365; 93005; 85025; 81001; 80048; 36415; 83735; 85610; 80076; 83605; 84484; 83880; 87804 ×2; 71260; 74177; 96375; 99284; 96366; 87811; Q9967; J1170 ×2; J2405

== ENCOUNTER 2023-10-23 15:13 | Emergency (ER) | payer OTHER ==
--- OUTSIDE RECORDS SUMMARY | 2023-10-23 15:18 | XMS REPORT | Continuity of Care Document ---
Author Name Unknown Address [address] [facility] [address] [place] [address] [facility] thconnect Address [address] [facility] [address] [place] [address] Care Team Providers Care Tearer Press Clipping Name Role Phone Yumiko Kaplan Attending Clinician Unavailable Waleska Valencia Attending Clinician Unavailable Ami Rios Attending Clinician Unavailable [email or web address] Attending Clinician Unavaila ble [email or web address]_S Admitting Clinician Unavaila ble Payers Payer Name Policy Type Policy Number Effective Date Expirati on Date Source [facility] Individual Exchange Benefit Plan [id number] 2021 00:00:00 Common [facility]etter from [facility] [id number] 2019 00:00:00 [facility] Ambetter from [facility] [id number] 2019 00:00:00 Common [facility] Ambetter from [facility] [id number] 2019 00:00:00 Common [facility] Amb[facility] from [facility] [id number] 2019 00:00:00 Common [facility] Amb[facility] from [facility] [id number] 2019 00:00:00 [facility] from [facility] [id number] 2019 00:00:00 [facility] from [facility] [id number] 2019 00:00:00 [facility] [id number] 2019 00:00:00 [facility] Problems Condition Name Condition Details Condition Category Status Onset Date Resolution Date Last Treatment Date Treating Clinician Comments Source [id number] Other chronic pain Problem [facility] Wheezing Wheezing Problem [facility] Insomnia Insomnia Problem [facility] Acute bronchitis Acute bronchitis Problem [facility] Goiter Goiter Problem [facility] Nicotine dependence Cigarette nicotine dependence without complicati on Problem [facility] Chronic obstructiv e pulmonary disease Chronic obstructiv e pulmonary disease Problem [facility] Diabetes mellitus type 2 in obese Diabetes mellitus type 2 in obese Problem [facility] Migraine with aura Migraine with aura and without status migrainosu s, not intractabl e Problem [facility] Chronic fatigue syndrome Chronic fatigue Problem [facility] Mixed anxiety and depressive disorder Depression with anxiety Problem [facility] Gastro-eso phageal reflux disease without esophagiti s Gastro-eso phageal reflux disease without esophagiti s Problem [facility] Fatigue Fatigue, unspecifie d type Problem [facility] Allergic rhinitis Acute allergic rhinitis Problem [facility] [id number] Constipati on, unspecifie d constipati on type Problem [facility] [id number] Gastroesop hageal reflux disease, unspecifie d whether esophagiti s present Problem [facility] [id number] Fatty liver Problem [facility] [id number] Osteoarthr itis of lower back Problem [facility] [id number] Elevated blood pressure reading with diagnosis of hypertensi on Problem [facility] Primary insomnia Primary insomnia Problem [facility] [id number] Cervicalgi a Problem [facility] [id number] Degenerati ve disc disease, cervical Problem [facility] [id number] Cervical radiculopa thy Problem [facility] Hypertensi on Hypertensi on Problem [facility] [id number] Smoker Problem [facility] [id number] Pure hyperchole sterolemia Problem [facility] [id number] Lateral epicondyli tis of right elbow Problem [facility] [id number] Chronic depression not affecting current episode of care Problem [facility] [id number] Uncontroll ed type 2 diabetes mellitus with hyperglyce amrit Problem [facility] Mixed hyperlipid emia Mixed hyperlipid emia Problem [facility] [id number] COPD with acute exacerbati on Problem [facility] Social History Social Habit Start Date Stop Date Quantity Comments Source History of Tobacco Use Current Smoker [facility] Sex Assigned At [facility] Smoking Status Start Date Stop Date Source Current Smoker 2023-10-17 00:00:00 [facility] Medications Ordered Medication Name Filled Medication Name Start Date Stop Date Current Medication? Ordering Clinician Indication Dosage Frequency Signature (SIG) Comments Components Source Albuterol Sulfate HFA 108 (90 Base) MCG/ACT Albuterol Sulfate HFA 108 (90 Base) MCG/ACT 8-10 00:00: 00 No 1{puff_ as_need ed} 6xD Albuterol Sulfate HFA 108 (90 Base) MCG/ACT Rosuvastati n Calcium 20 MG Rosuvastati n Calcium 20 MG 9-23 00:00: 00 No 1{table t_at_be dtime} QD Rosuvastat in Calcium 20 MG Kenalog (Triamcinol one) Kenalog (Triamcinol one) 6-25 00:00: 00 No 40mg [facility] Citalopram Hydrobromid e 40 MG Citalopram [...] s_neede d} QD traZODone HCl 100 MG Glimepiride 4 MG Glimepiride 4 MG No 1{table t_with_ food} BID Glimepirid e 4 MG HumuLIN 70/30 KwikPen (70-30) 100 UNIT/ML HumuLIN 70/30 KwikPen (70-30) 100 UNIT/ML No BID HumuLIN 70/30 KwikPen (70-30) 100 UNIT/ML Gabapentin 300 MG Gabapentin 300 MG No 1{capsu le} BID Gabapentin 300 MG Symbicort 160-4.5 MCG/ACT Symbicort 160-4.5 MCG/ACT No 2{puffs } BID Symbicort 160-4.5 MCG/ACT Immunizations Ordered Immunization Name Filled Immunization Name Date Status Comments Source Flucelvax - single dose syringe Flucelvax - single dose syringe 2022-02-21 12:26:00 Completed [facility] Flucelvax - single dose syringe Flucelvax - single dose syringe 2022-02-21 12:26:00 Completed [facility] Flucelvax - single dose syringe Flucelvax - single dose syringe 2022-02-21 12:26:00 Completed [facility] Flucelvax - single dose syringe Flucelvax - single dose syringe 2022-02-21 12:26:00 [facility] Afluria single dose Afluria single dose 12:09:00 Completed [facility] Afluria single dose Afluria single dose 12:09:00 Completed [facility] Afluria single dose Afluria single dose 12:09:00 Completed [facility] Afluria single dose Afluria single dose 12:09:00 Completed [facility] Afluria single dose Afluria single dose 12:09:00 Completed [facility] Afluria single dose Afluria single dose 12:09:00 Completed [facility] Afluria single dose Afluria single dose 12:09:00 Completed [facility] Afluria single dose Afluria single dose 12:09:00 Completed [facility] Afluria single dose Afluria single dose 12:09:00 Completed [facility] Afluria single dose Afluria single dose 12:09:00 Completed [facility] Afluria single dose Afluria single dose 12:09:00 Completed [facility] Afluria single dose Afluria single dose 12:09:00 Completed [facility] Afluria single dose Afluria single dose 12:09:00 Completed [facility] Afluria single dose Afluria single dose 12:09:00 Completed [facility] Afluria single dose Afluria single dose 12:09:00 Completed [facility] Afluria single dose Afluria single dose 12:09:00 Completed [facility] Afluria single dose Afluria single dose 12:09:00 Completed [facility] Afluria single dose Afluria single dose 12:09:00 Completed [facility] Afluria single dose Afluria single dose 12:09:00 Completed [facility] Afluria single dose Afluria single dose 12:09:00 Completed [facility] Afluria single dose Afluria single dose 12:09:00 Completed [facility] Afluria single dose Afluria single dose 12:09:00 Completed [facility] Afluria single dose Afluria single dose 12:09:00 Completed [facility] Afluria single dose Afluria single dose 12:09:00 Completed [facility] Afluria single dose Afluria single dose 12:09:00 Completed [facility] Flucelvax - multidose vial Flucelvax - multidose vial 2018-12-11 12:29:00 Completed [facility] Flucelvax - multidose vial Flucelvax - multidose vial 2018-12-11 12:29:00 Completed [facility] Flucelvax - multidose vial Flucelvax - multidose vial 2018-12-11 12:29:00 Completed [facility] Flucelvax - multidose vial Flucelvax - multidose vial 2018-12-11 12:29:00 Completed [facility] Flucelvax - multidose vial Flucelvax - multidose vial 2018-12-11 12:29:00 Completed [facility] Flucelvax - multidose vial Flucelvax - multidose vial 2018-12-11 12:29:00 Completed [facility] Flucelvax - multidose vial Flucelvax - multidose vial 2018-12-11 12:29:00 Completed [facility] Flucelvax - multidose vial Flucelvax - multidose vial 2018-12-11 12:29:00 Completed [facility] Flucelvax - multidose vial Flucelvax - multidose vial 2018-12-11 12:29:00 Completed [facility] Flucelvax - multidose vial Flucelvax - multidose vial 2018-12-11 12:29:00 Completed [facility] Flucelvax - multidose vial Flucelvax - multidose vial 2018-12-11 12:29:00 Completed [facility] Flucelvax - multidose vial Flucelvax - multidose vial 2018-12-11 12:29:00 Completed [facility] Flucelvax - multidose vial Flucelvax - multidose vial 2018-12-11 12:29:00 Completed [facility] Flucelvax - multidose vial Flucelvax - multidose vial 2018-12-11 12:29:00 Completed [facility] Flucelvax - multidose vial Flucelvax - multidose vial 2018-12-11 12:29:00 Completed [facility] Flucelvax - multidose vial Flucelvax - multidose vial 2018-12-11 12:29:00 Completed [facility] Flucelvax - multidose vial Flucelvax - multidose vial 2018-12-11 12:29:00 Completed [facility] Flucelvax - multidose vial Flucelvax - multidose vial 2018-12-11 12:29:00 Completed [facility] Flucelvax - multidose vial Flucelvax - multidose vial 2018-12-11 12:29:00 Completed [facility] Flucelvax - multidose vial Flucelvax - multidose vial 2018-12-11 12:29:00 Completed [facility] Flucelvax - multidose vial Flucelvax - multidose vial 2018-12-11 12:29:00 Completed [facility] Flucelvax - multidose vial Flucelvax - multidose vial 2018-12-11 12:29:00 Completed [facility] Flucelvax - multidose vial Flucelvax - multidose vial 2018-12-11 12:29:00 Completed [facility] Flucelvax - multidose vial Flucelvax - multidose vial 2018-12-11 12:29:00 Completed [facility] Flucelvax - multidose vial Flucelvax - multidose vial 2018-12-11 12:29:00 Completed [facility] Flucelvax - multidose vial Flucelvax - multidose vial 2018-12-11 00:00:00 Completed [facility] Kenalog (Triamcinolone) Kenalog (Triamcinolone) 2017-09-03 16:24:00 Completed [facility] Kenalog (Triamcinolone) Kenalog (Triamcinolone) 2017-09-03 16:24:00 Completed [facility] Kenalog (Triamcinolone) Kenalog (Triamcinolone) 2017-09-03 16:24:00 Completed [facility] Kenalog (Triamcinolone) Kenalog (Triamcinolone) 2017-09-03 16:24:00 Completed [facility] Afluria single dose Afluria single dose Unknown Completed [facility] Flucelvax - multidose vial Flucelvax - multidose vial Unknown Completed [facility] Flucelvax - single dose syringe Flucelvax - single dose syringe Unknown Completed [facility] Afluria single dose Afluria single dose Unknown Completed [facility] Flucelvax - multidose vial Flucelvax - multidose vial Unknown Completed [facility] Flucelvax - single dose syringe Flucelvax - single dose syringe Unknown Completed [facility] Afluria single dose Afluria single dose Unknown Completed [facility] Flucelvax - multidose vial Flucelvax - multidose vial Unknown Completed [facility] Flucelvax - single dose syringe Flucelvax - single dose syringe Unknown Completed [facility] Afluria single dose Afluria single dose Unknown Completed [facility] Flucelvax - multidose vial Flucelvax - multidose vial Unknown Completed [facility] Flucelvax - single dose syringe Flucelvax - single dose syringe Unknown Completed [facility] Afluria single dose Afluria single dose Unknown Completed [facility] Flucelvax - multidose vial Flucelvax - multidose vial Unknown Completed [facility] Flucelvax - single dose syringe Flucelvax - single dose syringe Unknown Completed [facility] Afluria (IIV4) - 3 years and older - SDS - 0.5mL Afluria (IIV4) - 3 years and older - SDS - 0.5mL Unknown Completed [facility] Flucelvax (ccIIV4) - MDV - 0.5mL Flucelvax (ccIIV4) - MDV - 0.5mL Unknown Completed [facility] Flucelvax (ccIIV4) - SDS - 0.5mL Flucelvax (ccIIV4) - SDS - 0.5mL Unknown Completed [facility] Afluria (IIV4) - 3 years and older - SDS - 0.5mL Afluria (IIV4) - 3 years and older - SDS - 0.5mL Unknown Completed [facility] Flucelvax (ccIIV4) - MDV - 0.5mL Flucelvax (ccIIV4) - MDV - 0.5mL Unknown Completed [facility] Flucelvax (ccIIV4) - SDS - 0.5mL Flucelvax (ccIIV4) - SDS - 0.5mL Unknown Completed [facility] Afluria (IIV4) - 3 years and older - SDS - 0.5mL Afluria (IIV4) - 3 years and older - SDS - 0.5mL Unknown Completed [facility] Flucelvax (ccIIV4) - MDV - 0.5mL Flucelvax (ccIIV4) - MDV - 0.5mL Unknown Completed [facility] Flucelvax (ccIIV4) - SDS - 0.5mL Flucelvax (ccIIV4) - SDS - 0.5mL Unknown Completed [facility] Afluria (IIV4) - 3 years and older - SDS - 0.5mL Afluria (IIV4) - 3 years and older - SDS - 0.5mL Unknown Completed [facility] Flucelvax (ccIIV4) - MDV - 0.5mL Flucelvax (ccIIV4) - MDV - 0.5mL Unknown Completed [facility] Flucelvax (ccIIV4) - SDS - 0.5mL Flucelvax (ccIIV4) - SDS - 0.5mL Unknown Completed [facility] Afluria (IIV4) - 3 years and older - SDS - 0.5mL Afluria (IIV4) - 3 years and older - SDS - 0.5mL Unknown Completed [facility] Flucelvax (ccIIV4) - MDV - 0.5mL Flucelvax (ccIIV4) - MDV - 0.5mL Unknown Completed [facility] Flucelvax (ccIIV4) - SDS - 0.5mL Flucelvax (ccIIV4) - SDS - 0.5mL Unknown Completed [facility] Afluria (IIV4) - 3 years and older - SDS - 0.5mL Afluria (IIV4) - 3 years and older - SDS - 0.5mL Unknown Completed [facility] Flucelvax (ccIIV4) - MDV - 0.5mL Flucelvax (ccIIV4) - MDV - 0.5mL Unknown Completed [facility] Flucelvax (ccIIV4) - SDS - 0.5mL Flucelvax (ccIIV4) - SDS - 0.5mL Unknown Completed [facility] Afluria (IIV4) - 3 years and older - SDS - 0.5mL Afluria (IIV4) - 3 years and older - SDS - 0.5mL Unknown Completed [facility] Fluarix (IIV4) - SDS - 0.5mL Fluarix (IIV4) - SDS - 0.5mL Unknown Completed [facility] Flucelvax (ccIIV4) - MDV - 0.5mL Flucelvax (ccIIV4) - MDV - 0.5mL Unknown Completed [facility] Flucelvax (ccIIV4) - SDS - 0.5mL Flucelvax (ccIIV4) - SDS - 0.5mL Unknown Completed [facility] Afluria (IIV4) - 3 years and older - SDS - 0.5mL Afluria (IIV4) - 3 years and older - SDS - 0.5mL Unknown Completed [facility] Fluarix (IIV4) - SDS - 0.5mL Fluarix (IIV4) - SDS - 0.5mL Unknown Completed [facility] Flucelvax (ccIIV4) - MDV - 0.5mL Flucelvax (ccIIV4) - MDV - 0.5mL Unknown Completed [facility] Flucelvax (ccIIV4) - SDS - 0.5mL Flucelvax (ccIIV4) - SDS - 0.5mL Unknown Completed [facility] Boostrix (Tdap) Boostrix (Tdap) Unknown Completed [facility] Afluria (IIV4) - 3 years and older - SDS - 0.5mL Afluria (IIV4) - 3 years and older - SDS - 0.5mL Unknown Completed [facility] Fluarix (IIV4) - SDS - 0.5mL Fluarix (IIV4) - SDS - 0.5mL Unknown Completed [facility] Flucelvax (ccIIV4) - MDV - 0.5mL Flucelvax (ccIIV4) - MDV - 0.5mL Unknown Completed [facility] Flucelvax (ccIIV4) - SDS - 0.5mL Flucelvax (ccIIV4) - SDS - 0.5mL Unknown Completed [facility] Boostrix (Tdap) Boostrix (Tdap) Unknown Completed [facility] Afluria (IIV4) - 3 years and older - SDS - 0.5mL Afluria (IIV4) - 3 years and older - SDS - 0.5mL Unknown Completed [facility] Fluarix (IIV4) - SDS - 0.5mL Fluarix (IIV4) - SDS - 0.5mL Unknown Completed [facility] Flucelvax (ccIIV4) - MDV - 0.5mL Flucelvax (ccIIV4) - MDV - 0.5mL Unknown Completed [facility] Flucelvax (ccIIV4) - SDS - 0.5mL Flucelvax (ccIIV4) - SDS - 0.5mL Unknown Completed [facility] Boostrix (Tdap) Boostrix (Tdap) Unknown Completed [facility] Afluria (IIV4) - 3 years and older - SDS - 0.5mL Afluria (IIV4) - 3 years and older - SDS - 0.5mL Unknown Completed [facility] Fluarix (IIV4) - SDS - 0.5mL Fluarix (IIV4) - SDS - 0.5mL Unknown Completed [facility] Flucelvax (ccIIV4) - MDV - 0.5mL Flucelvax (ccIIV4) - MDV - 0.5mL Unknown Completed [facility] Flucelvax (ccIIV4) - SDS - 0.5mL Flucelvax (ccIIV4) - SDS - 0.5mL Unknown Completed [facility] Boostrix (Tdap) Boostrix (Tdap) Unknown Completed [facility] Afluria (IIV4) - 3 years and older - SDS - 0.5mL Afluria (IIV4) - 3 years and older - SDS - 0.5mL Unknown Completed [facility] Fluarix (IIV4) - SDS - 0.5mL Fluarix (IIV4) - SDS - 0.5mL Unknown Completed [facility] Flucelvax (ccIIV4) - MDV - 0.5mL Flucelvax (ccIIV4) - MDV - 0.5mL Unknown Completed [facility] Flucelvax (ccIIV4) - SDS - 0.5mL Flucelvax (ccIIV4) - SDS - 0.5mL Unknown Completed [facility] Boostrix (Tdap) Boostrix (Tdap) Unknown Completed [facility] Afluria (IIV4) - 3 years and older - SDS - 0.5mL Afluria (IIV4) - 3 years and older - SDS - 0.5mL Unknown Completed [facility] Fluarix (IIV4) - SDS - 0.5mL Fluarix (IIV4) - SDS - 0.5mL Unknown Completed [facility] Flucelvax (ccIIV4) - MDV - 0.5mL Flucelvax (ccIIV4) - MDV - 0.5mL Unknown Completed [facility] Flucelvax (ccIIV4) - SDS - 0.5mL Flucelvax (ccIIV4) - SDS - 0.5mL Unknown Completed [facility] Boostrix (Tdap) Boostrix (Tdap) Unknown Completed [facility] Afluria single dose Afluria single dose Unknown Completed [facility] Flucelvax - multidose vial Flucelvax - multidose vial Unknown Completed [facility] Flucelvax - single dose syringe Flucelvax - single dose syringe Unknown Completed [facility] Afluria single dose Afluria single dose Unknown Completed [facility] Flucelvax - multidose vial Flucelvax - multidose vial Unknown Completed [facility] Flucelvax - single dose syringe Flucelvax - single dose syringe Unknown Completed [facility] Vital Signs Vital Name Observation Time Observation Value Comments S ource height 2023-08-14 13:20:00 64 [in_i] Commo n [facility] weight 2023-08-14 13:20:00 226 [lb_av] Comm on [facility] temperature 2023-08-14 13:20:00 97.0 [degF] Com mon [facility] bmi 2023-08-14 13:20:00 38.79 kg/m2 Comm on [facility] oximetry 2023-08-14 13:20:00 97 % Commo n [facility] respiratory rate 2023-08-14 13:20:00 16 /min Common [facility] blood pressure systolic 2023-08-14 13:20:00 124 mm[Hg] [facility] blood pressure diastolic 2023-08-14 13:20:00 68 mm[Hg] Common [facility] height 2023-07-24 15:40:00 64 [in_i] Commo n [facility] weight 2023-07-24 15:40:00 225.6 [lb_av] Co mmon [facility] temperature 2023-07-24 15:40:00 97.2 [degF] Com [facility] bmi 2023-07-24 15:40:00 38.72 kg/m2 Comm on [facility] oximetry 2023-07-24 15:40:00 95 % Commo n [facility] respiratory rate 2023-07-24 15:40:00 16 /min Common [facility] blood pressure systolic 2023-07-24 15:40:00 126 mm[Hg] [facility] blood pressure diastolic 2023-07-24 15:40:00 62 mm[Hg] [facility] height 2023-05-22 14:20:00 64 [in_i] Commo n [facility] weight 2023-05-22 14:20:00 219 [lb_av] Comm on [facility] temperature 2023-05-22 14:20:00 97.2 [degF] Com [facility] bmi 2023-05-22 14:20:00 37.59 kg/m2 Comm on [facility] oximetry 2023-05-22 14:20:00 95 % Commo n [facility] respiratory rate 2023-05-22 14:20:00 16 /min [facility] blood pressure systolic 2023-05-22 14:20:00 130 mm[Hg] [facility] blood pressure diastolic 2023-05-22 14:20:00 68 mm[Hg] [facility] height 2023-04-17 15:00:00 64 [in_i] Commo n [facility] weight 2023-04-17 15:00:00 222 [lb_av] Comm on [facility] temperature 2023-04-17 15:00:00 97.4 [degF] Com mon [facility] bmi 2023-04-17 15:00:00 38.1 kg/m2 Commo n [facility] oximetry 2023-04-17 15:00:00 96 % Commo n [facility] respiratory rate 2023-04-17 15:00:00 17 /min [facility] blood pressure systolic 2023-04-17 15:00:00 126 mm[Hg] [facility] blood pressure diastolic 2023-04-17 15:00:00 70 mm[Hg] [facility] height 2023-02-14 11:00:00 64 [in_i] Commo n [facility] weight 2023-02-14 11:00:00 210 [lb_av] Comm on [facility] temperature 2023-02-14 11:00:00 97.0 [degF] Com [facility] bmi 2023-02-14 11:00:00 36.04 kg/m2 Comm on [facility] oximetry 2023-02-14 11:00:00 97 % Commo n [facility] respiratory rate 2023-02-14 11:00:00 16 /min Common [facility] blood pressure systolic 2023-02-14 11:00:00 124 mm[Hg] [facility] blood pressure diastolic 2023-02-14 11:00:00 62 mm[Hg] [facility] height 2022-12-26 09:40:00 64 [in_i] Commo n [facility] weight 2022-12-26 09:40:00 210 [lb_av] Comm on [facility] temperature 2022-12-26 09:40:00 97.3 [degF] Com [facility] bmi 2022-12-26 09:40:00 36.04 kg/m2 Comm on [facility] oximetry 2022-12-26 09:40:00 96 % Commo n [facility] respiratory rate 2022-12-26 09:40:00 17 /min [facility] blood pressure systolic 2022-12-26 09:40:00 116 mm[Hg] [facility] blood pressure diastolic 2022-12-26 09:40:00 80 mm[Hg] [facility] height 2022-10-19 08:20:00 64 [in_i] Commo n [facility] weight 2022-10-19 08:20:00 213.4 [lb_av] Co mmon [facility] temperature 2022-10-19 08:20:00 97.3 [degF] Com [facility] bmi 2022-10-19 08:20:00 36.63 kg/m2 Comm on [facility] oximetry 2022-10-19 08:20:00 94 % Commo n [facility] respiratory rate 2022-10-19 08:20:00 17 /min Common [facility] blood pressure systolic 2022-10-19 08:20:00 162 mm[Hg] [facility] blood pressure diastolic 2022-10-19 08:20:00 81 mm[Hg] [facility] height 2022-02-21 10:20:00 64 [in_i] Commo n [facility] weight 2022-02-21 10:20:00 210.6 [lb_av] Co mmon [facility] temperature 2022-02-21 10:20:00 97.2 [degF] Com mon [facility] bmi 2022-02-21 10:20:00 36.15 kg/m2 Comm on [facility] oximetry 2022-02-21 10:20:00 98 % Commo n [facility] respiratory rate 2022-02-21 10:20:00 15 /min [facility] blood pressure systolic 2022-02-21 10:20:00 119 mm[Hg] [facility] blood pressure diastolic 2022-02-21 10:20:00 69 mm[Hg] Common [facility] height 2021-11-24 11:00:00 64 [in_i] Commo n [facility] weight 2021-11-24 11:00:00 213.4 [lb_av] Co mmon [facility] temperature 2021-11-24 11:00:00 97.3 [degF] Com mon [facility] bmi 2021-11-24 11:00:00 36.63 kg/m2 Comm on [facility] oximetry 2021-11-24 11:00:00 95 % Commo n [facility] respiratory rate 2021-11-24 11:00:00 16 /min Common [facility] blood pressure systolic 2021-11-24 11:00:00 132 mm[Hg] Common [facility] blood pressure diastolic 2021-11-24 11:00:00 74 mm[Hg] Common [facility] height 2021-05-16 10:00:00 64 [in_i] Commo n [facility] weight 2021-05-16 10:00:00 224 [lb_av] Comm on [facility] temperature 2021-05-16 10:00:00 97.3 [degF] Com [facility] bmi 2021-05-16 10:00:00 38.45 kg/m2 Comm on [facility] oximetry 2021-05-16 10:00:00 98 % Commo n [facility] respiratory rate 2021-05-16 10:00:00 18 /min Common [facility] blood pressure systolic 2021-05-16 10:00:00 132 mm[Hg] Common [facility] blood pressure diastolic 2021-05-16 10:00:00 84 mm[Hg] Common [facility] height 2021-04-18 16:00:00 64 [in_i] Commo n [facility] weight 2021-04-18 16:00:00 220.4 [lb_av] Co mmon [facility] temperature 2021-04-18 16:00:00 97.6 [degF] Com [facility] bmi 2021-04-18 16:00:00 37.83 kg/m2 Comm on [facility] oximetry 2021-04-18 16:00:00 97 % Commo n [facility] respiratory rate 2021-04-18 16:00:00 16 /min Common [facility] blood pressure systolic 2021-04-18 16:00:00 128 mm[Hg] Common [facility] blood pressure diastolic 2021-04-18 16:00:00 72 mm[Hg] Common [facility] height 2021-01-03 16:00:00 64 [in_i] Commo n [facility] weight 2021-01-03 16:00:00 217 [lb_av] Comm on [facility] bmi 2021-01-03 16:00:00 37.24 kg/m2 Comm on [facility] height 2020-12-07 15:00:00 64.00 [in_i] Com mon [facility] weight 2020-12-07 15:00:00 217 [lb_av] Comm on [facility] bmi 2020-12-07 15:00:00 37.24 kg/m2 Comm on [facility] Encounters Start Date/Time End Date/Time Encounter Type Admission Type Attending [facility] Care Department Encounter ID Source 2023-10-19 10:19:00 Outpatient KaplanYumiko STLMLC STLMLC [id number] [facility] 2023-10-17 15:28:00 Outpatient Kaplan Yumiko STLMLC STLMLC [id number] [facility] 2023-08-13 15:55:00 Outpatient Kaplan, Yumiko STLMLC STLMLC [id number] [facility] 2023-07-20 08:57:00 Outpatient Kaplan Yumiko STLMLC STLMLC [id number] [facility] 2023-05-18 09:34:00 Outpatient Kaplan Yumiko STLMLC STLMLC [id number] [facility] 2023-03-19 13:13:00 Outpatient Kaplan, Yumiko STLMLC STLMLC [id number] [facility] 2023-02-12 09:05:00 Outpatient Kaplan, Yumiko STLMLC STLMLC [id number] [facility] 2022-12-26 09:44:00 Outpatient Kaplan, Yumiko STLMLC STLMLC [id number] [facility] 2022-10-18 07:48:00 Outpatient Kaplan, Yumiko STLMLC STLMLC [id number] [facility] 2022-08-14 09:31:00 Outpatient Yumiko Kaplan STLMLC STLMLC [id number] [facility] 2022-08-02 15:56:00 Outpatient [facility]C STL[facility]C [id number] [facility] 2022-06-07 17:00:00 Outpatient Waleska Valencia STLMLC STLMLC [id number] [facility] 2022-04-12 09:13:00 Outpatient Waleska Valencia STLMLC STLMLC [id number] [facility] 2022-02-17 08:34:00 Outpatient Rios, Na STLMLC STLMLC [id number] [facility] 2022-02-09 15:14:00 Outpatient Rios, Na STLMLC STLMLC [id number] [facility] 2022-02-01 14:22:00 Outpatient Rios, Na STLMLC STLMLC [id number] [facility] 2021-10-28 15:08:00 Outpatient Rios, Na STLMLC STLMLC [id number] [facility] 2021-09-21 09:52:00 Outpatient Rios, Na STLMLC STLMLC [id number] [facility] 2021-08-17 15:22:00 Outpatient Rios, Na STLMLC STLMLC [id number] [facility] 2021-05-13 09:55:00 Outpatient Rios, Na STLMLC STL[facility]C [id number] [facility] 2021-04-18 16:00:01 Outpatient Rios, Na STLMLC STLMLC [id number] [facility] 2021-04-15 14:25:00 Outpatient Rios, Na STLMLC STLMLC [id number] [facility] 2021-04-14 13:36:01 Outpatient Rios, Na STLMLC STLMLC [id number] [facility] 2021-04-06 14:26:39 Outpatient Rios, Na STLMLC STLMLC [id number] [facility] 2021-04-06 14:20:13 Outpatient Rios, Na STLMLC STLMLC [id number] [facility] 2021-04-06 14:04:22 Outpatient Rios, Na STLMLC STLMLC [id number] [facility] 2021-04-06 13:41:28 Outpatient Rios, Na STLMLC STLMLC [id number] [facility] 2021-04-06 13:39:10 Outpatient Rios, Na STLMLC STL[facility]C [id number] [facility] 2021-04-06 13:38:28 Outpatient Rios, Na STLMLC STLMLC [id number] [facility] 2021-04-06 13:34:20 Outpatient Rios, Na STLMLC STLMLC [id number] [facility] 2021-04-06 12:59:39 Outpatient Rios, Na STLMLC STLMLC [id number] [facility] 2021-04-06 12:20:03 Outpatient Rios, Na STLMLC STLMLC [id number] [facility] 2021-04-06 12:13:37 Outpatient Rios, Na STLMLC STLMLC [id number] [facility] 2021-04-06 12:13:01 Outpatient Rios, Na STLMLC STLMLC [id number] [facility] 2021-04-06 12:11:17 Outpatient Rios, Na STLMLC STLMLC [id number] [facility] 2021-04-06 11:50:24 Outpatient Rios, Na STLMLC STL[facility]C [id number] [facility] 2021-04-06 11:44:00 Outpatient Rios, Na STLMLC STLMLC [id number] [facility] 2021-04-06 11:12:27 Outpatient Rios, Na STLMLC STLMLC [id number] [facility] 2021-04-06 11:01:17 Outpatient Blanca, Na STLMLC STLMLC [id number] [facility] 2023-10-15 00:00:00 2023-10-15 00:00:00 (TEL) STLMLC STLMLC [id number] [facility] 2023-10-03 00:00:00 2023-10-03 00:00:00 (TEL) STLMLC STLMLC [id number] [facility] 2023-10-03 00:00:00 2023-10-03 00:00:00 (TEL) STLMLC STLMLC [id number] [facility] 2023-09-27 00:00:00 2023-09-27 00:00:00 (TEL) STLMLC STLMLC [id number] [facility] 2023-08-15 00:00:00 2023-08-15 00:00:00 (TEL) STLMLC STLMLC [id number] [facility] 2023-08-14 00:00:00 2023-08-14 00:00:00 OFFICE VISIT ESTAB PT LEVEL 4 [facility]C STL[facility]C [id number] [facility] 2023-07-24 00:00:00 2023-07-24 00:00:00 OFFICE VISIT ESTAB PT LEVEL 4 [facility] ST[facility]C [id number] [facility] 2023-07-16 00:00:00 2023-07-16 00:00:00 (TEL) STLMLC STL[facility]C [id number] [facility] 2023-06-06 00:00:00 2023-06-06 00:00:00 (TEL) STLMLC STLMLC [id number] [facility] 2023-05-31 00:00:00 2023-05-31 00:00:00 (TEL) STLMLC STLMLC [id number] [facility] 2023-05-22 00:00:00 2023-05-22 00:00:00 (WELLNESS) Wellness Visit STLMLC STLMLC [id number] [facility] 2023-04-17 00:00:00 2023-04-17 00:00:00 OFFICE VISIT ESTAB PT LEVEL 4 [facility]C ST[facility]C [id number] [facility] 2023-02-14 00:00:00 2023-02-14 00:00:00 OFFICE VISIT ESTAB PT LEVEL 4 [facility]C STL[facility]C [id number] [facility] 2023-01-09 00:00:00 2023-01-09 00:00:00 Outpatient GC_GCBZW_Ka diyala_S [facility] [id number] [facility] 2022-12-26 00:00:00 2022-12-26 00:00:00 OFFICE VISIT ESTAB PT LEVEL 4 [facility]C STL[facility]C [id number] [facility] 2022-11-22 00:00:00 2022-11-22 00:00:00 (TEL) STLMLC STLMLC [id number] [facility] 2022-10-27 00:00:00 2022-10-27 00:00:00 (TEL) STLMLC STLMLC [id number] [facility] 2022-10-25 00:00:00 2022-10-25 00:00:00 (TEL) STLMLC STLMLC [id number] [facility] 2022-10-19 00:00:00 2022-10-19 00:00:00 OFFICE VISIT ESTAB PT LEVEL 4 [facility]C STL[facility]C [id number] [facility] 2022-09-28 00:00:00 2022-09-28 00:00:00 (TEL) STLMLC STLMLC [id number] [facility] 2022-08-14 00:00:00 2022-08-14 00:00:00 (TEL) STLMLC STLMLC [id number] [facility] 2022-08-02 00:00:00 2022-08-02 00:00:00 (TEL) STLMLC STLMLC [id number] [facility] 2022-06-28 00:00:00 2022-06-28 00:00:00 (TEL) STLMLC STLMLC [id number] [facility] 2022-06-26 00:00:00 2022-06-26 00:00:00 (TEL) STLMLC STLMLC [id number] [facility] 2022-05-02 00:00:00 2022-05-02 00:00:00 (TEL) STLMLC STLMLC [id number] [facility] 2022-04-28 00:00:00 2022-04-28 00:00:00 (TEL) STLMLC STLMLC [id number] [facility] 2022-04-12 00:00:00 2022-04-12 00:00:00 (TEL) STLMLC STLMLC [id number] [facility] 2022-02-23 00:00:00 2022-02-23 00:00:00 (TEL) STLMLC STLMLC [id number] [facility] 2022-02-21 00:00:00 2022-02-21 00:00:00 OFFICE VISIT ESTAB PT LEVEL 4 STLMLC ST[facility]C [id number] [facility] 2022-02-13 00:00:00 2022-02-13 00:00:00 (TEL) STLMLC STLMLC [id number] [facility] 2022-02-09 00:00:00 2022-02-09 00:00:00 (TEL) STLMLC STLMLC [id number] [facility] 2022-02-01 00:00:00 2022-02-01 00:00:00 (TEL) STLMLC STLMLC [id number] [facility] 2021-12-02 00:00:00 2021-12-02 00:00:00 (TEL) STLMLC STLMLC [id number] [facility] 2021-11-28 00:00:00 2021-11-28 00:00:00 (TEL) STLMLC STLMLC [id number] [facility] 2021-11-24 00:00:00 2021-11-24 00:00:00 OFFICE VISIT ESTAB PT LEVEL 4 [facility]C ST[facility]C [id number] [facility] 2021-10-26 00:00:00 2021-10-26 00:00:00 (TEL) STLMLC STLMLC [id number] [facility] 2021-10-18 00:00:00 2021-10-18 00:00:00 (TEL) STLMLC STLMLC [id number] [facility] 2021-05-24 00:00:00 2021-05-24 00:00:00 (TEL) STLMLC STLMLC [id number] [facility] 2021-05-16 00:00:00 2021-05-16 00:00:00 OFFICE VISIT EST PT LEVEL 3 STLMLC STLMLC [id number] [facility] 2021-04-18 00:00:00 2021-04-18 00:00:00 OFFICE VISIT ESTAB PT LEVEL 4 [facility]C STL[facility]C [id number] [facility] 2021-04-04 00:00:00 2021-04-04 00:00:00 (TEL) STLMLC STLMLC [id number] [facility] 2021-02-10 00:00:00 2021-02-10 00:00:00 (TEL) STLMLC STLMLC [id number] [facility] 2021-02-08 00:00:00 2021-02-08 00:00:00 (TEL) STLMLC STLMLC [id number] [facility] 2021-01-25 00:00:00 2021-01-25 00:00:00 (TEL) STLMLC STLMLC [id number] [facility] 2021-01-07 00:00:00 2021-01-07 00:00:00 (TEL) STLMLC STLMLC [id number] [facility] 2021-01-03 00:00:00 2021-01-03 00:00:00 OL DIG E/M SVC 11-20 MIN STLMLC STLMLC [id number] [facility] 2020-12-27 00:00:00 2020-12-27 00:00:00 (TEL) STLMLC STLMLC [id number] [facility] 2020-12-10 00:00:00 2020-12-10 00:00:00 (TEL) STLMLC STLMLC [id number] [facility] 2020-12-07 00:00:00 2020-12-07 00:00:00 OL DIG E/M SVC 11-20 MIN STLMLC STLMLC [id number] [facility] 2020-11-03 00:00:00 2020-11-03 00:00:00 Outpatient [facility] ST[facility] [id number] [facility] 2020-07-14 00:00:00 2020-07-14 00:00:00 Outpatient [facility] ST[facility]C [id number] [facility] 2020-07-08 00:00:00 2020-07-08 00:00:00 Outpatient [facility] [id number] [facility] 2020-03-25 00:00:00 2020-03-25 00:00:00 Outpatient [facility] [id number] [facility] 2020-01-09 00:00:00 2020-01-09 00:00:00 Outpatient [facility] [id number] [facility] 2020-01-09 00:00:00 2020-01-09 00:00:00 Outpatient [facility] [id number] [facility] 2019-12-09 00:00:00 2019-12-09 00:00:00 Outpatient [facility] [id number] [facility] 2019-12-08 00:00:00 2019-12-08 00:00:00 Outpatient [facility] [id number] [facility] 2019-11-20 08:40:00 2019-11-20 08:40:[address] [facility] [id number] [facility] 2019-08-26 16:17:00 2019-08-26 16:17:[address] [facility] [id number] [facility] 2019-08-20 08:00:00 2019-08-20 08:00:[address] [facility] [facility] [id number] [facility] 2019-08-15 09:31:00 2019-08-15 09:31:[address] [facility] [id number] [facility] 2019-05-16 13:20:00 2019-05-16 13:20:[address] [facility] [id number] [facility] 2019-02-18 03:25:00 2019-02-18 03:25:[address] [facility] [facility] [id number] [facility] 2019-02-03 17:32:00 2019-02-03 17:32:[address] [facility] [id number] [facility] 2019-01-31 13:00:00 2019-01-31 13:00:[address] [facility] [id number] [facility] 2018-12-19 15:33:00 2018-12-19 15:33:[address] [facility] [id number] [facility] 2018-12-11 11:40:00 2018-12-11 11:40:[address] [facility] [id number] [facility] 2018-09-27 11:40:00 2018-09-27 11:40:[address] [facility] [id number] [facility] 2018-08-16 15:00:00 2018-08-16 15:00:[address] [facility] [id number] [facility] 2018-07-16 10:33:00 2018-07-16 10:33:[address] [facility] [id number] [facility] 2018-07-05 02:46:00 2018-07-05 02:46:[address] [facility] [id number] [facility] 2018-05-30 15:00:00 2018-05-30 15:00:00 [facility] [id number] [facility] 2018-04-18 14:30:00 2018-04-18 14:30:[address] [facility] [id number] [facility] 2018-03-18 16:46:00 2018-03-18 16:46:[address] [facility] [id number] [facility] 2018-03-04 12:34:00 2018-03-04 12:34:[address] [facility] [id number] [facility] 2017-12-11 10:37:00 2017-12-11 10:37:00 Outpatient [facility] [id number] [facility] 2017-12-04 14:30:00 2017-12-04 14:30:00 Outpatient [facility] [id number] [facility] Results Test Description Test Time Test Comments Results Result Co mments Source HEMOGLOBIN [id number] 00:00:00* Test Item Value Reference Range Interpretation Comme nts HEMOGLOBIN A1c (test code = 4548-4) 11.1 % See_Comment H [Automated 777 Davisa ge] The system which generated this result transmitted reference range: 4.2-5.6 %. The reference range was not used to interpret this result as normal/abnormal. VITAMIN D, 25 [id number] 00:00:00* Test Item Value Reference Range Interpretation Comme nts VITAMIN D, 25 OH (test code = 1989-3) 32 NG/ML SEE BELOW NG/ML LIPID PANEL WITH REFLEX DIRECT [id number] 00:00:00* Test Item Value Reference Range Interpretation Comme nts CALC LDL CHOL (test code = 95924-6) 145 MG/DL See_Comment H [Automated messa ge] The system which generated this result transmitted reference range: <100 MG/DL. The reference range was not used to interpret this result as normal/abnormal. CHOLESTEROL (test code = 2093-3) 220 MG/DL See_Comment H [Automated messa ge] The system which generated this result transmitted reference range: <200 MG/DL. The reference range was not used to interpret this result as normal/abnormal. HDL CHOLESTEROL (test code = 2085-9) 52 MG/DL See_Comment [Automated messa ge] The system which generated this result transmitted reference range: >39 MG/DL. The reference range was not used to interpret this result as normal/abnormal. RISK RATIO LDL/HDL (test code = 29405-5) 2.79 RATIO See_Comment [Automated message] The system which generated this result transmitted reference range: <3.22 RATIO. The reference range was not used to interpret this result as normal/abnormal. TRIGLYCERIDES (test code = 2571-8) 116 MG/DL See_Comment [Automated messa ge] The system which generated this result transmitted reference range: <150 MG/DL. The reference range was not used to interpret this result as normal/abnormal. ALBUMIN/CREATININE RATIO, RANDOM [id number] 00:00:00* Test Item Value Reference Range Interpretation Comme nts ALBUMIN, URINE, RANDOM (test code = 48242-2) 1.4 MG/DL NOT ESTAB MG/DL CALC ALBUMIN/CREAT, RND (test code = 20492-9) 22 MG/G See_Comment [Automated messa ge] The system which generated this result transmitted reference range: <30 MG/G. The reference range was not used to interpret this result as normal/abnormal. CREATININE, URINE, CONC. (test code = 2161-8) 63.2 MG/DL NOT ESTAB MG/DL COMPREHENSIVE METABOLIC [id number] 00:00:00* Test Item Value Reference Range Interpretation Comme nts ALBUMIN (test code = 1751-7) 4.4 G/DL See_Comment [Automated messa ge] The system which generated this result transmitted reference range: 3.5-5.2 G/DL. The reference range was not used to interpret this result as normal/abnormal. ALKALINE PHOSPHATASE (test code = 6768-6) 148 U/L See_Comment H [Automated message] The system which generated this result transmitted reference range: 40-140 U/L. The reference range was not used to interpret this result as normal/abnormal. BILIRUBIN, TOTAL (test code = 1975-2) 0.3 MG/DL See_Comment [Automated message] The system which generated this result transmitted reference range: <=1.2 MG/DL. The reference range was not used to interpret this result as normal/abnormal. BUN (test code = 3094-0) 21 MG/DL See_Comment [Automated messa ge] The system which generated this result transmitted reference range: 8-23 MG/DL. The reference range was not used to interpret this result as normal/abnormal. CALCIUM (test code = 53827-4) 10.6 MG/DL See_Comment H [Automated messa ge] The system which generated this result transmitted reference range: 8.5-10.5 MG/DL. The reference range was not used to interpret this result as normal/abnormal. CALC A/G RATIO (test code = 1759-0) 1.6 RATIO See_Comment [Automated messa ge] The system which generated this result transmitted reference range: 1.0-2.6 RATIO. The reference range was not used to interpret this result as normal/abnormal. CALC BUN/CREAT (test code = 3097-3) 29 RATIO See_Comment H [Automated messa ge] The system which generated this result transmitted reference range: 6-28 RATIO. The reference range was not used to interpret this result as normal/abnormal. CALC GLOBULIN (test code = 96962-2) 2.7 G/DL See_Comment [Automated messa ge] The system which generated this result transmitted reference range: 1.9-3.7 G/DL. The reference range was not used to interpret this result as normal/abnormal. CARBON DIOXIDE (test code = 1963-8) 26 MEQ/L See_Comment [Automated messa ge] The system which generated this result transmitted reference range: 19-31 MEQ/L. The reference range was not used to interpret this result as normal/abnormal. CHLORIDE (test code = 2075-0) 99 MEQ/L See_Comment [Automated messa ge] The system which generated this result transmitted reference range: 95-107 MEQ/L. The reference range was not used to interpret this result as normal/abnormal. CREATININE (test code = 2160-0) 0.73 MG/DL See_Comment [Automated messa ge] The system which generated this result transmitted reference range: 0.60-1.30 MG/DL. The reference range was not used to interpret this result as normal/abnormal. eGFR (2020 CKD-EPI) (test code = 86375-2) 94 ML/MIN/1.73 See_Comment [Automated messa ge] The system which generated this result transmitted reference range: >60 ML/MIN/1.73. The reference range was not used to interpret this result as normal/abnormal. GLUCOSE (test code = 1558-6) 331 MG/DL See_Comment H [Automated messa ge] The system which generated this result transmitted reference range: 70-99 MG/DL. The reference range was not used to interpret this result as normal/abnormal. POTASSIUM (test code = 2823-3) 4.3 MEQ/L See_Comment [Automated messa ge] The system which generated this result transmitted reference range: 3.5-5.4 MEQ/L. The reference range was not used to interpret this result as normal/abnormal. PROTEIN, TOTAL (test code = 2885-2) 7.1 G/DL See_Comment [Automated messa ge] The system which generated this result transmitted reference range: 6.1-8.3 G/DL. The reference range was not used to interpret this result as normal/abnormal. AST (test code = 1920-8) 10 U/L See_Comment [Automated messa ge] The system which generated this result transmitted reference range: 9-40 U/L. The reference range was not used to interpret this result as normal/abnormal. ALT (test code = 1742-6) 7 U/L See_Comment [Automated messa ge] The system which generated this result transmitted reference range: 5-40 U/L. The reference range was not used to interpret this result as normal/abnormal. SODIUM (test code = 2951-2) 137 MEQ/L See_Comment [Automated messa ge] The system which generated this result transmitted reference range: 133-146 MEQ/L. The reference range was not used to interpret this result as normal/abnormal. HEMOGLOBIN [id number] 00:00:00* Test Item Value Reference Range Interpretation Comme nts A1C (test code = 4548-4) 9.2 HEMOGLOBIN [id number] 00:00:00* Test Item Value Reference Range Interpretation Comme nts A1C (test code = 4548-4) 9.2 SEDIMENTATION [id number] 00:00:00* Test Item Value Reference Range Interpretation Comme nts SEDIMENTATION RATE (test code = 4537-7) 10 MM/HOUR See_Comment [Automated message] The system which generated this result transmitted reference range: 0-20 MM/HOUR. The reference range was not used to interpret this result as normal/abnormal. RHEUMATOID FACTOR, [id number] 00:00:00* Test Item Value Reference Range Interpretation Comme nts RHEUMATOID FACTOR, QUANT (test code = 44756-0) <10 IU/ML See_Comment [Automated messa ge] The system which generated this result transmitted reference range: <14 IU/ML. The reference range was not used to interpret this result as normal/abnormal. TONY REFLEX AUTOIMMUNE AB [id number] 00:00:00* Test Item Value Reference Range Interpretation Comme nts ANTI-NUCLEAR ANTIBODIES (chaparro t code = 54894-5) NEGATIVE NEGATIVE [id number] 00:00:00* Test Item Value Reference Range Interpretation Comme nts PROCALCITONIN (test code = 49331-1) 0.06 NG/ML See_Comment [Automated [employer]] The system which generated this result transmitted reference range: <0.10 NG/ML. The reference range was not used to interpret this result as normal/abnormal. VITAMIN D, 25 [id number] 00:00:00* Test Item Value Reference Range Interpretation Comme nts VITAMIN D, 25 OH (test code = 1989-3) 13 NG/ML SEE BELOW NG/ML L HIGH SENSITIVITY [id number] 00:00:00* Test Item Value Reference Range Interpretation Comme nts HIGH SENSITIVITY CRP (test c ode = 44383-6) 4.4 MG/L SEE BELOW MG/L H VITAMIN B 12 AND FOLIC [id number] 00:00:00* Test Item Value Reference Range Interpretation Comme nts FOLIC ACID (test code = 2284-8) 11.1 UG/L SEE BELOW UG/L VITAMIN B-12 (test code = 2132-9) 602 PG/ML See_Comment [Automated [employer]] The system which generated this result transmitted reference range: 200-950 PG/ML. The reference range was not used to interpret this result as normal/abnormal. LYME DISEASE BY [id number] 00:00:00* Test Item Value Reference Range Interpretation Comme nts BORRELIA BURGDORFERI (test c ode = 94869-9) Not Detected CBC W/AUTO [id number] 00:00:00* Test Item Value Reference Range Interpretation Comme nts NUCLEATED RBCS (test code = 61784-9) 0.0 /100 WBC'S See_Comment [Automated [employer]] The system which generated this result transmitted reference range: 0.0 /100 WBC'S. The reference range was not used to interpret this result as normal/abnormal. ABSOLUTE EOSINOPHILS (test code = 95876-6) 0.14 K/UL See_Comment [Automated messa ge] The system which generated this result transmitted reference range: 0.00-0.50 K/UL. The reference range was not used to interpret this result as normal/abnormal. ABSOLUTE LYMPHOCYTES (test code = 39255-2) 2.50 K/UL See_Comment [Automated messa ge] The system which generated this result transmitted reference range: 1.00-4.00 K/UL. The reference range was not used to interpret this result as normal/abnormal. ABSOLUTE MONOCYTES (test code = 07772-0) 0.40 K/UL See_Comment [Automated messa ge] The system which generated this result transmitted reference range: 0.20-1.00 K/UL. The reference range was not used to interpret this result as normal/abnormal. ABSOLUTE NEUTROPHILS (test code = 28544-6) 2.66 K/UL See_Comment [Automated messa ge] The system which generated this result transmitted reference range: 1.50-7.50 K/UL. The reference range was not used to interpret this result as normal/abnormal. BASOPHILS (test code = 36393-4) 0.3 % EOSINOPHILS (test code = 41111-8) 2.4 % HEMATOCRIT (test code = 68021-6) 41.1 % See_Comment [Automated messa ge] The [...] result as normal/abnormal. LYMPHOCYTES (test code = 74439-4) 43.5 % MCH (test code = 43438-7) 30.8 PG See_Comment [Automated messa ge] The system which generated this result transmitted reference range: 25.0-33.0 PG. The reference range was not used to interpret this result as normal/abnormal. MCHC (test code = 59857-4) 33.6 G/DL See_Comment [Automated messa ge] The system which generated this result transmitted reference range: 31.0-36.0 G/DL. The reference range was not used to interpret this result as normal/abnormal. MCV (test code = 79453-6) 91.7 fL See_Comment [Automated messa ge] The system which generated this result transmitted reference range: 80.0-99.0 fL. The reference range was not used to interpret this result as normal/abnormal. MONOCYTES (test code = 39883-6) 7.0 % NEUTROPHILS (test code = 74694-6) 46.3 % PLATELET COUNT (test code = 66321-4) 327 K/UL See_Comment [Automated messa ge] The system which generated this result transmitted reference range: 130-400 K/UL. The reference range was not used to interpret this result as normal/abnormal. RBC (test code = 41114-8) 4.48 M/UL See_Comment [Automated messa ge] The system which generated this result transmitted reference range: 3.80-5.40 M/UL. The reference range was not used to interpret this result as normal/abnormal. RDW (test code = 05024-2) 11.4 % See_Comment L [Automated messa ge] The system which generated this result transmitted reference range: 11.5-15.0 %. The reference range was not used to interpret this result as normal/abnormal. WBC (test code = 67599-3) 5.8 K/UL See_Comment [Automated messa ge] The system which generated this result transmitted reference range: 3.5-11.0 K/UL. The reference range was not used to interpret this result as normal/abnormal. HEMOGLOBIN [id number] 00:00:00* Test Item Value Reference Range Interpretation Comme [facility] HEMOGLOBIN A1c (test code = 4548-4) 10.8 % See_Comment H [Automated messa ge] The system which generated this result transmitted reference range: 4.2-5.6 %. The reference range was not used to interpret this result as normal/abnormal. LIPID PANEL WITH REFLEX DIRECT [id number] 00:00:00* Test Item Value Reference Range Interpretation Comme nts CALC LDL CHOL (test code = 04083-6) 169 MG/DL See_Comment H [Automated messa ge] [...] normal/abnormal. RISK RATIO LDL/HDL (test code = 05777-0) 3.13 RATIO See_Comment [Automated message] The system which generated this result transmitted reference range: <3.22 RATIO. The reference range was not used to interpret this result as normal/abnormal. TRIGLYCERIDES (test code = 2571-8) 113 MG/DL See_Comment [Automated [employer]] The system which generated this result transmitted reference range: <150 MG/DL. The reference range was not used to interpret this result as normal/abnormal. ALBUMIN/CREATININE RATIO, RANDOM [id number] 00:00:00* Test Item Value Reference Range Interpretation Comme nts ALBUMIN, URINE, RANDOM (test code = 94414-9) 1.4 MG/DL NOT ESTAB MG/DL CALC ALBUMIN/CREAT, RND (test code = 07242-1) 12 MG/G See_Comment [Automated [employer]] The system which generated this result transmitted reference range: <30 MG/G. The reference range was not used to interpret this result as normal/abnormal. CREATININE, URINE, CONC. (test code = 2161-8) 119.3 MG/DL NOT ESTAB MG/DL COMPREHENSIVE METABOLIC [id number] 00:00:00* Test Item Value Reference Range Interpretation [...] code = 3094-0) 15 MG/DL See_Comment [Automated messa ge] The system which generated this result transmitted reference range: 8-23 MG/DL. The reference range was not used to interpret this result as normal/abnormal. CALCIUM (test code = 08313-7) 9.7 MG/DL See_Comment [Automated messa ge] The system which generated this result transmitted reference range: 8.5-10.5 MG/DL. The reference range was not used to interpret this result as normal/abnormal. CALC A/G RATIO (test code = 1759-0) 2.3 RATIO See_Comment [Automated messa ge] The system [...] as normal/abnormal. CALC GLOBULIN (test code = 85474-2) 2.1 G/DL See_Comment [Automated messa ge] The [...] normal/abnormal. eGFR (2020 CKD-EPI) (test code = 38688-6) 100 ML/MIN/1.73 See_Comment [Automated message] The system [...] code = 2823-3) 4.0 MEQ/L See_Comment [Automated [employer]] The system which generated this result transmitted reference range: 3.5-5.4 MEQ/L. The reference range was not used to interpret this result as normal/abnormal. PROTEIN, TOTAL (test code = 2885-2) 7.0 G/DL See_Comment [Automated [employer]] The system which generated this result transmitted reference range: 6.1-8.3 G/DL. The reference range was not used to interpret this result as normal/abnormal. AST (test code = 1920-8) 13 U/L See_Comment [Automated [employer]] The system which generated this result transmitted reference range: 9-40 U/L. The reference range was not used to interpret this result as normal/abnormal. ALT (test code = 1742-6) 9 U/L See_Comment [Automated [employer]] The system which generated this result transmitted reference range: 5-40 U/L. The reference range was not used to interpret this result as normal/abnormal. SODIUM (test code = 2951-2) 135 MEQ/L See_Comment [Automated [employer]] The system which generated this result transmitted reference range: 133-146 MEQ/L. The reference range was not used to interpret this result as normal/abnormal. Lipid Panel w/ Chol/HDL [id number] 00:00:00* Test Item Value Reference Range Interpretation Comme nts Cholesterol, Total (test code = 2093-3) 219 100-199 Triglycerides (test code = 2571-8) 171 0-149 HDL Cholesterol (test code = 2085-9) 51 >39 T. Chol/HDL Ratio (test code = 9830-1) 4.3 0.0-4.4 LDL Cholesterol (Direct)2021-05-16 00:00:00* Test Item Value Reference Range Interpretation Comme nts LDL Chol. (Direct) (test cod e = 20506-4) 134 0-99 Microalbumin/Creat Ratio, Random [id number] 00:00:00* Test Item Value Reference Range Interpretation Comme nts Creatinine, Urine (test code = 2161-8) 84.4 Not Esta b. Albumin, Urine (test code = 52127-8) 9.3 Not Estab. Alb/Creat Ratio (test code = 54120-5) 11 0-29 Hemoglobin [id number] 00:00:00* Test Item Value Reference Range Interpretation [...] 96-106 Carbon Dioxide, Total (test code = 2027-) 27 20-29 Calcium (test code = 31309-7) 9.4 8.7-10.2 Protein, Total (test code = 2885-2) 6.6 6.0-8.5 Albumin (test code = 1751-7) 4.3 3.8-4.9 Globulin, Total (test code = 68113-1) 2.3 1.5-4.5 A/G Ratio (test code = 1759-0) 1.9 1.2-2.2 Bilirubin, Total (test code = 1975-2) 0.4 0.0-1.2 Alkaline Phosphatase (test c ode = 6768-6) 127 44-121 AST (SGOT) (test code = 1920-8) 10 0-40 ALT (SGPT) (test code = 1742-6) 6 0-32 CBC With Differential/[id number] 00:00:00* Test Item Value Reference Range Interpretation [...] 0.0 0.0-0.2 Immature Granulocytes (test code = 84509-6) 0 Not Estab. Immature Grans (Abs) (test c ode = 69740-7) 0.0 0.0-0.1 NRBC (test code = 93423-9) Hematology Comments: (test c ode = 89737-5) SARS-COV 2 AntigenSARS-COV 2 Antigen
[2023-10-23 16:09] LABS: Absolute Basophils 0.1 K/uL (0-0.5); Absolute Eosinophils 0.1 K/uL (0-0.5); Absolute Monocytes 0.3 K/uL (0.1-1.3); Absolute Neutrophil 4.2 K/uL (1.8-8.0); Basophils % 1.1 % (0-1.3); Eosinophils % 1.5 % (0-4.4); Hematocrit 38.4 % (36.0-45.0); Hemoglobin 12.8 g/dL (12.0-15.0); Lymphocytes % 29.5 % (15.3-44.8); MCH 30.5 pg (27.0-35.0); MCHC 33.2 g/dL (32.0-36.0); MCV 91.9 fL (80-100); MPV 8.3 fL (7.6-11.3); Monocytes % 4.4 % (3.3-12.3); Neutrophils % 63.5 % (41.7-73.7); Nucleated Red Blood Cells % 0.1 % (0-0); Platelets 272 thou/uL (152-406); RBC Red Blood Cell Count 4.18 M/uL (3.86-4.86); Red Cell Distribution Width 12.8 % (12.1-15.2)
[2023-10-23 16:11] LABS: PT Prothrombin Time 10.5 SECONDS (9.4-12.5); Protime INR 0.94
[2023-10-23] MEDS ORDERED: HYDROMORPHONE HCL 0.5 MG/0.5 ML INJ ONE (16:19)
[2023-10-23] MEDS ORDERED: ONDANSETRON 4 MG/2 ML VIAL ONE (16:19)
[2023-10-23 16:31] LABS: Albumin 3.5 g/dL (3.4-5.0); Albumin/Globulin Ratio 0.9 (1.1-1.8); Alkaline Phosphatase 144 U/L (45-117); Anion Gap 6.7 mEq/L (5.0-15.0); BUN Blood Urea Nitrogen 17 mg/dL (7-18); Bicarbonate 28 mEq/L (21-32); Bilirubin Total 0.3 mg/dL (0.2-1.0); Globulin 3.8 g/dL (2.3-3.5); Glomerular Filtration Rate 79 ml/min (=/>90); Glucose Level 329 mg/dL (74-106); Magnesium 1.9 mg/dL (1.6-2.4); NT PRO-BNP 49 pg/mL (<125); Potassium 3.7 mEq/L (3.5-5.1); Protein, Total 7.3 g/dL (6.4-8.2); Sodium Level 134 mEq/L (136-145); Troponin High Sensitivity 12.1 pg/mL (<58.9)
[2023-10-23 16:38] LABS: ALT/SGPT < 14 U/L (13-56); AST/SGOT < 10 U/L (15-37); Bilirubin Direct < 0.2 mg/dL (0-0.2); Bilirubin Indirect, Calculated 0.1 mg/dL (0.2-0.8)
--- NOTE | 2023-10-23 17:45 | RAD REPORT ---
EXAM DESCRIPTION: CT - Thorax W/ Con - 10/23/2023 4:56 pm CLINICAL HISTORY: Right trapezius LAD and mass; Chest to head pain COMPARISON: Soft Tissue Neck W/Contr dated 10/23/2023 TECHNIQUE: Axial thin cut images of the chest were obtained following intravenous administration of 97 mL Isovue-300. Multiplanar reformats were generated and reviewed. All CT scans are performed using dose optimization technique as appropriate and may include automated exposure control or mA/KV adjustment according to patient size. FINDINGS: No mass or infiltrate in the lung parenchyma. No pleural thickening or pleural effusion. N o pneumothorax. No abnormal mediastinal or hilar masses or lymphadenopathy seen. No significant aortic or pulmonary a rtery findings. No chest wall mass or abnormal axillary lymphadenopathy. Evaluation of the solid abdominal structures reveals no suspicious findings. Evaluation of the right shoulder/supraclavicular region soft tissue structures reveals no suspicious soft tissue masses or cysts, underlying the radiographic marker. IMPRESSION: No acute process within the chest. No suspicious masses or other soft tissue abnormalities underlying the right shoulder/supraclavicular region radiographic abnormality.
--- NOTE | 2023-10-23 17:48 | RAD REPORT ---
EXAM DESCRIPTION: CT - Soft Tissue Neck W/Contr CLINICAL HISTORY: neck/shoulder pain right COMPARISON: CTANGIO NECK dated 12/09/2011; Thorax W/ Con dated 10/23/2023 TECHNIQUE: Thin axial CT images of the neck, performed following intravenous administration of 97 m L Isovue-300. Multiplanar reformats were generated and reviewed. All CT scans are performed using dose optimization technique as appropriate and may include automated exposure control or mA/KV adjustment according to patient size. FINDINGS: Nasopharyngeal tissues are normal in appearance. Fossa Rosenmller are normal. Parapharyngeal fat triangles are symmetric. Tongue base structures are normal. Epiglottis and aryepiglottic folds are normal. Piriform sinuses are well aerated. The vocal cords are normal in appearance. No suspicious adenopathy. Salivary glands are normal in appearance. Upper lung garcia are clear. Included intracranial contents are unremarkable. Straightening of normal cervical lordosis which may be positional or secondary to muscle spasm IMPRESSION: No acute abnormality. No suspicious soft tissue mass or adenopathy.
--- NOTE | 2023-10-23 17:48 | ER ---
Nurse's Notes [facility] Name: Tyra Espitia Age: 63 yrs Sex: Female : 1960 Arrival Date: 10/23/2023 Time: 15:13 Bed 5 Private MD: Diagnosis: Neck pain Presentation: 10/22 15:18 Chief complaint: Patient states: headache and mandy neck pain off and on x 2-3 weeks. has dd2 taken migraine meds with no relief. Coronavirus screen: At this time, the client does not indicate any symptoms associated with coronavirus-19. Ebola Screen: No symptoms or risks identified at this time. Initial Sepsis Screen: Does the patient meet any 2 criteria? No. Patient's initial sepsis screen is negative. Does the patient have a suspected source of infection? No. Patient's initial sepsis screen is negative. Risk Assessment: Do you want to hurt yourself or someone else? Patient reports no desire to harm self or others. Onset of symptoms is unknown. 15:18 Method Of Arrival: Ambulatory dd2 15:18 Acuity: AMADO 3 dd2 Triage Assessment: 15:21 General: Appears uncomfortable, Behavior is cooperative, appropriate for age. Pain: dd2 Complains of pain in top of head and forehead, mandy neck pain. Historical: - Allergies: 15:21 No Known Allergies; dd2 - Home Meds: 15:30 amitriptyline 50 mg Oral tablet [Active]; aspirin 81 mg Oral cap 1 cap once daily mb9 [Active]; citalopram 40 mg tab 1 tab once daily [Active]; trazodone 100 mg Oral tab 1 tab once daily [Active]; tizanidine 2 mg Oral cap 1 cap once daily [Active]; losartan 50 mg Oral tab 1 tab once daily [Active]; rosuvastatin 10 mg Oral tablet 1 tab daily [Active]; Insulin: Regular Sub-Q [Active]; glimepiride 4 mg Oral tab 1 tab twice a day [Active]; gabapentin 300 mg Oral capsule 1 cap 3 times per day [Active]; - PMHx: 15:21 Back pain; Diabetes - NIDDM; Gastric Reflux; High Cholesterol; Hypertension; dd2 - PSHx: 15:21 hernia repair; section; Ankle; dd2 - Immunization history:: Adult Immunizations up to date. - Infectious Disease History:: Denies. - Social history:: Smoking status: Patient reports the use of cigarette tobacco products, denies chronic smoking, but will smoke occasionally. Screenin:30 [facility] ED Fall Risk Assessment (Adult) History of falling in the last 3 months, mb9 including since admission No falls in past 3 months (0 pts) Confusion or Disorientation No (0 pts) Intoxicated or Sedated No (0 pts) Impaired Gait No (0 pts) Mobility Assist Device Used No (0 pt) Altered Elimination No (0 pt) Score/Fall Risk Level 0 - 2 = Low Risk Oriented to surroundings, Maintained a safe environment, Educated pt \T\ family on fall prevention, incl call for assistance when getting out of bed. Abuse screen: Denies threats or abuse. Nutritional screening: No deficits noted. Tuberculosis screening: No symptoms or risk factors identified. Assessment: 15:51 General: Appears in no apparent distress. Behavior is calm, cooperative. Pain: mb9 Complains of pain in head Pain radiates to right arm, left arm and neck Pain currently is 10 out of 10 on a pain scale. Quality of pain is described as sharp, throbbing, Pain began gradually, Is intermittent. Neuro: [place] Agitation-Sedation Scale (RASS): 0 - Alert and Calm Level of Consciousness is awake, alert, obeys commands, Oriented to person, place, time, situation, Appropriate for age Arts Administrator Or Manager are equal bilaterally Moves all extremities. Gait is steady, Speech is normal, Facial symmetry appears normal, Pupils are PERRLA, Intact Reports headache in entire frontal area. Cardiovascular: Heart tones S1 S2 present Patient's skin is warm and dry. 17:10 Reassessment: No changes from previously documented assessment. Patient and/or family mb9 updated on plan of care and expected duration. Pain level reassessed. Patient is alert, oriented x 3, equal unlabored respirations, skin warm/dry/pink. Vital Signs: 15:18 BP 168 / 79; Pulse 101; Resp 15; Temp 97.1; Pulse Ox 95% ; Weight 96.16 kg; Height 5 dd2 ft. 4 in. ; 16:14 BP 136 / 85; Pulse 102; Resp 16; Pulse Ox 97% on R/A; mb9 18:01 BP 155 / 78; Pulse 90; Resp 18; Pulse Ox 100% ; mb9 15:18 Body Mass Index 36.39 (96.16 kg, 162.56 cm) dd2 ED Course: 15:16 Patient arrived in ED. ra3 15:21 Triage completed. dd2 15:21 Arm band placed on right wrist. Patient placed in an exam room, on a stretcher, on dd2 pulse oximetry, Patient notified of wait time. 15:26 Jimmie Ellsworth MD is Attending Physician. sp3 15:29 Chichi Amador, RN is Primary Nurse. mb9 15:31 Placed in gown. Bed in low position. Call light in reach. Side rails up X 1. Provided mb9 Education on: press call light if needing anything. Client placed on continuous cardiac and pulse oximetry monitoring. NIBP monitoring applied. 15:31 No provider procedures requiring assistance completed. mb9 15:52 EKG done, by ED staff, reviewed by Jimmie Ellsworth MD. Inserted saline lock: 22 gauge in mb9 right antecubital area, using aseptic technique. Blood collected. Flushed with 10 mL NS. 16:58 CT Chest W/ Con In Process Unspecified. EDMS 16:58 CT Soft Tissue Neck W/contr: Single scan with chest In Process Unspecified. EDMS 17:57 IV discontinued, intact, bleeding controlled, No redness/swelling at site. Pressure mb9 dressing applied. Administered Medications: 16:20 Drug: Ondansetron IVP 4 mg IVP once; over 2 minutes Route: IVP; Site: right antecubital;mb9 17:40 Follow up: Response: No adverse reaction mb9 16:24 Drug: HYDROmorphone IVP 0.5 mg IVP once Route: IVP; Site: right antecubital; mb9 17:40 Follow up: Response: No adverse reaction mb9 Medication: 15:31 VIS not applicable for this client. mb9 Outcome: 17:48 Discharge ordered by . sp3 17:57 Discharged to home ambulatory, mb9 17:57 Condition: stable 17:57 Discharge instructions given to patient, family, Instructed on discharge instructions, follow up and referral plans. Demonstrated understanding of instructions, follow-up care, 18:01 Patient left the ED. mb9 Signatures: Dispatcher [employer] EDMS Jimmie Ellsworth MD MD sp3 Chichi Amador, PAULA RN mb9 Noelle Duke ra3 EDU REYES, RN RN dd2
--- NOTE | 2023-10-23 17:48 | EDPHYS ---
Physician Documentation [facility] Name: Tyra Espitia Age: 63 yrs Sex: Female : 1960 Arrival Date: 10/23/2023 Time: 15:13 Bed 5 Private MD: ED Physician Jimmie Ellsworth HPI: 10/22 15:43 This 63 yrs old Black Female presents to ER via Ambulatory with complaints of Neck sp3 Pain, <24hrs Old. 15:43 63-year-old female with history of diabetes, hypertension, hyperlipidemia, reflux who sp3 also states she has had "a mass" on her right shoulder/trapezius area "since she was in school" who now presents to the ED with chief complaint headache, facial pain, right trapezius pain along with "swollen lymph nodes". Patient denies fever, unanticipated weight loss, night sweats, chest pain, shortness of breath, back pain, abdominal pain, nausea, vomiting, diarrhea, syncope, near syncope, known sick contacts, travel history, prolonged immobilization, or any other signs or symptoms on ROS at this time.. Historical: - Allergies: 15:21 No Known Allergies; dd2 - Home Meds: 15:30 amitriptyline 50 mg Oral tablet [Active]; aspirin 81 mg Oral cap 1 cap once daily mb9 [Active]; citalopram 40 mg tab 1 tab once daily [Active]; trazodone 100 mg Oral tab 1 tab once daily [Active]; tizanidine 2 mg Oral cap 1 cap once daily [Active]; losartan 50 mg Oral tab 1 tab once daily [Active]; rosuvastatin 10 mg Oral tablet 1 tab daily [Active]; Insulin: Regular Sub-Q [Active]; glimepiride 4 mg Oral tab 1 tab twice a day [Active]; gabapentin 300 mg Oral capsule 1 cap 3 times per day [Active]; - PMHx: 15:21 Back pain; Diabetes - NIDDM; Gastric Reflux; High Cholesterol; Hypertension; dd2 - PSHx: 15:21 hernia repair; section; Ankle; dd2 - Immunization history:: Adult Immunizations up to date. - Infectious Disease History:: Denies. - Social history:: Smoking status: Patient reports the use of cigarette tobacco products, denies chronic smoking, but will smoke occasionally. ROS: 15:44 Constitutional: Negative for fever, chills, and weight loss, Eyes: Negative for injury, sp3 pain, redness, and discharge, Cardiovascular: Negative for chest pain, palpitations, and edema, Abdomen/GI: Negative for abdominal pain, nausea, vomiting, diarrhea, and constipation, Back: Negative for injury and pain, MS/Extremity: Negative for injury and deformity, Skin: Negative for injury, rash, and discoloration, Neuro: Negative for headache, weakness, numbness, tingling, and seizure, Psych: Negative for depression, anxiety, suicide ideation, homicidal ideation, and hallucinations, Allergy/Immunology: Negative for hives, rash, and allergies, Endocrine: Negative for neck swelling, polydipsia, polyuria, polyphagia, and marked weight changes, 15:44 All other systems are negative, Exam: 15:48 Constitutional: This is a well developed, well nourished patient who is awake, alert, sp3 and in no acute distress. Eyes: Pupils equal round and reactive to light, extra-ocular motions intact. Lids and lashes normal. Conjunctiva and sclera are non-icteric and not injected. Cornea within normal limits. Periorbital areas with no swelling, redness, or edema. Cardiovascular: Regular rate and rhythm with a normal S1 and S2. No gallops, murmurs, or rubs. Normal PMI, no JVD. No pulse deficits. Respiratory: Lungs have equal breath sounds bilaterally, clear to auscultation and percussion. No rales, rhonchi or wheezes noted. No increased work of breathing, no retractions or nasal flaring. Abdomen/GI: Soft, non-tender, with normal bowel sounds. No distension or tympany. No guarding or rebound. No evidence of tenderness throughout. Back: No spinal tenderness. No costovertebral tenderness. Full range of motion. Skin: Warm, dry with normal turgor. Normal color with no rashes, no lesions, and no evidence of cellulitis. MS/ Extremity: Pulses equal, no cyanosis. Neurovascular intact. Full, normal range of motion. Neuro: Awake and alert, GCS 15, oriented to person, place, time, and situation. Cranial nerves II-XII grossly intact. Motor strength 5/5 in all extremities. Sensory grossly intact. Cerebellar exam normal. Normal gait. Psych: Awake, alert, with orientation to person, place and time. Behavior, mood, and affect are within normal limits. 15:57 ECG was reviewed by the Attending Physician. EKG demonstrates normal sinus rhythm at 94 sp3 bpm with normal intervals, normal QRS, normal axis, nonspecific diffuse ST's ST changes without evidence of acute ischemia. QTc is noted to be 482 otherwise normal intervals. Vital Signs: 15:18 BP 168 / 79; Pulse 101; Resp 15; Temp 97.1; Pulse Ox 95% ; Weight 96.16 kg; Height 5 dd2 ft. 4 in. ; 16:14 BP 136 / 85; Pulse 102; Resp 16; Pulse Ox 97% on R/A; mb9 18:01 BP 155 / 78; Pulse 90; Resp 18; Pulse Ox 100% ; mb9 15:18 Body Mass Index 36.39 (96.16 kg, 162.56 cm) dd2 MDM: 15:27 Patient medically screened. sp3 15:49 Data reviewed: vital signs, nurses notes, lab test result(s), radiologic studies. ED sp3 course: 63-year-old female with facial, neck and right trapezius level pain with complaints of swelling. Differential diagnosis includes lymphadenopathy, infection, cancerous mass, muscle strain and to a lesser degree acute coronary syndrome, pulmonary pathology, vascular pathology, among others. Workup will include CT scan of the neck and chest with IV contrast coupled with laboratory values, EKG and general observation and supportive care. Disposition pending workup and patient course.. 17:47 ED course: Full workup negative including labs and CT scan. We will safely discharge sp3 patient home with diagnosis generalized neck and muscle pain.. 10/22 15:37 Order name: Basic Metabolic Panel; Complete Time: 16:41 sp3 10/22 15:37 Order name: CBC with Diff; Complete Time: 16:41 sp3 10/22 15:37 Order name: LFT's; Complete Time: 16:41 sp3 10/22 15:37 Order name: Magnesium; Complete Time: 16:41 sp3 10/22 15:37 Order name: NT PRO-BNP; Complete Time: 16:41 sp3 10/22 15:37 Order name: PT-INR; Complete Time: 16:41 sp3 10/22 15:37 Order name: Troponin HS; Complete Time: 16:41 sp3 10/22 15:37 Order name: CT Chest W/ Con; Complete Time: 17:50 sp3 10/22 15:37 Order name: CT Soft Tissue Neck W/contr: Single scan with chest; Complete Time: 17:50 sp3 10/22 15:37 Order name: EKG; Complete Time: 15:37 sp3 10/22 15:37 Order name: Cardiac monitoring; Complete Time: 15:45 sp3 10/22 15:37 Order name: EKG - Nurse/Tech; Complete Time: 15:53 sp3 10/22 15:37 Order name: IV Saline Lock; Complete Time: 15:53 sp3 10/22 15:37 Order name: Labs collected and sent; Complete Time: 15:53 sp3 10/22 15:37 Order name: O2 Per Protocol; Complete Time: 15:45 sp3 10/22 15:37 Order name: O2 Sat Monitoring; Complete Time: 15:45 sp3 Administered Medications: 16:20 Drug: Ondansetron IVP 4 mg IVP once; over 2 minutes Route: IVP; Site: right antecubital;mb9 17:40 Follow up: Response: No adverse reaction mb9 16:24 Drug: HYDROmorphone IVP 0.5 mg IVP once Route: IVP; Site: right antecubital; mb9 17:40 Follow up: Response: No adverse reaction mb9 Disposition Summary: 10/23/23 17:48 Discharge Ordered Notes: Location: Home sp3 Condition: Stable sp3 Diagnosis - Neck pain sp3 Followup: sp3 - With: Private Physician - When: Upon discharge from the Emergency Department - Reason: Continuance of care Discharge Instructions: - Discharge Summary Sheet sp3 - Muscle Pain, Adult sp3 Forms: - Medication Reconciliation Form sp3 - Antibiotic Education sp3 - Prescription Opioid Use sp3 - Patient Portal Instructions sp3 - Leadership Thank You Letter sp3 Signatures: Dispatcher [employer] EDJimmie Tang MD MD sp3 Chichi Amador RN RN mb9 EDU REYES RN RN dd2 Corrections: (The following items were deleted from the chart) 15:37 15:37 BASIC METABOLIC PANEL+C.LAB.BRZ ordered. EDMS EDMS 15:37 15:37 CBC+H.LAB.BRZ ordered. EDMS EDMS 15:37 15:37 HEPATIC FUNCTION+C.LAB.BRZ ordered. EDMS EDMS 15:37 15:37 MAGNESIUM+C.LAB.BRZ ordered. EDMS EDMS 15:37 15:37 PROBNP+C.LAB.BRZ ordered. EDMS EDMS 15:37 15:37 PROTIME (+INR)+COAG.LAB.BRZ ordered. EDMS EDMS 15:37 15:37 Troponin High Sensitivity+C.LAB.BRZ ordered. EDMS EDMS 15:37 15:37 Thorax W/ Con+CT.RAD.BRZ ordered. EDMS EDMS 15:37 15:37 Soft Tissue Neck W/Contr+CT.RAD.BRZ ordered. EDMS EDMS
[2023-10-23 18:11] VITALS: TEMP 97.1
[2023-10-23 18:23] VITALS: BP 155/78; O2SAT 100
== END 2023-10-23 18:01 | disposition home or self-care (01) ==
LOC: ER 15:13
DX: M54.2 Cervicalgia (principal); R51.9 Headache, unspecified; M25.511 Pain in right shoulder; F17.210 Nicotine dependence, cigarettes, uncomplicated
CPT/HCPCS: 85025; 80048; 36415; 83735; 85610; 80076; 84484; 83880; 71260; 70491; Q9967; J1170; J2405; 93005

== ENCOUNTER 2024-06-04 11:54 | Observation (INO) | payer OTHER ==
--- OUTSIDE RECORDS SUMMARY | 2024-06-04 11:59 | XMS REPORT | Continuity of Care Document ---
Author Name Unknown Address [address] [facility] [address] [place] [address] Organization [facility] [place] Address [address] [facility] [address] [place] [address] Care Team Providers Care Squeegeer And Former Name Role Phone Yumiko Kaplan Attending Clinician Unavailable Waleska Valencia Attending Clinician Unavailable Ami Rios Attending Clinician Unavailable [email or web address] Attending Clinician Unavaila ble [email or web address] Admitting Clinician Unavaila ble Payers Payer Name Policy Type Policy Number Effective Date Expirati on Date Source [facility] Individual Exchange Benefit Plan [id number] 2021 00:00:00 [facility] from [facility] [id number] 2019 00:00:00 [facility] from [facility] [id number] 2019 00:00:00 [facility] from [facility] [id number] 2019 00:00:00 [facility] from [facility] [id number] 2019 00:00:00 [facility] from [facility] [id number] 2019 00:00:00 [facility] from [facility] [id number] 2019 00:00:00 [facility] from [facility] [id number] 2019 00:00:00 [facility] from [facility] [id number] 2019 00:00:00 [facility] Problems Condition Name Condition Details Condition Category Status Onset Date Resolution Date Last Treatment Date Treating Clinician Comments Source [id number] Other chronic pain Problem [facility] Wheezing Wheezing Problem [facility] Insomnia Insomnia Problem [facility] Acute bronchitis Acute bronchitis Problem [facility] Goiter Goiter Problem [facility] Nicotine dependence Cigarette nicotine dependence without complicati on Problem [facility] Chronic obstructiv e pulmonary disease Chronic obstructiv e pulmonary disease Problem [facility] Diabetes mellitus type 2 in obese Diabetes mellitus type 2 in obese Problem [facility] Migraine with aura Migraine with aura and without status migrainosu s, not intractabl e Problem [facility] Chronic fatigue syndrome Chronic fatigue Problem [facility] Mixed anxiety and depressive disorder Depression with anxiety Problem [facility] Gastro-eso phageal reflux disease without esophagiti s Gastro-eso phageal reflux disease without esophagiti s Problem [facility] Fatigue Fatigue, unspecifie d type Problem [facility] Allergic rhinitis Acute allergic rhinitis Problem [facility] [id number] Constipati on, unspecifie d constipati on type Problem [facility] [id number] Gastroesop hageal reflux disease, unspecifie d whether esophagiti s present Problem [facility] [id number] Fatty liver Problem [facility] [id number] Osteoarthr itis of lower back Problem [facility] [id number] Elevated blood pressure reading with diagnosis of hypertensi on Problem [facility] Primary insomnia Primary insomnia Problem [facility] [id number] Cervicalgi a Problem [facility] [id number] Degenerati ve disc disease, cervical Problem [facility] [id number] Cervical radiculopa thy Problem [facility] Hypertensi on Hypertensi on Problem [facility] [id number] Smoker Problem [facility] [id number] Pure hyperchole sterolemia Problem [facility] [id number] Lateral epicondyli tis of right elbow Problem [facility] [id number] Chronic depression not affecting current episode of care Problem [facility] [id number] Uncontroll ed type 2 diabetes mellitus with hyperglyce amrit Problem [facility] Mixed hyperlipid emia Mixed hyperlipid emia Problem [facility] [id number] COPD with acute exacerbati on Problem [facility] Social History Social Habit Start Date Stop Date Quantity Comments Source History of Tobacco Use Current Smoker [facility] Sex Assigned At [facility] Smoking Status Start Date Stop Date Source Current Smoker 2024-03-04 00:00:00 [facility] Medications Ordered Medication Name Filled Medication Name Start Date Stop Date Current Medication? Ordering Clinician Indication Dosage Frequency Signature (SIG) Comments Components Source Benzonatate 200 MG Benzonatate 200 MG 2023-03 2- 00:00: 00 No 1{capsu le} TID Benzonatat e 200 MG sAXagliptin HCl 5 MG sAXagliptin HCl 5 MG 2023-03 1- 00:00: 00 No 1{table t} QD sAXaglipti n HCl 5 MG Ondansetron HCl 4 MG Ondansetron HCl 4 MG 8-13 00:00: 00 No 1{table t} QID Ondansetro n HCl 4 MG Albuterol Sulfate HFA 108 (90 Base) MCG/ACT Albuterol Sulfate HFA 108 (90 Base) MCG/ACT 8-10 00:00: 00 No 1{puff_ as_need ed} 6xD Albuterol Sulfate HFA 108 (90 Base) MCG/ACT Rosuvastati n Calcium 20 MG Rosuvastati n Calcium 20 MG 12-02 00:00: 00 No 1{table t_at_be dtime} QD Rosuvastat in Calcium 20 MG Kenalog (Triamcinol one) Kenalog (Triamcinol one) 09-03 00:00: 00 No 40mg [facility] Citalopram Hydrobromid e 40 MG Citalopram Hydrobromid e 40 MG No 1{table t} QD Citalopram Hydrobromi de 40 MG tiZANidine HCl 2 MG tiZANidine HCl 2 MG No tiZANidine HCl 2 MG Amitriptyli ne HCl 50 MG Amitriptyli ne HCl 50 MG No 1{table t} QD Amitriptyl ine HCl 50 MG Losartan [...] No 2{puffs } BID Symbicort 160-4.5 MCG/ACT Insulin Aspart Prot & Aspart (70-30) 100 UNIT/ML Insulin Aspart Prot & Aspart (70-30) 100 UNIT/ML No BID Insulin Aspart Prot & Aspart (70-30) 100 UNIT/ML Immunizations Ordered Immunization Name Filled Immunization Name Date Status Comments Source Flucelvax - single dose syringe Flucelvax - single dose syringe 2022-02-21 12:26:00 Completed [facility] Flucelvax - single dose syringe Flucelvax - single dose syringe 2022-02-21 12:26:00 Completed [facility] Flucelvax - single dose syringe Flucelvax - single dose syringe 2022-02-21 12:26:00 Completed [facility] Flucelvax - single dose syringe Flucelvax - single dose syringe 2022-02-21 12:26:00 Completed [facility] Afluria single dose Afluria single dose 12:09:00 Completed [facility] Afluria single dose Afluria single dose 12:09:00 Completed [facility] Afluria single dose Afluria single dose 12:09:00 Completed [facility] Afluria single dose Afluria single dose 12:09:00 Completed [facility] Afluria single dose Afluria single dose 12:09:00 Completed [facility] Afluria single dose Afluria single dose 12:09:00 Completed [facility] Afluria single dose Afluria single dose 12:09:00 Completed [facility] Afluria single dose Afluria single dose 12:09:00 Completed [facility] Afluria single dose Afluria single dose 12:09:00 Completed [facility] Afluria single dose Afluria single dose 12:09:00 Completed [facility] Afluria single dose Afluria single dose 12:09:00 Completed [facility] Afluria single dose Afluria single dose 12:09:00 Completed [facility] Afluria single dose Afluria single dose 12:09:00 Completed [facility] Afluria single dose Afluria single dose 12:09:00 Completed [facility] Flucelvax - multidose vial Flucelvax - multidose vial 2018-12-11 12:29:00 Completed [facility] Flucelvax - multidose vial Flucelvax - multidose vial 2018-12-11 12:29:00 Completed [facility] Flucelvax - multidose vial Flucelvax - multidose vial 2018-12-11 12:29:00 Completed [facility] Flucelvax - multidose vial Flucelvax - multidose vial 2018-12-11 12:29:00 Completed [facility] Flucelvax - multidose vial Flucelvax - multidose vial 2018-12-11 12:29:00 Completed [facility] Flucelvax - multidose vial Flucelvax - multidose vial 2018-12-11 12:29:00 Completed [facility] Flucelvax - multidose vial Flucelvax - multidose vial 2018-12-11 12:29:00 Completed [facility] Flucelvax - multidose vial Flucelvax - multidose vial 2018-12-11 12:29:00 Completed [facility] Flucelvax - multidose vial Flucelvax - multidose vial 2018-12-11 12:29:00 Completed [facility] Flucelvax - multidose vial Flucelvax - multidose vial 2018-12-11 12:29:00 Completed [facility] Flucelvax - multidose vial Flucelvax - multidose vial 2018-12-11 12:29:00 Completed [facility] Flucelvax - multidose vial Flucelvax - multidose vial 2018-12-11 12:29:00 Completed [facility] Flucelvax - multidose vial Flucelvax - multidose vial 2018-12-11 12:29:00 Completed [facility] Flucelvax - multidose vial Flucelvax - multidose vial 2018-12-11 12:29:00 Completed [facility] Flucelvax - multidose vial Flucelvax - multidose vial 2018-12-11 00:00:00 Completed [facility] Kenalog (Triamcinolone) Kenalog (Triamcinolone) 2017-09-03 16:24:00 Completed [facility] Kenalog (Triamcinolone) Kenalog (Triamcinolone) 2017-09-03 16:24:00 Completed [facility] Fluarix (IIV4) - SDS - 0.5mL Fluarix (IIV4) - SDS - 0.5mL Unknown Completed [facility] Flucelvax - multidose vial Flucelvax - multidose vial Unknown Completed [facility] Flucelvax - single dose syringe Flucelvax - single dose syringe Unknown Completed [facility] Afluria single dose Afluria single dose Unknown Completed [facility] Flucelvax - multidose vial Flucelvax - multidose vial Unknown Completed [facility] Flucelvax - single dose syringe Flucelvax - single dose syringe Unknown Completed [facility] Afluria single dose Afluria single dose Unknown Completed [facility] Flucelvax - multidose vial Flucelvax - multidose vial Unknown Completed [facility] Flucelvax - single dose syringe Flucelvax - single dose syringe Unknown Completed [facility] Afluria single dose Afluria single dose Unknown Completed [facility] Flucelvax - multidose vial Flucelvax - multidose vial Unknown Completed [facility] Flucelvax - single dose syringe Flucelvax - single dose syringe Unknown Completed [facility] Afluria single dose Afluria single dose Unknown Completed [facility] Flucelvax - multidose vial Flucelvax - multidose vial Unknown Completed [facility] Flucelvax - single dose syringe Flucelvax - single dose syringe Unknown Completed [facility] Afluria (IIV4) - 3 years and older - SDS - 0.5mL Afluria (IIV4) - 3 years and older - SDS - 0.5mL Unknown Completed [facility] Flucelvax (ccIIV4) - MDV - 0.5mL Flucelvax (ccIIV4) - MDV - 0.5mL Unknown Completed [facility] Flucelvax (ccIIV4) - SDS - 0.5mL Flucelvax (ccIIV4) - SDS - 0.5mL Unknown Completed [facility] Afluria (IIV4) - 3 years and older - SDS - 0.5mL Afluria (IIV4) - 3 years and older - SDS - 0.5mL Unknown Completed [facility] Flucelvax (ccIIV4) - MDV - 0.5mL Flucelvax (ccIIV4) - MDV - 0.5mL Unknown Completed [facility] Flucelvax (ccIIV4) - SDS - 0.5mL Flucelvax (ccIIV4) - SDS - 0.5mL Unknown Completed [facility] Afluria (IIV4) - 3 years and older - SDS - 0.5mL Afluria (IIV4) - 3 years and older - SDS - 0.5mL Unknown Completed [facility] Flucelvax (ccIIV4) - MDV - 0.5mL Flucelvax (ccIIV4) - MDV - 0.5mL Unknown Completed [facility] Flucelvax (ccIIV4) - SDS - 0.5mL Flucelvax (ccIIV4) - SDS - 0.5mL Unknown Completed [facility] Afluria (IIV4) - 3 years and older - SDS - 0.5mL Afluria (IIV4) - 3 years and older - SDS - 0.5mL Unknown Completed [facility] Flucelvax (ccIIV4) - MDV - 0.5mL Flucelvax (ccIIV4) - MDV - 0.5mL Unknown Completed [facility] Flucelvax (ccIIV4) - SDS - 0.5mL Flucelvax (ccIIV4) - SDS - 0.5mL Unknown Completed [facility] Afluria (IIV4) - 3 years and older - SDS - 0.5mL Afluria (IIV4) - 3 years and older - SDS - 0.5mL Unknown Completed [facility] Flucelvax (ccIIV4) - MDV - 0.5mL Flucelvax (ccIIV4) - MDV - 0.5mL Unknown Completed [facility] Flucelvax (ccIIV4) - SDS - 0.5mL Flucelvax (ccIIV4) - SDS - 0.5mL Unknown Completed [facility] Afluria (IIV4) - 3 years and older - SDS - 0.5mL Afluria (IIV4) - 3 years and older - SDS - 0.5mL Unknown Completed [facility] Flucelvax (ccIIV4) - MDV - 0.5mL Flucelvax (ccIIV4) - MDV - 0.5mL Unknown Completed [facility] Flucelvax (ccIIV4) - SDS - 0.5mL Flucelvax (ccIIV4) - SDS - 0.5mL Unknown Completed [facility] Afluria (IIV4) - 3 years and older - SDS - 0.5mL Afluria (IIV4) - 3 years and older - SDS - 0.5mL Unknown Completed [facility] Flucelvax (ccIIV4) - MDV - 0.5mL Flucelvax (ccIIV4) - MDV - 0.5mL Unknown Completed [facility] Flucelvax (ccIIV4) - SDS - 0.5mL Flucelvax (ccIIV4) - SDS - 0.5mL Unknown Completed [facility] Afluria (IIV4) - 3 years and older - SDS - 0.5mL Afluria (IIV4) - 3 years and older - SDS - 0.5mL Unknown Completed [facility] Flucelvax (ccIIV4) - MDV - 0.5mL Flucelvax (ccIIV4) - MDV - 0.5mL Unknown Completed [facility] Flucelvax (ccIIV4) - SDS - 0.5mL Flucelvax (ccIIV4) - SDS - 0.5mL Unknown Completed [facility] Boostrix (Tdap) Boostrix (Tdap) Unknown Completed [facility] Afluria (IIV4) - 3 years and older - SDS - 0.5mL Afluria (IIV4) - 3 years and older - SDS - 0.5mL Unknown Completed [facility] Flucelvax (ccIIV4) - MDV - 0.5mL Flucelvax (ccIIV4) - MDV - 0.5mL Unknown Completed [facility] Flucelvax (ccIIV4) - SDS - 0.5mL Flucelvax (ccIIV4) - SDS - 0.5mL Unknown Completed [facility] Boostrix (Tdap) Boostrix (Tdap) Unknown Completed [facility] Afluria (IIV4) - 3 years and older - SDS - 0.5mL Afluria (IIV4) - 3 years and older - SDS - 0.5mL Unknown Completed [facility] Flucelvax (ccIIV4) - MDV - 0.5mL Flucelvax (ccIIV4) - MDV - 0.5mL Unknown Completed [facility] Flucelvax (ccIIV4) - SDS - 0.5mL Flucelvax (ccIIV4) - SDS - 0.5mL Unknown Completed [facility] Boostrix (Tdap) Boostrix (Tdap) Unknown Completed [facility] Afluria (IIV4) - 3 years and older - SDS - 0.5mL Afluria (IIV4) - 3 years and older - SDS - 0.5mL Unknown Completed [facility] Flucelvax (ccIIV4) - MDV - 0.5mL Flucelvax (ccIIV4) - MDV - 0.5mL Unknown Completed [facility] Flucelvax (ccIIV4) - SDS - 0.5mL Flucelvax (ccIIV4) - SDS - 0.5mL Unknown Completed [facility] Boostrix (Tdap) Boostrix (Tdap) Unknown Completed [facility] Afluria (IIV4) - 3 years and older - SDS - 0.5mL Afluria (IIV4) - 3 years and older - SDS - 0.5mL Unknown Completed [facility] Flucelvax (ccIIV4) - MDV - 0.5mL Flucelvax (ccIIV4) - MDV - 0.5mL Unknown Completed [facility] Flucelvax (ccIIV4) - SDS - 0.5mL Flucelvax (ccIIV4) - SDS - 0.5mL Unknown Completed [facility] Boostrix (Tdap) Boostrix (Tdap) Unknown Completed [facility] Afluria (IIV4) - 3 years and older - SDS - 0.5mL Afluria (IIV4) - 3 years and older - SDS - 0.5mL Unknown Completed [facility] Flucelvax (ccIIV4) - MDV - 0.5mL Flucelvax (ccIIV4) - MDV - 0.5mL Unknown Completed [facility] Flucelvax (ccIIV4) - SDS - 0.5mL Flucelvax (ccIIV4) - SDS - 0.5mL Unknown Completed [facility] Boostrix (Tdap) Boostrix (Tdap) Unknown Completed [facility] Fluarix (IIV3) - SDS - 0.5mL Fluarix (IIV3) - SDS - 0.5mL Unknown Completed [facility] Afluria single dose Afluria single dose Unknown Completed [facility] Flucelvax - multidose vial Flucelvax - multidose vial Unknown Completed [facility] Flucelvax - single dose syringe Flucelvax - single dose syringe Unknown Completed [facility] Afluria single dose Afluria single dose Unknown Completed [facility] Flucelvax - multidose vial Flucelvax - multidose vial Unknown Completed [facility] Flucelvax - single dose syringe Flucelvax - single dose syringe Unknown Completed [facility] Vital Signs Vital Name Observation Time Observation Value Comments S jannyce height 2024-03-11 11:40:00 64 [in_i] Commo n [facility] weight 2024-03-11 11:40:00 237 [lb_av] Comm on [facility] temperature 2024-03-11 11:40:00 97.6 [degF] Com [facility] bmi 2024-03-11 11:40:00 40.68 kg/m2 Comm on [facility] oximetry 2024-03-11 11:40:00 96 % Commo n [facility] respiratory rate 2024-03-11 11:40:00 16 /min [facility] blood pressure systolic 2024-03-11 11:40:00 130 mm[Hg] [facility] blood pressure diastolic 2024-03-11 11:40:00 82 mm[Hg] [facility] height 2024-01-25 10:00:00 64 [in_i] Commo n [facility] weight 2024-01-25 10:00:00 225 [lb_av] Comm on [facility] temperature 2024-01-25 10:00:00 97.8 [degF] Com [facility] bmi 2024-01-25 10:00:00 38.62 kg/m2 Comm on [facility] oximetry 2024-01-25 10:00:00 98 % Commo n [facility] respiratory rate 2024-01-25 10:00:00 16 /min [facility] blood pressure systolic 2024-01-25 10:00:00 138 mm[Hg] [facility] blood pressure diastolic 2024-01-25 10:00:00 92 mm[Hg] [facility] height 2023-12-17 10:00:00 64 [in_i] Commo n [facility] weight 2023-12-17 10:00:00 Commo n [facility] temperature 2023-12-17 10:00:00 96.6 [degF] Com mon [facility] bmi 2023-12-17 10:00:00 38.27 kg/m2 Comm on [facility] oximetry 2023-12-17 10:00:00 96 % Commo n [facility] respiratory rate 2023-12-17 10:00:00 16 /min [facility] blood pressure systolic 2023-12-17 10:00:00 132 mm[Hg] [facility] blood pressure diastolic 2023-12-17 10:00:00 84 mm[Hg] Common [facility] height 2023-10-23 09:20:00 64 [in_i] Commo n [facility] weight 2023-10-23 09:20:00 212 [lb_av] Comm on [facility] bmi 2023-10-23 09:20:00 36.39 kg/m2 Comm on [facility] height 2023-08-14 13:20:00 64 [in_i] Commo n [facility] weight 2023-08-14 13:20:00 226 [lb_av] Comm on [facility] temperature 2023-08-14 13:20:00 97.0 [degF] Com mon [facility] bmi 2023-08-14 13:20:00 38.79 kg/m2 Comm on [facility] oximetry 2023-08-14 13:20:00 97 % Commo n [facility] respiratory rate 2023-08-14 13:20:00 16 /min Common [facility] blood pressure systolic 2023-08-14 13:20:00 124 mm[Hg] [facility] blood pressure diastolic 2023-08-14 13:20:00 68 mm[Hg] [facility] height 2023-08-14 13:20:00 64 [in_i] Commo n [facility] weight 2023-08-14 13:20:00 226 [lb_av] Comm on [facility] temperature 2023-08-14 13:20:00 97.0 [degF] Com mon [facility] bmi 2023-08-14 13:20:00 38.79 kg/m2 Comm on [facility] oximetry 2023-08-14 13:20:00 97 % Commo n [facility] respiratory rate 2023-08-14 13:20:00 16 /min Common [facility] blood pressure systolic 2023-08-14 13:20:00 124 mm[Hg] [facility] blood pressure diastolic 2023-08-14 13:20:00 68 mm[Hg] [facility] height 2023-07-24 15:40:00 64 [in_i] Commo n [facility] weight 2023-07-24 15:40:00 225.6 [lb_av] Co mmon [facility] temperature 2023-07-24 15:40:00 97.2 [degF] Com mon [facility] bmi 2023-07-24 15:40:00 38.72 kg/m2 Comm on [facility] oximetry 2023-07-24 15:40:00 95 % Commo n [facility] respiratory rate 2023-07-24 15:40:00 16 /min [facility] blood pressure systolic 2023-07-24 15:40:00 126 mm[Hg] Common [facility] blood pressure diastolic 2023-07-24 15:40:00 62 mm[Hg] [facility] height 2023-05-22 14:20:00 64 [in_i] Commo n [facility] weight 2023-05-22 14:20:00 219 [lb_av] Comm on [facility] temperature 2023-05-22 14:20:00 97.2 [degF] Com mon [facility] bmi 2023-05-22 14:20:00 37.59 kg/m2 Comm on [facility] oximetry 2023-05-22 14:20:00 95 % Commo n [facility] respiratory rate 2023-05-22 14:20:00 16 /min [facility] blood pressure systolic 2023-05-22 14:20:00 130 mm[Hg] [facility] blood pressure diastolic 2023-05-22 14:20:00 68 mm[Hg] Common [facility] height 2023-04-17 15:00:00 64 [in_i] Commo n [facility] weight 2023-04-17 15:00:00 222 [lb_av] Comm on [facility] temperature 2023-04-17 15:00:00 97.4 [degF] Com mon [facility] bmi 2023-04-17 15:00:00 38.1 kg/m2 Commo n [facility] oximetry 2023-04-17 15:00:00 96 % Commo n [facility] respiratory rate 2023-04-17 15:00:00 17 /min Common [facility] blood pressure systolic 2023-04-17 15:00:00 126 mm[Hg] [facility] blood pressure diastolic 2023-04-17 15:00:00 70 mm[Hg] [facility] height 2023-02-14 11:00:00 64 [in_i] Commo n [facility] weight 2023-02-14 11:00:00 210 [lb_av] Comm on [facility] temperature 2023-02-14 11:00:00 97.0 [degF] Com [facility] bmi 2023-02-14 11:00:00 36.04 kg/m2 Comm on [facility] oximetry 2023-02-14 11:00:00 97 % Commo n [facility] respiratory rate 2023-02-14 11:00:00 16 /min Common [facility] blood pressure systolic 2023-02-14 11:00:00 124 mm[Hg] Common [facility] blood pressure diastolic 2023-02-14 11:00:00 62 mm[Hg] Common [facility] height 2022-12-26 09:40:00 64 [in_i] Commo n [facility] weight 2022-12-26 09:40:00 210 [lb_av] Comm on [facility] temperature 2022-12-26 09:40:00 97.3 [degF] Com [facility] bmi 2022-12-26 09:40:00 36.04 kg/m2 Comm on [facility] oximetry 2022-12-26 09:40:00 96 % Commo n [facility] respiratory rate 2022-12-26 09:40:00 17 /min Common [facility] blood pressure systolic 2022-12-26 09:40:00 116 mm[Hg] [facility] blood pressure diastolic 2022-12-26 09:40:00 80 mm[Hg] Common [facility] height 2022-10-19 08:20:00 64 [in_i] Commo n [facility] weight 2022-10-19 08:20:00 213.4 [lb_av] Co mmon [facility] temperature 2022-10-19 08:20:00 97.3 [degF] Com mon [facility] bmi 2022-10-19 08:20:00 36.63 kg/m2 Comm on [facility] oximetry 2022-10-19 08:20:00 94 % Commo n [facility] respiratory rate 2022-10-19 08:20:00 17 /min Common [facility] blood pressure systolic 2022-10-19 08:20:00 162 mm[Hg] [facility] blood pressure diastolic 2022-10-19 08:20:00 81 mm[Hg] [facility] height 2022-02-21 10:20:00 64 [in_i] Commo n [facility] weight 2022-02-21 10:20:00 210.6 [lb_av] Co mmon [facility] temperature 2022-02-21 10:20:00 97.2 [degF] Com [facility] bmi 2022-02-21 10:20:00 36.15 kg/m2 Comm on [facility] oximetry 2022-02-21 10:20:00 98 % Commo n [facility] respiratory rate 2022-02-21 10:20:00 15 /min Common [facility] blood pressure systolic 2022-02-21 10:20:00 119 mm[Hg] [facility] blood pressure diastolic 2022-02-21 10:20:00 69 mm[Hg] [facility] height 2021-11-24 11:00:00 64 [in_i] Commo n [facility] weight 2021-11-24 11:00:00 213.4 [lb_av] Co mmon [facility] temperature 2021-11-24 11:00:00 97.3 [degF] Com [facility] bmi 2021-11-24 11:00:00 36.63 kg/m2 Comm on [facility] oximetry 2021-11-24 11:00:00 95 % Commo n [facility] respiratory rate 2021-11-24 11:00:00 16 /min Common [facility] blood pressure systolic 2021-11-24 11:00:00 132 mm[Hg] [facility] blood pressure diastolic 2021-11-24 11:00:00 74 mm[Hg] [facility] height 2021-05-16 10:00:00 64 [in_i] Commo n [facility] weight 2021-05-16 10:00:00 224 [lb_av] Comm on [facility] temperature 2021-05-16 10:00:00 97.3 [degF] Com [facility] bmi 2021-05-16 10:00:00 38.45 kg/m2 Comm on [facility] oximetry 2021-05-16 10:00:00 98 % Commo n [facility] respiratory rate 2021-05-16 10:00:00 18 /min Common [facility] blood pressure systolic 2021-05-16 10:00:00 132 mm[Hg] Common [facility] blood pressure diastolic 2021-05-16 10:00:00 84 mm[Hg] [facility] height 2021-04-18 16:00:00 64 [in_i] Commo n [facility] weight 2021-04-18 16:00:00 220.4 [lb_av] Co mmon [facility] temperature 2021-04-18 16:00:00 97.6 [degF] Com [facility] bmi 2021-04-18 16:00:00 37.83 kg/m2 Comm on [facility] oximetry 2021-04-18 16:00:00 97 % Commo n [facility] respiratory rate 2021-04-18 16:00:00 16 /min Common [facility] blood pressure systolic 2021-04-18 16:00:00 128 mm[Hg] Common [facility] blood pressure diastolic 2021-04-18 16:00:00 72 mm[Hg] Common [facility] height 2021-01-03 16:00:00 64 [in_i] Commo n [facility] weight 2021-01-03 16:00:00 217 [lb_av] Comm on [facility] bmi 2021-01-03 16:00:00 37.24 kg/m2 Comm on [facility] height 2020-12-07 15:00:00 64.00 [in_i] Com mon [facility] weight 2020-12-07 15:00:00 217 [lb_av] Comm on [facility] bmi 2020-12-07 15:00:00 37.24 kg/m2 Comm on [facility] Encounters Start Date/Time End Date/Time Encounter Type Admission Type Attending [facility] Facility Care Department Encounter ID Source 2024-06-04 10:56:00 Outpatient Rosaura Yumiko STLMLC STLC [id number] [facility] 2024-05-28 11:07:00 Outpatient Yumiko Kaplan STLMLC STLMLC [id number] [facility] 2024-04-04 14:17:00 Outpatient Yumiko Kaplan STLMLC STLMLC [id number] [facility] 2024-03-10 08:24:00 Outpatient Ivy Kaplanhani STLMLC STLMLC [id number] [facility] 2023-12-12 14:13:00 Outpatient Yumiko Kaplan STLMLC STLMLC [id number] [facility] 2023-10-19 10:19:00 Outpatient Yumiko Kaplan STLMLC STLMLC [id number] [facility] 2023-10-17 15:28:00 Outpatient KaplanYumiko STLMLC STLMLC [id number] [facility] 2023-08-13 15:55:00 Outpatient KaplanYumiko STLMLC STLMLC [id number] [facility] 2023-07-20 08:57:00 Outpatient KaplanYumiko STLMLC STLMLC [id number] [facility] 2023-05-18 09:34:00 Outpatient KaplanYumiko STLMLC STLMLC [id number] [facility] 2023-03-19 13:13:00 Outpatient KaplanYumiko STLMLC STLMLC [id number] [facility] 2023-02-12 09:05:00 Outpatient KaplanYumiko messer STLMLC STLMLC [id number] [facility] 2022-12-26 09:44:00 Outpatient KaplanYumiko messer STLMLC STLMLC [id number] [facility] 2022-10-18 07:48:00 Outpatient KaplanYumiko messer STLMLC STLMLC [id number] [facility] 2022-08-14 09:31:00 Outpatient KaplanYumiko messer STLMLC STLMLC [id number] [facility] 2022-08-02 15:56:00 Outpatient STLMLC STLMLC [id number] [facility] 2022-06-07 17:00:00 Outpatient Redd Valenciaa STLMLC STLMLC [id number] [facility] 2022-04-12 09:13:00 Outpatient AnnieRedda STLMLC STLMLC [id number] [facility] 2022-02-17 08:34:00 Outpatient Rios, Na STLMLC STLMLC [id number] [facility] 2022-02-09 15:14:00 Outpatient Rios, Na STLMLC STLMLC [id number] [facility] 2022-02-01 14:22:00 Outpatient Rios, Na STLMLC STLMLC [id number] [facility] 2021-10-28 15:08:00 Outpatient Rios, Na STLMLC STLMLC [id number] [facility] 2021-09-21 09:52:00 Outpatient Rios, Na STLMLC STLMLC [id number] [facility] 2021-08-17 15:22:00 Outpatient Rios, Na STLMLC STLMLC [id number] [facility] 2021-05-13 09:55:00 Outpatient Rios, Na STLMLC STLMLC [id number] [facility] 2021-04-18 16:00:01 Outpatient Rios, Na STLMLC STLMLC [id number] [facility] 2021-04-15 14:25:00 Outpatient Rios, Na STLMLC STLMLC [id number] [facility] 2021-04-14 13:36:01 Outpatient Rios, Na STLMLC STLMLC [id number] [facility] 2021-04-06 14:26:39 Outpatient Rios, Na STLMLC STLMLC [id number] [facility] 2021-04-06 14:20:13 Outpatient Rios, Na STLMLC STLMLC [id number] [facility] 2021-04-06 14:04:22 Outpatient Rios, Na STLMLC STLMLC [id number] [facility] 2021-04-06 13:41:28 Outpatient Rios, Na STLMLC STLMLC [id number] [facility] 2021-04-06 13:39:10 Outpatient Rios, Na STLMLC STLMLC [id number] [facility] 2021-04-06 13:38:28 Outpatient Rios, Na STLMLC STLMLC [id number] [facility] 2021-04-06 13:34:20 Outpatient Rios, Na STLMLC STLMLC [id number] [facility] 2021-04-06 12:59:39 Outpatient Rios, Na STLMLC STLMLC [id number] [facility] 2021-04-06 12:20:03 Outpatient Rios, Na STLMLC STLMLC [id number] [facility] 2021-04-06 12:13:37 Outpatient Rios, Na STLMLC STLMLC [id number] [facility] 2021-04-06 12:13:01 Outpatient Rios, Na STLMLC STLMLC [id number] [facility] 2021-04-06 12:11:17 Outpatient Rios, Na STLMLC STLMLC [id number] [facility] 2021-04-06 11:50:24 Outpatient Rios, Na STLMLC STLMLC [id number] [facility] 2021-04-06 11:44:00 Outpatient Rios, Na STLMLC STLMLC [id number] [facility] 2021-04-06 11:12:27 Outpatient Rios, Na STLMLC STLMLC [id number] [facility] 2021-04-06 11:01:17 Outpatient Rios, Na STLMLC STLMLC [id number] [facility] 2024-05-22 00:00:00 2024-05-22 00:00:00 (TEL) STLMLC STLMLC [id number] [facility] 2024-04-04 00:00:00 2024-04-04 00:00:00 (TEL) STLMLC STLMLC [id number] [facility] 2024-03-25 00:00:00 2024-03-25 00:00:00 (TEL) STLMLC STLMLC [id number] [facility] 2024-03-11 00:00:00 2024-03-11 00:00:00 OFFICE VISIT ESTAB PT LEVEL 4 STLMLC STLMLC [id number] [facility] 2024-02-19 00:00:00 2024-02-19 00:00:00 (TEL) STLMLC STLMLC [id number] [facility] 2024-01-30 00:00:00 2024-01-30 00:00:00 (TEL) STLMLC STLMLC [id number] [facility] 2024-01-29 00:00:00 2024-01-29 00:00:00 (TEL) STLMLC STLMLC [id number] [facility] 2024-01-25 00:00:00 2024-01-25 00:00:00 OFFICE VISIT ESTAB PT LEVEL 4 STLMLC STLMLC [id number] [facility] 2024-01-24 00:00:00 2024-01-24 00:00:00 (TEL) STLMLC STLMLC [id number] [facility] 2023-12-17 00:00:00 2023-12-17 00:00:00 OFFICE VISIT ESTAB PT LEVEL 4 STLMLC STLMLC [id number] [facility] 2023-10-23 00:00:00 2023-10-23 00:00:00 OFFICE VISIT ESTAB PT LEVEL 4 STLMLC STLMLC [id number] [facility] 2023-10-15 00:00:00 2023-10-15 00:00:00 (TEL) STLMLC STLMLC [id number] [facility] 2023-10-03 00:00:00 2023-10-03 00:00:00 (TEL) STLMLC STLMLC [id number] [facility] 2023-10-03 00:00:00 2023-10-03 00:00:00 (TEL) STLMLC STLMLC [id number] [facility] 2023-09-27 00:00:00 2023-09-27 00:00:00 (TEL) STLMLC STLMLC [id number] [facility] 2023-08-15 00:00:00 2023-08-15 00:00:00 (TEL) STLMLC STLMLC [id number] [facility] 2023-08-14 00:00:00 2023-08-14 00:00:00 OFFICE VISIT ESTAB PT LEVEL 4 STLMLC STLMLC [id number] [facility] 2023-07-24 00:00:00 2023-07-24 00:00:00 OFFICE VISIT ESTAB PT LEVEL 4 STLMLC STLMLC [id number] [facility] 2023-07-16 00:00:00 2023-07-16 00:00:00 (TEL) STLMLC STLMLC [id number] [facility] 2023-06-06 00:00:00 2023-06-06 00:00:00 (TEL) STLMLC STLMLC [id number] [facility] 2023-05-31 00:00:00 2023-05-31 00:00:00 (TEL) STLMLC STLMLC [id number] [facility] 2023-05-22 00:00:00 2023-05-22 00:00:00 (WELLNESS) Wellness Visit STLMLC STLMLC [id number] [facility] 2023-04-17 00:00:00 2023-04-17 00:00:00 OFFICE VISIT ESTAB PT LEVEL 4 STLMLC STLMLC [id number] [facility] 2023-02-14 00:00:00 2023-02-14 00:00:00 OFFICE VISIT ESTAB PT LEVEL 4 STLMLC STLMLC [id number] [facility] 2023-01-09 00:00:00 2023-01-09 00:00:00 Outpatient GC_GCBZW_Ka diyala_S [facility] [id number] [facility] 2022-12-26 00:00:00 2022-12-26 00:00:00 OFFICE VISIT ESTAB PT LEVEL 4 STLMLC STLMLC [id number] [facility] 2022-11-22 00:00:00 2022-11-22 00:00:00 (TEL) STLMLC STLMLC [id number] [facility] 2022-10-27 00:00:00 2022-10-27 00:00:00 (TEL) STLMLC STLMLC [id number] [facility] 2022-10-25 00:00:00 2022-10-25 00:00:00 (TEL) STLMLC STLMLC [id number] [facility] 2022-10-19 00:00:00 2022-10-19 00:00:00 OFFICE VISIT ESTAB PT LEVEL 4 STLMLC STLMLC [id number] [facility] 2022-09-28 00:00:00 2022-09-28 00:00:00 (TEL) STLMLC STLMLC [id number] [facility] 2022-08-14 00:00:00 2022-08-14 00:00:00 (TEL) STLMLC STLMLC [id number] [facility] 2022-08-02 00:00:00 2022-08-02 00:00:00 (TEL) STLMLC STLMLC [id number] [facility] 2022-06-28 00:00:00 2022-06-28 00:00:00 (TEL) STLMLC STLMLC [id number] [facility] 2022-06-26 00:00:00 2022-06-26 00:00:00 (TEL) STLMLC STLMLC [id number] [facility] 2022-05-02 00:00:00 2022-05-02 00:00:00 (TEL) STLMLC STLMLC [id number] [facility] 2022-04-28 00:00:00 2022-04-28 00:00:00 (TEL) STLMLC STLMLC [id number] [facility] 2022-04-12 00:00:00 2022-04-12 00:00:00 (TEL) STLMLC STLMLC [id number] [facility] 2022-02-23 00:00:00 2022-02-23 00:00:00 (TEL) STLMLC STLMLC [id number] [facility] 2022-02-21 00:00:00 2022-02-21 00:00:00 OFFICE VISIT ESTAB PT LEVEL 4 STLMLC STLMLC [id number] [facility] 2022-02-13 00:00:00 2022-02-13 00:00:00 (TEL) STLMLC STLMLC [id number] [facility] 2022-02-09 00:00:00 2022-02-09 00:00:00 (TEL) STLMLC STLMLC [id number] [facility] 2022-02-01 00:00:00 2022-02-01 00:00:00 (TEL) STLMLC STLMLC [id number] [facility] 2021-12-02 00:00:00 2021-12-02 00:00:00 (TEL) STLMLC STLMLC [id number] [facility] 2021-11-28 00:00:00 2021-11-28 00:00:00 (TEL) STLMLC STLMLC [id number] [facility] 2021-11-24 00:00:00 2021-11-24 00:00:00 OFFICE VISIT ESTAB PT LEVEL 4 STLMLC STLMLC [id number] [facility] 2021-10-26 00:00:00 2021-10-26 00:00:00 (TEL) STLMLC STLMLC [id number] [facility] 2021-10-18 00:00:00 2021-10-18 00:00:00 (TEL) STLMLC STLMLC [id number] [facility] 2021-05-24 00:00:00 2021-05-24 00:00:00 (TEL) STLMLC STLMLC [id number] [facility] 2021-05-16 00:00:00 2021-05-16 00:00:00 OFFICE VISIT EST PT LEVEL 3 STLMLC STLMLC [id number] [facility] 2021-04-18 00:00:00 2021-04-18 00:00:00 OFFICE VISIT ESTAB PT LEVEL 4 STLMLC STLMLC [id number] [facility] 2021-04-04 00:00:00 2021-04-04 00:00:00 (TEL) STLMLC STLMLC [id number] [facility] 2021-02-10 00:00:00 2021-02-10 00:00:00 (TEL) STLMLC STLMLC [id number] [facility] 2021-02-08 00:00:00 2021-02-08 00:00:00 (TEL) STLMLC STLMLC [id number] [facility] 2021-01-25 00:00:00 2021-01-25 00:00:00 (TEL) STLMLC STLMLC [id number] [facility] 2021-01-07 00:00:00 2021-01-07 00:00:00 (TEL) STLMLC STLMLC [id number] [facility] 2021-01-03 00:00:00 2021-01-03 00:00:00 OL DIG E/M SVC 11-20 MIN STLMLC STLMLC [id number] [facility] 2020-12-27 00:00:00 2020-12-27 00:00:00 (TEL) STLMLC STLMLC [id number] [facility] 2020-12-10 00:00:00 2020-12-10 00:00:00 (TEL) STLMLC STLMLC [id number] [facility] 2020-12-07 00:00:00 2020-12-07 00:00:00 OL DIG E/M SVC 11-20 MIN STLMLC STLMLC [id number] [facility] 2020-11-03 00:00:00 2020-11-03 00:00:00 Outpatient STLMLC STLMLC [id number] [facility] 2020-07-14 00:00:00 2020-07-14 00:00:00 Outpatient STLMLC STLMLC [id number] [facility] 2020-07-08 00:00:00 2020-07-08 00:00:00 Outpatient STLMLC STLMLC [id number] [facility] 2020-03-25 00:00:00 2020-03-25 00:00:00 Outpatient STLMLC STLMLC [id number] [facility] 2020-01-09 00:00:00 2020-01-09 00:00:00 Outpatient STLMLC STLMLC [id number] [facility] 2020-01-09 00:00:00 2020-01-09 00:00:00 Outpatient STLMLC STLMLC [id number] [facility] 2019-12-09 00:00:00 2019-12-09 00:00:00 Outpatient STLMLC STLMLC [id number] [facility] 2019-12-08 00:00:00 2019-12-08 00:00:00 Outpatient STLMLC STLMLC [id number] [facility] 2019-11-20 08:40:00 2019-11-20 08:40:00 [facility] [id number] [facility] 2019-08-26 16:17:00 2019-08-26 16:17:00 [facility] [id number] [facility] 2019-08-20 08:00:00 2019-08-20 08:00:00 [facility] [id number] [facility] 2019-08-15 09:31:00 2019-08-15 09:31:00 [facility] [id number] [facility] 2019-05-16 13:20:00 2019-05-16 13:20:00 [facility] [id number] [facility] 2019-02-18 03:25:00 2019-02-18 03:25:00 [facility] [id number] [facility] 2019-02-03 17:32:00 2019-02-03 17:32:00 [facility] [id number] [facility] 2019-01-31 13:00:00 2019-01-31 13:00:00 [facility] [id number] [facility] 2018-12-19 15:33:00 2018-12-19 15:33:00 [facility] [id number] [facility] 2018-12-11 11:40:00 2018-12-11 11:40:00 [facility] [id number] [facility] 2018-09-27 11:40:00 2018-09-27 11:40:00 [facility] [id number] [facility] 2018-08-16 15:00:00 2018-08-16 15:00:00 [facility] [id number] [facility] 2018-07-16 10:33:00 2018-07-16 10:33:00 [facility] [id number] [facility] 2018-07-05 02:46:00 2018-07-05 02:46:00 [facility] [id number] [facility] 2018-05-30 15:00:00 2018-05-30 15:00:00 [facility] [id number] [facility] 2018-04-18 14:30:00 2018-04-18 14:30:00 [facility] [id number] [facility] 2018-03-18 16:46:00 2018-03-18 16:46:00 [facility] [id number] [facility] 2018-03-04 12:34:00 2018-03-04 12:34:00 [facility] [id number] [facility] 2017-12-11 10:37:00 2017-12-11 10:37:00 [facility] [id number] [facility] 2017-12-04 14:30:00 2017-12-04 14:30:00 [facility] [id number] [facility] Results Test Description Test Time Test Comments Results Result Co mments Source HEMOGLOBIN [id number] 00:00:00* Test Item Value Reference Range Interpretation Comme nts A1C (test code = 4548-4) 9.6 CBC W/AUTO [id number] 00:00:00* Test Item Value Reference Range Interpretation Comme nts NUCLEATED RBCS (test code = 12097-3) 0.0 /100 WBC'S See_Comment [Automated messa ge] The system which generated this result transmitted reference range: 0.0 /100 WBC'S. The reference range was not used to interpret this result as normal/abnormal. ABSOLUTE EOSINOPHILS (test code = 16451-3) 0.12 K/UL See_Comment [Automated messa ge] The system which generated this result transmitted reference range: 0.00-0.50 K/UL. The reference range was not used to interpret this result as normal/abnormal. ABSOLUTE LYMPHOCYTES (test code = 60749-0) 2.35 K/UL See_Comment [Automated messa ge] The system which generated this result transmitted reference range: 1.00-4.00 K/UL. The reference range was not used to interpret this result as normal/abnormal. ABSOLUTE MONOCYTES (test code = 83968-1) 0.45 K/UL See_Comment [Automated messa ge] The system which generated this result transmitted reference range: 0.20-1.00 K/UL. The reference range was not used to interpret this result as normal/abnormal. ABSOLUTE NEUTROPHILS (test code = 10586-4) 3.66 K/UL See_Comment [Automated messa ge] The system which generated this result transmitted reference range: 1.50-7.50 K/UL. The reference range was not used to interpret this result as normal/abnormal. BASOPHILS (test code = 84591-0) 0.3 % EOSINOPHILS (test code = 61804-3) 1.8 % HEMATOCRIT (test code = 20790-9) 42.1 % See_Comment [Automated messa ge] The system which generated this result transmitted reference range: 34.0-45.0 %. The reference range was not used to interpret this result as normal/abnormal. HEMOGLOBIN (test code = 718-7) 13.6 G/DL See_Comment [Automated messa ge] The system which generated this result transmitted reference range: 11.5-15.5 G/DL. The reference range was not used to interpret this result as normal/abnormal. LYMPHOCYTES (test code = 52195-9) 35.3 % MCH (test code = 48039-9) 31.1 PG See_Comment [Automated messa ge] The system which generated this result transmitted reference range: 25.0-33.0 PG. The reference range was not used to interpret this result as normal/abnormal. MCHC (test code = 49906-8) 32.3 G/DL See_Comment [Automated messa ge] The system which generated this result transmitted reference range: 31.0-36.0 G/DL. The reference range was not used to interpret this result as normal/abnormal. MCV (test code = 04435-5) 96.3 fL See_Comment [Automated messa ge] The system which generated this result transmitted reference range: 80.0-99.0 fL. The reference range was not used to interpret this result as normal/abnormal. MONOCYTES (test code = 78665-3) 6.8 % NEUTROPHILS (test code = 91897-9) 55.0 % PLATELET COUNT (test code = 36391-7) 348 K/UL See_Comment [Automated messa ge] The system which generated this result transmitted reference range: 130-400 K/UL. The reference range was not used to interpret this result as normal/abnormal. RBC (test code = 54014-7) 4.37 M/UL See_Comment [Automated messa ge] The system which generated this result transmitted reference range: 3.80-5.40 M/UL. The reference range was not used to interpret this result as normal/abnormal. RDW (test code = 64200-7) 11.7 % See_Comment [Automated messa ge] The system which generated this result transmitted reference range: 11.5-15.0 %. The reference range was not used to interpret this result as normal/abnormal. WBC (test code = 54199-4) 6.7 K/UL See_Comment [Automated messa ge] The system which generated this result transmitted reference range: 3.5-11.0 K/UL. The reference range was not used to interpret this result as normal/abnormal. HEMOGLOBIN [id number] 00:00:00* Test Item Value Reference Range Interpretation Comme nts A1C (test code = 4548-4) 9.2 SEDIMENTATION [id number] 00:00:00* Test Item Value Reference Range Interpretation Comme nts SEDIMENTATION RATE (test code = 4537-7) 10 MM/HOUR See_Comment [Automated message] The system which generated this result transmitted reference range: 0-20 MM/HOUR. The reference range was not used to interpret this result as normal/abnormal. CBC W/AUTO [id number] 00:00:00* Test Item Value Reference Range Interpretation Comme nts NUCLEATED RBCS (test code = 91927-3) 0.0 /100 WBC'S See_Comment [Automated messa ge] The system which generated this result transmitted reference range: 0.0 /100 WBC'S. The reference range was not used to interpret this result as normal/abnormal. ABSOLUTE EOSINOPHILS (test code = 20209-9) 0.14 K/UL See_Comment [Automated messa ge] The system which generated this result transmitted reference range: 0.00-0.50 K/UL. The reference range was not used to interpret this result as normal/abnormal. ABSOLUTE LYMPHOCYTES (test code = 35125-8) 2.50 K/UL See_Comment [Automated messa ge] The system which generated this result transmitted reference range: 1.00-4.00 K/UL. The reference range was not used to interpret this result as normal/abnormal. ABSOLUTE MONOCYTES (test code = 95268-8) 0.40 K/UL See_Comment [Automated messa ge] The system which generated this result transmitted reference range: 0.20-1.00 K/UL. The reference range was not used to interpret this result as normal/abnormal. ABSOLUTE NEUTROPHILS (test code = 77778-1) 2.66 K/UL See_Comment [Automated messa ge] The system which generated this result transmitted reference range: 1.50-7.50 K/UL. The reference range was not used to interpret this result as normal/abnormal. BASOPHILS (test code = 35784-0) 0.3 % EOSINOPHILS (test code = 44598-1) 2.4 % HEMATOCRIT (test code = 13740-0) 41.1 % See_Comment [Automated messa ge] The [...] result as normal/abnormal. LYMPHOCYTES (test code = 77669-1) 43.5 % MCH (test code = 16101-3) 30.8 PG See_Comment [Automated messa ge] The system which generated this result transmitted reference range: 25.0-33.0 PG. The reference range was not used to interpret this result as normal/abnormal. MCHC (test code = 37524-9) 33.6 G/DL See_Comment [Automated messa ge] The system which generated this result transmitted reference range: 31.0-36.0 G/DL. The reference range was not used to interpret this result as normal/abnormal. MCV (test code = 74568-3) 91.7 fL See_Comment [Automated messa ge] The system which generated this result transmitted reference range: 80.0-99.0 fL. The reference range was not used to interpret this result as normal/abnormal. MONOCYTES (test code = 74345-6) 7.0 % NEUTROPHILS (test code = 83993-1) 46.3 % PLATELET COUNT (test code = 10778-1) 327 K/UL See_Comment [Automated messa ge] The system which generated this result transmitted reference range: 130-400 K/UL. The reference range was not used to interpret this result as normal/abnormal. RBC (test code = 95447-1) 4.48 M/UL See_Comment [Automated messa ge] The system which generated this result transmitted reference range: 3.80-5.40 M/UL. The reference range was not used to interpret this result as normal/abnormal. RDW (test code = 33062-4) 11.4 % See_Comment L [Automated messa ge] The system which generated this result transmitted reference range: 11.5-15.0 %. The reference range was not used to interpret this result as normal/abnormal. WBC (test code = 26407-1) 5.8 K/UL See_Comment [Automated messa ge] The system which generated this result transmitted reference range: 3.5-11.0 K/UL. The reference range was not used to interpret this result as normal/abnormal. Lipid Panel w/ Chol/HDL [id number] 00:00:00* Test Item Value Reference Range Interpretation Comme nts Cholesterol, Total (test code = 2093-3) 219 100-199 Triglycerides (test code = 2571-8) 171 0-149 HDL Cholesterol (test code = 2085-9) 51 >39 T. Chol/HDL Ratio (test code = 9830-1) 4.3 0.0-4.4 Microalbumin/Creat Ratio, Random [id number] 00:00:00* Test Item Value Reference Range Interpretation Comme nts Creatinine, Urine (test code = 2161-8) 84.4 Not Esta b. Albumin, Urine (test code = 74096-7) 9.3 Not Estab. Alb/Creat Ratio (test code = 01339-7) 11 0-29 SARS-COV 2 AntigenSARS-COV 2 Antigen
--- NOTE | 2024-06-04 12:39 | RAD REPORT ---
Procedure: Chest Single View HISTORY: Cough COMPARISON: 2022 FINDINGS: The lungs appear clear of acute infiltrate. No significant pleural effusion noted. The heart is normal size. IMPRESSION: No acute abnormality is displayed.
[2024-06-04 12:51] LABS: Absolute Eosinophils 0.1 K/uL (0-0.5); Absolute Lymphocytes (CBC) 1.7 K/uL (0.7-4.9); Absolute Monocytes 0.5 K/uL (0.1-1.3); Basophils % 0.4 % (0-1.3); Eosinophils % 1.2 % (0-4.4); Hematocrit 35.3 % (36.0-45.0); Hemoglobin 11.9 g/dL (12.0-15.0); Lymphocytes % 27.2 % (15.3-44.8); MCH 30.4 pg (27.0-35.0); MCHC 33.8 g/dL (32.0-36.0); MCV 90.1 fL (80-100); MPV 8.1 fL (7.6-11.3); Monocytes % 8.1 % (3.3-12.3); Neutrophils % 63.1 % (41.7-73.7); Platelets 235 thou/uL (152-406); RBC Red Blood Cell Count 3.92 M/uL (3.86-4.86)
[2024-06-04 12:57] LABS: PT Prothrombin Time 11.3 SECONDS (10-13.0); Protime INR 0.99
[2024-06-04 12:58] LABS: PTT, Activated Partial Thromb 27.8 SECONDS (27.2-37.4)
[2024-06-04 13:08] LABS: ALT/SGPT 15 U/L (13-56); Albumin 3.3 g/dL (3.4-5.0); Albumin/Globulin Ratio 0.9 (1.1-1.8); Alkaline Phosphatase 134 U/L (45-117); BUN Blood Urea Nitrogen 13 mg/dL (7-18); Bicarbonate 29 mEq/L (21-32); Bilirubin Total 0.8 mg/dL (0.2-1.0); Globulin 3.7 g/dL (2.3-3.5); Glomerular Filtration Rate 83 ml/min (=/>90); Glucose Level 350 mg/dL (74-106); NT PRO-BNP 352 pg/mL (<125); Sodium Level 137 mEq/L (136-145)
[2024-06-04 13:17] LABS: AST/SGOT < 10 U/L (15-37)
[2024-06-04] MEDS ORDERED: MORPHINE 4 MG/ML SYR ONE ×2 (13:27→15:29)
[2024-06-04] MEDS ORDERED: ONDANSETRON 4 MG/2 ML VIAL ONE (13:27)
[2024-06-04] MEDS ORDERED: NA CHLORIDE 0.9% 1,000 ML ONE ×2 (13:28→22:08)
[2024-06-04 13:49] LABS: Specific Gravity > 1.030 (1.005-1.030); Sqamous Epithelial <5 /HPF (None Seen); Urine Bacteria None Seen /HPF (<20); Urine Bilirubin NEGATIVE (Negative); Urine Blood Negative (Negative); Urine Clarity Clear (Clear); Urine Color Light-Yellow (Yellow); Urine Culture Reflex Order NOT NEEDED; Urine Glucose 4+ (Over) (Negative); Urine Ketones 2+ (Negative); Urine Microscopic Reflex YN ORDER UMIC; Urine Mucus Slight /HPF (None Seen); Urine Nitrite NEGATIVE (Negative); Urine Protein NEGATIVE (Negative); Urine RBC <5 /HPF (None Seen); Urine Urobilinogen Normal (Normal); Urine WBC <5 /HPF (<5); Urine pH 5.5 (5.0-7.0)
--- NOTE | 2024-06-04 14:22 | RAD REPORT ---
EXAMINATION: CT ABDOMEN AND PELVIS WITH CONTRAST CLINICAL INDICATION: Abdominal pain TECHNIQUE: CT abdomen and pelvis was performed, after the administration of 100 cc Isovue-300.. Sagit lauro and coronal reconstructions were obtained. One or more of the following dose reduction techniques were used: Automated exposure control, adjustment of the mA and kV according to patient si ze, and iterative reconstruction. Unless otherwise specified, incidental findings do not require dedicated imaging follow-up. [id number]. Oral contrast was not given which limits evaluation of bowel and appendix. COMPARISON: .2022 FINDINGS: Liver, spleen, pancreas, adrenals and kidneys appear unremarkable No evidence of diverticulitis. Normal appendix. Ventral hernia repair. No adnexal mass. Spondylosis L5-S1 : IMPRESSION: No acute abnormality displayed
--- NOTE | 2024-06-04 15:46 | RAD REPORT ---
EXAM:Thorax Wo Con CLINICAL INDICATION: Chest pain TECHNIQUE: CT chest performed.. Axial, sagittal and coronal reconstructions were obtained. One or mor e of the following dose reduction techniques were used: Automated exposure control, adjustment of the mA and/or kV according to the patient size, and/or iterative reconstruction. Unless otherwise specified, incidental findings do not require dedicated imaging follow-up. [id number]. COMPARISON: 2023 FINDINGS: Evaluation of the mediastinum, paola and vessels is limited secondary to lack of IV contrast administr ation. Lungs are clear No mediastinal or hilar lymphadenopathy No pleural effusion. No pericardial effusion IMPRESSION: No acute abnormalities displayed
--- NOTE | 2024-06-04 16:16 | ER ---
Nurse's Notes [facility] Name: Tyra Espitia Age: 64 yrs Sex: Female : 1960 Arrival Date: 06/04/2024 Time: 11:54 Bed 27 Private MD: Diagnosis: Chest pain, unspecified;Upper abdominal pain, unspecified Presentation: 06/04 11:56 Chief complaint: EMS states: FROM HOME, LOW O2 ABD PAIN RADIATES TO SIDES AND UP. SOB X db 2 WEEKS. ABD PAIN THAT IS CHRONIC WORSE X 2 DAYS. BGL 395. Coronavirus screen: Client denies travel out of the [place] in the last 14 days. At this time, the client does not indicate any symptoms associated with coronavirus-19. Ebola Screen: Patient negative for fever greater than or equal to 101.5 degrees Fahrenheit, and additional compatible Ebola Virus Disease symptoms Patient denies exposure to infectious person. Patient denies travel to an Ebola-affected area in the 21 days before illness onset. No symptoms or risks identified at this time. Initial Sepsis Screen: Does the patient meet any 2 criteria? HR > 90 bpm. No. Patient's initial sepsis screen is negative. Does the patient have a suspected source of infection? No. Patient's initial sepsis screen is negative. Risk Assessment: Do you want to hurt yourself or someone else? Patient reports no desire to harm self or others. Onset of symptoms was June 01, 2024. Care prior to arrival: Glucose check: 395. 11:56 Method Of Arrival: EMS: [facility] db 11:56 Acuity: AMADO 3 db Triage Assessment: 11:56 General: Appears in no apparent distress. uncomfortable, Behavior is cooperative, db restless. Pain: Complains of pain in abdomen Pain radiates to posterior aspect of right lateral abdomen and posterior aspect of left lateral abdomen. Neuro: Level of Consciousness is awake, alert, obeys commands, Oriented to person, place, time, situation. Cardiovascular: No deficits noted. Respiratory: Reports shortness of breath at rest Airway is patent Respiratory effort is even, labored, Respiratory pattern is regular, symmetrical. GI: Reports lower abdominal pain. : No deficits noted. No signs and/or symptoms were reported regarding the genitourinary system. Derm: No deficits noted. No signs and/or symptoms reported regarding the dermatologic system. Historical: - Allergies: 11:56 No Known Allergies; db - PMHx: 11:56 Back pain; Diabetes - NIDDM; Gastric Reflux; High Cholesterol; Hypertension; db - PSHx: 11:56 Ankle; section; hernia repair; db - Immunization history:: Adult Immunizations unknown. - Infectious Disease History:: Denies. - Social history:: Smoking status: Patient reports the use of cigarette tobacco products, smokes one-half pack cigarettes per day. Screenin:00 [facility] ED Fall Risk Assessment (Adult) History of falling in the last 3 months, db including since admission No falls in past 3 months (0 pts) Confusion or Disorientation No (0 pts) Intoxicated or Sedated No (0 pts) Impaired Gait No (0 pts) Mobility Assist Device Used No (0 pt) Altered Elimination No (0 pt) Score/Fall Risk Level 0 - 2 = Low Risk Oriented to surroundings, Maintained a safe environment. Abuse screen: Denies threats or abuse. Denies injuries from another. Nutritional screening: No deficits noted. 13:38 Tuberculosis screening: No symptoms or risk factors identified. db Assessment: 12:00 Reassessment: SEE TRIAGE FOR INITIAL ASSESSMENT. db 13:30 Reassessment: Patient appears in no apparent distress at this time. Patient and/or db family updated on plan of care and expected duration. Pain level reassessed. Patient is alert, oriented x 3, equal unlabored respirations, skin warm/dry/pink. General: Appears in no apparent distress. comfortable, Behavior is calm, cooperative. Neuro: Level of Consciousness is awake, alert, obeys commands, Oriented to person, place, time, situation. Respiratory: Airway is patent Respiratory effort is even, unlabored, Respiratory pattern is regular, symmetrical. 14:30 Reassessment: Patient appears in no apparent distress at this time. Patient and/or db family updated on plan of care and expected duration. Pain level reassessed. Patient is alert, oriented x 3, equal unlabored respirations, skin warm/dry/pink. 15:25 Pain: Pain currently is 8 out of 10 on a pain scale. db 15:35 Reassessment: Patient appears in no apparent distress at this time. Patient and/or db family updated on plan of care and expected duration. Pain level reassessed. Patient is alert, oriented x 3, equal unlabored respirations, skin warm/dry/pink. SEE MAR FOR MEDICATION ADMIN. PT COMPLAINING PAIN HAS RETURNED. 19:00 Reassessment: Patient appears in no apparent distress at this time. Patient and/or db family updated on plan of care and expected duration. Pain level reassessed. Patient is alert, oriented x 3, equal unlabored respirations, skin warm/dry/pink. [facility] Vital Signs: 11:56 BP 144 / 91; Pulse 127; Resp 20; Temp 98.5(O); Pulse Ox 97% on R/A; Weight 99.79 kg; db Height 5 ft. 4 in. ; 13:00 BP 142 / 90; Pulse 124; Resp 20; Pulse Ox 98% on R/A; db 15:33 BP 166 / 99; Pulse 122; Resp 20; Pulse Ox 98% on R/A; db 16:00 BP 154 / 85; Pulse 122; Resp 20; Pulse Ox 96% ; db 17:00 BP 146 / 90; Pulse 121; Resp 22; Pulse Ox 96% ; db 17:30 BP 133 / 80; Pulse 119; Resp 20; Pulse Ox 98% on R/A; db 19:00 BP 129 / 89; Pulse 120; Resp 18; Pulse Ox 100% on R/A; db 11:56 Body Mass Index 37.76 (99.79 kg, 162.56 cm) db ED Course: 11:55 Patient arrived in ED. ec2 11:55 Niko Schofield MD is Attending Physician. ec2 11:56 Marah Whiteside, RN is Primary Nurse. db 11:56 Arm band placed on Patient placed in an exam room. db 12:04 Triage completed. db 12:16 Chest Single View XRAY In Process Unspecified. EDMS 12:20 First set of blood cultures drawn by me. db 12:25 EKG done, reviewed by Niko Schofield MD. db 12:38 Initial lab(s) drawn, by me, sent to lab. Second set of blood cultures drawn by me. db Inserted saline lock: 20 gauge in right antecubital area, using aseptic technique. Blood collected. Flushed with 10 mL NS. 12:47 Patient has correct armband on for positive identification. Bed in low position. Call db light in reach. Side rails up X2. Client placed on continuous cardiac and pulse oximetry monitoring. NIBP monitoring applied. school lunch monitor on. Pulse ox on. NIBP on. Warm blanket given. Pillow given. 13:33 Urine collected: clean catch specimen. db 13:49 CT Abd/Pelvis - IV Contrast Only In Process Unspecified. EDMS 15:23 CT Chest Wo Con In Process Unspecified. EDMS 15:26 Patient moved back from CT. db 16:16 Ollie Kam MD is Hospitalizing Provider. ec2 16:57 Initial lab(s) drawn, sent to lab. EKG done, reviewed by Niko Schofield MD. db 17:12 Abdomen Limited US In Process Unspecified. EDMS 19:00 Provided Education on: ADMIT. db 19:00 No provider procedures requiring assistance completed. Patient admitted, IV remains in db place. Administered Medications: 13:25 Drug: NS 0.9% IV 1000 ml IV at 1000 ml once; to be given as a bolus over 60 minutes db Route: IV; Rate: 1000 ml; Site: right antecubital; 13:30 Drug: morphine IVP or IV 4 mg IVP once over 4 mins Route: IVP; Infused Over: 4 mins; db Site: right antecubital; 13:33 Drug: Ondansetron IVP 4 mg IVP once; over 2 minutes Route: IVP; Site: right antecubital;db 15:30 Drug: morphine IVP or IV 4 mg IVP once over 4 mins Route: IVP; Infused Over: 4 mins; db Site: right antecubital; Medication: 19:00 VIS not applicable for this client. db Point of Care Testing: Blood Glucose: 12:25 Blood Glucose: 346 mg/dL; db Ranges: Outcome: 16:16 Decision to Hospitalize by Provider. ec2 19:00 Admitted to ER Hold. Please see [employer] for further documentation. db 19:00 Condition: stable 19:00 Instructed on the need for admit, 06/05 02:47 Patient left the ED. vc1 Signatures: Dispatcher [facility] Cristela Christensen RN RN vc1 Marah Whiteside RN RN db Niko Schofield MD MD ec2 Corrections: (The following items were deleted from the chart) 06/04 13:38 13:00 [facility] ED Fall Risk Assessment (Adult) History of falling in the last 3 months, db including since admission No falls in past 3 months (0 pts) Confusion or Disorientation No (0 pts) Intoxicated or Sedated No (0 pts) Impaired Gait No (0 pts) Mobility Assist Device Used No (0 pt) Altered Elimination No (0 pt) Score/Fall Risk Level 0 - 2 = Low Risk Oriented to surroundings, Maintained a safe environment, db
--- NOTE | 2024-06-04 16:16 | EDPHYS ---
Physician Documentation [facility] Name: Tyra Espitia Age: 64 yrs Sex: Female : 1960 Arrival Date: 06/04/2024 Time: 11:54 Bed 27 Private MD: ED Physician Niko Schofield HPI: 06/04 12:25 This 64 yrs old Black Female presents to ER via EMS with complaints of Abdominal Pain. ec2 12:25 Patient arrives today for evaluation of generalized abdominal pain. Reports she been ec2 having abdominal pain ongoing for past 1.5 years. Patient reports some associated nausea as well. Patient reports no vomiting, no diarrhea. Patient reports the specific factor that brought her in today is that she is having some chest pain as well.. Historical: - Allergies: 11:56 No Known Allergies; db - PMHx: 11:56 Back pain; Diabetes - NIDDM; Gastric Reflux; High Cholesterol; Hypertension; db - PSHx: 11:56 Ankle; section; hernia repair; db - Immunization history:: Adult Immunizations unknown. - Infectious Disease History:: Denies. - Social history:: Smoking status: Patient reports the use of cigarette tobacco products, smokes one-half pack cigarettes per day. ROS: 12:26 Constitutional: as per hpi ec2 Exam: 12:26 Constitutional: GEN: NAD Head: atraumatic Eyes: EOMI Ears: External ears are ec2 normal. CV: Tachycardia LUNGS: no respiratory distress ABD: non-distended, general abdominal TTP without guarding or rigidity SKIN: no evidence of rashes MSK: no evidence of trauma Vital Signs: 11:56 BP 144 / 91; Pulse 127; Resp 20; Temp 98.5(O); Pulse Ox 97% on R/A; Weight 99.79 kg; db Height 5 ft. 4 in. ; 13:00 BP 142 / 90; Pulse 124; Resp 20; Pulse Ox 98% on R/A; db 15:33 BP 166 / 99; Pulse 122; Resp 20; Pulse Ox 98% on R/A; db 16:00 BP 154 / 85; Pulse 122; Resp 20; Pulse Ox 96% ; db 17:00 BP 146 / 90; Pulse 121; Resp 22; Pulse Ox 96% ; db 17:30 BP 133 / 80; Pulse 119; Resp 20; Pulse Ox 98% on R/A; db 19:00 BP 129 / 89; Pulse 120; Resp 18; Pulse Ox 100% on R/A; db 11:56 Body Mass Index 37.76 (99.79 kg, 162.56 cm) db MDM: 11:55 Medical Screening Exam initiated ec2 12:26 Data reviewed: vital signs, nurses notes. ED course: Patient arrives today for ec2 generalized abdominal pain. Examination yields tachycardia and general abdominal TTP. Will obtain lab work, CT imaging and treat the patient's symptoms. . 13:09 ED course: EKG independently reviewed and interpreted by me, shows sinus tachycardia, ec2 rate of 126, no acute ST segment elevations, intervals are nonactionable.. 16:07 ED course: CBC reassuring, metabolic profile is nonactionable, urine is noninfectious ec2 appearing. Lactate within normal ranges. Chest x-ray shows no acute intrathoracic process. CT abdomen pelvis shows no acute intra-abdominal process. On reassessment patient does report improvement in symptoms. Patient remains tachycardic at the 120s, I have no source for this at this time. Patient reports that she still has some chest and abdominal pain, will admit the patient for further management. Discussed with hospitalist, pending admission.. 06/04 11:56 Order name: Blood Culture Adult (2) ec2 06/04 11:56 Order name: CBC with Diff; Complete Time: 13:43 ec2 06/04 11:56 Order name: CMP; Complete Time: 13:43 ec2 06/04 11:56 Order name: Lactate w/ 2H reflex if indic.; Complete Time: 13:43 ec2 06/04 11:56 Order name: Protime (+inr); Complete Time: 13:43 ec2 06/04 11:56 Order name: Ptt, Activated; Complete Time: 13:43 ec2 06/04 11:56 Order name: Urinalysis w/ reflexes; Complete Time: 14:04 ec2 06/04 11:56 Order name: BNP; Complete Time: 13:43 ec2 06/04 12:37 Order name: Glucose, Ancillary Testing; Complete Time: 13:43 EDMS 06/04 14:24 Order name: Troponin High Sensitivity; Complete Time: 15:04 ec2 06/04 14:25 Order name: Add On-Lab ec2 06/04 16:38 Order name: DD; Complete Time: 17:12 la1 06/04 17:25 Order name: CBC with Automated Diff EDMS 06/04 17:25 Order name: CBC with Automated Diff EDMS 06/04 17:25 Order name: CBC with Automated Diff EDMS 06/04 17:25 Order name: CBC with Automated Diff EDMS 06/04 17:25 Order name: CBC with Automated Diff EDMS 06/04 17:25 Order name: Comprehensive Metabolic Panel EDMS 06/04 17:25 Order name: Comprehensive Metabolic Panel EDMS 06/04 17:25 Order name: Comprehensive Metabolic Panel EDMS 06/04 17:25 Order name: Comprehensive Metabolic Panel EDMS 06/04 17:25 Order name: Comprehensive Metabolic Panel EDMS 06/04 17:25 Order name: T4 Free EDMS 06/04 17:25 Order name: T4 Free EDMS 06/04 17:25 Order name: Thyroid Stimulating Hormone EDMS 06/04 17:25 Order name: Thyroid Stimulating Hormone EDMS 06/04 17:25 Order name: Troponin High Sensitivity EDMS 06/04 17:25 Order name: Troponin High Sensitivity EDMS 06/04 17:25 Order name: Troponin High Sensitivity EDMS 06/04 11:56 Order name: Chest Single View XRAY; Complete Time: 13:43 06/04 12:08 Order name: CT Abd/Pelvis - IV Contrast Only; Complete Time: 14:23 06/04 15:05 Order name: CT Chest Wo Con; Complete Time: 15:50 06/04 16:38 Order name: Abdomen Limited US la06/04 11:56 Order name: Accucheck; Complete Time: 12:45 06/04 11:56 Order name: Cardiac monitoring; Complete Time: 12:45 06/04 11:56 Order name: EKG - Nurse/Tech; Complete Time: 12:45 06/04 11:56 Order name: IV Saline Lock - Large Bore; Complete Time: 12:45 06/04 11:56 Order name: Labs collected and sent; Complete Time: 12:49 06/04 11:56 Order name: O2 Per Protocol; Complete Time: 12:45 06/04 11:56 Order name: O2 Sat Monitoring; Complete Time: 12:46 06/04 11:56 Order name: Vital Signs; Complete Time: 12:46 ec2 Administered Medications: 13:25 Drug: NS 0.9% IV 1000 ml IV at 1000 ml once; to be given as a bolus over 60 minutes db Route: IV; Rate: 1000 ml; Site: right antecubital; 13:30 Drug: morphine IVP or IV 4 mg IVP once over 4 mins Route: IVP; Infused Over: 4 mins; db Site: right antecubital; 13:33 Drug: Ondansetron IVP 4 mg IVP once; over 2 minutes Route: IVP; Site: right antecubital;db 15:30 Drug: morphine IVP or IV 4 mg IVP once over 4 mins Route: IVP; Infused Over: 4 mins; db Site: right antecubital; Point of Care Testing: Blood Glucose: 12:25 Blood Glucose: 346 mg/dL; db Ranges: Critical Glucose Levels:Adult <50 mg/dl or >400 mg/dl <40 mg/dl or >180 mg/dl Disposition Summary: 06/04/24 16:16 Hospitalization Ordered Notes: Hospitalization Status: Inpatient Admission ec2 Provider: Ollie Kam ec2 Condition: Stable ec2 Problem: an ongoing problem ec2 Symptoms: have improved ec2 Bed/Room Type: Standard ec2 Location: [facility] ER HOLD(06/04/24 18:08) kb3 Room Assignment: ERHOLD-(06/04/24 18:08) kb3 Diagnosis - Chest pain, unspecified ec2 - Upper abdominal pain, unspecified ec2 Forms: - Medication Reconciliation Form ec2 - SBAR form ec2 - Leadership Thank You Letter ec2 Signatures: Dispatcher [employer] EDMS Carlos Enrique Yoder FNP-C CATH[employer]-Cla1 Melvi Gaona RN RN kb3 Marah Whiteside RN RN db Niko Schofield MD MD ec2 Corrections: (The following items were deleted from the chart) 11:56 11:56 BLOOD CULTURE*+BA.LAB.BRZ ordered. EDMS EDMS 11:56 11:56 CBC+H.LAB.BRZ ordered. EDMS EDMS 11:56 11:56 COMPREHENSIVE METABOLIC PANEL+C.LAB.BRZ ordered. EDMS EDMS 11:56 11:56 LACTATE+C.LAB.BRZ ordered. EDMS EDMS 11:56 11:56 PROTIME (+INR)+COAG.LAB.BRZ ordered. EDMS EDMS 11:56 11:56 PTT, ACTIVATED+COAG.LAB.BRZ ordered. EDMS EDMS 11:56 11:56 Urinalysis+U.LAB.BRZ ordered. EDMS EDMS 11:56 11:56 Chest Single View+RAD.RAD.BRZ ordered. EDMS EDMS 11:56 11:56 PROBNP+C.LAB.BRZ ordered. EDMS EDMS 14:24 14:24 Troponin High Sensitivity+C.LAB.BRZ ordered. EDMS EDMS 16:05 12:25 Patient arrives today for evaluation of generalized abdominal pain. Reports she ec2 been having abdominal pain ongoing for past 1.5 years. Patient reports some associated nausea as well. Patient reports no vomiting, no diarrhea.. ec2 18:08 16:16 Telemetry/MedSurg (Inpatient) ec2 kb3 18:08 16:16 ec2 kb3
[2024-06-04] MEDS ORDERED: SODIUM CHLORIDE 0.9% 10ML INJ IV PRN (17:19)
--- NOTE | 2024-06-04 17:20 | RAD REPORT ---
EXAM: Abdominal exam Limited ultrasound CLINICAL HISTORY: Abdominal pain COMPARISON: None FINDINGS: Limited evaluation of the gallbladder secondary to body habitus and technical factors. A gallstone is not seen. Gallbladder wall not thickened. Biliary tree normal caliber IMPRESSION: Grossly normal gallbladder ultrasound
--- NOTE | 2024-06-04 17:33 | P.HP ---
Certification for Inpatient Patient admitted to: Inpatient With expected LOS: >2 Midnights Patient will require the following post-hospital care: None Practitioner: I am a practitioner with admitting privileges, knowledge of patient current condition, hospital course, and medical plan of care. Services: Services provided to patient in accordance with Admission requirements found in Title 42 Section 412.3 of the Code of Federal Regulations Patient History Date of Service: 06/04/24 Reason for admission: Intractable abdominal pain History of Present Illness: 64-year-old female with history of insulin-dependent diabetes, hypertension, hyperlipidemia, gastric ulcers presents to the emergency department chief complaint of upper abdominal pain, shortness of breath and cough. She reports that the shortness of breath and cough been going on for around 1 month now, the abdominal pain has been intermittent and worsening over the course of last 1 year. She is evaluated in the emergency department her labs were significant for a blood sugar of 350 D-dimer is normal at 0.22 initial high sensitive troponin was 30.6 EKG without STEMI criteria presents CT chest abdomen pelvis was negative for acute findings abdominal ultrasound was also performed which was grossly normal. Patient still tachycardic with her heart rate around 120 with complaints of abdominal pain, will be admitted under observation for intractable abdominal pain. Allergies NKDA Allergy (Uncoded 07/29/13 13:22) Unknown Home Medications: Albuterol Sulfate [Ventolin Hfa] 18 gm IH TID PRN 12/18/12 Zolpidem Tartrate [Ambien*] 10 mg PO BEDTIME PRN PRN 12/18/12 Ascorbate Calcium [Vitamin C] 500 mg PO DAILY 03/10/14 Glimepiride [Amaryl] 4 mg PO DAILY 03/10/14 Lubiprostone [Amitiza*] 24 mcg PO BID 03/10/14 Metformin HCl [Metformin ER Osmotic] 1,000 mg PO DAILY 03/10/14 Pantoprazole [Protonix Tab*] 40 mg PO DAILY 03/10/14 Tramadol HCl [Ultram] 100 mg PO TID MDD 1 03/10/14 Amitriptyline [Elavil*] 25 mg PO BEDTIME PRN 11/18/21 Atorvastatin Calcium 40 mg PO DAILY 11/18/21 Ciprofloxacin HCl 250 mg PO BID #20 11/18/21 Citalopram Hydrobromide [Celexa] 40 mg PO DAILY 11/18/21 Losartan Potassium [Cozaar*] 50 mg PO DAILY 11/18/21 Sucralfate [Carafate*] 1 gm PO QID #120 tab 11/18/21 Tizanidine HCl 2 mg PO BEDTIME PRN PRN 11/18/21 metroNIDAZOLE [Flagyl] 500 mg PO Q8H #20 11/18/21 predniSONE [Deltasone] 20 mg PO DAILY #5 tab 11/18/21 Hydrocodone 10/APAP 325 [[place] 10/325] 1 tab PO Q6H PRN #30 tab 11/20/21 - Past Medical/Surgical History Diabetic: Yes -: insomnia -: HTN -: stigma R eye -: R ankle fracture -: NIDDM -: HLD -: X2 -: R ankle sx: pin and plate in R ankle -: Hernia Repair Psychosocial/ Personal History: Patient lives at home with her . - Social History Alcohol use: No CD- Drugs: No Caffeine use: Yes Place of Residence: Home Review of Systems 10-point ROS is otherwise unremarkable Respiratory: Cough, Shortness of Breath Gastrointestinal: Abdominal Pain Physical Examination - Physical Exam General: Alert, In no apparent distress, Oriented x3 HEENT: Atraumatic, PERRLA, EOMI Neck: Supple, 2+ carotid pulse no bruit Respiratory: Clear to auscultation bilaterally, Normal air movement Cardiovascular: Regular rate/rhythm, Normal S1 S2 Gastrointestinal: Normal bowel sounds, Tenderness (Mild upper abdominal tenderness bilaterally) Musculoskeletal: No tenderness Integumentary: No rashes Neurological: Normal speech, Normal strength at 5/5 x4 extr, Normal affect - Studies Laboratory Data (last 24 hrs) 06/04/24 06/04/24 06/04/24 12:38 12:38 12:38 WBC 6.40 Hgb 11.9 L Hct 35.3 L Plt Count 235 PT 11.3 INR 0.99 APTT 27.8 Sodium 137 Potassium 4.0 BUN 13 Creatinine 0.80 Glucose 350 H Total Bilirubin 0.8 AST < 10 L ALT 15 Alkaline Phosphatase 134 H Assessment and Plan - Plan Assessment: Intractable abdominal pain History of GERD/gastric ulcers Short of breath/cough Diabetes mellitus type 2insulin-dependent with hyperglycemia Hypertension Hyperlipidemia Plan: Intractable abdominal pain History of GERD/gastric ulcers Short of breath/cough CT chest abdomen pelvis negative for acute findings Abdominal ultrasound shows grossly normal gallbladder Dimer negative initial high sensitive troponin negative, Trend troponins, monitor on telemetry Trial PPI, IV fluids and as needed pain medications Serial abdominal exams Diabetes mellitus type 2insulin-dependent with hyperglycemia ACHS Accu-Chek, sliding scale insulin Hypertension Hyperlipidemia Continue home medications DVT PPX: Lovenox Code status:Full Discharge Plan: Home Plan to discharge in: 48 Hours - Advance Directives Does patient have a Living Will: No Does patient have a Durable POA for Healthcare: No - Code Status/Comfort Care Code Status Assessed: Yes (Full code) Critical Care: No Time Spent Managing Pts Care (In Minutes): 67
[2024-06-04] MEDS: NA CHLORIDE 0.9% 1,000 ML IV SCH (18:00)
[2024-06-04 18:55] VITALS: BMI 37.8
[2024-06-04] MEDS: PANTOPRAZOLE 40 MG INJ IVP SCH (21:00)
[2024-06-04] MEDS ORDERED: PANTOPRAZOLE 40 MG INJ ONE (22:08)
[2024-06-04] MEDS ORDERED: MORPHINE 2 MG/ML SYR ONE (22:08)
[2024-06-04] MEDS: MORPHINE 2 MG/ML SYR IV PRN (22:18)
[2024-06-05] MEDS ORDERED: MORPHINE 2 MG/ML SYR ONE (02:03)
[2024-06-05 02:52] VITALS: TEMP 98.5
[2024-06-05 03:02] VITALS: BP 129/89; O2SAT 100
--- NOTE | 2024-06-05 08:37 | EKG ---
Test Date: 2024-06-04 Test Time: 12:28:31 Property Management Assistant: GEOFF MEASUREMENT RESULTS: Intervals: Rate: 126 NE: 152 QRSD: 88 QT: 308 QTc: 446 [place]: P: 70 NE: 152 QRS: 15 T: 39 INTERPRETIVE STATEMENTS: Sinus tachycardia Low voltage QRS Borderline ECG Compared to ECG 10/23/2023 15:52:24 Low QRS voltage now present Sinus rhythm no longer present T-wave abnormality no longer present Prolonged QT interval no longer present Electronically Signed On 06-05-24 08:35:18 CDT by Krish Caldwell
== END 2024-06-05 02:30 | disposition left against medical advice (07) ==
LOC: ER 11:54 → ERHOLD 17:13
PROVIDERS: ADMIT Hospitalist; ATTEND Hospitalist
DX: R10.9 Unspecified abdominal pain (principal); E11.9 Type 2 diabetes mellitus without complications; R00.0 Tachycardia, unspecified; I10 Essential (primary) hypertension; R07.9 Chest pain, unspecified; E78.5 Hyperlipidemia, unspecified; K25.9 Gastric ulcer, unspecified as acute or chronic, without hemorrhage or perforation; R06.02 Shortness of breath; R05.9 Cough, unspecified; Z79.4 Long term (current) use of insulin
CPT/HCPCS: 36415; 71045; 71250; 74177; 76705; 80053; 81001; 82947; 83605; 83880; 84484; 85025; 85379; 85610; 85730; 87040; 93005; J2270; J2405; J2470; J7030; Q9967